=== PATIENT | male | born 1955 | race Caucasian/White ===

== ENCOUNTER → 2016-11-12 | Outpatient (CLI) | payer MEDICARE, OTHER ==
[~2016-11-12] MED LIST: /WARF2TA PO; ATOR1TAB21 PO; BACL10TA2 PO; COUM1TAB19 PO; CYCL10TA PO; FURO40TA2 PO; GABA300C3 PO; LYRI150C PO; LYRI75CA PO; NORC7.5T PO; NORT50CA PO; PAXI40TA2 PO; PRED20TA PO; SYNT25TA PO; VICO5TAB16 PO; VITA100L PO; VITA500019 PO; WARF05TA PO; WELL75TA PO; ZOLP-189 PO
--- NOTE | 2016-11-28 01:12 | ECWPNPC ---
PATIENT NAME: INDIRA BRASWELL : 1955 GENDER: MALE VISIT DATE: 11/12/2016 DISCHARGE DATE: 11/12/16 1052 VISIT LOCKED DATE TIME: PHYSICIAN: NATHAN MADSEN PHYSICIAN PAGER NO: [phone] RESOURCE: NATHAN MADSEN REASON FOR APPOINTMENT 1. FOLLOW UP-BACK HISTORY OF PRESENT ILLNESS HISTORY OF PRESENT ILLNESS: PAIN THE PATIENT DESCRIBES THE PAIN... FALL RISK SCREENING: SCREENING :NO FALLS IN THE PAST YEAR TODAY'S VISIT: NOTES: RATES PAIN TODAY 3-4/10. DESCRIBES PAIN BURNING, SHARP AND STABBING, SHOOTING. PAIN IS CENTERED IN LOW BACK WITH RADIATION TO BOTH LEGS. STATES PAIN IS MAKING HIM UNABLE STAY ASLEEP.NOTES PAIN IS CONTINIOUS AND IT IS NERVE PAIN THAT IS CAUSING THE AWAKING. NO NEW WEAKNESS, HAS OCCASIONAL TINGLING IN BOTH LEGS. NO LOSS OF BOWEL OR BLADDER CONTROL. IS HAVING HARD TIME WITH PROLONGED SITTING OR STANDING. NO SHOOTING PAIN WITH WALKING. . CURRENT MEDICATIONS TAKING MIRALAX - POWDER 17 GRAMS ORALLY IN WATER OR JUICE ONCE A DAY TAKING PAXIL 60 MG TABLET 1 TABLET ORALLY ONCE A DAY TAKING COUMADIN 3 MG TABLET 1/2 TABLET ON MONDAYS AND THURSDAYS THEN 1 TABLET THE ROW ORALLY ONCE DAILY TAKING LIPITOR 20 MG TABLET 1 TABLET ORALLY ONCE A DAY TAKING VITAMIN D (CHOLECALCIFEROL) 5000 UNIT TABLET 1 TAB ORALLY ONCE A DAY TAKING CALCIUM 600+D HIGH POTENCY 600-400 MG-UNIT TABLET 1 TABLET WITH FOOD ORALLY ONCE A DAY TAKING LASIX 40 MG TABLET 1 TABLET ORALLY ONCE A DAY TAKING AMITRIPTYLINE HCL 50 TABLET 1 ORALLY AT BEDTIME TAKING VIIBRYD 20 MG TABLET 2 TABLETS WITH FOOD ORALLY ONCE A DAY TAKING TIZANIDINE HCL 2 MG TABLET 1 TABLET NEEDED ORALLY THREE TIMES A DAY TAKING BUPROPION HCL 75 MG TABLET 1 TABLET ORALLY EVERY MORNING TAKING ZOLPIDEM TARTRATE 10 MG TABLET 1 TABLET AT BEDTIME NEEDED ORALLY AT BEDTIME MDD :1 TAKING NORCO 7.5-325 MG TABLET 1 TABLET NEEDED ORALLY EVERY 6 HRS PRN PAIN MDD=4 TAKING LEVOTHYROXINE SODIUM 25 MCG TABLET 1 TABLET ORALLY ONCE A DAY NOT-TAKING LASIX 40 MG TABLET 1 TABLET ORALLY ONCE A DAY NOT-TAKING VICODIN 7.5 TABLET 1 TABLET NEEDED ORALLY EVERY 6 HRS PRN PAIN-MDD-4 MEDICATION LIST REVIEWED AND RECONCILED WITH THE PATIENT PAST MEDICAL HISTORY DEPRESSION HYPERLIPIDEMIA 2B RIGHT LOWER EXTREMITY DVT IN NOVEMBER 2009, IDIOPATHIC-NEGATIVE HYPERCOAGULABLE WORKUP EXCEPT FOR HETEROZYGOTE FOR FACTOR V 5 LEIDEN NICOTINE ADDICTION-SMOKES ROUGHLY 2 CIGARS DAILY X30 YEARS-APRIL 2011 FEV1 95% NORMAL/FVC 86% NORMAL L EAR HEARING LOSS STATUS POST RADIOFREQUENCY ABLATION FOR SYMPTOMATIC RECURRENT EXERCISE-INDUCED MONOMORPHIC V. TACH-JANUARY 2000-DR. 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 ANA RASCON [facility] 11/2012-06/2012 NEGATIVE MRI/MRA BRAIN/NEGATIVE OCULAR [id number]-LDENZ-4/2012//L QUADRICEPS MUSCLE [id number] MUSCLE FIBER ATROPHY, FAVOR NEUROPATHIC PROCESS-[facility] L POPLITEAL AND PERONEAL/ANTERIOR TIBIAL VEIN (OF PROXIMAL CALF) DVT AND GSV OCCLUSION-03/[id number] COUMADIN STARTED BODERLINE LVH, LVEF 75%, LAE 39 MM, NORMAL DIASTOLIC FUNCTION BY 11/2013 TTE-SIMONS LUMBAR DJD- 12/2013 MRI C DIFFUSE BULGES L2-S1 C L5/S1 BULGE ABUTTING B S1 NEVER ROOTS CERVICAL DJD C3-7 SPONDYLOSIS S CORD COMPRESION, MILD L C5 NARROWING BY 12/2013 MRI BORDERLINE LVH, LAE 39 MM BY TTE 11/2013-SIMONS HYPOTHYROIDISM, AUTOIMMUNE-12/2014 TPO AB 192, - TG AB SIGMOID DIVERTICULITIS, FIRST EPISODE BY 09/25/14 CT A/P, WBC 19.8, 08/2015 REPEAT WCB 14.1-RESOLVED C C/F 10D, 11/2015 REPEAT C C/F 10D FELL, BRUISED RIBS RIGHT SIDE 01/2016 ALLERGIES MOBIC: PSYCHOLOGICAL CHANGES, NAUSEA: ALLERGY LYRICA: SEVERE DEPRESSION SOCIAL HISTORY GENERAL: TOBACCO USE ARE YOU A:CURRENT SMOKER LEARNING BARRIERS / SPECIAL NEEDS ORIENTED TO PLAN OF CARE: PATIENT, PAIN MANAGEMENT PATIENT, ORIENTED TO PLAN OF CARE: PATIENT, PAIN MANAGEMENT PATIENT. NEW PATIENT PAIN DIARY TODAY'S VISITNOTES FROM 0-10, WHAT LEVEL IS YOUR PAIN TODAY?0 PAIN CLINIC PFS, CLERGY, PUBLIC HEALTH REFERRALS PFS REFERRAL NEEDED?NO PFS REFERRAL NEEDED?NO CLERGY REFERRAL NEEDED?NO CLERGY REFERRAL NEEDED?NO PUBLIC HEALTH REFERRAL NEEDED?NO PUBLIC HEALTH REFERRAL NEEDED?NO WAS THE PROVIDER NOTIFIED OF ANY PERTINENT INFO?NO WAS THE PROVIDER NOTIFIED OF ANY PERTINENT INFO?NO REVIEW OF SYSTEMS CONSTITUTIONAL: ANY CHANGE IN YOUR MEDICAL CONDITION? YES UNABLE TO SLEEP THROUGH THE NIGHT DUE TO BA K AN LEG PAIN . CHILLS NO . FEVER NO . INFECTION: DO YOU HAVE NEW INFECTIONS? NO . DO YOU HAVE HISTORY OF MRSA? NO . MUSCULOSKELETAL: ANY NEW PATTERNS OF PAIN OR NUMBNESS? NO . GASTROENTEROLOGY: ANY NEW CHANGE IN BOWEL CONTROL? NO . GENITOURINARY: ANY NEW CHANGE IN BLADDER CONTROL? NO . IS THERE A CHANCE YOU COULD BE ? NO . HEMATOLOGY/LYMPH: DO YOU TAKE ANY BLOOD THINNERS? (FOR EXAMPLE- COUMADIN, PLAVIX, AGGRENOX, PLATEL, PRADAXA, OR XARELTO) YES COUMADIN . WHEN WAS YOUR LAST DOSE? DATE: TIME: . NEUROLOGY: HAVE YOU FALLEN IN THE PAST 6 MONTHS? NO . ANY NEW EXTREMITY NUMBNESS OR WEAKNESS? NO . CARDIOLOGY: DO YOU HAVE A PACEMAKER OR DEFIBRILLATOR? NO . ANGINA DENIES . STROKE DENIES RECENT STROKE LIKE SYMPTOMS . CHEST PAIN PATIENT DENIES . SWELLING OF ANKLES NONE . RESPIRATORY: HAVE YOU BEEN SICK IN THE PAST WEEK? NO . FEVER NO . FLU LIKE SYMPTOMS? NO . COUGH NO . INTEGUMENTARY: DO YOU HAVE ANY RASHES OR OPEN SORES? NO . ALLERGIC/IMMUNO: ARE YOU ALLERGIC TO SHELLFISH OR IV DYE? NO . ANY NEW ALLERGIES? NO . PSYCHIATRIC: DO YOU HAVE THOUGHTS OF HURTING YOURSELF OR SOMEONE ELSE? NO . ARE YOU ABUSED, NEGLECTED, OR IN AN UNSAFE ENVIRONMENT? NO . ENDOCRINOLOGY: ARE YOU DIABETIC? NO . OTHER: DO YOU NEED ANY PRESCRIPTIONS? NO . IF YES, PLEASE LIST: ____ . ANY NEW PROBLEMS WITH YOUR MEDICATIONS? NO . WHEN DID YOU LAST EAT? ____ . WHEN DID YOU LAST DRINK? ____ . WHAT DID YOU LAST DRINK? ____ . NAME OF PERSON DRIVING YOU HOME? ____ . DO YOU HAVE ANY OTHER QUESTIONS OR CONCERNS NO . REVIEWED BY: PROVIDER: NATHAN KILPATRICK . VITAL SIGNS WT 115/69 LBS, HT 69 IN, BMI 28.20 INDEX, HR 70 /MIN, RR 18 /MIN, TEMP 97 F, OXYGEN SAT % 100, SAFE IN ENV? (Y/N) Y, REVIEWED BY: KG. EXAMINATION GENERAL EXAMINATION: PSYCHALERT , ORIENTED X 3 , QUIET. LUNGS:CLEAR TO AUSCULTATION BILATERALLY. HEART:HEART RATE REGULAR. MUSCULOSKELETAL:POINT TENDERNESS OVER LUMBAR SPINOUS PROCESSES AND ACROC THE LUMBAR FACETS AND PARASPINOUS MUSCLES. EXTREMITIES:NO EDEMA. 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 FACET ARTHROPATHY, LUMBOSACRAL INJECTION FACET JOINT/NERVE LUMBAR/SACRALWALNATHAN TRAN 11/12/2016 10:44:19 AM > RIGHT PROCEDURE CODES FA211 ESTABILISHED PATIENT [facility] FACILITY CHARGE G7884 BP SCR PRFRM RCMDD DEFIND SCR INTVL G8730 PAIN ASSESS POS TOOL F/U PLAN DOC 3016F PT SCRND UNHLTHY OH USE 1124F ACP DISCUSS-NO DSCNMKR DOCD 1036F TOBACCO NON-USER G8427 DOC MEDS VERIFIED W/PT OR RE G8420 BMI<30 AND >=22 CALC & DOCU 3288F FALL RISK ASSESSMENT DOCD FOLLOW UP AFTER INJECTION (REASON: CHECK AUTH FOR LUMBAR FACET BLOCK - ON COUMADIN - TO PUT COUMADIN HOLD FOR PROCEDURE) ELECTRONICALLY SIGNED BY JAMEY ENNIS ON 11/26/2016 AT 02:40 PM EST DISCLAIMER : THIS IS A VISIT SUMMARY EXTRACTED FROM THE [employer] CHART. IT IS NOT A COPY OF THE [employer] PROGRESS NOTE. KEITH
== END ==
LOC: M PAIN 10:00
PROVIDERS: ATTEND Nurse Practitioner Family
DX: Z09 Encounter for follow-up examination after completed treatment for conditions other than malignant neoplasm (principal); M79.1 Myalgia; M12.88 Other specific arthropathies, not elsewhere classified, other specified site; M51.17 Intervertebral disc disorders with radiculopathy, lumbosacral region; M50.222 Other cervical disc displacement at C5-C6 level; M50.31 Other cervical disc degeneration, high cervical region; M50.321 Other cervical disc degeneration at C4-C5 level; M50.322 Other cervical disc degeneration at C5-C6 level; M50.323 Other cervical disc degeneration at C6-C7 level; E78.5 Hyperlipidemia, unspecified; E03.9 Hypothyroidism, unspecified; H91.92 Unspecified hearing loss, left ear; I82.432 Acute embolism and thrombosis of left popliteal vein; K76.0 Fatty (change of) liver, not elsewhere classified; F32.9 Major depressive disorder, single episode, unspecified; F17.200 Nicotine dependence, unspecified, uncomplicated; Z88.8 Allergy status to other drugs, medicaments and biological substances; Z79.01 Long term (current) use of anticoagulants; Z79.891 Long term (current) use of opiate analgesic; Z79.899 Other long term (current) drug therapy; Z87.828 Personal history of other (healed) physical injury and trauma

== ENCOUNTER → 2016-11-15 | Outpatient (REF) | payer MEDICARE, OTHER ==
[2016-11-15 13:37] LABS: ALBUMIN 3.8 GM/DL (3.2-5.2); ALBUMIN/GLOBULIN RATIO 1.46 (1.00-1.93); ALKALINE PHOSPHATASE 88 U/L (45-117); ALT/SGPT 23 U/L (12-78); ANION GAP 7 MEQ/L (8-16); AST/SGOT 18 U/L (15-37); BILIRUBIN,TOTAL 0.4 MG/DL (0.2-1.0); BLOOD UREA NITROGEN 17 MG/DL (7-18); CALCIUM LEVEL 8.7 MG/DL (8.8-10.2); CARBON DIOXIDE LEVEL 30 MEQ/L (21-32); CHLORIDE LEVEL 107 MEQ/L (98-107); CREATININE FOR GFR 1.21 MG/DL (0.70-1.30); GLOMERULAR FILTRATION RATE > 60.0 (>49); GLUCOSE, FASTING 101 MG/DL (80-110); MAGNESIUM LEVEL 2.2 MG/DL (1.8-2.4); POTASSIUM SERUM 4.1 MEQ/L (3.5-5.1); SODIUM LEVEL 144 MEQ/L (136-145); TOTAL PROTEIN 6.4 GM/DL (6.4-8.2)
[2016-11-15 13:42] LABS: INR 2.39
== END ==
LOC: M SFHCPLAZ 11:08
PROVIDERS: ATTEND Family Medicine
DX: Z51.81 Encounter for therapeutic drug level monitoring (principal); R60.9 Edema, unspecified; N18.2 Chronic kidney disease, stage 2 (mild); I82.509 Chronic embolism and thrombosis of unspecified deep veins of unspecified lower extremity; Z79.01 Long term (current) use of anticoagulants; Z12.5 Encounter for screening for malignant neoplasm of prostate; E03.9 Hypothyroidism, unspecified; E55.9 Vitamin D deficiency, unspecified; K57.92 Diverticulitis of intestine, part unspecified, without perforation or abscess without bleeding
CPT/HCPCS: 36415; 80053; 83036; 83735; 83880; 85610; 85730; G0103

== ENCOUNTER → 2016-11-26 | Outpatient (CLI) | payer MEDICARE, OTHER ==
[~2016-11-26] MED LIST changes: +BUPIVACAINE HCL 0.25% 30 ML VIAL As Ordered ONE; +ISOVUE-M 300 61% 15ML VIAL (Q9967) As Ordered ONE; +LIDOCAINE 1% SDV INJ 30 ML VIAL As Ordered ONE; +TRIAMCINOLONE ACETONIDE SUSP 40 MG/ML VIAL (J3301) As Ordered ONE; +diazePAM 5 MG TAB As Ordered ONE; +oxyCODONE 5MG TAB As Ordered ONE
--- NOTE | 2016-11-26 11:51 | REP ---
PARTIAL LUMBAR SPINE SERIES: Two views. HISTORY: Facet block for pain. 6 seconds of fluoroscopy time is reported. FINDINGS: A sequence of two fluoroscopically obtained intraprocedural spot radiographs of the lumbar spine document needle position and contrast injection associated with lumbar facet injection procedure. Signed by Saul Palacios MD 11/26/2016 01:19 P
--- NOTE | 2016-11-29 23:56 | ECWPNPC ---
PATIENT NAME: INDIRA BRASWELL : 1955 GENDER: MALE VISIT DATE: 11/26/2016 DISCHARGE DATE: 11/26/16 1110 VISIT LOCKED DATE TIME: PHYSICIAN: LAURE ESCUDERO PHYSICIAN PAGER NO: [phone] RESOURCE: LAURE ESCUDERO REASON FOR APPOINTMENT 1. FACET HISTORY OF PRESENT ILLNESS HISTORY OF PRESENT ILLNESS: PAIN THE PATIENT DESCRIBES THE PAIN... FALL RISK SCREENING: SCREENING :NO FALLS IN THE PAST YEAR CURRENT MEDICATIONS TAKING MIRALAX - POWDER 17 GRAMS ORALLY IN WATER OR JUICE ONCE A DAY, NOTES: 11/25/162229 TAKING PAXIL 60 MG TABLET 1 TABLET ORALLY ONCE A DAY, NOTES: 11/25/16 1300 TAKING COUMADIN 3 MG TABLET 1/2 TABLET ON MONDAYS AND THURSDAYS THEN 1 TABLET THE ROW ORALLY ONCE DAILY, NOTES: 11/19/16 TAKING LIPITOR 20 MG TABLET 1 TABLET ORALLY ONCE A DAY, NOTES: 11/25/162229 TAKING VITAMIN D (CHOLECALCIFEROL) 5000 UNIT TABLET 1 TAB ORALLY ONCE A DAY, NOTES: 11/25/16 08 TAKING CALCIUM 600+D HIGH POTENCY 600-400 MG-UNIT TABLET 1 TABLET WITH FOOD ORALLY ONCE A DAY, NOTES: 11/25/16799 TAKING LASIX 40 MG TABLET 1 TABLET ORALLY ONCE A DAY, NOTES: 11/25/16 08 TAKING AMITRIPTYLINE HCL 50 TABLET 1 ORALLY AT BEDTIME, NOTES: 11/25/162229 TAKING BUPROPION HCL 75 MG TABLET 1 TABLET ORALLY EVERY MORNING, NOTES: 11/25/16 0900 TAKING NORCO 7.5-325 MG TABLET 1 TABLET NEEDED ORALLY EVERY 6 HRS PRN PAIN MDD=4, NOTES: 11/25/162229 TAKING LEVOTHYROXINE SODIUM 25 MCG TABLET 1 TABLET ORALLY ONCE A DAY, NOTES: 11/25/16 0700 TAKING ZOLPIDEM TARTRATE 10 MG TABLET 1 TABLET AT BEDTIME NEEDED ORALLY AT BEDTIME MDD :1, NOTES: 11/25/162229 TAKING TIZANIDINE HCL 2 MG TABLET 1 TABLET NEEDED ORALLY THREE TIMES A DAY, NOTES: 11/25/162229 TAKING VIIBRYD 20 MG TABLET 2 TABLETS WITH FOOD ORALLY ONCE A DAY, NOTES: 11/25/16 0800 NOT-TAKING LASIX 40 MG TABLET 1 TABLET ORALLY ONCE A DAY NOT-TAKING VICODIN 7.5 TABLET 1 TABLET NEEDED ORALLY EVERY 6 HRS PRN PAIN-MDD-4 MEDICATION LIST REVIEWED AND RECONCILED WITH THE PATIENT PAST MEDICAL HISTORY DEPRESSION HYPERLIPIDEMIA 2B RIGHT LOWER EXTREMITY DVT IN NOVEMBER 2009, IDIOPATHIC-NEGATIVE HYPERCOAGULABLE WORKUP EXCEPT FOR HETEROZYGOTE FOR FACTOR V 5 LEIDEN NICOTINE ADDICTION-SMOKES ROUGHLY 2 CIGARS DAILY X30 YEARS-APRIL 2011 FEV1 95% NORMAL/FVC 86% NORMAL L EAR HEARING LOSS STATUS POST RADIOFREQUENCY ABLATION FOR SYMPTOMATIC RECURRENT EXERCISE-INDUCED MONOMORPHIC V. TACH-JANUARY 2000-DR. 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 ANA RASCON [facility] 11/2012-06/2012 NEGATIVE MRI/MRA BRAIN/NEGATIVE OCULAR NVTRQAYQ-AHQSL-6/2012//L QUADRICEPS MUSCLE [id number] MUSCLE FIBER ATROPHY, FAVOR NEUROPATHIC PROCESS-[facility] POPLITEAL AND PERONEAL/ANTERIOR TIBIAL VEIN (OF PROXIMAL CALF) DVT AND GSV OCCLUSION-03/[id number] COUMADIN STARTED BODERLINE LVH, LVEF 75%, LAE 39 MM, NORMAL DIASTOLIC FUNCTION BY 11/2013 TTE-SIMONS LUMBAR DJD- 12/2013 MRI C DIFFUSE BULGES L2-S1 C L5/S1 BULGE ABUTTING B S1 NEVER ROOTS CERVICAL DJD C3-7 SPONDYLOSIS S CORD COMPRESION, MILD L C5 NARROWING BY 12/2013 MRI BORDERLINE LVH, LAE 39 MM BY TTE 11/2013-SIMONS HYPOTHYROIDISM, AUTOIMMUNE-12/2014 TPO AB 192, - TG AB SIGMOID DIVERTICULITIS, FIRST EPISODE BY 09/25/14 CT A/P, WBC 19.8, 08/2015 REPEAT WCB 14.1-RESOLVED C C/F 10D, 11/2015 REPEAT C C/F 10D FELL, BRUISED RIBS RIGHT SIDE 01/2016 ALLERGIES MOBIC: PSYCHOLOGICAL CHANGES, NAUSEA: ALLERGY LYRICA: SEVERE DEPRESSION SOCIAL HISTORY GENERAL: TOBACCO USE ARE YOU A:NONSMOKER LEARNING BARRIERS / SPECIAL NEEDS ORIENTED TO PLAN OF CARE: PATIENT, PAIN MANAGEMENT PATIENT, ORIENTED TO PLAN OF CARE: PATIENT, PAIN MANAGEMENT PATIENT. NEW PATIENT PAIN DIARY TODAY'S VISITNOTES FROM 0-10, WHAT LEVEL IS YOUR PAIN TODAY?0 PAIN CLINIC PFS, CLERGY, PUBLIC HEALTH REFERRALS PFS REFERRAL NEEDED?NO CLERGY REFERRAL NEEDED?NO PUBLIC HEALTH REFERRAL NEEDED?NO WAS THE PROVIDER NOTIFIED OF ANY PERTINENT INFO?NO PFS REFERRAL NEEDED?NO CLERGY REFERRAL NEEDED?NO PUBLIC HEALTH REFERRAL NEEDED?NO WAS THE PROVIDER NOTIFIED OF ANY PERTINENT INFO?NO REVIEW OF SYSTEMS CONSTITUTIONAL: ANY CHANGE IN YOUR MEDICAL CONDITION? NO . CHILLS NO . FEVER NO . INFECTION: DO YOU HAVE NEW INFECTIONS? NO . DO YOU HAVE HISTORY OF MRSA? NO . MUSCULOSKELETAL: ANY NEW PATTERNS OF PAIN OR NUMBNESS? NO . GASTROENTEROLOGY: ANY NEW CHANGE IN BOWEL CONTROL? NO . GENITOURINARY: ANY NEW CHANGE IN BLADDER CONTROL? NO . IS THERE A CHANCE YOU COULD BE ? NO . HEMATOLOGY/LYMPH: DO YOU TAKE ANY BLOOD THINNERS? (FOR EXAMPLE- COUMADIN, PLAVIX, AGGRENOX, PLATEL, PRADAXA, OR XARELTO) YES COUMADIN . WHEN WAS YOUR LAST DOSE? DATE: TIME: 11/19/162229 . NEUROLOGY: HAVE YOU FALLEN IN THE PAST 6 MONTHS? NO . ANY NEW EXTREMITY NUMBNESS OR WEAKNESS? NO . CARDIOLOGY: DO YOU HAVE A PACEMAKER OR DEFIBRILLATOR? NO . RESPIRATORY: HAVE YOU BEEN SICK IN THE PAST WEEK? NO . FEVER NO . FLU LIKE SYMPTOMS? NO . COUGH NO . INTEGUMENTARY: DO YOU HAVE ANY RASHES OR OPEN SORES? NO . ALLERGIC/IMMUNO: ARE YOU ALLERGIC TO SHELLFISH OR IV DYE? NO . ANY NEW ALLERGIES? NO . PSYCHIATRIC: DO YOU HAVE THOUGHTS OF HURTING YOURSELF OR SOMEONE ELSE? NO . ARE YOU ABUSED, NEGLECTED, OR IN AN UNSAFE ENVIRONMENT? NO . ENDOCRINOLOGY: ARE YOU DIABETIC? NO . OTHER: DO YOU NEED ANY PRESCRIPTIONS? YES HYDROCODONE-SENT TO [facility] . IF YES, PLEASE LIST: ____ . ANY NEW PROBLEMS WITH YOUR MEDICATIONS? NO . WHEN DID YOU LAST EAT? ____11/25/162199 . WHEN DID YOU LAST DRINK? ____11/25/162229 . WHAT DID YOU LAST DRINK? ____WATER . NAME OF PERSON DRIVING YOU HOME? ____CATHIE . DO YOU HAVE ANY OTHER QUESTIONS OR CONCERNS NO . REVIEWED BY: PROVIDER: . VITAL SIGNS WT 190 LBS, HT 69 IN, BMI 28.06 INDEX, BP 103/69 MM HG, HR 62 /MIN, RR 16 /MIN, TEMP 95.8 F, OXYGEN SAT % 98%, NA INITIALS SC 09:07, REVIEWED BY: MLF. ASSESSMENTS SPONDYLOSIS WITHOUT MYELOPATHY OR RADICULOPATHY, LUMBAR REGION - M47.816 (PRIMARY) SPONDYLOSIS WITHOUT MYELOPATHY OR RADICULOPATHY, LUMBOSACRAL REGION - M47.817 PROCEDURES PN LUMBAR FACET BLOCK THERAPEUTIC PRE PROCEDURE DIAGNOSIS LUMBAR SPONDYLOSIS, LUMBOSACRAL SPONDYLOSIS POST PROCEDURE DIAGNOSIS LUMBAR SPONDYLOSIS, LUMBOSACRAL SPONDYLOSIS PROCEDURE BILATERAL L4-L5 AND BILATERAL L5-S1 FACET THERAPEUTIC BLOCK SURGEON DR. LAURE ESCUDERO [facility] [employer] [facility] ANESTHESIA LOCAL PRE PROCEDURE NOTE THE PATIENT HAS A HISTORY OF CHRONIC LOW BACK PAIN. I EVALUATE THE PATIENT AND REVIEWED THE CHART. I WENT OVER THE RISKS, ALTERNATIVES, AND BENEFITS ASSOCIATED WITH THIS PROCEDURE. THE PATIENT WOULD LIKE TO PROCEED AND GIVE CONSENT TO PERFORMED THE PROCEDURE. THE PATIENT DENIES UNEXPLAINABLE WEIGHT LOSS, FEVER, CHILLS, OR NEW CHANGES IN URINARY OR BOWEL CONTROL DESCRIPTION OF PROCEDURE THE PATIENT WAS BROUGHT TO THE PROCEDURE ROOM AND PLACED IN THE PRONE POSITION. THE LUMBOSACRAL AREA WAS CLEANED WITH CHLORAPREP SOLUTION AND DRAPED ASEPTICALLY. THE PROCEDURE WAS DONE UNDER STERILE CONDITIONS. I CHECKED LATERALITY AND THE LEVEL WHERE THE PROCEDURE WAS GOING TO BE PERFORMED WITH THE PATIENT AND THE SUPPORTING STAFF AT THE MOMENT OF THE TIME OUT IN THE PROCEDURE ROOM. UNDER FLUOROSCOPIC GUIDANCE, THE TARGET POINT WAS SELECTED AT THE RIGHT AND LEFT L4-L5 AND RIGHT AND LEFT L5-S1 FACET JOINT. TARGET POINT WAS SELECTED AFTER LATERAL ROTATION AND TILT OF THE MAGNIFIER OF THE C-ARM. LIDOCAINE 0.5% WAS USED TO NUMB THE SKIN AND THE SUBCUTANEOUS TISSUE BELOW IT. SPINAL NEEDLES, 22-GAUGE, WERE ADVANCED UNDER FLUOROSCOPIC GUIDANCE AND FOLLOWING PATIENT FEEDBACK UNTIL THE TARGETS WERE TOUCHED. THE POSITION OF THE NEEDLES WAS VERIFIED WITH AP AND LATERAL VIEWS. AFTER PROPER POSITION OF THE NEEDLES WAS ACHIEVED, ISOVUE-M DYE 30% 0.1 ML WAS INJECTED SHOWING ADEQUATE SPREAD OF THE DYE. THEN A SOLUTION OF 1.9 ML OF BUPIVACAINE 0.125% OF KENALOG 10 MG WAS INJECTED AT EACH SITE. THERE WAS NO EVIDENCE OF BLOOD, PARESTHESIA OR CEREBROSPINAL FLUID DURING THE PROCEDURE. THE PATIENT WAS SENT TO THE RECOVERY ROOM. THE PATIENT WAS MOVING THE EXTREMITIES AND DOING WELL. THERE WAS NO COMPLICATION DURING THE PROCEDURE. FLUOROSCOPY TIME WAS 6 SECONDS POST PROCEDURE NOTE THE PATIENT WILL BE SEEN IN A FOLLOW UP IN THE NEXT FEW WEEKS. INSTRUCTIONS WERE GIVEN, QUESTIONS WERE ANSWERED, AND THE PATIENT EXPRESSED UNDERSTANDING AND AGREES WITH THE PLAN. INSTRUCTIONS WERE GIVEN, QUESTIONS WERE ANSWERED, PATIENT REPORTS UNDERSTANDING AND AGREES WITH THE PLAN. I, PJ ASHLEY, DOCUMENTED THE ABOVE INFORMATION ACTING A SCRIBE FOR DR. ESCUDERO. I HAVE REVIEWED THE ABOVE DOCUMENT, WRITTEN BY PJ ASHLEY SCRIBE AND I VERIFY THAT IT IS ACCURATE. [facility]ST[facility] FACET BLOCK (PAIN)[id number] PROCEDURE CODES 49332 INJ PARAVERT F JNT L/S 1 LEV 40141 INJ PARAVERT F JNT L/S 2 LEV 6045F RADXPS IN END [id number] PXD FOLLOW UP 3 WEEKS ELECTRONICALLY SIGNED BY LAURE ESCUDERO MD ON 11/29/2016 AT 02:00 PM EST DISCLAIMER : THIS IS A VISIT SUMMARY EXTRACTED FROM THE [employer] CHART. IT IS NOT A COPY OF THE [employer] PROGRESS NOTE. MTDD
== END ==
LOC: M PAIN 09:40
PROVIDERS: ATTEND Anesthesiology
DX: G89.29 Other chronic pain (principal); M79.1 Myalgia; M54.5 Low back pain; M47.816 Spondylosis without myelopathy or radiculopathy, lumbar region; M47.817 Spondylosis without myelopathy or radiculopathy, lumbosacral region; E03.9 Hypothyroidism, unspecified; F32.9 Major depressive disorder, single episode, unspecified; E78.5 Hyperlipidemia, unspecified; H91.90 Unspecified hearing loss, unspecified ear; K76.0 Fatty (change of) liver, not elsewhere classified; M51.86 Other intervertebral disc disorders, lumbar region; M50.321 Other cervical disc degeneration at C4-C5 level; M50.322 Other cervical disc degeneration at C5-C6 level; M50.323 Other cervical disc degeneration at C6-C7 level; Z88.6 Allergy status to analgesic agent; Z88.8 Allergy status to other drugs, medicaments and biological substances; Z86.718 Personal history of other venous thrombosis and embolism; Z79.891 Long term (current) use of opiate analgesic; Z79.899 Other long term (current) drug therapy; Z98.890 Other specified postprocedural states; Z51.81 Encounter for therapeutic drug level monitoring; Z79.01 Long term (current) use of anticoagulants
CPT/HCPCS: 36415; 64493; 64494; 85610; J3301; Q9967

== ENCOUNTER → 2016-11-26 | Outpatient (CLI) | payer MEDICARE, BC, OTHER ==
[~2016-11-26] MED LIST changes: -BUPIVACAINE HCL 0.25% 30 ML VIAL As Ordered ONE; -ISOVUE-M 300 61% 15ML VIAL (Q9967) As Ordered ONE; -LIDOCAINE 1% SDV INJ 30 ML VIAL As Ordered ONE; -TRIAMCINOLONE ACETONIDE SUSP 40 MG/ML VIAL (J3301) As Ordered ONE; -diazePAM 5 MG TAB As Ordered ONE; -oxyCODONE 5MG TAB As Ordered ONE
[2016-11-26 09:35] LABS: INR 1.05
== END ==
LOC: M LAB 08:38
PROVIDERS: ATTEND Nurse Practitioner Family
DX: M79.1 Myalgia (principal); Z51.81 Encounter for therapeutic drug level monitoring; Z79.01 Long term (current) use of anticoagulants

== ENCOUNTER → 2016-12-17 | Outpatient (CLI) | payer MEDICARE, OTHER ==
--- NOTE | 2016-12-26 01:09 | ECWPNPC ---
PATIENT NAME: INDIRA BRASWELL : 1955 GENDER: MALE VISIT DATE: 12/17/2016 DISCHARGE DATE: 12/17/16 1231 VISIT LOCKED DATE TIME: PHYSICIAN: NATHAN MADSEN PHYSICIAN PAGER NO: [phone] RESOURCE: NATHAN MADSEN REASON FOR APPOINTMENT 1. BACK HISTORY OF PRESENT ILLNESS HISTORY OF PRESENT ILLNESS: PAIN THE PATIENT DESCRIBES THE PAIN... FALL RISK SCREENING: SCREENING :NO FALLS IN THE PAST YEAR TODAY'S VISIT: NOTES: RATES PAIN TODAY 2-3/10. NOTES IMPROVENT IN LEGS WHEN APPEMPTING TO LAY DOWN OR SLEEP. HAS OCCASIONAL PAIN SHOOTING OVER THIGHS R>L TO MEDIAL PECT OF LEG - THIS HAS IMPROVED. WALKING IS NOT A PROBLEM BUT DOESN'T FEEL NATURAL. NO RECENT FALLS. REPORTS NO COMPLICATIONS FROM HAVING COUMADIN ON HOLD. DEBIES ANY EXXESSIVE BRUISING. CURRENT MEDICATIONS TAKING LEVOTHYROXINE SODIUM 25 MCG TABLET 1 TABLET ORALLY ONCE A DAY TAKING COUMADIN 3 MG TABLET 1 TABLET DAILY EXCEPT FOR 11/04 TAB=1.5MG ON FRI/THURSDAYS TAKING LIPITOR 20 MG TABLET 1 TABLET ORALLY ONCE A DAY TAKING LASIX 40 MG TABLET 1 TABLET ORALLY ONCE A DAY TAKING MIRALAX - POWDER 17 GRAMS ORALLY IN WATER OR JUICE ONCE A DAY, NOTES: 11/25/162229 TAKING PAXIL 60 MG TABLET 1 TABLET ORALLY ONCE A DAY, NOTES: 11/25/16 1300 TAKING NORCO 7.5-325 MG TABLET 1 TABLET NEEDED ORALLY EVERY 6 HRS PRN PAIN MDD=4, NOTES: 11/25/162229 TAKING ZOLPIDEM TARTRATE 10 MG TABLET 1 TABLET AT BEDTIME NEEDED ORALLY AT BEDTIME MDD :1, NOTES: 11/25/162229 TAKING VITAMIN D (CHOLECALCIFEROL) 5000 UNIT TABLET 1 TAB ORALLY ONCE A DAY TAKING CALCIUM 600+D HIGH POTENCY 600-400 MG-UNIT TABLET 1 TABLET WITH FOOD ORALLY ONCE A DAY TAKING AMITRIPTYLINE HCL 50 TABLET 1 ORALLY AT BEDTIME TAKING TIZANIDINE HCL 4 MG TABLET 1 TABLET NEEDED ORALLY THREE TIMES A DAY TAKING BUPROPION HCL 75 MG TABLET 1 TABLET ORALLY BID TAKING VIIBRYD 40 MG TABLET 1 TABLET WITH FOOD ORALLY ONCE A DAY DISCONTINUED AMBIEN 10 MG TABLET 1 TABLET ORAL DAILY AT BEDTIME MDD: 1 DISCONTINUED VICODIN 7.5 TABLET 1 TABLET NEEDED ORALLY EVERY 6 HRS PRN PAIN-MDD-4 MEDICATION LIST REVIEWED AND RECONCILED WITH THE PATIENT PAST MEDICAL HISTORY DEPRESSION HYPERLIPIDEMIA 2B RIGHT LOWER EXTREMITY DVT IN NOVEMBER 2009, IDIOPATHIC-NEGATIVE HYPERCOAGULABLE WORKUP EXCEPT FOR HETEROZYGOTE FOR FACTOR V 5 LEIDEN NICOTINE ADDICTION-SMOKES ROUGHLY 2 CIGARS DAILY X30 YEARS-APRIL 2011 FEV1 95% NORMAL/FVC 86% NORMAL L EAR HEARING LOSS STATUS POST RADIOFREQUENCY ABLATION FOR SYMPTOMATIC RECURRENT EXERCISE-INDUCED MONOMORPHIC V. TACH-JANUARY 2000-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 ANA RASCON [facility] 11/2012-06/2012 NEGATIVE MRI/MRA BRAIN/NEGATIVE OCULAR MYUPPZHS-LHPIA-3/2012//L QUADRICEPS MUSCLE AOCYZA-ACA-IJRHRXTX MUSCLE FIBER ATROPHY, FAVOR NEUROPATHIC PROCESS-[facility] L POPLITEAL AND PERONEAL/ANTERIOR TIBIAL VEIN (OF PROXIMAL CALF) DVT AND GSV OCCLUSION-03/[id number] COUMADIN STARTED BODERLINE LVH, LVEF 75%, LAE 39 MM, NORMAL DIASTOLIC FUNCTION BY 11/2013 TTE-SIMONS LUMBAR DJD- 12/2013 MRI C DIFFUSE BULGES L2-S1 C L5/S1 BULGE ABUTTING B S1 NEVER ROOTS CERVICAL DJD C3-7 SPONDYLOSIS S CORD COMPRESION, MILD L C5 NARROWING BY 12/2013 MRI BORDERLINE LVH, LAE 39 MM BY TTE 11/2013-SIMONS HYPOTHYROIDISM, AUTOIMMUNE-12/2014 TPO AB 192, - TG AB SIGMOID DIVERTICULITIS, FIRST EPISODE BY 09/25/14 CT A/P, WBC 19.8, 08/2015 REPEAT WCB 14.1-RESOLVED C C/F 10D, 11/2015 REPEAT C C/F 10D FELL, BRUISED RIBS RIGHT SIDE 01/2016 ALLERGIES MOBIC: PSYCHOLOGICAL CHANGES, NAUSEA: ALLERGY LYRICA: SEVERE DEPRESSION SOCIAL HISTORY GENERAL: TOBACCO USE ARE YOU A:NONSMOKER LEARNING BARRIERS / SPECIAL NEEDS ORIENTED TO PLAN OF CARE: PATIENT, PAIN MANAGEMENT PATIENT, ORIENTED TO PLAN OF CARE: PATIENT, PAIN MANAGEMENT PATIENT. NEW PATIENT PAIN DIARY TODAY'S VISITNOTES FROM 0-10, WHAT LEVEL IS YOUR PAIN TODAY?0 PAIN CLINIC PFS, CLERGY, PUBLIC HEALTH REFERRALS PFS REFERRAL NEEDED?NO CLERGY REFERRAL NEEDED?NO PUBLIC HEALTH REFERRAL NEEDED?NO WAS THE PROVIDER NOTIFIED OF ANY PERTINENT INFO?NO PFS REFERRAL NEEDED?NO CLERGY REFERRAL NEEDED?NO PUBLIC HEALTH REFERRAL NEEDED?NO WAS THE PROVIDER NOTIFIED OF ANY PERTINENT INFO?NO REVIEW OF SYSTEMS CONSTITUTIONAL: ANY CHANGE IN YOUR MEDICAL CONDITION? NO . CHILLS NO . FEVER NO . INFECTION: DO YOU HAVE NEW INFECTIONS? NO . DO YOU HAVE HISTORY OF MRSA? NO . MUSCULOSKELETAL: ANY NEW PATTERNS OF PAIN OR NUMBNESS? NO . GASTROENTEROLOGY: ANY NEW CHANGE IN BOWEL CONTROL? NO . GENITOURINARY: ANY NEW CHANGE IN BLADDER CONTROL? NO . IS THERE A CHANCE YOU COULD BE ? NO . HEMATOLOGY/LYMPH: DO YOU TAKE ANY BLOOD THINNERS? (FOR EXAMPLE- COUMADIN, PLAVIX, AGGRENOX, PLATEL, PRADAXA, OR XARELTO) YES COUMADIN . WHEN WAS YOUR LAST DOSE? DATE: TIME: . NEUROLOGY: HAVE YOU FALLEN IN THE PAST 6 MONTHS? NO . ANY NEW EXTREMITY NUMBNESS OR WEAKNESS? NO . CARDIOLOGY: DO YOU HAVE A PACEMAKER OR DEFIBRILLATOR? NO . RESPIRATORY: HAVE YOU BEEN SICK IN THE PAST WEEK? NO . FEVER NO . FLU LIKE SYMPTOMS? NO . COUGH NO . INTEGUMENTARY: DO YOU HAVE ANY RASHES OR OPEN SORES? NO . ALLERGIC/IMMUNO: ARE YOU ALLERGIC TO SHELLFISH OR IV DYE? NO . ANY NEW ALLERGIES? NO . PSYCHIATRIC: DO YOU HAVE THOUGHTS OF HURTING YOURSELF OR SOMEONE ELSE? NO . ARE YOU ABUSED, NEGLECTED, OR IN AN UNSAFE ENVIRONMENT? NO . ENDOCRINOLOGY: ARE YOU DIABETIC? NO . OTHER: DO YOU NEED ANY PRESCRIPTIONS? NO . IF YES, PLEASE LIST: ____ . ANY NEW PROBLEMS WITH YOUR MEDICATIONS? NO . WHEN DID YOU LAST EAT? ____ . WHEN DID YOU LAST DRINK? ____ . WHAT DID YOU LAST DRINK? ____ . NAME OF PERSON DRIVING YOU HOME? ____ . DO YOU HAVE ANY OTHER QUESTIONS OR CONCERNS NO . PSYCHOLOGY: DEPRESSION CONTROLLED, NO SUICIDAL IDEATION . REVIEWED BY: PROVIDER: NATHAN KILPATRICK . VITAL SIGNS WT 188.4 LBS, HT 69 IN, BMI 27.82 INDEX, BP 117/67 MM HG, HR 82 /MIN, RR 16 /MIN, TEMP 96.7 F, OXYGEN SAT % 96%, NA INITIALS SC 12:04. EXAMINATION GENERAL EXAMINATION: PSYCHALERT , ORIENTED X 3 , QUIET. LUNGS:CLEAR TO AUSCULTATION BILATERALLY. HEART:HEART RATE REGULAR. MUSCULOSKELETAL:POINT TENDERNESS OVER LUMBAR SPINOUS PROCESSES AND ACROC THE LUMBAR FACETS AND PARASPINOUS MUSCLES. EXTREMITIES:NO EDEMA. ASSESSMENTS MYALGIA - M79.1 (PRIMARY) FACET ARTHROPATHY, LUMBOSACRAL - M12.88 INTERVERTEBRAL DISC DISORDER WITH RADICULOPATHY OF LUMBOSACRAL REGION - M51.17 TREATMENT MYALGIA NOTES: CONTINUE EXERCISES AND STRETCHES. CONTINUE MEDS PER PCP. PROCEDURE CODES FA211 ESTABILISHED PATIENT [facility] FACILITY CHARGE G8730 PAIN ASSESS POS TOOL F/U PLAN DOC G8427 DOC MEDS VERIFIED W/PT OR RE DISPOSITION & COMMUNICATION FOLLOW UP 2 MONTHS ELECTRONICALLY SIGNED BY JAMEY ENNIS ON 12/25/2016 AT 06:21 PM EST DISCLAIMER : THIS IS A VISIT SUMMARY EXTRACTED FROM THE [employer] CHART. IT IS NOT A COPY OF THE [employer] PROGRESS NOTE. MTDD
== END ==
LOC: M PAIN 11:00
PROVIDERS: ATTEND Nurse Practitioner Family
DX: M79.1 Myalgia (principal); M12.88 Other specific arthropathies, not elsewhere classified, other specified site; M51.17 Intervertebral disc disorders with radiculopathy, lumbosacral region; G89.29 Other chronic pain; Z79.891 Long term (current) use of opiate analgesic; Z79.899 Other long term (current) drug therapy; Z88.8 Allergy status to other drugs, medicaments and biological substances; F32.9 Major depressive disorder, single episode, unspecified; E03.9 Hypothyroidism, unspecified; E78.5 Hyperlipidemia, unspecified; Z86.718 Personal history of other venous thrombosis and embolism

== ENCOUNTER → 2017-01-20 | Outpatient (CLI) | payer MEDICARE, OTHER ==
[2017-01-20 13:09] LABS: BASO % 0.3 % (0.0-1.0); EOS # 0.6 K/mm3 (0.0-0.50); EOS % 5.5 % (0.0-3.0); LARGE UNSTAINED CELL # 0.2 K/mm3 (0.0-0.4); LARGE UNSTAINED CELL % 1.9 % (0.0-4.0); LYMPH # 3.6 K/mm3 (1.5-4.5); LYMPH % 33.5 % (24.0-44.0); MEAN CORPUSCULAR HEMOGLOBIN 30.7 pg (27.0-33.0); MEAN CORPUSCULAR HGB CONC 34.3 g/dl (32.0-36.5); MEAN CORPUSCULAR VOLUME 89.5 fl (80.0-96.0); MONO # 0.5 K/mm3 (0.0-0.8); MONO % 5.2 % (0.0-5.0); NEUTROPHILS # 5.4 K/mm3 (1.8-7.7); NEUTROPHILS % 53.6 % (36.0-66.0); PLATELET COUNT, AUTOMATED 286 k/mm3 (150-450); RED CELL DISTRIBUTION WIDTH 12.7 % (11.5-14.5); WHITE BLOOD COUNT 10.1 K/mm3 (4.0-10.0)
[2017-01-20 13:14] LABS: INR 2.4
[2017-01-20 13:52] LABS: ALBUMIN 3.8 GM/DL (3.2-5.2); ALBUMIN/GLOBULIN RATIO 1.36 (1.00-1.93); ALKALINE PHOSPHATASE 90 U/L (45-117); ALT/SGPT 25 U/L (12-78); ANION GAP 8 MEQ/L (8-16); AST/SGOT 20 U/L (15-37); BILIRUBIN,TOTAL 0.6 MG/DL (0.2-1.0); BLOOD UREA NITROGEN 15 MG/DL (7-18); CALCIUM LEVEL 8.7 MG/DL (8.8-10.2); CARBON DIOXIDE LEVEL 29 MEQ/L (21-32); CHLORIDE LEVEL 104 MEQ/L (98-107); CHOLESTEROL LEVEL 114 MG/DL (<200); CREATININE FOR GFR 1.19 MG/DL (0.70-1.30); FERRITIN 87 NG/ML (26-388); FREE T4 0.91 NG/DL (0.76-1.46); GLOMERULAR FILTRATION RATE > 60.0 (>49); GLUCOSE, FASTING 90 MG/DL (80-110); PERCENT SATURATION 39.9 % (19.7-37.4); POTASSIUM SERUM 4.4 MEQ/L (3.5-5.1); SODIUM LEVEL 141 MEQ/L (136-145); TOTAL IRON BINDING CAPACITY 263 UG/DL (250-450); TOTAL PROTEIN 6.6 GM/DL (6.4-8.2); TRIGLYCERIDES LEVEL 95 MG/DL (<150)
== END ==
LOC: M WUC 09:36
PROVIDERS: ATTEND Family Medicine
DX: E03.9 Hypothyroidism, unspecified (principal); N18.2 Chronic kidney disease, stage 2 (mild); I82.509 Chronic embolism and thrombosis of unspecified deep veins of unspecified lower extremity; E78.5 Hyperlipidemia, unspecified; Z79.899 Other long term (current) drug therapy

== ENCOUNTER → 2017-02-18 | Outpatient (CLI) | payer MEDICARE, OTHER ==
[~2017-02-18] MED LIST changes: +GABA-282 PO; -GABA300C3 PO
[2017-02-18 13:45] LABS: INR 2.16
[2017-02-18 14:03] LABS: ALBUMIN 3.6 GM/DL (3.2-5.2); ALBUMIN/GLOBULIN RATIO 1.44 (1.00-1.93); ALKALINE PHOSPHATASE 75 U/L (45-117); ALT/SGPT 24 U/L (12-78); ANION GAP 5 MEQ/L (8-16); AST/SGOT 17 U/L (15-37); BILIRUBIN,TOTAL 0.5 MG/DL (0.2-1.0); BLOOD UREA NITROGEN 10 MG/DL (7-18); CALCIUM LEVEL 8.5 MG/DL (8.8-10.2); CARBON DIOXIDE LEVEL 32 MEQ/L (21-32); CHLORIDE LEVEL 107 MEQ/L (98-107); CREATININE FOR GFR 1.14 MG/DL (0.70-1.30); GLOMERULAR FILTRATION RATE > 60.0 (>49); GLUCOSE, FASTING 92 MG/DL (80-110); POTASSIUM SERUM 4.2 MEQ/L (3.5-5.1); SODIUM LEVEL 144 MEQ/L (136-145); TOTAL PROTEIN 6.1 GM/DL (6.4-8.2)
== END ==
LOC: M WUC 11:01
PROVIDERS: ATTEND Family Medicine
DX: R73.01 Impaired fasting glucose (principal); E55.9 Vitamin D deficiency, unspecified; I82.509 Chronic embolism and thrombosis of unspecified deep veins of unspecified lower extremity

== ENCOUNTER → 2017-02-18 | Outpatient (CLI) | payer MEDICARE, OTHER ==
--- NOTE | 2017-03-04 02:04 | ECWPNPC ---
PATIENT NAME: INDIRA BRASWELL : 1955 GENDER: MALE VISIT DATE: 02/18/2017 DISCHARGE DATE: 02/18/17 1033 VISIT LOCKED DATE TIME: PHYSICIAN: NATHAN MADSEN PHYSICIAN PAGER NO: [phone] RESOURCE: NATHAN MADSEN REASON FOR APPOINTMENT 1. BACK HISTORY OF PRESENT ILLNESS HISTORY OF PRESENT ILLNESS: PAIN THE PATIENT DESCRIBES THE PAIN... FALL RISK SCREENING: SCREENING :NO FALLS IN THE PAST YEAR TODAY'S VISIT: NOTES: RATES PAIN TODAY 2-3/10. DESCRIBES PAIN SHARP AND NOTES PAIN RADIATES FROM LOW BACK TO BOTH LEGS TO THE LEVEL OF THE KNEE.. CURRENT MEDICATIONS TAKING MIRALAX - POWDER 17 GRAMS ORALLY IN WATER OR JUICE ONCE A DAY TAKING PAXIL 60 MG TABLET 1 TABLET ORALLY ONCE A DAY TAKING ZOLPIDEM TARTRATE 10 MG TABLET 1 TABLET AT BEDTIME NEEDED ORALLY AT BEDTIME MDD :1 TAKING LEVOTHYROXINE SODIUM 25 MCG TABLET 1 TABLET ORALLY ONCE A DAY TAKING LIPITOR 20 MG TABLET 1 TABLET ORALLY ONCE A DAY TAKING AMBIEN 10 MG TABLET 1 TABLET ORAL DAILY AT BEDTIME MDD: 1 TAKING LASIX 40 MG TABLET 1 TABLET ORALLY ONCE A DAY TAKING AMITRIPTYLINE HCL 50 TABLET 1 ORALLY AT BEDTIME TAKING VITAMIN D (CHOLECALCIFEROL) 5000 UNIT TABLET 1 TAB ORALLY ONCE A DAY TAKING CALCIUM 600+D HIGH POTENCY 600-400 MG-UNIT TABLET 1 TABLET WITH FOOD ORALLY ONCE A DAY TAKING BUPROPION HCL 75 MG TABLET 1 TABLET ORALLY BID TAKING VIIBRYD 40 MG TABLET 1 TABLET WITH FOOD ORALLY ONCE A DAY TAKING NORCO 7.5-325 MG TABLET 1 TABLET NEEDED ORALLY EVERY 6 HRS PRN PAIN MDD=4 TAKING COUMADIN 3 MG TABLET 1 TABLET ORALLY 1/2 TABLET ON AND SAT DIRECTED NOT-TAKING TIZANIDINE HCL 4 MG TABLET 1 TABLET NEEDED ORALLY THREE TIMES A DAY MEDICATION LIST REVIEWED AND RECONCILED WITH THE PATIENT PAST MEDICAL HISTORY DEPRESSION HYPERLIPIDEMIA 2B RIGHT LOWER EXTREMITY DVT IN NOVEMBER 2009, IDIOPATHIC-NEGATIVE HYPERCOAGULABLE WORKUP EXCEPT FOR HETEROZYGOTE FOR FACTOR V 5 LEIDEN NICOTINE ADDICTION-SMOKES ROUGHLY 2 CIGARS DAILY X30 YEARS-APRIL 2011 FEV1 95% NORMAL/FVC 86% NORMAL L EAR HEARING LOSS STATUS POST RADIOFREQUENCY ABLATION FOR SYMPTOMATIC RECURRENT EXERCISE-INDUCED MONOMORPHIC V. TACH-JANUARY 2000-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 ANA RASCON [facility] 11/2012-06/2012 NEGATIVE MRI/MRA BRAIN/NEGATIVE OCULAR BWGBWIFX-GQAEY-9/2012//L QUADRICEPS MUSCLE QZEDIB-CAI-GNKVXGDH MUSCLE FIBER ATROPHY, FAVOR NEUROPATHIC PROCESS-[facility] L POPLITEAL AND PERONEAL/ANTERIOR TIBIAL VEIN (OF PROXIMAL CALF) DVT AND GSV OCCLUSION-03/[id number] COUMADIN STARTED BODERLINE LVH, LVEF 75%, LAE 39 MM, NORMAL DIASTOLIC FUNCTION BY 11/2013 TTE-SIMONS LUMBAR DJD- 12/2013 MRI C DIFFUSE BULGES L2-S1 C L5/S1 BULGE ABUTTING B S1 NEVER ROOTS CERVICAL DJD C3-7 SPONDYLOSIS S CORD COMPRESION, MILD L C5 NARROWING BY 12/2013 MRI BORDERLINE LVH, LAE 39 MM BY TTE 11/2013-SIMONS HYPOTHYROIDISM, AUTOIMMUNE-12/2014 TPO AB 192, - TG AB SIGMOID DIVERTICULITIS, FIRST EPISODE BY 09/25/14 CT A/P, WBC 19.8, 08/2015 REPEAT WCB 14.1-RESOLVED C C/F 10D, 11/2015 REPEAT C C/F 10D FELL, BRUISED RIBS RIGHT SIDE 01/2016 ALLERGIES MOBIC: PSYCHOLOGICAL CHANGES, NAUSEA: ALLERGY LYRICA: SEVERE DEPRESSION SURGICAL HISTORY LEFT PAROTID TUMOR REMOVAL X 3 SOCIAL HISTORY GENERAL: PAIN CLINIC PFS, CLERGY, PUBLIC HEALTH REFERRALS CLERGY REFERRAL NEEDED?NO WAS THE PROVIDER NOTIFIED OF ANY PERTINENT INFO?NO PFS REFERRAL NEEDED?NO PUBLIC HEALTH REFERRAL NEEDED?NO PATIENT: ____. HOSPITALIZATION/MAJOR DIAGNOSTIC PROCEDURE SURGERIES REVIEW OF SYSTEMS CONSTITUTIONAL: ANY CHANGE IN YOUR MEDICAL CONDITION? NO . CHILLS NO . FEVER NO . INFECTION: DO YOU HAVE NEW INFECTIONS? NO . DO YOU HAVE HISTORY OF MRSA? NO . MUSCULOSKELETAL: ANY NEW PATTERNS OF PAIN OR NUMBNESS? NO . GASTROENTEROLOGY: ANY NEW CHANGE IN BOWEL CONTROL? NO . GENITOURINARY: ANY NEW CHANGE IN BLADDER CONTROL? NO . IS THERE A CHANCE YOU COULD BE ? NO . HEMATOLOGY/LYMPH: DO YOU TAKE ANY BLOOD THINNERS? (FOR EXAMPLE- COUMADIN, PLAVIX, AGGRENOX, PLATEL, PRADAXA, OR XARELTO) YES - COUMADIN , REPORTS RECENT INR THERAPEUTIC . WHEN WAS YOUR LAST DOSE? DATE: TIME: . NEUROLOGY: HAVE YOU FALLEN IN THE PAST 6 MONTHS? NO . ANY NEW EXTREMITY NUMBNESS OR WEAKNESS? NO . CARDIOLOGY: DO YOU HAVE A PACEMAKER OR DEFIBRILLATOR? NO . CHEST PAIN PATIENT DENIES . RESPIRATORY: HAVE YOU BEEN SICK IN THE PAST WEEK? NO . FEVER NO . FLU LIKE SYMPTOMS? NO . COUGH NO . INTEGUMENTARY: DO YOU HAVE ANY RASHES OR OPEN SORES? NO . ALLERGIC/IMMUNO: ARE YOU ALLERGIC TO SHELLFISH OR IV DYE? NO . ANY NEW ALLERGIES? NO . PSYCHIATRIC: DO YOU HAVE THOUGHTS OF HURTING YOURSELF OR SOMEONE ELSE? NO . ARE YOU ABUSED, NEGLECTED, OR IN AN UNSAFE ENVIRONMENT? NO . ENDOCRINOLOGY: ARE YOU DIABETIC? NO . OTHER: DO YOU NEED ANY PRESCRIPTIONS? NO . IF YES, PLEASE LIST: ____ . ANY NEW PROBLEMS WITH YOUR MEDICATIONS? NO . WHEN DID YOU LAST EAT? ____ . WHEN DID YOU LAST DRINK? ____ . WHAT DID YOU LAST DRINK? ____ . NAME OF PERSON DRIVING YOU HOME? ____ . DO YOU HAVE ANY OTHER QUESTIONS OR CONCERNS NO . PSYCHOLOGY: DEPRESSION IMPROVED WITH SPRING WEATHER . REVIEWED BY: PROVIDER: NATHAN KILPATRICK . VITAL SIGNS WT 192.8 LBS, HT 69 IN, BMI 28.47 INDEX, BP 124/71 MM HG, HR 69 /MIN, RR 18 /MIN, TEMP 97.1 F, OXYGEN SAT % 97%, NA INITIALS AW 0952. EXAMINATION GENERAL EXAMINATION: GENERAL APPEARANCE:COLOR PINK, SKIN WARM AND DRY. PSYCHSMILING, , GOOD EYE CONTACT, ALERT , ORIENTED X 3 . LUNGS:CLEAR TO AUSCULTATION BILATERALLY, NO WHEEZES, RHONCHI, RALES. HEART:HEART RATE REGULAR. MUSCULOSKELETAL:MUSCLE STRENGTH TESTING 5/5 BILATERAL LOWER EXTREMITES BUT SOME WEAKNESS WITH HIP FLEXION. POINT TENDERNESS WITH PALPATION OVER RIGHT LUMBAR PARAVERTEBRAL MUSCLES. SLOW TO RISE TO STANDING POSITION. EXTREMITIES:NO EDEMA. ASSESSMENTS DJD (DEGENERATIVE JOINT DISEASE), LUMBAR - M47.816 (PRIMARY) FACET ARTHROPATHY, LUMBAR - M12.88 FACET ARTHROPATHY, LUMBOSACRAL - M12.88 LUMBAR RADICULOPATHY - M54.16 CHRONICALLY ON OPIATE THERAPY - Z79.891 TREATMENT DJD (DEGENERATIVE JOINT DISEASE), LUMBAR REFILL NORCO TABLET, 7.5-325 MG, 1 TABLET NEEDED, ORALLY, EVERY 6 HRS PRN PAIN MDD=4, 30 DAY(S), 120, REFILLS 0 NOTES: CONTINUE CURRENT MEDS UTOX TODAY, # 226 TOBACCO USE SCREENING/INTERVENTION: PATIENT CURRENTLY USED TOBACCO. INTERMITTANTLY. FALLS CARE PLAN: 1. RECOMMEND REMOVING ALL THROW RUGS. 2. RECOMMEND NIGHT LIGHTS 3. RECOMMEND WEARING RUBBER SOLED SHOES AND TO NOT GO BAREFOOT. 4.. ADVISED TO CHANGE POSITION SLOWLY FROM SUPINE TO STANDING TO AVOID DIZZINESS. 5. ADVISED TO USE ASSISTIVE DEVICE SUCH CANE OR WALKER 6. USE LIFELINE SERVICES OR KEEP PORTABLE PHONE READILY AVAILABLE, WAS OFFERED SMOKING CESSATION FOR GUIDANCE IN QUITTING THROUGH THE [facility] QUITS PROGRAM AND THE [facility] CESSATION PROGRAM. CLINICAL NOTES: ISTOP REGISTRY REVIEWED AND DEMNOSTRATES COMPLLIANCE. BRINGS IN MEDICATIONS WHICH IS APPROPRIATE FOR WHAT WAS DISPENSED. RECENT URINE TOXICOLOGY REVIEWED. NO UNAUTHORIZED MEDICATIONS. NO ILLICIT SUBSTANCES AND PRESCRIBED MEDICATIONS WERE PRESENT. PROCEDURE CODES FA211 ESTABILISHED PATIENT [facility] FACILITY CHARGE G8783 BP SCR PRFRM RCMDD DEFIND SCR INTVL G8730 PAIN ASSESS POS TOOL F/U PLAN DOC 3016F PT SCRND UNHLTHY OH USE 1123F ACP DISCUSS/DSCN MKR DOCD 0518F FALL PLAN OF CARE DOCD G8471 DOC MEDS VERIFIED W/PT OR RE G8420 BMI<30 AND >=22 CALC & DOCU 4004F PT TOBACCO SCREEN RCVD TLK DISPOSITION & COMMUNICATION FOLLOW UP 1 MONTH ELECTRONICALLY SIGNED BY JAMEY ENNIS ON 03/03/2017 AT 10:04 AM EDT DISCLAIMER : THIS IS A VISIT SUMMARY EXTRACTED FROM THE [employer] CHART. IT IS NOT A COPY OF THE [employer] PROGRESS NOTE. KEITH
== END | disposition home or self-care (01) ==
LOC: M PAIN 10:00
PROVIDERS: ATTEND Nurse Practitioner Family
DX: G89.29 Other chronic pain (principal); M47.816 Spondylosis without myelopathy or radiculopathy, lumbar region; M12.88 Other specific arthropathies, not elsewhere classified, other specified site; M54.16 Radiculopathy, lumbar region; F32.9 Major depressive disorder, single episode, unspecified; E03.9 Hypothyroidism, unspecified; E78.5 Hyperlipidemia, unspecified; Z86.718 Personal history of other venous thrombosis and embolism; Z79.899 Other long term (current) drug therapy; Z79.01 Long term (current) use of anticoagulants; Z88.8 Allergy status to other drugs, medicaments and biological substances
CPT/HCPCS: 36415; 80053; 82306; 83036; 83970; 85610; 85730; G0463

== ENCOUNTER → 2017-03-18 | Outpatient (CLI) | payer MEDICARE, OTHER ==
--- NOTE | 2017-04-02 02:21 | ECWPNPC ---
PATIENT NAME: INDIRA BRASWELL : 1955 GENDER: MALE VISIT DATE: 03/18/2017 DISCHARGE DATE: 03/18/17 1056 VISIT LOCKED DATE TIME: PHYSICIAN: NATHAN MADSEN PHYSICIAN PAGER NO: [phone] RESOURCE: NATHAN MADSEN REASON FOR APPOINTMENT 1. BACK HISTORY OF PRESENT ILLNESS HISTORY OF PRESENT ILLNESS: PAIN THE PATIENT DESCRIBES THE PAIN... FALL RISK SCREENING: SCREENING :NO FALLS IN THE PAST YEAR TODAY'S VISIT: NOTES: STATES PAIN LEVEL IS MUCH IMPROVED. REPORTS NO CHEST TRAV OR OTHER ADVERSE EFFECTS WHILE OFF COUMADIN. RATES PAIN LEVEL TODAY 2-3/10. DESCRIBES PAIN BURNING INTO LOW BACK, AND LEGS. DESCRIBES THIS NERVE PAIN. HAS BEEN ABLE TO BE MORE ACTIVE AND CAN WALK. . CURRENT MEDICATIONS TAKING COUMADIN 3 MG TABLET 1 TABLET ORALLY 1/2 TABLET ON , AND SAT DIRECTED TAKING MIRALAX - POWDER 17 GRAMS ORALLY IN WATER OR JUICE ONCE A DAY TAKING LEVOTHYROXINE SODIUM 25 MCG TABLET 1 TABLET ORALLY ONCE A DAY TAKING LIPITOR 20 MG TABLET 1 TABLET ORALLY ONCE A DAY TAKING LASIX 40 MG TABLET 1 TABLET ORALLY ONCE A DAY TAKING AMITRIPTYLINE HCL 50 TABLET 1 ORALLY AT BEDTIME TAKING VITAMIN D (CHOLECALCIFEROL) 5000 UNIT TABLET 1 TAB ORALLY ONCE A DAY TAKING CALCIUM 600+D HIGH POTENCY 600-400 MG-UNIT TABLET 1 TABLET WITH FOOD ORALLY ONCE A DAY TAKING BUPROPION HCL 75 MG TABLET 1 TABLET ORALLY BID TAKING VIIBRYD 40 MG TABLET 1 TABLET WITH FOOD ORALLY ONCE A DAY TAKING NORCO 7.5-325 MG TABLET 1 TABLET NEEDED ORALLY EVERY 6 HRS PRN PAIN MDD=4 TAKING TIZANIDINE HCL 4 MG TABLET 1 TABLET NEEDED ORALLY THREE TIMES A DAY TAKING ZOLPIDEM TARTRATE 10 MG TABLET 1 TABLET AT BEDTIME NEEDED ORALLY AT BEDTIME MDD :1 NOT-TAKING PAXIL 60 MG TABLET 1 TABLET ORALLY ONCE A DAY NOT-TAKING AMBIEN 10 MG TABLET 1 TABLET ORAL DAILY AT BEDTIME MDD: 1 MEDICATION LIST REVIEWED AND RECONCILED WITH THE PATIENT PAST MEDICAL HISTORY DEPRESSION HYPERLIPIDEMIA 2B RIGHT LOWER EXTREMITY DVT IN NOVEMBER 2009, IDIOPATHIC-NEGATIVE HYPERCOAGULABLE WORKUP EXCEPT FOR HETEROZYGOTE FOR FACTOR V 5 LEIDEN NICOTINE ADDICTION-SMOKES ROUGHLY 2 CIGARS DAILY X30 YEARS-APRIL 2011 FEV1 95% NORMAL/FVC 86% NORMAL L EAR HEARING LOSS STATUS POST RADIOFREQUENCY ABLATION FOR SYMPTOMATIC RECURRENT EXERCISE-INDUCED MONOMORPHIC V. TACH-JANUARY 2000-DR. 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 ANA RASCON [facility] 11/2012-06/2012 NEGATIVE MRI/MRA BRAIN/NEGATIVE OCULAR QCLVUBPH-RYMBT-4/2012//L QUADRICEPS MUSCLE [id number] MUSCLE FIBER ATROPHY, FAVOR NEUROPATHIC PROCESS-[facility] L POPLITEAL AND PERONEAL/ANTERIOR TIBIAL VEIN (OF PROXIMAL CALF) DVT AND GSV OCCLUSION-03/[id number] COUMADIN STARTED BODERLINE LVH, LVEF 75%, LAE 39 MM, NORMAL DIASTOLIC FUNCTION BY 11/2013 TTE-SIMONS LUMBAR DJD- 12/2013 MRI C DIFFUSE BULGES L2-S1 C L5/S1 BULGE ABUTTING B S1 NEVER ROOTS CERVICAL DJD C3-7 SPONDYLOSIS S CORD COMPRESION, MILD L C5 NARROWING BY 12/2013 MRI BORDERLINE LVH, LAE 39 MM BY TTE 11/2013-SIMONS HYPOTHYROIDISM, AUTOIMMUNE-12/2014 TPO AB 192, - TG AB SIGMOID DIVERTICULITIS, FIRST EPISODE BY 09/25/14 CT A/P, WBC 19.8, 08/2015 REPEAT WCB 14.1-RESOLVED C C/F 10D, 11/2015 REPEAT C C/F 10D FELL, BRUISED RIBS RIGHT SIDE 01/2016 ALLERGIES MOBIC: PSYCHOLOGICAL CHANGES, NAUSEA: ALLERGY LYRICA: SEVERE DEPRESSION SURGICAL HISTORY LEFT PAROTID TUMOR REMOVAL X 3 2001 SOCIAL HISTORY GENERAL: TOBACCO USE ARE YOU A:CURRENT SMOKER PATIENT COUNSELED ON THE DANGERS OF TOBACCO USE AND URGED TO QUIT:03/18/2017 ARE YOU INTERESTED IN QUITTING?NOT READY TO QUIT COUNSELED THE PATIENT ON SMOKING EFFECTS, EDUCATION [id number]/16/2017 ADDITIONAL FINDINGS: TOBACCO USERCIGAR SMOKER PROTESTANT [id number] NONE LEARNING BARRIERS / SPECIAL NEEDS CHANGE FROM LAST VISIT?YES BARRIERS TO LEARNING?NO HEARING IMPAIRED?NO VISION IMPAIRED?YES :CORRECTIVE LENSES COGNITIVELY IMPAIRED?NO READINESS TO LEARN?YES LEARNING PREFERENCES?NO LEARNING CAPABILITIES PRESENT?YES EMOTIONAL BARRIERS?NO SPECIAL DEVICES?NO MAINTENANCE OF WAY CLERK NEEDED?NO PAIN CLINIC PFS, CLERGY, PUBLIC HEALTH REFERRALS PFS REFERRAL NEEDED? NO , CLERGY REFERRAL NEEDED? NO , PUBLIC HEALTH REFERRAL NEEDED? NO , WAS THE PROVIDER NOTIFIED OF ANY PERTINENT INFO? NO . PATIENT: ____. 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 HOSPITALIZATION/MAJOR DIAGNOSTIC PROCEDURE SURGERIES REVIEW OF SYSTEMS CONSTITUTIONAL: ANY CHANGE IN YOUR MEDICAL CONDITION? NO . CHILLS NO . FEVER NO . INFECTION: DO YOU HAVE NEW INFECTIONS? NO . DO YOU HAVE HISTORY OF MRSA? NO . MUSCULOSKELETAL: ANY NEW PATTERNS OF PAIN OR NUMBNESS? NO . GASTROENTEROLOGY: ANY NEW CHANGE IN BOWEL CONTROL? NO . GENITOURINARY: ANY NEW CHANGE IN BLADDER CONTROL? NO . IS THERE A CHANCE YOU COULD BE ? NO . HEMATOLOGY/LYMPH: DO YOU TAKE ANY BLOOD THINNERS? (FOR EXAMPLE- COUMADIN, PLAVIX, AGGRENOX, PLATEL, PRADAXA, OR XARELTO) NO . WHEN WAS YOUR LAST DOSE? DATE: TIME: . NEUROLOGY: HAVE YOU FALLEN IN THE PAST 6 MONTHS? NO . ANY NEW EXTREMITY NUMBNESS OR WEAKNESS? NO . CARDIOLOGY: DO YOU HAVE A PACEMAKER OR DEFIBRILLATOR? NO . CHEST PAIN PATIENT DENIES . RESPIRATORY: HAVE YOU BEEN SICK IN THE PAST WEEK? YES . FEVER NO . FLU LIKE SYMPTOMS? NO . COUGH NO MOSTLY RESOLVED FROM RECENT URI. . INTEGUMENTARY: DO YOU HAVE ANY RASHES OR OPEN SORES? NO . ALLERGIC/IMMUNO: ARE YOU ALLERGIC TO SHELLFISH OR IV DYE? NO . ANY NEW ALLERGIES? NO . PSYCHIATRIC: DO YOU HAVE THOUGHTS OF HURTING YOURSELF OR SOMEONE ELSE? NO . ARE YOU ABUSED, NEGLECTED, OR IN AN UNSAFE ENVIRONMENT? NO . ENDOCRINOLOGY: ARE YOU DIABETIC? NO . OTHER: DO YOU NEED ANY PRESCRIPTIONS? NO . IF YES, PLEASE LIST: ____ . ANY NEW PROBLEMS WITH YOUR MEDICATIONS? NO . WHEN DID YOU LAST EAT? ____ . WHEN DID YOU LAST DRINK? ____ . WHAT DID YOU LAST DRINK? ____ . NAME OF PERSON DRIVING YOU HOME? ____ . DO YOU HAVE ANY OTHER QUESTIONS OR CONCERNS NO . REVIEWED BY: PROVIDER: NATHAN KILPATRICK . VITAL SIGNS WT 190.6 LBS, HT 69 IN, BMI 28.14 INDEX, BP 143/68 MM HG, HR 73 /MIN, RR 18 /MIN, TEMP 98.0 F, OXYGEN SAT % 97%, NA INITIALS SC 10:31, REVIEWED BY: LS. EXAMINATION GENERAL EXAMINATION: GENERAL APPEARANCE:COLOR PINK, SKIN WARM AND DRY. PSYCHSMILING, , GOOD EYE CONTACT, ALERT , ORIENTED X 3 . LUNGS:CLEAR TO AUSCULTATION BILATERALLY, NO WHEEZES, RHONCHI, RALES. HEART:HEART RATE REGULAR. MUSCULOSKELETAL:MUSCLE STRENGTH TESTING 5/5 BILATERAL LOWER EXTREMITES BUT SOME WEAKNESS WITH HIP FLEXION. MINIMAL TENDERNESS WITH PALPATION OVER RIGHT LUMBAR PARAVERTEBRAL MUSCLES. RISES TO STANDING POSITION WITHOUT DIFFICULTY. POSTUE UPRIGHT. GAIT WIDEBASED, NONANTALGIC. EXTREMITIES:NO EDEMA. 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 CONTINIE WALKING, EXERCIISES AND STRETCHES. CLINICAL NOTES: ISTOP REGISTRY REVIEWED AND DEMNOSTRATES COMPLLIANCE. BRINGS IN MEDICATIONS WHICH IS APPROPRIATE FOR WHAT WAS DISPENSED. RECENT URINE TOXICOLOGY REVIEWED. NO UNAUTHORIZED MEDICATIONS. NO ILLICIT SUBSTANCES AND PRESCRIBED MEDICATIONS WERE PRESENT. PROCEDURE CODES FA211 ESTABILISHED PATIENT [facility] FACILITY CHARGE [id number] PAIN ASSESS POS TOOL F/U PLAN DOC G8427 DOC MEDS VERIFIED W/PT OR RE DISPOSITION & COMMUNICATION FOLLOW UP 1 MONTH ELECTRONICALLY SIGNED BY JAMEY ENNIS ON 04/01/2017 AT 01:27 PM EDT DISCLAIMER : THIS IS A VISIT SUMMARY EXTRACTED FROM THE [employer] CHART. IT IS NOT A COPY OF THE [employer] PROGRESS NOTE. KEITH
== END | disposition home or self-care (01) ==
LOC: M PAIN 10:20
PROVIDERS: ATTEND Nurse Practitioner Family
DX: G89.29 Other chronic pain (principal); M12.88 Other specific arthropathies, not elsewhere classified, other specified site; M54.16 Radiculopathy, lumbar region; F32.9 Major depressive disorder, single episode, unspecified; E03.9 Hypothyroidism, unspecified; E78.5 Hyperlipidemia, unspecified; Z86.718 Personal history of other venous thrombosis and embolism; Z79.899 Other long term (current) drug therapy; Z79.01 Long term (current) use of anticoagulants; Z88.8 Allergy status to other drugs, medicaments and biological substances; F17.290 Nicotine dependence, other tobacco product, uncomplicated

== ENCOUNTER → 2017-04-15 | Outpatient (CLI) | payer MEDICARE, OTHER, BC ==
[~2017-04-15] MED LIST changes: -NORC7.5T PO; +NORC7.5T35 PO
--- NOTE | 2017-05-03 00:27 | ECWPNPC ---
PATIENT NAME: INDIRA BRASWELL : 1955 GENDER: MALE VISIT DATE: 04/15/2017 DISCHARGE DATE: 04/15/17 1003 VISIT LOCKED DATE TIME: PHYSICIAN: NATHAN MADSEN PHYSICIAN PAGER NO: [phone] RESOURCE: NATHAN MADSEN REASON FOR APPOINTMENT 1. BACK HISTORY OF PRESENT ILLNESS HISTORY OF PRESENT ILLNESS: PAIN THE PATIENT DESCRIBES THE PAIN... FALL RISK SCREENING: SCREENING :NO FALLS IN THE PAST YEAR TODAY'S VISIT: NOTES: RATES PAIN LEVEL TODAY 3/10. IS HAVING SOME INCREASING DISCOMFORT AND WEAKNESS IN THE LEGS. R>L. HAS SOME LAGGING IN RIGHT LEG. HAS SOME DIFF GOING DOWN STAIRS. SLEEP HAS BEEN GOOD. . CURRENT MEDICATIONS TAKING MIRALAX - POWDER 17 GRAMS ORALLY IN WATER OR JUICE ONCE A DAY TAKING LEVOTHYROXINE SODIUM 25 MCG TABLET 1 TABLET ORALLY ONCE A DAY TAKING LIPITOR 20 MG TABLET 1 TABLET ORALLY ONCE A DAY TAKING LASIX 40 MG TABLET 1 TABLET ORALLY ONCE A DAY TAKING AMITRIPTYLINE HCL 50 TABLET 1 ORALLY AT BEDTIME TAKING VITAMIN D (CHOLECALCIFEROL) 5000 UNIT TABLET 1 TAB ORALLY ONCE A DAY TAKING CALCIUM 600+D HIGH POTENCY 600-400 MG-UNIT TABLET 1 TABLET WITH FOOD ORALLY ONCE A DAY TAKING BUPROPION HCL 75 MG TABLET 1 TABLET ORALLY BID TAKING TIZANIDINE HCL 4 MG TABLET 1 TABLET NEEDED ORALLY THREE TIMES A DAY TAKING ZOLPIDEM TARTRATE 10 MG TABLET 1 TABLET AT BEDTIME NEEDED ORALLY AT BEDTIME MDD :1 TAKING VIIBRYD 40 MG TABLET 1 TABLET WITH FOOD ORALLY ONCE A DAY TAKING NORCO 7.5-325 MG TABLET 1 TABLET NEEDED ORALLY EVERY 6 HRS PRN PAIN MDD=4 TAKING COUMADIN 3 MG TABLET 1 TABLET ORALLY 1/2 TABLET ON MON., TH AND SAT, ROW ONE TAB. DIRECTED NOT-TAKING PAXIL 60 MG TABLET 1 TABLET ORALLY ONCE A DAY NOT-TAKING AMBIEN 10 MG TABLET 1 TABLET ORAL DAILY AT BEDTIME MDD: 1 MEDICATION LIST REVIEWED AND RECONCILED WITH THE PATIENT PAST MEDICAL HISTORY DEPRESSION HYPERLIPIDEMIA 2B RIGHT LOWER EXTREMITY DVT IN NOVEMBER 2009, IDIOPATHIC-NEGATIVE HYPERCOAGULABLE WORKUP EXCEPT FOR HETEROZYGOTE FOR FACTOR V 5 LEIDEN NICOTINE ADDICTION-SMOKES ROUGHLY 2 CIGARS DAILY X30 YEARS-APRIL 2011 FEV1 95% NORMAL/FVC 86% NORMAL L EAR HEARING LOSS STATUS POST RADIOFREQUENCY ABLATION FOR SYMPTOMATIC RECURRENT EXERCISE-INDUCED MONOMORPHIC V. TACH-JANUARY 2000-DR. 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 ANA RASCON [facility] 11/2012-06/2012 NEGATIVE MRI/MRA BRAIN/NEGATIVE OCULAR HQOHIODQ-WCKNO-8/2012//L QUADRICEPS MUSCLE [id number] MUSCLE FIBER ATROPHY, FAVOR NEUROPATHIC PROCESS-[facility] L POPLITEAL AND PERONEAL/ANTERIOR TIBIAL VEIN (OF PROXIMAL CALF) DVT AND GSV OCCLUSION-03/[id number] COUMADIN STARTED BODERLINE LVH, LVEF 75%, LAE 39 MM, NORMAL DIASTOLIC FUNCTION BY 11/2013 TTE-SIMONS LUMBAR DJD- 12/2013 MRI C DIFFUSE BULGES L2-S1 C L5/S1 BULGE ABUTTING B S1 NEVER ROOTS CERVICAL DJD C3-7 SPONDYLOSIS S CORD COMPRESION, MILD L C5 NARROWING BY 12/2013 MRI BORDERLINE LVH, LAE 39 MM BY TTE 11/2013-SIMONS HYPOTHYROIDISM, AUTOIMMUNE-12/2014 TPO AB 192, - TG AB SIGMOID DIVERTICULITIS, FIRST EPISODE BY 09/25/14 CT A/P, WBC 19.8, 08/2015 REPEAT WCB 14.1-RESOLVED C C/F 10D, 11/2015 REPEAT C C/F 10D FELL, BRUISED RIBS RIGHT SIDE 01/2016 ALLERGIES MOBIC: PSYCHOLOGICAL CHANGES, NAUSEA: ALLERGY LYRICA: SEVERE DEPRESSION REVIEW OF SYSTEMS REVIEWED BY: PROVIDER: NATHAN KILPATRICK . CONSTITUTIONAL: ANY CHANGE IN YOUR MEDICAL CONDITION? NO . CHILLS NO . FEVER NO . INFECTION: DO YOU HAVE NEW INFECTIONS? NO . DO YOU HAVE HISTORY OF MRSA? NO . MUSCULOSKELETAL: ANY NEW PATTERNS OF PAIN OR NUMBNESS? NO . GASTROENTEROLOGY: ANY NEW CHANGE IN BOWEL CONTROL? NO . GENITOURINARY: ANY NEW CHANGE IN BLADDER CONTROL? NO . IS THERE A CHANCE YOU COULD BE ? NO . HEMATOLOGY/LYMPH: DO YOU TAKE ANY BLOOD THINNERS? (FOR EXAMPLE- COUMADIN, PLAVIX, AGGRENOX, PLATEL, PRADAXA, OR XARELTO) YES, COUMADIN . WHEN WAS YOUR LAST DOSE? DATE: 04/14/17 TIME: 2229 . NEUROLOGY: HAVE YOU FALLEN IN THE PAST 6 MONTHS? NO . ANY NEW EXTREMITY NUMBNESS OR WEAKNESS? NO . CARDIOLOGY: DO YOU HAVE A PACEMAKER OR DEFIBRILLATOR? NO . RESPIRATORY: HAVE YOU BEEN SICK IN THE PAST WEEK? NO . FEVER NO . FLU LIKE SYMPTOMS? NO . COUGH NO . INTEGUMENTARY: DO YOU HAVE ANY RASHES OR OPEN SORES? NO . ALLERGIC/IMMUNO: ARE YOU ALLERGIC TO SHELLFISH OR IV DYE? NO . ANY NEW ALLERGIES? NO . PSYCHIATRIC: DO YOU HAVE THOUGHTS OF HURTING YOURSELF OR SOMEONE ELSE? NO . ARE YOU ABUSED, NEGLECTED, OR IN AN UNSAFE ENVIRONMENT? NO . ENDOCRINOLOGY: ARE YOU DIABETIC? NO . OTHER: DO YOU NEED ANY PRESCRIPTIONS? NO . IF YES, PLEASE LIST: ____ . ANY NEW PROBLEMS WITH YOUR MEDICATIONS? NO . WHEN DID YOU LAST EAT? ____ . WHEN DID YOU LAST DRINK? ____ . WHAT DID YOU LAST DRINK? ____ . NAME OF PERSON DRIVING YOU HOME? ____ . DO YOU HAVE ANY OTHER QUESTIONS OR CONCERNS NO . VITAL SIGNS WT 190.4 LBS, HT 69 IN, BMI 28.11 INDEX, BP 106/67 MM HG, HR 80 /MIN, RR 18 /MIN, TEMP 97.4 F, OXYGEN SAT % 97%, NA INITIALS SC 09:28, REVIEWED BY: LARISSA. EXAMINATION GENERAL EXAMINATION: GENERAL APPEARANCE:COLOR PINK, SKIN WARM AND DRY. PSYCHSMILING, , GOOD EYE CONTACT, ALERT , ORIENTED X 3 . LUNGS:CLEAR TO AUSCULTATION BILATERALLY, NO WHEEZES, RHONCHI, RALES. HEART:HEART RATE REGULAR. MUSCULOSKELETAL:MUSCLE STRENGTH TESTING 5/5 BILATERAL LOWER EXTREMITES BUT SOME WEAKNESS WITH HIP FLEXION. MINIMAL TENDERNESS WITH PALPATION OVER RIGHT LUMBAR PARAVERTEBRAL MUSCLES. RISES TO STANDING POSITION WITHOUT DIFFICULTY. POSTUE UPRIGHT. GAIT WIDEBASED, NONANTALGIC. EXTREMITIES:NO EDEMA. 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 WALK DAILY. CONTINUE CURRENT MEDS. CLINICAL NOTES: ISTOP REGISTRY REVIEWED AND DEMNOSTRATES COMPLLIANCE. BRINGS IN MEDICATIONS WHICH IS APPROPRIATE FOR WHAT WAS DISPENSED. RECENT URINE TOXICOLOGY REVIEWED. NO UNAUTHORIZED MEDICATIONS. NO ILLICIT SUBSTANCES AND PRESCRIBED MEDICATIONS WERE PRESENT. PROCEDURE CODES FA211 ESTABILISHED PATIENT [facility] FACILITY CHARGE G8730 PAIN ASSESS POS TOOL F/U PLAN DOC G8427 DOC MEDS VERIFIED W/PT OR RE DISPOSITION & COMMUNICATION FOLLOW UP 1 MONTH (REASON: LOW BACK PAIN) ELECTRONICALLY SIGNED BY JAMEY ENNIS ON 05/02/2017 AT 08:54 AM EDT DISCLAIMER : THIS IS A VISIT SUMMARY EXTRACTED FROM THE [email or web address] CHART. IT IS NOT A COPY OF THE [email or web address] PROGRESS NOTE. MTDD
== END | disposition home or self-care (01) ==
LOC: M PAIN 09:20
PROVIDERS: ATTEND Nurse Practitioner Family
DX: G89.29 Other chronic pain (principal); M12.88 Other specific arthropathies, not elsewhere classified, other specified site; M54.16 Radiculopathy, lumbar region; M47.816 Spondylosis without myelopathy or radiculopathy, lumbar region; F33.9 Major depressive disorder, recurrent, unspecified; E78.5 Hyperlipidemia, unspecified; Z86.718 Personal history of other venous thrombosis and embolism; F17.290 Nicotine dependence, other tobacco product, uncomplicated; H91.92 Unspecified hearing loss, left ear; K76.0 Fatty (change of) liver, not elsewhere classified; M51.9 Unspecified thoracic, thoracolumbar and lumbosacral intervertebral disc disorder; E03.9 Hypothyroidism, unspecified; Z88.8 Allergy status to other drugs, medicaments and biological substances; Z79.899 Other long term (current) drug therapy; Z79.01 Long term (current) use of anticoagulants
CPT/HCPCS: 85610; G0463

== ENCOUNTER → 2017-05-20 | Outpatient (CLI) | payer MEDICARE, BC, OTHER ==
[~2017-05-20] MED LIST changes: +BUPIVACAINE HCL 0.25% 30 ML VIAL As Ordered ONE; +ISOVUE-M 300 61% 15ML VIAL (Q9967) As Ordered ONE; +LIDOCAINE 1% SDV INJ 30 ML VIAL As Ordered ONE; +TRIAMCINOLONE ACETONIDE SUSP 40 MG/ML VIAL (J3301) As Ordered ONE
--- NOTE | 2017-05-20 14:40 | REP ---
Partial lumbar spine series: Two views . History: Injection procedure for pain. 28 seconds of fluoroscopy time is reported. Findings: A sequence of two fluoroscopically obtained last image hold procedural spot radiographs of the lumbar spine document needle position and contrast injection associated with injection procedure. Signed by Saul Palacios MD 05/20/2017 02:32 P
--- NOTE | 2017-06-03 00:46 | ECWPNPC ---
PATIENT NAME: INDIRA BRASWELL : 1955 GENDER: MALE VISIT DATE: 05/20/2017 DISCHARGE DATE: 05/20/17 1414 VISIT LOCKED DATE TIME: PHYSICIAN: LAURE ESCUDERO PHYSICIAN PAGER NO: [phone] RESOURCE: LAURE ESCUDERO REASON FOR APPOINTMENT 1. BILATERAL THERAPEUTIC FACET BLOCK AT L4-5, L5_S1 HISTORY OF PRESENT ILLNESS HISTORY OF PRESENT ILLNESS: PAIN THE PATIENT DESCRIBES THE PAIN... FALL RISK SCREENING: SCREENING :NO FALLS IN THE PAST YEAR CURRENT MEDICATIONS TAKING COUMADIN 3 MG TABLET 1 TABLET ORALLY 1/2 TABLET ON MON., AND SAT, ROW ONE TAB. DIRECTED, NOTES: 05-14-172099 TAKING MIRALAX - POWDER 17 GRAMS ORALLY IN WATER OR JUICE ONCE A DAY, NOTES: 899 TAKING LASIX 40 MG TABLET 1 TABLET ORALLY ONCE A DAY, NOTES: 05-19-172099 TAKING AMITRIPTYLINE HCL 50 TABLET 1 ORALLY AT BEDTIME, NOTES: 05-19-172099 TAKING VITAMIN D (CHOLECALCIFEROL) 5000 UNIT TABLET 1 TAB ORALLY ONCE A DAY, NOTES: 05-19-172099 TAKING CALCIUM 600+D HIGH POTENCY 600-400 MG-UNIT TABLET 1 TABLET WITH FOOD ORALLY ONCE A DAY, NOTES: 05-19-17899 TAKING BUPROPION HCL 75 MG TABLET 1 TABLET ORALLY BID, NOTES: 05-19 TAKING ZOLPIDEM TARTRATE 10 MG TABLET 1 TABLET AT BEDTIME NEEDED ORALLY AT BEDTIME MDD :1, NOTES: 05-19 TAKING VIIBRYD 40 MG TABLET 1 TABLET WITH FOOD ORALLY ONCE A DAY, NOTES: 05-19 TAKING LEVOTHYROXINE SODIUM 25 MCG TABLET 1 TABLET ORALLY ONCE A DAY, NOTES: 05-19 TAKING NORCO 7.5-325 MG TABLET 1 TABLET NEEDED ORALLY EVERY 6 HRS PRN PAIN MDD=4, NOTES: 05-19 TAKING TIZANIDINE HCL 4 MG TABLET 1.5 TABLET NEEDED ORALLY THREE TIMES A DAY, NOTES: 05-19 TAKING LIPITOR 20 MG TABLET 1 TABLET ORALLY ONCE A DAY, NOTES: 05-19 NOT-TAKING PAXIL 60 MG TABLET 1 TABLET ORALLY ONCE A DAY NOT-TAKING AMBIEN 10 MG TABLET 1 TABLET ORAL DAILY AT BEDTIME MDD: 1 MEDICATION LIST REVIEWED AND RECONCILED WITH THE PATIENT PAST MEDICAL HISTORY DEPRESSION HYPERLIPIDEMIA 2B RIGHT LOWER EXTREMITY DVT IN NOVEMBER 2009, IDIOPATHIC-NEGATIVE HYPERCOAGULABLE WORKUP EXCEPT FOR HETEROZYGOTE FOR FACTOR V 5 LEIDEN NICOTINE ADDICTION-SMOKES ROUGHLY 2 CIGARS DAILY X30 YEARS-APRIL 2011 FEV1 95% NORMAL/FVC 86% NORMAL L EAR HEARING LOSS STATUS POST RADIOFREQUENCY ABLATION FOR SYMPTOMATIC RECURRENT EXERCISE-INDUCED MONOMORPHIC V. TACH-JANUARY 2000-DR. 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 ANA RASCON [facility] 11/2012-06/2012 NEGATIVE MRI/MRA BRAIN/NEGATIVE OCULAR [id number]-XFREZ-6/2012//L QUADRICEPS MUSCLE [id number] MUSCLE FIBER ATROPHY, FAVOR NEUROPATHIC PROCESS-[facility] L POPLITEAL AND PERONEAL/ANTERIOR TIBIAL VEIN (OF PROXIMAL CALF) DVT AND GSV OCCLUSION-03/[id number]-[facility]WE COUMADIN STARTED BODERLINE LVH, LVEF 75%, LAE 39 MM, NORMAL DIASTOLIC FUNCTION BY 11/2013 TTE-SIMONS LUMBAR DJD- 12/2013 MRI C DIFFUSE BULGES L2-S1 C L5/S1 BULGE ABUTTING B S1 NEVER ROOTS CERVICAL DJD C3-7 SPONDYLOSIS S CORD COMPRESION, MILD L C5 NARROWING BY 12/2013 MRI BORDERLINE LVH, LAE 39 MM BY TTE 11/2013-SIMONS HYPOTHYROIDISM, AUTOIMMUNE-12/2014 TPO AB 192, - TG AB SIGMOID DIVERTICULITIS, FIRST EPISODE BY 09/25/14 CT A/P, WBC 19.8, 08/2015 REPEAT WCB 14.1-RESOLVED C C/F 10D, 11/2015 REPEAT C C/F 10D FELL, BRUISED RIBS RIGHT SIDE 01/2016 ALLERGIES MOBIC: PSYCHOLOGICAL CHANGES, NAUSEA: ALLERGY LYRICA: SEVERE DEPRESSION REVIEW OF SYSTEMS REVIEWED BY: PROVIDER: . CONSTITUTIONAL: ANY CHANGE IN YOUR MEDICAL CONDITION? NO . CHILLS NO . FEVER NO . INFECTION: DO YOU HAVE NEW INFECTIONS? NO . DO YOU HAVE HISTORY OF MRSA? NO . MUSCULOSKELETAL: ANY NEW PATTERNS OF PAIN OR NUMBNESS? NO . GASTROENTEROLOGY: ANY NEW CHANGE IN BOWEL CONTROL? NO . GENITOURINARY: ANY NEW CHANGE IN BLADDER CONTROL? NO . IS THERE A CHANCE YOU COULD BE ? NO . HEMATOLOGY/LYMPH: DO YOU TAKE ANY BLOOD THINNERS? (FOR EXAMPLE- COUMADIN, PLAVIX, AGGRENOX, PLATEL, PRADAXA, OR XARELTO) NO . WHEN WAS YOUR LAST DOSE? DATE: TIME: . NEUROLOGY: HAVE YOU FALLEN IN THE PAST 6 MONTHS? NO . ANY NEW EXTREMITY NUMBNESS OR WEAKNESS? NO . CARDIOLOGY: DO YOU HAVE A PACEMAKER OR DEFIBRILLATOR? NO . RESPIRATORY: HAVE YOU BEEN SICK IN THE PAST WEEK? NO . FEVER NO . FLU LIKE SYMPTOMS? NO . COUGH NO . INTEGUMENTARY: DO YOU HAVE ANY RASHES OR OPEN SORES? NO . ALLERGIC/IMMUNO: ARE YOU ALLERGIC TO SHELLFISH OR IV DYE? NO . ANY NEW ALLERGIES? NO . PSYCHIATRIC: DO YOU HAVE THOUGHTS OF HURTING YOURSELF OR SOMEONE ELSE? NO . ARE YOU ABUSED, NEGLECTED, OR IN AN UNSAFE ENVIRONMENT? NO . ENDOCRINOLOGY: ARE YOU DIABETIC? NO . OTHER: DO YOU NEED ANY PRESCRIPTIONS? NO . IF YES, PLEASE LIST: ____ . ANY NEW PROBLEMS WITH YOUR MEDICATIONS? NO . WHEN DID YOU LAST EAT? ____830 PM LAST NIGHT 05-19-17 . WHEN DID YOU LAST DRINK? ____LAST NIGHT 10 PM . WHAT DID YOU LAST DRINK? ____WATER . NAME OF PERSON DRIVING YOU HOME? ____WIFE GERALDINE BRASWELL . DO YOU HAVE ANY OTHER QUESTIONS OR CONCERNS NO . VITAL SIGNS WT 192.8 LBS, HT 69 IN, BMI 28.47 INDEX, BP 136/73 MM HG, HR 74 /MIN, RR 18 /MIN, TEMP 97.7 F, OXYGEN SAT % 96%, NA INITIALS SC 10:59, REVIEWED BY: KG. ASSESSMENTS SPONDYLOSIS WITHOUT MYELOPATHY OR RADICULOPATHY, LUMBAR REGION - M47.816 (PRIMARY) SPONDYLOSIS WITHOUT MYELOPATHY OR RADICULOPATHY, LUMBOSACRAL REGION - M47.817 PROCEDURES PN LUMBAR FACET BLOCK THERAPEUTIC PRE PROCEDURE DIAGNOSIS LUMBAR SPONDYLOSIS, LUMBOSACRAL SPONDYLOSIS POST PROCEDURE DIAGNOSIS LUMBOSACRAL SPONDYLOSIS, LUMBAR SPONDYLOSIS PROCEDURE BILATERAL L4-L5 AND BILATERAL L5-S1 LUMBAR FACET THERAPEUTIC BLOCK SURGEON DR. LAURE ESCUDERO WAFER MACHINE OPERATOR NONE ANESTHESIA LOCAL PRE PROCEDURE NOTE THE PATIENT HAS A HISTORY OF CHRONIC LOW BACK PAIN. I EVALUATE THE PATIENT AND REVIEWED THE CHART. I WENT OVER THE RISKS, ALTERNATIVES, AND BENEFITS ASSOCIATED WITH THIS PROCEDURE. THE PATIENT WOULD LIKE TO PROCEED AND GIVE CONSENT TO PERFORMED THE PROCEDURE. THE PATIENT DENIES UNEXPLAINABLE WEIGHT LOSS, FEVER, CHILLS, OR NEW CHANGES IN URINARY OR BOWEL CONTROL DESCRIPTION OF PROCEDURE THE PATIENT WAS BROUGHT TO THE PROCEDURE ROOM AND PLACED IN THE PRONE POSITION. THE LUMBOSACRAL AREA WAS CLEANED WITH CHLORAPREP SOLUTION AND DRAPED ASEPTICALLY. THE PROCEDURE WAS DONE UNDER STERILE CONDITIONS. I CHECKED LATERALITY AND THE LEVEL WHERE THE PROCEDURE WAS GOING TO BE PERFORMED WITH THE PATIENT AND THE SUPPORTING STAFF AT THE MOMENT OF THE TIME OUT IN THE PROCEDURE ROOM. UNDER FLUOROSCOPIC GUIDANCE, THE TARGET POINT WAS SELECTED AT THE RIGHT AND LEFT L4-L5 AND RIGHT AND LEFT L5-S1 FACET JOINT. TARGET POINT WAS SELECTED AFTER LATERAL ROTATION AND TILT OF THE MAGNIFIER OF THE C-ARM. LIDOCAINE 0.5% WAS USED TO NUMB THE SKIN AND THE SUBCUTANEOUS TISSUE BELOW IT. SPINAL NEEDLES, 22-GAUGE, WERE ADVANCED UNDER FLUOROSCOPIC GUIDANCE AND FOLLOWING PATIENT FEEDBACK UNTIL THE TARGETS WERE TOUCHED. THE POSITION OF THE NEEDLES WAS VERIFIED WITH AP AND LATERAL VIEWS. AFTER PROPER POSITION OF THE NEEDLES WAS ACHIEVED, ISOVUE-M DYE 30% 0.1 ML WAS INJECTED SHOWING ADEQUATE SPREAD OF THE DYE. THEN A SOLUTION OF 1.9 ML OF BUPIVACAINE 0.125% OF KENALOG 10 MG WAS INJECTED AT EACH SITE. THERE WAS NO EVIDENCE OF BLOOD, PARESTHESIA OR CEREBROSPINAL FLUID DURING THE PROCEDURE. THE PATIENT WAS SENT TO THE RECOVERY ROOM. THE PATIENT WAS MOVING THE EXTREMITIES AND DOING WELL. THERE WAS NO COMPLICATION DURING THE PROCEDURE. FLUOROSCOPY TIME WAS 28 SECONDS POST PROCEDURE NOTE THE PATIENT WILL BE SEEN IN A FOLLOW UP IN THE NEXT FEW WEEKS. INSTRUCTIONS WERE GIVEN, QUESTIONS WERE ANSWERED, AND THE PATIENT EXPRESSED UNDERSTANDING AND AGREES WITH THE PLAN. I, CAT CALHOUN, DOCUMENTED THE ABOVE INFORMATION ACTING A SCRIBE FOR DR. ESCUDERO. I HAVE REVIEWED THE ABOVE DOCUMENT, WRITTEN BY CAT MOONIBSaeed AND I VERIFY THAT IT IS ACCURATE DIAGNOSTIC IMAGING [facility] FACET BLOCK (PAIN)[id number] PROCEDURE CODES 16074 INJ PARAVERT F JNT L/S 1 LEV 33629 INJ PARAVERT F JNT L/S 2 LEV 6045F RADXPS IN END [id number] PXD DISPOSITION & COMMUNICATION FOLLOW UP 3 WEEKS ELECTRONICALLY SIGNED BY LAURE ESCUDERO MD ON 06/02/2017 AT 11:23 AM EDT DISCLAIMER : THIS IS A VISIT SUMMARY EXTRACTED FROM THE [employer] CHART. IT IS NOT A COPY OF THE [employer] PROGRESS NOTE. MTDD
== END ==
LOC: M PAIN 11:00
PROVIDERS: ATTEND Anesthesiology
DX: G89.29 Other chronic pain (principal); M47.816 Spondylosis without myelopathy or radiculopathy, lumbar region; M47.817 Spondylosis without myelopathy or radiculopathy, lumbosacral region; M54.5 Low back pain; E03.9 Hypothyroidism, unspecified; E78.5 Hyperlipidemia, unspecified; F32.9 Major depressive disorder, single episode, unspecified; Z79.899 Other long term (current) drug therapy; Z79.891 Long term (current) use of opiate analgesic; Z88.8 Allergy status to other drugs, medicaments and biological substances; Z51.81 Encounter for therapeutic drug level monitoring; Z79.01 Long term (current) use of anticoagulants
CPT/HCPCS: 36415; 64493; 64494; 85610; J3301; Q9967

== ENCOUNTER → 2017-05-20 | Outpatient (CLI) | payer MEDICARE, BC, OTHER ==
[~2017-05-20] MED LIST changes: -BUPIVACAINE HCL 0.25% 30 ML VIAL As Ordered ONE; -ISOVUE-M 300 61% 15ML VIAL (Q9967) As Ordered ONE; -LIDOCAINE 1% SDV INJ 30 ML VIAL As Ordered ONE; -TRIAMCINOLONE ACETONIDE SUSP 40 MG/ML VIAL (J3301) As Ordered ONE
[2017-05-20 11:05] LABS: INR 1.19
== END ==
LOC: M LAB 10:12
PROVIDERS: ATTEND Nurse Practitioner Family
DX: M47.816 Spondylosis without myelopathy or radiculopathy, lumbar region (principal); M47.817 Spondylosis without myelopathy or radiculopathy, lumbosacral region; Z51.81 Encounter for therapeutic drug level monitoring; Z79.01 Long term (current) use of anticoagulants

== ENCOUNTER → 2017-06-04 | Outpatient (CLI) | payer MEDICARE, BC, OTHER ==
--- NOTE | 2017-06-28 23:30 | ECWPNPC ---
PATIENT NAME: INDIRA BRASWELL : 1955 GENDER: MALE VISIT DATE: 06/04/2017 DISCHARGE DATE: 06/04/17 1255 VISIT LOCKED DATE TIME: PHYSICIAN: NATHAN MADSEN PHYSICIAN PAGER NO: [phone] RESOURCE: NATHAN MADSEN REASON FOR APPOINTMENT 1. POST FACET HISTORY OF PRESENT ILLNESS HISTORY OF PRESENT ILLNESS: PAIN THE PATIENT DESCRIBES THE PAIN... FALL RISK SCREENING: SCREENING :NO FALLS IN THE PAST YEAR TODAY'S VISIT: NOTES: S/P THERAPEUTIC LUMBAR FACET BLOCK- THERAPEUTIC COMPLETED ON 05/20/17. HAS BEEN ABLE TO TAKE LESS PAIN MEDS. NO ADVERSE EFFECT FROM BEING OFF COUMDIN FOR INJECTION. PAIN LEVEL PRIOR TO INJECTION 3-02/10. POIST INJECTION 75% IMPROVEMENT WHICH HAS CONTINUES FOR 3 WEEKS. CURRENT MEDICATIONS TAKING LASIX 40 MG TABLET 1 TABLET ORALLY ONCE A DAY TAKING AMITRIPTYLINE HCL 50 TABLET 1 ORALLY AT BEDTIME TAKING VITAMIN D (CHOLECALCIFEROL) 5000 UNIT TABLET 1 TAB ORALLY ONCE A DAY TAKING CALCIUM 600+D HIGH POTENCY 600-400 MG-UNIT TABLET 1 TABLET WITH FOOD ORALLY ONCE A DAY TAKING BUPROPION HCL 75 MG TABLET 1 TABLET ORALLY BID TAKING ZOLPIDEM TARTRATE 10 MG TABLET 1 TABLET AT BEDTIME NEEDED ORALLY AT BEDTIME MDD :1 TAKING VIIBRYD 40 MG TABLET 1 TABLET WITH FOOD ORALLY ONCE A DAY TAKING LEVOTHYROXINE SODIUM 25 MCG TABLET 1 TABLET ORALLY ONCE A DAY TAKING TIZANIDINE HCL 4 MG TABLET 1.5 TABLET NEEDED ORALLY THREE TIMES A DAY TAKING LIPITOR 20 MG TABLET 1 TABLET ORALLY ONCE A DAY TAKING MIRALAX - POWDER 17 GRAMS ORALLY IN WATER OR JUICE ONCE A DAY TAKING NORCO 7.5-325 MG TABLET 1 TABLET NEEDED ORALLY EVERY 6 HRS PRN PAIN MDD=4 TAKING WARFARIN SODIUM 3 MG TABLET TAKE 1.5 TABLETS BY MOUTH ON FRIDAY AND FRIDAY AND 1 TABLET ONCE DAILY THE REST OF THE DAYS OF THE WEEK TAKING COUMADIN 3 MG TABLET 1 TABLET ORALLY 1/2 TABLET ON , AND SAT/ONE TAB ROW . DAILY NOT-TAKING PAXIL 60 MG TABLET 1 TABLET ORALLY ONCE A DAY NOT-TAKING AMBIEN 10 MG TABLET 1 TABLET ORAL DAILY AT BEDTIME MDD: 1 MEDICATION LIST REVIEWED AND RECONCILED WITH THE PATIENT PAST MEDICAL HISTORY DEPRESSION HYPERLIPIDEMIA 2B RIGHT LOWER EXTREMITY DVT IN NOVEMBER 2009, IDIOPATHIC-NEGATIVE HYPERCOAGULABLE WORKUP EXCEPT FOR HETEROZYGOTE FOR FACTOR V 5 LEIDEN NICOTINE ADDICTION-SMOKES ROUGHLY 2 CIGARS DAILY X30 YEARS-APRIL 2011 FEV1 95% NORMAL/FVC 86% NORMAL L EAR HEARING LOSS STATUS POST RADIOFREQUENCY ABLATION FOR SYMPTOMATIC RECURRENT EXERCISE-INDUCED MONOMORPHIC V. TACH-JANUARY 2000-[facility]. 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 ANA RASCON [facility] 11/2012-06/2012 NEGATIVE MRI/MRA BRAIN/NEGATIVE OCULAR [id number]-5/2012//L QUADRICEPS MUSCLE [id number] MUSCLE FIBER ATROPHY, FAVOR NEUROPATHIC PROCESS-[facility] L POPLITEAL AND PERONEAL/ANTERIOR TIBIAL VEIN (OF PROXIMAL CALF) DVT AND GSV OCCLUSION-03/[id number]-[id number] COUMADIN STARTED BODERLINE LVH, LVEF 75%, LAE 39 MM, NORMAL DIASTOLIC FUNCTION BY 11/2013 TTE-SIMONS LUMBAR DJD- 12/2013 MRI C DIFFUSE BULGES L2-S1 C L5/S1 BULGE ABUTTING B S1 NEVER ROOTS CERVICAL DJD C3-7 SPONDYLOSIS S CORD COMPRESION, MILD L C5 NARROWING BY 12/2013 MRI BORDERLINE LVH, LAE 39 MM BY TTE 11/2013-SIMONS HYPOTHYROIDISM, AUTOIMMUNE-12/2014 TPO AB 192, - TG AB SIGMOID DIVERTICULITIS, FIRST EPISODE BY 09/25/14 CT A/P, WBC 19.8, 08/2015 REPEAT WCB 14.1-RESOLVED C C/F 10D, 11/2015 REPEAT C C/F 10D FELL, BRUISED RIBS RIGHT SIDE 01/2016 ALLERGIES MOBIC: PSYCHOLOGICAL CHANGES, NAUSEA: ALLERGY LYRICA: SEVERE DEPRESSION REVIEW OF SYSTEMS REVIEWED BY: PROVIDER: NATHAN KILPATRICK . CONSTITUTIONAL: ANY CHANGE IN YOUR MEDICAL CONDITION? NO . CHILLS NO . FEVER NO . INFECTION: DO YOU HAVE NEW INFECTIONS? NO . DO YOU HAVE HISTORY OF MRSA? NO . MUSCULOSKELETAL: ANY NEW PATTERNS OF PAIN OR NUMBNESS? NO . GASTROENTEROLOGY: ANY NEW CHANGE IN BOWEL CONTROL? NO . GENITOURINARY: ANY NEW CHANGE IN BLADDER CONTROL? NO . IS THERE A CHANCE YOU COULD BE ? NO . HEMATOLOGY/LYMPH: DO YOU TAKE ANY BLOOD THINNERS? (FOR EXAMPLE- COUMADIN, PLAVIX, AGGRENOX, PLATEL, PRADAXA, OR XARELTO) YES . WHEN WAS YOUR LAST DOSE? DATE: TIME: . NEUROLOGY: HAVE YOU FALLEN IN THE PAST 6 MONTHS? NO . ANY NEW EXTREMITY NUMBNESS OR WEAKNESS? NO . CARDIOLOGY: DO YOU HAVE A PACEMAKER OR DEFIBRILLATOR? NO . RESPIRATORY: HAVE YOU BEEN SICK IN THE PAST WEEK? NO . FEVER NO . FLU LIKE SYMPTOMS? NO . COUGH NO . INTEGUMENTARY: DO YOU HAVE ANY RASHES OR OPEN SORES? NO . ALLERGIC/IMMUNO: ARE YOU ALLERGIC TO SHELLFISH OR IV DYE? NO . ANY NEW ALLERGIES? NO . PSYCHIATRIC: DO YOU HAVE THOUGHTS OF HURTING YOURSELF OR SOMEONE ELSE? NO . ARE YOU ABUSED, NEGLECTED, OR IN AN UNSAFE ENVIRONMENT? NO . ENDOCRINOLOGY: ARE YOU DIABETIC? NO . OTHER: DO YOU NEED ANY PRESCRIPTIONS? NO . IF YES, PLEASE LIST: ____ . ANY NEW PROBLEMS WITH YOUR MEDICATIONS? NO . WHEN DID YOU LAST EAT? ____ . WHEN DID YOU LAST DRINK? ____ . WHAT DID YOU LAST DRINK? ____ . NAME OF PERSON DRIVING YOU HOME? ____ . DO YOU HAVE ANY OTHER QUESTIONS OR CONCERNS NO . VITAL SIGNS WT 190 LBS, HT 69 IN, BMI 28.06 INDEX, BP 129/80 MM HG, HR 61 /MIN, RR 18 /MIN, TEMP 97.7 F, OXYGEN SAT % 99%, NA INITIALS AW 1250, REVIEWED BY: NL. EXAMINATION GENERAL EXAMINATION: GENERAL APPEARANCE:COLOR PINK, SKIN WARM AND DRY. PSYCHSMILING, , GOOD EYE CONTACT, ALERT , ORIENTED X 3 . LUNGS:CLEAR TO AUSCULTATION BILATERALLY, NO WHEEZES, RHONCHI, RALES. HEART:HEART RATE REGULAR. MUSCULOSKELETAL:MUSCLE STRENGTH TESTING 5/5 BILATERAL LOWER EXTREMITES BUT SOME WEAKNESS WITH HIP FLEXION. NO TENDERNESS WITH PALPATION OVER RIGHT LUMBAR PARAVERTEBRAL MUSCLES. FEW TRIGGER POINTS IN THIS AREA RISES TO STANDING POSITION WITHOUT DIFFICULTY. POSTUE UPRIGHT. GAIT WIDEBASED, NONANTALGIC. EXTREMITIES:NO EDEMA. ASSESSMENTS DJD (DEGENERATIVE JOINT DISEASE), LUMBAR - M47.816 (PRIMARY) FACET ARTHROPATHY, LUMBAR - M12.88 FACET ARTHROPATHY, LUMBOSACRAL - M12.88 LUMBAR RADICULOPATHY - M54.16 CHRONICALLY ON OPIATE THERAPY - Z79.891 TREATMENT DJD (DEGENERATIVE JOINT DISEASE), LUMBAR NOTES: CONTINUE CURRENT MEDS. WALK AND EXERCISE TOLERATED. CLINICAL NOTES: ISTOP REGISTRY REVIEWED AND DEMNOSTRATES COMPLLIANCE. BRINGS IN MEDICATIONS WHICH IS APPROPRIATE FOR WHAT WAS DISPENSED. RECENT URINE TOXICOLOGY REVIEWED. NO UNAUTHORIZED MEDICATIONS. NO ILLICIT SUBSTANCES AND PRESCRIBED MEDICATIONS WERE PRESENT. PROCEDURE CODES FA211 ESTABILISHED PATIENT [facility] FACILITY CHARGE G8730 PAIN ASSESS POS TOOL F/U PLAN DOC G8427 DOC MEDS VERIFIED W/PT OR RE DISPOSITION & COMMUNICATION FOLLOW UP 6 WEEKS (REASON: BACK PAIN) ELECTRONICALLY SIGNED BY JAMEY ENNIS ON 06/28/2017 AT 02:45 PM EDT DISCLAIMER : THIS IS A VISIT SUMMARY EXTRACTED FROM THE [employer] CHART. IT IS NOT A COPY OF THE [employer] PROGRESS NOTE. MTDD
== END | disposition home or self-care (01) ==
LOC: M PAIN 11:20
PROVIDERS: ATTEND Nurse Practitioner Family
DX: G89.29 Other chronic pain (principal); M12.88 Other specific arthropathies, not elsewhere classified, other specified site; M54.16 Radiculopathy, lumbar region; M47.816 Spondylosis without myelopathy or radiculopathy, lumbar region; E03.9 Hypothyroidism, unspecified; E78.5 Hyperlipidemia, unspecified; F32.9 Major depressive disorder, single episode, unspecified; Z79.899 Other long term (current) drug therapy; Z79.01 Long term (current) use of anticoagulants; Z79.891 Long term (current) use of opiate analgesic; Z88.8 Allergy status to other drugs, medicaments and biological substances

== ENCOUNTER → 2017-07-16 | Outpatient (CLI) | payer MEDICARE, BC, OTHER ==
--- NOTE | 2017-07-17 00:43 | ECWPNPC ---
PATIENT NAME: INDIRA BRASWELL : 1955 GENDER: MALE VISIT DATE: 07/16/2017 DISCHARGE DATE: 07/16/17 1025 VISIT LOCKED DATE TIME: PHYSICIAN: NATHAN MADSEN PHYSICIAN PAGER NO: [phone] RESOURCE: NATHAN MADSEN REASON FOR APPOINTMENT 1. BACK HISTORY OF PRESENT ILLNESS FALL RISK SCREENING: SCREENING :NO FALLS IN THE PAST YEAR PAIN SCREENING: PATIENT HAS A COMPLAINT OF ACUTE OR CHRONIC PAIN :YES TODAY'S VISIT: NOTES: S/P THERAPEUTIC BILATERAL LUMBAR FACET BLOCK COMPLETED ON 05/20/17. PAIN LEVEL PRIOR TOPROCEDURE AT 3-4/10 AND DECREASED TO 1-2/10 POST PROCEDURE. THIS IMPROVEMENT IN PAIN CONTROL HAS LASTED 8 WEEKS AND HE IS VERY PLEASED. RIGHT SIDE HAS BEEN MORE UNCOMFORTABLE AND HAD NOTED MARKED IMPROVEMETNT I WALKING STANDING AND SITTING. NO COMPLICATIONS WITH PUTTING BLOOD THINNER ON HOLD. . CURRENT MEDICATIONS TAKING LEVOTHYROXINE SODIUM 25 MCG TABLET 1 TABLET ORALLY ONCE A DAY TAKING COUMADIN 3 MG TABLET 1 TABLET ORALLY 1/2 TABLET ON AND SAT DIRECTED TAKING LIPITOR 20 MG TABLET 1 TABLET ORALLY ONCE A DAY TAKING LASIX 40 MG TABLET 1 TABLET ORALLY ONCE A DAY TAKING VICODIN 7.5 TABLET 1 TABLET NEEDED ORALLY EVERY 6 HRS PRN PAIN-MDD-4 TAKING AMITRIPTYLINE HCL 50 TABLET 1 ORALLY AT BEDTIME TAKING TIZANIDINE HCL 4 MG TABLET 1 TABLET NEEDED ORALLY THREE TIMES A DAY TAKING VITAMIN D (CHOLECALCIFEROL) 5000 UNIT TABLET 1 TAB ORALLY ONCE A DAY TAKING CALCIUM 600+D HIGH POTENCY 600-400 MG-UNIT TABLET 1 TABLET WITH FOOD ORALLY ONCE A DAY TAKING BUPROPION HCL 75 MG TABLET 1 TABLET ORALLY BID TAKING VIIBRYD 40 MG TABLET 1 TABLET WITH FOOD ORALLY ONCE A DAY TAKING MIRALAX - POWDER 17 GRAMS ORALLY IN WATER OR JUICE ONCE A DAY TAKING WARFARIN SODIUM 3 MG TABLET TAKE 1.5 TABLETS BY MOUTH ON FRIDAY AND FRIDAY AND 1 TABLET ONCE DAILY THE REST OF THE DAYS OF THE WEEK TAKING NORCO 7.5-325 MG TABLET 1 TABLET NEEDED ORALLY EVERY 6 HRS PRN PAIN MDD=4 TAKING ZOLPIDEM TARTRATE 10 MG TABLET 1 TABLET AT BEDTIME NEEDED ORALLY AT BEDTIME MDD :1 MEDICATION LIST REVIEWED AND RECONCILED WITH THE PATIENT PAST MEDICAL HISTORY DEPRESSION HYPERLIPIDEMIA 2B RIGHT LOWER EXTREMITY DVT IN NOVEMBER 2009, IDIOPATHIC-NEGATIVE HYPERCOAGULABLE WORKUP EXCEPT FOR HETEROZYGOTE FOR FACTOR V 5 LEIDEN NICOTINE ADDICTION-SMOKES ROUGHLY 2 CIGARS DAILY X30 YEARS-APRIL 2011 FEV1 95% NORMAL/FVC 86% NORMAL L EAR HEARING LOSS STATUS POST RADIOFREQUENCY ABLATION FOR SYMPTOMATIC RECURRENT EXERCISE-INDUCED MONOMORPHIC V. TACH-JANUARY 2000-DR. 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 SPONDYLOSIS S CORD COMPRESION, MILD L C5 NARROWING BY 12/2013 MRI BORDERLINE LVH, LAE 39 MM BY TTE 11/2013-SIMONS HYPOTHYROIDISM, AUTOIMMUNE-12/2014 TPO AB 192, - TG AB SIGMOID DIVERTICULITIS, FIRST EPISODE BY 09/25/14 CT A/P, WBC 19.8, 08/2015 REPEAT WCB 14.1-RESOLVED C C/F 10D, 11/2015 REPEAT C C/F 10D FELL, BRUISED RIBS RIGHT SIDE 01/2016 ALLERGIES MOBIC: PSYCHOLOGICAL CHANGES, NAUSEA: ALLERGY LYRICA: SEVERE DEPRESSION SOCIAL HISTORY GENERAL: TOBACCO USE ARE YOU A:CURRENT SMOKER PATIENT COUNSELED ON THE DANGERS OF TOBACCO USE AND URGED TO QUIT:07/16/2017 ARE YOU INTERESTED IN QUITTING?NOT READY TO QUIT COUNSELED THE PATIENT ON SMOKING EFFECTS, EDUCATION [id number]/13/2017 ADDITIONAL FINDINGS: TOBACCO USERCIGAR SMOKER ALCOHOL SCREENING DID YOU HAVE A DRINK CONTAINING ALCOHOL IN THE PAST YEAR?YES HOW OFTEN DID YOU HAVE SIX OR MORE DRINKS ON ONE OCCASION IN THE PAST YEAR?NEVER (0 POINTS) HOW MANY DRINKS DID YOU HAVE ON A TYPICAL DAY WHEN YOU WERE DRINKING IN THE PAST YEAR?1 OR 2 (0 POINTS) HOW OFTEN DID YOU HAVE A DRINK CONTAINING ALCOHOL IN THE PAST YEAR?TWO TO FOUR TIMES A MONTH (2 POINTS) POINTS2 INTERPRETATIONNEGATIVE RECREATIONAL DRUG USE DRUG USE?NO CAFFEINE CAFFEINE USE?NO HIV / HEP-C SCREENING HIV TEST OFFERED TO PATIENT:YES DATE OFFERED:01/27/2017 TEST ACCEPTED:NO HEP-C TEST OFFERED TO PATIENT:YES DATE OFFERED:01/27/2017 REASON:PATIENT DECLINED TEST ACCEPTED:YES DIET: REGULAR. EXERCISE: WALKS. MARITAL STATUS: . SHINTO [id number] NONE LANGUAGE LANGUAGES SPOKEN:FINNISH EDUCATION LEVEL OF EDUCATION:COLLEGE LEARNING BARRIERS / SPECIAL NEEDS CHANGE FROM LAST VISIT?YES BARRIERS TO LEARNING?NO HEARING IMPAIRED?NO VISION IMPAIRED?YES :CORRECTIVE LENSES COGNITIVELY IMPAIRED?NO READINESS TO LEARN?YES LEARNING PREFERENCES?NO LEARNING CAPABILITIES PRESENT?YES EMOTIONAL BARRIERS?NO SPECIAL DEVICES?NO BILLBOARD POSTER HELPER NEEDED?NO PAIN CLINIC PFS, CLERGY, PUBLIC HEALTH REFERRALS WAS THE PROVIDER NOTIFIED OF ANY PERTINENT INFO?YES HAS THE PATIENT BEEN EDUCATED REGARDING HIS/HER PLAN OF CARE?YES HAS THE PATIENT BEEN EDUCATED REGARDING PAIN, THE RISK FOR PAIN, THE IMPORTANCE OF EFFECTIVE PAIN MANAGEMENT, AND THE PAIN ASSESSMENT PROCESS?YES REVIEWED BY: LORIE. PATIENT: ____. 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 REVIEW OF SYSTEMS REVIEWED BY: PROVIDER: NATHAN WALKER CREDIT MANAGER . CONSTITUTIONAL: ANY CHANGE IN YOUR MEDICAL CONDITION? NO . CHILLS NO . FEVER NO . INFECTION: DO YOU HAVE NEW INFECTIONS? NO . DO YOU HAVE HISTORY OF MRSA? NO . MUSCULOSKELETAL: ANY NEW PATTERNS OF PAIN OR NUMBNESS? NO . SYTEMIC LUPUS NO . GASTROENTEROLOGY: ANY NEW CHANGE IN BOWEL CONTROL? NO . BARRETTS ESOPHAGUS NO . CIRRHOSIS NO . HEPATITIS NO . LIVER FAILURE NO . ACID REFLUX NO . UNEXPLAINED WEIGHT LOSS NO . GENITOURINARY: ANY NEW CHANGE IN BLADDER CONTROL? NO . IS THERE A CHANCE YOU COULD BE ? NO . HEMATOLOGY/LYMPH: DO YOU TAKE ANY BLOOD THINNERS? (FOR EXAMPLE- COUMADIN, PLAVIX, AGGRENOX, PLATEL, PRADAXA, OR XARELTO) YES - COUMADIN - INR 2.5 . WHEN WAS YOUR LAST DOSE? DATE: TIME: . LOW PLATELET COUNT NO . SICKLE CELL DISEASE NO . VON WILLIEBRANDS NO . FACTOR V LEIDEN NO . THALLASEMIA NO . ANEMIA NO . EASY BRUISING NO . NEUROLOGY: HAVE YOU FALLEN IN THE PAST 6 MONTHS? NO . ANY NEW EXTREMITY NUMBNESS OR WEAKNESS? NO . HEAD INJURY NO . DEMENTIA NO . CEREBRAL PALSY NO . MULTIPLE SCLEROSIS NO . DIZZINESS NO . HEADACHE NO . STROKES NO . VERTIGO NO . CARDIOLOGY: DO YOU HAVE A PACEMAKER OR DEFIBRILLATOR? NO . ANGINA NO . HEART ATTACK NO . HEART SURGERY NO . CONGESTIVE HEART FAILURE/FLUID OVERLOAD NO . CHEST PAIN NO . HIGH BLOOD PRESSURE NO . IRREGULAR HEART BEAT NO . RESPIRATORY: HAVE YOU BEEN SICK IN THE PAST WEEK? NO . FEVER NO . FLU LIKE SYMPTOMS? NO . CPAP NO . BYPAP NO . ASTHMA NO . EMPHYSEMA NO . CHRONIC LUNG DISEASES NO . SHORTNESS OF BREATH ON EXERTION NO . COUGH NO . SNORING NO . INTEGUMENTARY: DO YOU HAVE ANY RASHES OR OPEN SORES? NO . ALLERGIC/IMMUNO: ARE YOU ALLERGIC TO SHELLFISH OR IV DYE? NO . ANY NEW ALLERGIES? NO . PSYCHIATRIC: DO YOU HAVE THOUGHTS OF HURTING YOURSELF OR SOMEONE ELSE? NO . ARE YOU ABUSED, NEGLECTED, OR IN AN UNSAFE ENVIRONMENT? NO . ENDOCRINOLOGY: ARE YOU DIABETIC? NO . THYROID DISORDER NO . OTHER: DO YOU NEED ANY PRESCRIPTIONS? NO . IF YES, PLEASE LIST: ____ . ANY NEW PROBLEMS WITH YOUR MEDICATIONS? NO . WHEN DID YOU LAST EAT? ____ . WHEN DID YOU LAST DRINK? ____ . WHAT DID YOU LAST DRINK? ____ . NAME OF PERSON DRIVING YOU HOME? ____ . DO YOU HAVE ANY OTHER QUESTIONS OR CONCERNS PT STATES THAT HE SMOKES CIGARS INTERMITTENTLY, REFUSES ANY SMOKING CESSATION COUSELING AT THIS TIME. . VITAL SIGNS WT 198 LBS, HT 69 IN, BMI 29.24 INDEX, BP 134/75 MM HG, HR 84 /MIN, RR 18 /MIN, TEMP 98.0 F, OXYGEN SAT % 98%, NA INITIALS AW 1007. EXAMINATION GENERAL EXAMINATION: GENERAL APPEARANCE:COLOR PINK, SKIN WARM AND DRY. PSYCH GOOD EYE CONTACT, ALERT , ORIENTED X 3 . LUNGS:CLEAR TO AUSCULTATION BILATERALLY, NO WHEEZES, RHONCHI, RALES. HEART:HEART RATE REGULAR. MUSCULOSKELETAL:MUSCLE STRENGTH TESTING 5/5 BILATERAL LOWER EXTREMITES BUT SOME WEAKNESS WITH HIP FLEXION. NO TENDERNESS WITH PALPATION OVER RIGHT LUMBAR PARAVERTEBRAL MUSCLES. FEW TRIGGER POINTS IN THIS AREA RISES TO STANDING POSITION WITHOUT DIFFICULTY. POSTUE UPRIGHT. GAIT WIDEBASED, NONANTALGIC. EXTREMITIES:NO EDEMA. ASSESSMENTS FACET ARTHROPATHY, LUMBAR - M12.88 (PRIMARY) FACET ARTHROPATHY, LUMBOSACRAL - M12.88 CHRONICALLY ON OPIATE THERAPY - Z79.891 TREATMENT FACET ARTHROPATHY, LUMBAR NOTES: CONTINUE EXERCISES AND STRETCHES. CONSIDER TOPICAL MUSCLE RUB TO TIGHT AREAS OVER THE LOW BACK. CALL WHEN SCRIPTS DUE. CLINICAL NOTES: FALLS CARE PLAN: 1. RECOMMEND REMOVING ALL THROW RUGS. 2. RECOMMEND NIGHT LIGHTS 3. RECOMMEND WEARING RUBBER SOLED SHOES AND TO NOT GO BAREFOOT. 4.. ADVISED TO CHANGE POSITION SLOWLY FROM SUPINE TO STANDING TO AVOID DIZZINESS. 5. ADVISED TO USE ASSISTIVE DEVICE SUCH CANE OR WALKER 6. USE LIFELINE SERVICES OR KEEP PORTABLE PHONE READILY AVAILABLE, # 226 TOBACCO USE SCREENING/INTERVENTION: PATIENT CURRENTLY USED TOBACCO. WAS OFFERED SMOKING CESSATION FOR GUIDANCE IN QUITTING THROUGH THE [facility] QUITS PROGRAM AND THE [facility] CESSATION PROGRAM BUT STATES HE IS NOT INTERESTED AT THIS TIME. PROCEDURE CODES FA211 ESTABILISHED PATIENT [facility] FACILITY CHARGE G6683 BP SCR PRFRM RCMDD DEFIND SCR INTVL G8730 PAIN ASSESS POS TOOL F/U PLAN DOC 3016F PT SCRND UNHLTHY [place] USE 1124F ACP DISCUSS-NO DSCNMKR DOCD X7508 DOC MEDS VERIFIED W/PT OR RE G8420 BMI<30 AND >=22 CALC & DOCU 3288F FALL RISK ASSESSMENT DOCD 4004F PT TOBACCO SCREEN RCVD TLK DISPOSITION & COMMUNICATION FOLLOW UP 6 WEEKS (REASON: BACK PAIN) ELECTRONICALLY SIGNED BY JAMEY ENNIS ON 07/16/2017 AT 11:17 AM EDT DISCLAIMER : THIS IS A VISIT SUMMARY EXTRACTED FROM THE [employer] CHART. IT IS NOT A COPY OF THE [employer] PROGRESS NOTE. MTDD
== END | disposition home or self-care (01) ==
LOC: M PAIN 10:00
PROVIDERS: ATTEND Nurse Practitioner Family
DX: G89.29 Other chronic pain (principal); M12.88 Other specific arthropathies, not elsewhere classified, other specified site; M54.16 Radiculopathy, lumbar region; M47.816 Spondylosis without myelopathy or radiculopathy, lumbar region; E03.9 Hypothyroidism, unspecified; E78.5 Hyperlipidemia, unspecified; F32.9 Major depressive disorder, single episode, unspecified; Z79.899 Other long term (current) drug therapy; Z79.01 Long term (current) use of anticoagulants; Z79.891 Long term (current) use of opiate analgesic; Z88.8 Allergy status to other drugs, medicaments and biological substances

== ENCOUNTER → 2017-07-28 | Outpatient (CLI) | payer MEDICARE, BC, OTHER ==
[2017-07-28 13:04] LABS: INR 2.72
[2017-07-28 13:26] LABS: VITAMIN B12 LEVEL 437 PG/ML (247-911)
[2017-07-28 13:37] LABS: ALBUMIN 3.6 GM/DL (3.2-5.2); ALBUMIN/GLOBULIN RATIO 1.33 (1.00-1.93); ALKALINE PHOSPHATASE 81 U/L (45-117); ALT/SGPT 26 U/L (12-78); ANION GAP 7 MEQ/L (8-16); AST/SGOT 17 U/L (15-37); BILIRUBIN,TOTAL 0.4 MG/DL (0.2-1.0); BLOOD UREA NITROGEN 14 MG/DL (7-18); CALCIUM LEVEL 8.4 MG/DL (8.8-10.2); CARBON DIOXIDE LEVEL 28 MEQ/L (21-32); CHLORIDE LEVEL 106 MEQ/L (98-107); CREATININE FOR GFR 1.02 MG/DL (0.70-1.30); FREE T4 0.91 NG/DL (0.76-1.46); GLOMERULAR FILTRATION RATE > 60.0 (>49); GLUCOSE, FASTING 80 MG/DL (80-110); SODIUM LEVEL 141 MEQ/L (136-145); TOTAL PROTEIN 6.3 GM/DL (6.4-8.2)
== END ==
LOC: M LAB 12:14
PROVIDERS: ATTEND Family Medicine
DX: N18.2 Chronic kidney disease, stage 2 (mild) (principal); E03.9 Hypothyroidism, unspecified; R73.01 Impaired fasting glucose; Z86.718 Personal history of other venous thrombosis and embolism

== ENCOUNTER → 2017-08-27 | Outpatient (CLI) | payer MEDICARE, OTHER ==
--- NOTE | 2017-09-22 00:53 | ECWPNPC ---
PATIENT NAME: INDIRA BRASWELL : 1955 GENDER: MALE VISIT DATE: 08/27/2017 DISCHARGE DATE: 08/27/17 1100 VISIT LOCKED DATE TIME: PHYSICIAN: NATHAN MADSEN PHYSICIAN PAGER NO: [phone] RESOURCE: NATHAN MADSEN REASON FOR APPOINTMENT 1. BACK HISTORY OF PRESENT ILLNESS HISTORY OF PRESENT ILLNESS: PAIN THE PATIENT DESCRIBES THE PAIN... FALL RISK SCREENING: SCREENING :NO FALLS IN THE PAST YEAR TODAY'S VISIT: NOTES: S/P BILATERAL LUMBAR THERAPEUTIC FACET BLOCK COMPLETED ON 05/20/18. HAS NOTED PROLONGED RELIEF OF PAIN WITH PAINLEVEL NOW RETURNING TO THE 3/10 LEVEL. DESCRIBES THE PAIN ACHING, SHARP AND IN LOW BACK AND BOTH HIPS IS QUITE SORE. . CURRENT MEDICATIONS TAKING LEVOTHYROXINE SODIUM 25 MCG TABLET 1 TABLET ORALLY ONCE A DAY TAKING COUMADIN 3 MG TABLET 1 TABLET FRI, , FRI, FRI TAKING LIPITOR 20 MG TABLET 1 TABLET ORALLY ONCE A DAY TAKING AMITRIPTYLINE HCL 50 TABLET 1 ORALLY AT BEDTIME TAKING TIZANIDINE HCL 4 MG TABLET 1 TABLET NEEDED ORALLY THREE TIMES A DAY TAKING VITAMIN D (CHOLECALCIFEROL) 5000 UNIT TABLET 1 TAB ORALLY ONCE A DAY TAKING CALCIUM 600+D HIGH POTENCY 600-400 MG-UNIT TABLET 1 TABLET WITH FOOD ORALLY ONCE A DAY TAKING VIIBRYD 40 MG TABLET 1 TABLET WITH FOOD ORALLY ONCE A DAY TAKING MIRALAX - POWDER 17 GRAMS ORALLY IN WATER OR JUICE ONCE A DAY TAKING WARFARIN SODIUM 3 MG TABLET TAKE .5 TABLETS BY MOUTH ON FRIDAY AND FRIDAY AND 1 TABLET ONCE DAILY THE REST OF THE DAYS OF THE WEEK FRI,,FRI TAKING ZOLPIDEM TARTRATE 10 MG TABLET 1 TABLET AT BEDTIME NEEDED ORALLY AT BEDTIME MDD :1 TAKING NORCO 7.5-325 MG TABLET 1 TABLET NEEDED ORALLY EVERY 6 HRS PRN PAIN MDD=4 TAKING BUPROPION HCL 75 MG TABLET 1 TABLET ORALLY BID NOT-TAKING LASIX 40 MG TABLET 1 TABLET ORALLY ONCE A DAY NOT-TAKING VICODIN 7.5 TABLET 1 TABLET NEEDED ORALLY EVERY 6 HRS PRN PAIN-MDD-4 MEDICATION LIST REVIEWED AND RECONCILED WITH THE PATIENT PAST MEDICAL HISTORY DEPRESSION HYPERLIPIDEMIA 2B RIGHT LOWER EXTREMITY DVT IN NOVEMBER 2009, IDIOPATHIC-NEGATIVE HYPERCOAGULABLE WORKUP EXCEPT FOR HETEROZYGOTE FOR FACTOR V 5 LEIDEN NICOTINE ADDICTION-SMOKES ROUGHLY 2 CIGARS DAILY X30 YEARS-APRIL 2011 FEV1 95% NORMAL/FVC 86% NORMAL L EAR HEARING LOSS STATUS POST RADIOFREQUENCY ABLATION FOR SYMPTOMATIC RECURRENT EXERCISE-INDUCED MONOMORPHIC V. TACH-JANUARY 2000-DR. 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 SPONDYLOSIS S CORD COMPRESION, MILD L C5 NARROWING BY 12/2013 MRI BORDERLINE LVH, LAE 39 MM BY TTE 11/2013-SIMONS HYPOTHYROIDISM, AUTOIMMUNE-12/2014 TPO AB 192, - TG AB SIGMOID DIVERTICULITIS, FIRST EPISODE BY 09/25/14 CT A/P, WBC 19.8, 08/2015 REPEAT WCB 14.1-RESOLVED C C/F 10D, 11/2015 REPEAT C C/F 10D FELL, BRUISED RIBS RIGHT SIDE 01/2016 ALLERGIES MOBIC: PSYCHOLOGICAL CHANGES, NAUSEA: ALLERGY LYRICA: SEVERE DEPRESSION SURGICAL HISTORY LEFT PAROTID TUMOR REMOVAL X 3 2002 SOCIAL HISTORY GENERAL: TOBACCO USE ARE YOU A:CURRENT SMOKER PATIENT COUNSELED ON THE DANGERS OF TOBACCO USE AND URGED TO QUIT:07/16/2017 ARE YOU INTERESTED IN QUITTING?NOT READY TO QUIT COUNSELED THE PATIENT ON SMOKING EFFECTS, EDUCATION [id number]/13/2017 ADDITIONAL FINDINGS: TOBACCO USERCIGAR SMOKER ALCOHOL SCREENING DID YOU HAVE A DRINK CONTAINING ALCOHOL IN THE PAST YEAR?YES HOW OFTEN DID YOU HAVE SIX OR MORE DRINKS ON ONE OCCASION IN THE PAST YEAR?NEVER (0 POINTS) HOW MANY DRINKS DID YOU HAVE ON A TYPICAL DAY WHEN YOU WERE DRINKING IN THE PAST YEAR?1 OR 2 (0 POINTS) HOW OFTEN DID YOU HAVE A DRINK CONTAINING ALCOHOL IN THE PAST YEAR?TWO TO FOUR TIMES A MONTH (2 POINTS) POINTS2 INTERPRETATIONNEGATIVE RECREATIONAL DRUG USE DRUG USE?NO CAFFEINE CAFFEINE USE?NO HIV / HEP-C SCREENING HIV TEST OFFERED TO PATIENT:YES DATE OFFERED:01/27/2017 TEST ACCEPTED:NO HEP-C TEST OFFERED TO PATIENT:YES DATE OFFERED:01/27/2017 REASON:PATIENT DECLINED TEST ACCEPTED:YES DIET: REGULAR. EXERCISE: WALKS. MARITAL STATUS: . [employer] [id number] NONE LANGUAGE LANGUAGES SPOKEN:VENEZUELAN EDUCATION LEVEL OF EDUCATION:COLLEGE LEARNING BARRIERS / SPECIAL NEEDS CHANGE FROM LAST VISIT?YES BARRIERS TO LEARNING?NO HEARING IMPAIRED?NO VISION IMPAIRED?YES :CORRECTIVE LENSES COGNITIVELY IMPAIRED?NO READINESS TO LEARN?YES LEARNING PREFERENCES?NO LEARNING CAPABILITIES PRESENT?YES EMOTIONAL BARRIERS?NO SPECIAL DEVICES?NO FORGE SHOP SUPERVISOR NEEDED?NO PAIN CLINIC PFS, CLERGY, PUBLIC HEALTH REFERRALS WAS THE PROVIDER NOTIFIED OF ANY PERTINENT INFO?YES HAS THE PATIENT BEEN EDUCATED REGARDING HIS/HER PLAN OF CARE?YES HAS THE PATIENT BEEN EDUCATED REGARDING PAIN, THE RISK FOR PAIN, THE IMPORTANCE OF EFFECTIVE PAIN MANAGEMENT, AND THE PAIN ASSESSMENT PROCESS?YES REVIEWED BY: LORIE. PATIENT: ____. 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 HOSPITALIZATION/MAJOR DIAGNOSTIC PROCEDURE SURGERIES REVIEW OF SYSTEMS REVIEWED BY: PROVIDER: NATHAN KILPATRICK . CONSTITUTIONAL: ANY CHANGE IN YOUR MEDICAL CONDITION? NO . CHILLS NO . FEVER NO . INFECTION: DO YOU HAVE NEW INFECTIONS? NO . DO YOU HAVE HISTORY OF MRSA? NO . MUSCULOSKELETAL: ANY NEW PATTERNS OF PAIN OR NUMBNESS? NO . GASTROENTEROLOGY: ANY NEW CHANGE IN BOWEL CONTROL? NO . GENITOURINARY: ANY NEW CHANGE IN BLADDER CONTROL? NO . IS THERE A CHANCE YOU COULD BE ? NO . HEMATOLOGY/LYMPH: DO YOU TAKE ANY BLOOD THINNERS? (FOR EXAMPLE- COUMADIN, PLAVIX, AGGRENOX, PLATEL, PRADAXA, OR XARELTO) YES, COUMADIN . WHEN WAS YOUR LAST DOSE? DATE: TIME: . NEUROLOGY: HAVE YOU FALLEN IN THE PAST 6 MONTHS? NO . ANY NEW EXTREMITY NUMBNESS OR WEAKNESS? NO . CARDIOLOGY: DO YOU HAVE A PACEMAKER OR DEFIBRILLATOR? NO . CHEST PAIN PATIENT DENIES . RESPIRATORY: HAVE YOU BEEN SICK IN THE PAST WEEK? NO . FEVER NO . FLU LIKE SYMPTOMS? NO . COUGH NO . INTEGUMENTARY: DO YOU HAVE ANY RASHES OR OPEN SORES? NO . ALLERGIC/IMMUNO: ARE YOU ALLERGIC TO SHELLFISH OR IV DYE? NO . ANY NEW ALLERGIES? NO . PSYCHIATRIC: DO YOU HAVE THOUGHTS OF HURTING YOURSELF OR SOMEONE ELSE? NO . ARE YOU ABUSED, NEGLECTED, OR IN AN UNSAFE ENVIRONMENT? NO . ENDOCRINOLOGY: ARE YOU DIABETIC? NO . OTHER: DO YOU NEED ANY PRESCRIPTIONS? NO . IF YES, PLEASE LIST: ____ . ANY NEW PROBLEMS WITH YOUR MEDICATIONS? NO . WHEN DID YOU LAST EAT? ____ . WHEN DID YOU LAST DRINK? ____ . WHAT DID YOU LAST DRINK? ____ . NAME OF PERSON DRIVING YOU HOME? ____ . DO YOU HAVE ANY OTHER QUESTIONS OR CONCERNS NO, PT DENIES FLU SHOT, STATES HE NEVER GETS IT . VITAL SIGNS WT 190 LBS, HT 69 IN, BMI 28.06 INDEX, BP 122/72 MM HG, HR 67 /MIN, RR 16 /MIN, TEMP 97.5 F, OXYGEN SAT % 96%, NA INITIALS SC 10:23, REVIEWED BY: EM. EXAMINATION GENERAL EXAMINATION: PSYCHAFFECT FLAT, ALERT , ORIENTED X 3 . LUNGS:CLEAR TO AUSCULTATION BILATERALLY. HEART:HEART RATE REGULAR. MUSCULOSKELETAL:TENDER OVER R>L PARAVERTEBRAL LUMBAR MUSCLES . SLOW TO RISE TO STANDING POSITION POSTURE UPRIGHT. . ASSESSMENTS FACET ARTHROPATHY, LUMBAR - M12.88 (PRIMARY) FACET ARTHROPATHY, LUMBOSACRAL - M12.88 CHRONICALLY ON OPIATE THERAPY - Z79.891 TREATMENT FACET ARTHROPATHY, LUMBAR NOTES: CALL WHEN SCRIPTS DUE. CONTINUE CURRENT MEDS. WALK EVERY DAY. CLINICAL NOTES: [employer] REGISTRY REVIEWED AND DEMNOSTRATES COMPLLIANCE. (REF # [id number]) BRINGS IN MEDICATIONS WHICH IS APPROPRIATE FOR WHAT WAS DISPENSED. RECENT URINE TOXICOLOGY REVIEWED. NO UNAUTHORIZED MEDICATIONS. NO ILLICIT SUBSTANCES AND PRESCRIBED MEDICATIONS WERE PRESENT. PROCEDURE CODES FA211 ESTABILISHED PATIENT [facility] FACILITY CHARGE G8730 PAIN ASSESS POS TOOL F/U PLAN DOC G8427 DOC MEDS VERIFIED W/PT OR RE DISPOSITION & COMMUNICATION FOLLOW UP 6 WEEKS (REASON: BACK PAIN) ELECTRONICALLY SIGNED BY JAMEY ENNIS ON 09/21/2017 AT 09:41 AM EST DISCLAIMER : THIS IS A VISIT SUMMARY EXTRACTED FROM THE [employer] CHART. IT IS NOT A COPY OF THE [employer] PROGRESS NOTE. KEITH
== END ==
LOC: M PAIN 10:00
PROVIDERS: ATTEND Nurse Practitioner Family
DX: M12.88 Other specific arthropathies, not elsewhere classified, other specified site (principal); E87.5 Hyperkalemia; E03.9 Hypothyroidism, unspecified; F32.9 Major depressive disorder, single episode, unspecified; E55.9 Vitamin D deficiency, unspecified; F17.210 Nicotine dependence, cigarettes, uncomplicated; Z79.01 Long term (current) use of anticoagulants; Z79.891 Long term (current) use of opiate analgesic; Z79.899 Other long term (current) drug therapy; Z88.8 Allergy status to other drugs, medicaments and biological substances; Z86.718 Personal history of other venous thrombosis and embolism

== ENCOUNTER → 2017-10-22 | Outpatient (CLI) | payer MEDICARE, OTHER | LOC: M PAIN 11:15 | DX: M12.88 Other specific arthropathies, not elsewhere classified, other specified site (principal); F32.9 Major depressive disorder, single episode, unspecified; E78.5 Hyperlipidemia, unspecified; F17.290 Nicotine dependence, other tobacco product, uncomplicated; E03.9 Hypothyroidism, unspecified; I82.509 Chronic embolism and thrombosis of unspecified deep veins of unspecified lower extremity; E55.9 Vitamin D deficiency, unspecified; Z88.6 Allergy status to analgesic agent; Z88.8 Allergy status to other drugs, medicaments and biological substances; Z79.01 Long term (current) use of anticoagulants; Z79.891 Long term (current) use of opiate analgesic; Z79.899 Other long term (current) drug therapy | CPT/HCPCS: G0463 ==

== ENCOUNTER → 2017-11-04 | Outpatient (CLI) | payer MEDICARE, OTHER ==
[2017-11-04 12:16] LABS: ALBUMIN 3.6 GM/DL (3.2-5.2); ALBUMIN/GLOBULIN RATIO 1.24 (1.00-1.93); ALKALINE PHOSPHATASE 85 U/L (45-117); ALT/SGPT 29 U/L (12-78); ANION GAP 5 MEQ/L (8-16); AST/SGOT 24 U/L (7-37); BILIRUBIN,TOTAL 0.5 MG/DL (0.2-1.0); BLOOD UREA NITROGEN 14 MG/DL (7-18); CALCIUM LEVEL 8.6 MG/DL (8.8-10.2); CARBON DIOXIDE LEVEL 30 MEQ/L (21-32); CHLORIDE LEVEL 106 MEQ/L (98-107); CHOLESTEROL LEVEL 105 MG/DL (<200); CPK CREATINE PHOSPHOKINASE 94 U/L (39-308); CREATININE FOR GFR 1.08 MG/DL (0.70-1.30); GLOMERULAR FILTRATION RATE > 60.0 (>49); GLUCOSE, FASTING 82 MG/DL (80-110); HDL CHOLESTEROL 42 MG/DL (>40); LDL CHOLESTEROL 44.6 MG/DL (<100); NON-HDL-C 63 MG/DL; POTASSIUM SERUM 4.4 MEQ/L (3.5-5.1); PROSTATIC SPECIFIC AG MONITOR 0.96 NG/ML (< 4.0); SODIUM LEVEL 141 MEQ/L (136-145); TOTAL PROTEIN 6.5 GM/DL (6.4-8.2); TRIGLYCERIDES LEVEL 92 MG/DL (<150)
== END ==
LOC: M WUC 09:58
DX: E78.5 Hyperlipidemia, unspecified (principal); Z12.5 Encounter for screening for malignant neoplasm of prostate
CPT/HCPCS: 82550

== ENCOUNTER → 2017-12-02 | Outpatient (CLI) | payer MEDICARE, OTHER | END | disposition home or self-care (01) | LOC: M PAIN 09:45 | DX: G89.29 Other chronic pain (principal); M12.88 Other specific arthropathies, not elsewhere classified, other specified site; F33.9 Major depressive disorder, recurrent, unspecified; E78.5 Hyperlipidemia, unspecified; E03.9 Hypothyroidism, unspecified; Z86.718 Personal history of other venous thrombosis and embolism; Z79.01 Long term (current) use of anticoagulants; Z79.890 Hormone replacement therapy; Z79.899 Other long term (current) drug therapy; F17.290 Nicotine dependence, other tobacco product, uncomplicated; Z88.8 Allergy status to other drugs, medicaments and biological substances | CPT/HCPCS: G0463 ==

== ENCOUNTER → 2018-01-14 | Outpatient (CLI) | payer MEDICARE, OTHER | LOC: M PAIN 10:30 | DX: M12.88 Other specific arthropathies, not elsewhere classified, other specified site (principal); F32.9 Major depressive disorder, single episode, unspecified; E78.5 Hyperlipidemia, unspecified; E03.9 Hypothyroidism, unspecified; E55.9 Vitamin D deficiency, unspecified; Z79.01 Long term (current) use of anticoagulants; F17.210 Nicotine dependence, cigarettes, uncomplicated; Z79.891 Long term (current) use of opiate analgesic; Z79.899 Other long term (current) drug therapy; Z88.8 Allergy status to other drugs, medicaments and biological substances; Z86.718 Personal history of other venous thrombosis and embolism; Z87.09 Personal history of other diseases of the respiratory system; Z86.011 Personal history of benign neoplasm of the brain | CPT/HCPCS: G0463 ==

== ENCOUNTER → 2018-02-03 | Outpatient (CLI) | payer MEDICARE, OTHER ==
[2018-02-03 09:04] LABS: INR 1.09; PROTHROMBIN TIME 14.3 SECONDS (12.4-14.5)
== END ==
LOC: M LAB 08:13
DX: M12.88 Other specific arthropathies, not elsewhere classified, other specified site (principal); Z51.81 Encounter for therapeutic drug level monitoring; Z79.01 Long term (current) use of anticoagulants

== ENCOUNTER → 2018-02-03 | Outpatient (CLI) | payer MEDICARE, OTHER ==
[~2018-02-03] MED LIST changes: -/WARF2TA PO; -ATOR1TAB21 PO; -BACL10TA2 PO; +BUPIVACAINE HCL 0.25% 30 ML VIAL As Ordered; -COUM1TAB19 PO; -CYCL10TA PO; -FURO40TA2 PO; -GABA-282 PO; +ISOVUE-M 300 61% 15ML VIAL (Q9967) As Ordered; +LIDOCAINE 1% SDV INJ 30 ML VIAL As Ordered; -LYRI150C PO; -LYRI75CA PO; -NORC7.5T35 PO; -NORT50CA PO; -PAXI40TA2 PO; -PRED20TA PO; -SYNT25TA PO; +TRIAMCINOLONE ACETONIDE SUSP 40 MG/ML VIAL (J3301) As Ordered; -VICO5TAB16 PO; -VITA100L PO; -VITA500019 PO; -WARF05TA PO; -WELL75TA PO; -ZOLP-189 PO
== END ==
LOC: M PAIN 08:45
DX: G89.29 Other chronic pain (principal); M47.816 Spondylosis without myelopathy or radiculopathy, lumbar region; M47.817 Spondylosis without myelopathy or radiculopathy, lumbosacral region; F32.9 Major depressive disorder, single episode, unspecified; E78.5 Hyperlipidemia, unspecified; F17.290 Nicotine dependence, other tobacco product, uncomplicated; E03.9 Hypothyroidism, unspecified; Z79.899 Other long term (current) drug therapy; Z88.6 Allergy status to analgesic agent; Z88.8 Allergy status to other drugs, medicaments and biological substances; M12.88 Other specific arthropathies, not elsewhere classified, other specified site; Z51.81 Encounter for therapeutic drug level monitoring; Z79.01 Long term (current) use of anticoagulants; Z98.890 Other specified postprocedural states
CPT/HCPCS: J3301

== ENCOUNTER → 2018-02-18 | Outpatient (CLI) | payer MEDICARE, OTHER | LOC: M PAIN 09:30 | DX: M12.89 Other specific arthropathies, not elsewhere classified, multiple sites (principal); F32.9 Major depressive disorder, single episode, unspecified; E78.5 Hyperlipidemia, unspecified; F17.200 Nicotine dependence, unspecified, uncomplicated; K76.0 Fatty (change of) liver, not elsewhere classified; E03.9 Hypothyroidism, unspecified; Z79.01 Long term (current) use of anticoagulants; Z79.891 Long term (current) use of opiate analgesic; Z79.899 Other long term (current) drug therapy; Z88.6 Allergy status to analgesic agent; Z88.8 Allergy status to other drugs, medicaments and biological substances; Z86.718 Personal history of other venous thrombosis and embolism | CPT/HCPCS: G0463 ==

== ENCOUNTER → 2018-04-01 | Outpatient (CLI) | payer MEDICARE, BC, OTHER | LOC: M SMT 09:14 | DX: J01.10 Acute frontal sinusitis, unspecified (principal); Z51.81 Encounter for therapeutic drug level monitoring; Z79.01 Long term (current) use of anticoagulants | CPT/HCPCS: 71046; 85610 ==

== ENCOUNTER → 2018-04-07 | Outpatient (REF) | payer MEDICARE, OTHER ==
[2018-04-07 16:01] LABS: INR 2.35; PROTHROMBIN TIME 26.6 SECONDS (12.4-14.5)
== END ==
LOC: M SFHCPLAZ 13:07
DX: Z51.81 Encounter for therapeutic drug level monitoring (principal)
CPT/HCPCS: 85610

== ENCOUNTER → 2018-04-15 | Outpatient (CLI) | payer MEDICARE, OTHER | LOC: M PAIN 13:30 | DX: M12.88 Other specific arthropathies, not elsewhere classified, other specified site (principal); E78.5 Hyperlipidemia, unspecified; E03.9 Hypothyroidism, unspecified; F17.210 Nicotine dependence, cigarettes, uncomplicated; Z79.01 Long term (current) use of anticoagulants; Z79.891 Long term (current) use of opiate analgesic; Z79.899 Other long term (current) drug therapy; Z88.8 Allergy status to other drugs, medicaments and biological substances | CPT/HCPCS: G0463 ==

== ENCOUNTER → 2018-04-17 | Outpatient (CLI) | payer MEDICARE, OTHER ==
[2018-04-17 17:13] LABS: URIC ACID 4.2 MG/DL (3.5-7.2)
[2018-04-17 18:17] LABS: ERYTHROCYTE SEDIMENTATION RATE 12 mm/hr (0-20)
== END ==
LOC: M WUC 11:48
DX: M12.88 Other specific arthropathies, not elsewhere classified, other specified site (principal)
CPT/HCPCS: 84550

== ENCOUNTER → 2018-05-19 | Outpatient (REF) | payer MEDICARE, OTHER ==
[2018-05-19 11:50] LABS: HEMATOCRIT 42.7 % (42.0-52.0); LYMPH % 31.4 % (24.0-44.0); MEAN CORPUSCULAR HEMOGLOBIN 29.7 pg (27.0-33.0); MEAN CORPUSCULAR HGB CONC 32.8 g/dl (32.0-36.5); MEAN CORPUSCULAR VOLUME 90.7 fl (80.0-96.0); MONO % 8.1 % (0.0-5.0); NEUTROPHILS % 53.6 % (36.0-66.0); PLATELET COUNT, AUTOMATED 308 10^3/uL (150-450); RED BLOOD COUNT 4.71 10^6/uL (4.30-6.10); RED CELL DISTRIBUTION WIDTH 13.2 % (11.5-14.5); WHITE BLOOD COUNT 8.4 10^3/uL (4.0-10.0)
[2018-05-19 11:51] LABS: BASO % 0.5 % (0.0-1.0); EOS # 0.5 10^3/uL (0.0-0.50); IMMATURE GRANULOCYTE % 0.4 % (0-3.0); LYMPH # 2.6 10^3/uL (1.5-4.5); MONO # 0.7 10^3/uL (0.0-0.8); NEUTROPHILS # 4.5 10^3/uL (1.8-7.7); RETIC HEMOGLOBIN EQUIVALENT 34.5 pg (24-36); RETICULOCYTE # 44.3 10^9/L (17-77); RETICULOCYTE % 0.9 % (0.5-1.5)
[2018-05-19 12:02] LABS: INR 1.91; PARTIAL THROMBOPLASTIN TIME 36.8 SECONDS (25.4-37.6); PROTHROMBIN TIME 22.3 SECONDS (12.1-14.4)
[2018-05-19 12:30] LABS: ALBUMIN 3.7 GM/DL (3.2-5.2); ALBUMIN/GLOBULIN RATIO 1.23 (1.00-1.93); ALKALINE PHOSPHATASE 101 U/L (45-117); ALT/SGPT 25 U/L (12-78); ANION GAP 5 MEQ/L (8-16); AST/SGOT 18 U/L (7-37); BILIRUBIN,TOTAL 0.5 MG/DL (0.2-1.0); BLOOD UREA NITROGEN 16 MG/DL (7-18); C REACTIVE PROTEIN QUANTITATIV < 0.30 MG/DL (0.00-0.30); CALCIUM LEVEL 8.5 MG/DL (8.8-10.2); CARBON DIOXIDE LEVEL 32 MEQ/L (21-32); CHLORIDE LEVEL 107 MEQ/L (98-107); CHOLESTEROL LEVEL 106 MG/DL (<200); CHOLESTEROL RISK RATIO 2.465 (<5); CPK CREATINE PHOSPHOKINASE 82 U/L (39-308); CREATININE FOR GFR 1.09 MG/DL (0.70-1.30); FREE T4 0.87 NG/DL (0.76-1.46); GLOMERULAR FILTRATION RATE > 60.0 (>49); GLUCOSE, FASTING 92 MG/DL (70-100); HDL CHOLESTEROL 43 MG/DL (>40); LDL CHOLESTEROL 37.6 MG/DL (<100); MAGNESIUM LEVEL 2.1 MG/DL (1.8-2.4); NON-HDL-C 63 MG/DL; POTASSIUM SERUM 4.1 MEQ/L (3.5-5.1); SODIUM LEVEL 144 MEQ/L (136-145); TOTAL PROTEIN 6.7 GM/DL (6.4-8.2); TRIGLYCERIDES LEVEL 127 MG/DL (<150)
== END ==
LOC: M SFHCPLAZ 09:33
DX: N18.2 Chronic kidney disease, stage 2 (mild) (principal); E78.5 Hyperlipidemia, unspecified; E03.9 Hypothyroidism, unspecified; Z79.01 Long term (current) use of anticoagulants
CPT/HCPCS: 82550

== ENCOUNTER → 2018-05-19 | Outpatient (CLI) | payer MEDICARE, OTHER | LOC: M PAIN 10:45 | DX: M12.88 Other specific arthropathies, not elsewhere classified, other specified site (principal); E03.9 Hypothyroidism, unspecified; E78.5 Hyperlipidemia, unspecified; F32.9 Major depressive disorder, single episode, unspecified; E55.9 Vitamin D deficiency, unspecified; G47.00 Insomnia, unspecified; F17.210 Nicotine dependence, cigarettes, uncomplicated; Z79.01 Long term (current) use of anticoagulants; Z79.891 Long term (current) use of opiate analgesic; Z79.899 Other long term (current) drug therapy; Z88.8 Allergy status to other drugs, medicaments and biological substances | CPT/HCPCS: 82550; G0463 ==

== ENCOUNTER → 2018-06-09 | Outpatient (CLI) | payer MEDICARE, OTHER | LOC: M SMT 10:17 | DX: M25.562 Pain in left knee (principal) | CPT/HCPCS: 73564 ==

== ENCOUNTER → 2018-06-17 | Outpatient (CLI) | payer MEDICARE, OTHER | LOC: M PAIN 09:30 | DX: M54.5 Low back pain (principal); M12.88 Other specific arthropathies, not elsewhere classified, other specified site; F32.9 Major depressive disorder, single episode, unspecified; E78.5 Hyperlipidemia, unspecified; I82.509 Chronic embolism and thrombosis of unspecified deep veins of unspecified lower extremity; E03.9 Hypothyroidism, unspecified; F17.290 Nicotine dependence, other tobacco product, uncomplicated; Z79.01 Long term (current) use of anticoagulants; Z79.891 Long term (current) use of opiate analgesic; Z79.899 Other long term (current) drug therapy; Z88.6 Allergy status to analgesic agent; Z88.8 Allergy status to other drugs, medicaments and biological substances | CPT/HCPCS: G0463 ==

== ENCOUNTER → 2018-08-04 | Outpatient (CLI) | payer MEDICARE, OTHER | LOC: M PAIN 10:00 | DX: M12.88 Other specific arthropathies, not elsewhere classified, other specified site (principal); E78.5 Hyperlipidemia, unspecified; F32.9 Major depressive disorder, single episode, unspecified; E03.9 Hypothyroidism, unspecified; I82.509 Chronic embolism and thrombosis of unspecified deep veins of unspecified lower extremity; F17.293 Nicotine dependence, other tobacco product, with withdrawal; Z79.01 Long term (current) use of anticoagulants; Z79.899 Other long term (current) drug therapy; Z88.5 Allergy status to narcotic agent; Z88.8 Allergy status to other drugs, medicaments and biological substances; Z86.79 Personal history of other diseases of the circulatory system | CPT/HCPCS: G0463 ==

== ENCOUNTER → 2018-09-01 | Outpatient (CLI) | payer MEDICARE, OTHER | LOC: M PAIN 09:30 | DX: M12.88 Other specific arthropathies, not elsewhere classified, other specified site (principal); M51.17 Intervertebral disc disorders with radiculopathy, lumbosacral region; F32.9 Major depressive disorder, single episode, unspecified; E78.5 Hyperlipidemia, unspecified; E03.9 Hypothyroidism, unspecified; F17.210 Nicotine dependence, cigarettes, uncomplicated; I82.509 Chronic embolism and thrombosis of unspecified deep veins of unspecified lower extremity; Z79.01 Long term (current) use of anticoagulants; Z79.891 Long term (current) use of opiate analgesic; Z79.899 Other long term (current) drug therapy; Z88.5 Allergy status to narcotic agent; Z88.8 Allergy status to other drugs, medicaments and biological substances | CPT/HCPCS: G0463 ==

== ENCOUNTER → 2018-09-22 | Outpatient (CLI) | payer MEDICARE, OTHER | LOC: M PAIN 11:00 | DX: M51.17 Intervertebral disc disorders with radiculopathy, lumbosacral region (principal); M12.88 Other specific arthropathies, not elsewhere classified, other specified site; M47.816 Spondylosis without myelopathy or radiculopathy, lumbar region; F32.9 Major depressive disorder, single episode, unspecified; E78.5 Hyperlipidemia, unspecified; Z86.718 Personal history of other venous thrombosis and embolism; F17.210 Nicotine dependence, cigarettes, uncomplicated; K76.0 Fatty (change of) liver, not elsewhere classified; R91.8 Other nonspecific abnormal finding of lung field; M51.36 Other intervertebral disc degeneration, lumbar region; M50.31 Other cervical disc degeneration, high cervical region; E06.3 Autoimmune thyroiditis; Z79.01 Long term (current) use of anticoagulants; Z79.891 Long term (current) use of opiate analgesic; Z79.899 Other long term (current) drug therapy; Z88.6 Allergy status to analgesic agent; Z88.8 Allergy status to other drugs, medicaments and biological substances | CPT/HCPCS: J3301 ==

== ENCOUNTER → 2018-09-22 | Outpatient (CLI) | payer MEDICARE, OTHER ==
[2018-09-22 11:14] LABS: INR 1.13; PROTHROMBIN TIME 14.7 SECONDS (12.1-14.4)
== END ==
LOC: M LAB 10:33
DX: M51.17 Intervertebral disc disorders with radiculopathy, lumbosacral region (principal); M12.88 Other specific arthropathies, not elsewhere classified, other specified site; Z79.01 Long term (current) use of anticoagulants

== ENCOUNTER → 2018-10-21 | Outpatient (REF) | payer MEDICARE, OTHER ==
[~2018-10-21] MED LIST changes: +/WARF2TA PO; +ATOR1TAB21 PO; +BACL10TA2 PO; -BUPIVACAINE HCL 0.25% 30 ML VIAL As Ordered; +COUM1TAB19 PO; +CYCL10TA PO; +FURO40TA2 PO; +GABA-843 PO; -ISOVUE-M 300 61% 15ML VIAL (Q9967) As Ordered; -LIDOCAINE 1% SDV INJ 30 ML VIAL As Ordered; +LYRI150C PO; +LYRI75CA PO; +NORC7.5T35 PO; +NORT50CA PO; +PAXI40TA2 PO; +PRED20TA PO; +SYNT25TA PO; -TRIAMCINOLONE ACETONIDE SUSP 40 MG/ML VIAL (J3301) As Ordered; +VICO5TAB16 PO; +VITA100L PO; +VITA500019 PO; +WARF05TA PO; +WELL75TA PO; +ZOLP-189 PO
[2018-10-21 12:48] LABS: INR 2.11; PROTHROMBIN TIME 24.1 SECONDS (12.1-14.4)
== END ==
LOC: M SFHCPLAZ 09:56
PROVIDERS: ATTEND Physician Assistant Medical
DX: Z51.81 Encounter for therapeutic drug level monitoring (principal); Z79.01 Long term (current) use of anticoagulants

== ENCOUNTER → 2018-11-27 | Outpatient (CLI) | payer MEDICARE, OTHER ==
[2018-11-27 12:53] LABS: ALBUMIN 3.8 GM/DL (3.2-5.2); ALT/SGPT 24 U/L (12-78); BILIRUBIN,TOTAL 0.7 MG/DL (0.2-1.0); BLOOD UREA NITROGEN 16 MG/DL (7-18); CALCIUM LEVEL 8.4 MG/DL (8.8-10.2); CARBON DIOXIDE LEVEL 29 MEQ/L (21-32); CHLORIDE LEVEL 106 MEQ/L (98-107); CREATININE FOR GFR 1.12 MG/DL (0.70-1.30); GLOMERULAR FILTRATION RATE > 60.0 (>49); GLUCOSE, FASTING 81 MG/DL (70-100); POTASSIUM SERUM 4.3 MEQ/L (3.5-5.1); PROSTATIC SPECIFIC AG MONITOR 0.86 NG/ML (< 4.00); SODIUM LEVEL 142 MEQ/L (136-145); TOTAL PROTEIN 6.5 GM/DL (6.4-8.2)
[2018-11-27 12:56] LABS: INR 2.6; PROTHROMBIN TIME 28.4 SECONDS (12.1-14.4); PTH INTACT 66.7 PG/ML (18.5-88.0); TOTAL 25(OH) VITAMIN D 56.3 NG/ML (30.0-100.0)
[2018-11-27 12:58] LABS: BASO # 0.1 10^3/uL (0.0-0.2); BASO % 0.5 % (0.0-1.0); EOS # 0.5 10^3/uL (0.0-0.50); EOS % 5.3 % (0.0-3.0); HEMATOCRIT 43.6 % (42.0-52.0); HEMOGLOBIN 14.5 g/dl (13.5-17.5); LYMPH # 2.9 10^3/uL (1.5-4.5); LYMPH % 30.6 % (24.0-44.0); MEAN CORPUSCULAR HEMOGLOBIN 29.9 pg (27.0-33.0); MEAN CORPUSCULAR HGB CONC 33.3 g/dl (32.0-36.5); MEAN CORPUSCULAR VOLUME 89.9 fl (80.0-96.0); MONO # 0.6 10^3/uL (0.0-0.8); MONO % 6.7 % (0.0-5.0); NEUTROPHILS # 5.3 10^3/uL (1.8-7.7); NEUTROPHILS % 56.6 % (36.0-66.0); PLATELET COUNT, AUTOMATED 315 10^3/uL (150-450); RED BLOOD COUNT 4.85 10^6/uL (4.30-6.10); WHITE BLOOD COUNT 9.4 10^3/uL (4.0-10.0)
[2018-11-27 13:09] LABS: HEMATOCRIT 43.6 % (42.0-52.0)
[2018-11-27 13:28] LABS: HEMOGLOBIN A1c 5.8 %
[2018-11-30 07:39] LABS: VITAMIN B12 LEVEL 403 PG/ML (232-1245)
== END ==
LOC: M WUC 10:08
PROVIDERS: ATTEND Family Medicine
DX: R73.01 Impaired fasting glucose (principal); N18.2 Chronic kidney disease, stage 2 (mild); E55.9 Vitamin D deficiency, unspecified; G62.9 Polyneuropathy, unspecified; Z12.5 Encounter for screening for malignant neoplasm of prostate; Z51.81 Encounter for therapeutic drug level monitoring

== ENCOUNTER → 2018-12-29 | Outpatient (CLI) | payer MEDICARE, OTHER ==
--- NOTE | 2019-01-12 02:34 | ECWPNPC ---
PATIENT NAME: INDIRA BRASWELL : 1955 GENDER: MALE VISIT DATE: 12/29/2018 DISCHARGE DATE: 12/29/18 0948 VISIT LOCKED DATE TIME: PHYSICIAN: TAMAR JHAVERI PHYSICIAN PAGER NO: [phone] RESOURCE: TAMAR JHAVERI REASON FOR APPOINTMENT 1. BACK HISTORY OF PRESENT ILLNESS HISTORY OF PRESENT ILLNESS: HERE FOR POST PROCEDURE F/U.HAD TUNG. LFBT ON 09/22/18.CONTINUES TO DO WELL.RATING PAIN VAS 2-3/10.PAIN IS LOCATED ACROSS LOW BACK AND INTO BOTH LEGS. PAIN THE PATIENT DESCRIBES THE PAIN... FALL RISK SCREENING: SCREENING : NO FALLS IN THE PAST YEAR. CURRENT MEDICATIONS TAKING ZOLPIDEM TARTRATE 10 MG TABLET 1 TABLET AT BEDTIME NEEDED ORALLY AT BEDTIME MDD :1 TAKING AMITRIPTYLINE HCL 50 TABLET TAKE 1 TABLET BY MOUTH AT BEDTIME ORALLY ONCE A DAY TAKING LIPITOR 20 MG TABLET 1 TABLET ORALLY ONCE A DAY TAKING VIIBRYD 40 MG TABLET 1 TABLET WITH FOOD ORALLY ONCE A DAY TAKING NORCO 7.5-325 MG TABLET 1 TABLET NEEDED ORALLY EVERY 6 HRS PRN PAIN MDD=4 TAKING LEVOTHYROXINE SODIUM 25 MCG TABLET 1 TABLET ORALLY ONCE A DAY TAKING VOLTAREN 1 % GEL 4GRAMS TO EACH KNEE TRANSDERMAL EVERY 6 HOURS NEEDED TAKING TIZANIDINE HCL 4 MG TABLET 2 TABLETS NEEDED ORALLY THREE TIMES A DAY TAKING COUMADIN 2 MG TABLET 2TAB.S ON FRI., 1 TABLET ROW ORALLY ONCE A DAY TAKING VITAMIN D (CHOLECALCIFEROL) 5000 UNIT TABLET 1 TAB ORALLY ONCE A DAY TAKING CALCIUM 600+D HIGH POTENCY 600-400 MG-UNIT TABLET 1 TABLET WITH FOOD ORALLY ONCE A DAY TAKING BUPROPION HCL 75 MG TABLET 1 TABLET ORALLY BID TAKING MIRALAX - POWDER 17 GRAMS ORALLY IN WATER OR JUICE ONCE A DAY NOT-TAKING TIZANIDINE HCL 4 MG TABLET 2 TABLETS NEEDED ORALLY THREE TIMES A DAY NOT-TAKING WARFARIN SODIUM 2 MG TABLET 1 TABLET ORALLY ONCE A DAY MEDICATION LIST REVIEWED AND RECONCILED WITH THE PATIENT PAST MEDICAL HISTORY CHRONIC MDD/PRIMARY INSOMNIA HYPERLIPIDEMIA 2B RIGHT LOWER EXTREMITY DVT IN NOVEMBER 2009, IDIOPATHIC-NEGATIVE HYPERCOAGULABLE WORKUP EXCEPT FOR HETEROZYGOTE FOR FACTOR V 5 LEIDEN NICOTINE ADDICTION-SMOKES ROUGHLY 2 CIGARS DAILY X30 YEARS-APRIL 2011 FEV1 95% NORMAL/FVC 86% NORMAL STATUS POST RADIOFREQUENCY ABLATION FOR SYMPTOMATIC RECURRENT EXERCISE-INDUCED MONOMORPHIC V. TACH-JANUARY 2000-DR. 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 BROUSSARD 2006, 11/2014 4 TEETH EXTRACTED 01/2018 FAMILY HISTORY FATHER: 88 YRS, DEMENTIA MOTHER: 89 YRS, CONGESTIVE HEART FAILURE SOCIAL HISTORY GENERAL: TOBACCO USE ARE YOU A:CURRENT SMOKER ARE YOU INTERESTED IN QUITTING?NOT READY TO QUIT COUNSELED THE PATIENT ON SMOKING EFFECTS, EDUCATION [id number]/26/2019 PATIENT COUNSELED ON THE DANGERS OF TOBACCO USE AND URGED TO QUIT:12/29/2018 ADDITIONAL FINDINGS: TOBACCO USERCIGAR SMOKER ALCOHOL SCREENING DID YOU HAVE A DRINK CONTAINING ALCOHOL IN THE PAST YEAR?YES HOW OFTEN DID YOU HAVE SIX OR MORE DRINKS ON ONE OCCASION IN THE PAST YEAR?NEVER (0 POINTS) HOW MANY DRINKS DID YOU HAVE ON A TYPICAL DAY WHEN YOU WERE DRINKING IN THE PAST YEAR?1 OR 2 (0 POINTS) HOW OFTEN DID YOU HAVE A DRINK CONTAINING ALCOHOL IN THE PAST YEAR?TWO TO FOUR TIMES A MONTH (2 POINTS) POINTS2 INTERPRETATIONNEGATIVE RECREATIONAL DRUG USE DRUG USE?NO CAFFEINE CAFFEINE USE?NO HIV / HEP-C SCREENING HIV TEST OFFERED TO PATIENT:YES DATE OFFERED:02/25/2018 TEST ACCEPTED:NO HEP-C TEST OFFERED TO PATIENT:YES DATE OFFERED:01/27/2017 REASON:PATIENT DECLINED TEST ACCEPTED:YES BROCHURE PROVIDED TO PATIENTYES YAZIDI [id number] NONE LANGUAGE LANGUAGES SPOKEN:BRUNEIAN EDUCATION LEVEL OF EDUCATION:COLLEGE LEARNING BARRIERS / SPECIAL NEEDS CHANGE FROM LAST VISIT?NO BARRIERS TO LEARNING?NO HEARING IMPAIRED?NO VISION IMPAIRED?YES COGNITIVELY IMPAIRED?NO :CORRECTIVE LENSES READINESS TO LEARN?YES LEARNING PREFERENCES?NO LEARNING CAPABILITIES PRESENT?YES EMOTIONAL BARRIERS?NO SPECIAL DEVICES?NO RADIOACTIVE WASTE DISPOSAL DISPATCHER NEEDED?NO DOMESTIC VIOLENCE DO YOU FEEL SAFE IN YOUR ENVIRONMENT?YES OCCUPATION: RETIRED. DIET: REGULAR. EXERCISE: WALKS. MARITAL STATUS: . OTHERS AT HOME: SPOUSE. 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 REVIEWED WITH PATIENT 08/04/18 1043 JSREVIEWED WITH PT 09/22/18, 1120 NO ADVANCED DIRECTIVES, DECLINED INFORMATION AND/OR ASSISTANCE IN FILLING ONE OUT LAS. HOSPITALIZATION/MAJOR DIAGNOSTIC PROCEDURE SURGERIES REVIEW OF SYSTEMS REVIEWED BY: PROVIDER: TAMAR KILPATRICK . CONSTITUTIONAL: ANY CHANGE IN YOUR MEDICAL CONDITION? NO . CHILLS NO . FEVER NO . INFECTION: DO YOU HAVE NEW INFECTIONS? NO . DO YOU HAVE HISTORY OF MRSA? NO . MUSCULOSKELETAL: ANY NEW PATTERNS OF PAIN OR NUMBNESS? YES, BILAT FEET BURN WHEN LYING DOWN . GASTROENTEROLOGY: ANY NEW CHANGE IN BOWEL CONTROL? NO . GENITOURINARY: ANY NEW CHANGE IN BLADDER CONTROL? NO . IS THERE A CHANCE YOU COULD BE ? NO . HEMATOLOGY/LYMPH: DO YOU TAKE ANY BLOOD THINNERS? (FOR EXAMPLE- COUMADIN, PLAVIX, AGGRENOX, PLATEL, PRADAXA, OR XARELTO) YES, COUMADIN . WHEN WAS YOUR LAST DOSE? DATE: TIME: . NEUROLOGY: HAVE YOU FALLEN IN THE PAST 12 MONTHS? NO . ANY NEW EXTREMITY NUMBNESS OR WEAKNESS? NO . CARDIOLOGY: DO YOU HAVE A PACEMAKER OR DEFIBRILLATOR? NO . RESPIRATORY: HAVE YOU BEEN SICK IN THE PAST WEEK? NO . FEVER NO . FLU LIKE SYMPTOMS? NO . COUGH NO . INTEGUMENTARY: DO YOU HAVE ANY RASHES OR OPEN SORES? NO . ALLERGIC/IMMUNO: ARE YOU ALLERGIC TO IV DYE? NO . ANY NEW ALLERGIES? NO . PSYCHIATRIC: DO YOU HAVE THOUGHTS OF HURTING YOURSELF OR SOMEONE ELSE? NO . ARE YOU ABUSED, NEGLECTED, OR IN AN UNSAFE ENVIRONMENT? NO . ENDOCRINOLOGY: ARE YOU DIABETIC? NO . OTHER: DO YOU NEED ANY PRESCRIPTIONS? NO . IF YES, PLEASE LIST: ____ . ANY NEW PROBLEMS WITH YOUR MEDICATIONS? NO . WHEN DID YOU LAST EAT? ____ . WHEN DID YOU LAST DRINK? ____ . WHAT DID YOU LAST DRINK? ____ . NAME OF PERSON DRIVING YOU HOME? ____ . DO YOU HAVE ANY OTHER QUESTIONS OR CONCERNS NO . VITAL SIGNS WT 188.2 LBS, HT 69 IN, BMI 27.79 INDEX, BP 137/69 MM HG, HR 75 /MIN, RR 16 /MIN, TEMP 97.1 F, OXYGEN SAT % 99%, NA INITIALS SC 09:05, REVIEWED BY: EM. EXAMINATION GENERAL EXAMINATION: GENERAL APPEARANCE:AWAKE,ALERT ,PLEAASANT . PSYCHAFFECT NORMAL . LUNGS:LUNG HOUSE ARE CLEAR TO AUSCULTATION BILATERALLY. GOOD MOVEMENT OF AIR . HEART:S1, S2 IN A REGULAR RATE AND RHYTHM. NO SIGNIFICANT MURMURS, RUBS OR GALLOPS NOTED . LUMBAR SACRAL SPINEPALPATION: + FOR PAIN OVER L/S SPINE. + FOR PAIN OVER L/S PARSPINALS. ASSESSMENTS FACET ARTHROPATHY, LUMBAR - M12.88 (PRIMARY) TREATMENT FACET ARTHROPATHY, LUMBAR REFILL NORCO TABLET, 7.5-325 MG, 1 TABLET NEEDED, ORALLY, EVERY 6 HRS PRN PAIN MDD=4, 30 DAY(S), 120, REFILLS 0 CONTINUE TIZANIDINE HCL TABLET, 4 MG, 2 TABLETS NEEDED, ORALLY, THREE TIMES A DAY NOTES: ISTOP REGISTRY REVIEWED AND DEMONSTRATES COMPLLIANCE. (REF #[id number] ) BRINGS IN MEDICATIONS WHICH IS APPROPRIATE FOR WHAT WAS DISPENSED. RECENT URINE TOXICOLOGY REVIEWED. NO UNAUTHORIZED MEDICATIONS. NO ILLICIT SUBSTANCES AND PRESCRIBED MEDICATIONS WERE PRESENT. , RISKS AND BENEFITS OF NARCOTIC/OPIOD MEDICATIONS WERE REVIEWED WITH PATIENT - THIS INCLUDES BUT IS NOT LIMITED TO RISK OF DEPENDANCE/DEVELOPMENT OF ADDICTION, MOOD DISTURBANCE AND DEPRESSION, OSTEOPOROSIS, HORMONAL AND LABIDAL CHANGES, RESPIRATORY DEPRESSION AND . PATIENT IS ADVISED NOT TO DRIVE OR DRINK ALCOHOL WHILE ON THESE MEDICATIONS, [facility] NARCOTIC AGREEMENT WAS UPDATED AND REVIEWED AND SIGNED TODAY BY THE PATIENT. SEE ATTACHED DOCUMENT FOR FULL DETAILS; SPECIFIC ISSUES WERE REVIEWED: 1) KEEP PAIN MEDS IN THEIR ORIGINAL BOTTLES AND ANY WEEKLY PLANNERS ARE TO BE BROUGHT TO THE PAIN CENTER AT EVERY VISIT. 2) THE PATIENT IS NOT TO INCREASE DOSING OR TIMING OF THEIR PAIN MEDICATION WITHOUT SPECIFIC DIRECTION OF THEIR PAIN CENTERPROVIDER (NOT ER OR OTHER PROVIDERS). 3) ALL PAIN MEDS ARE TO BE KEPT SECURED, IN A LOCKED BOX. 4) NO PAIN MEDS ARE TO BE SHARED WITH ANY OTHER PERSON FOR ANY REASON. 5) NO PAIN MEDS MAY BE TAKEN FROM ANY FRIENDS OR RELATIVES FOR ANY REASON 6) NO MEDS OR SUBSTANCES WHICH ARE NOT LEGAL ARE TO BE USED- NO MARIJUANA, NO COCAINE, AMPHETAMINES, HEROIN, OR OTHERS ARE EVER TO BE USED. 7)URINE TESTING IS DONE TO ACCOUNT FOR MEDS AND SUBSTANCES BEING TAKEN AND WILL BE DONE RANDOMLY. PROCEDURE CODES FA211 ESTABILISHED PATIENT [facility] CHARGE DISPOSITION & COMMUNICATION FOLLOW UP 8-10-WKS ELECTRONICALLY SIGNED BY SHONNA INMAN ON 01/11/2019 AT 04:15 PM EDT DISCLAIMER : THIS IS A VISIT SUMMARY EXTRACTED FROM THE [employer] CHART. IT IS NOT A COPY OF THE [employer] PROGRESS NOTE. MTDD
== END ==
LOC: M PAIN 09:00
PROVIDERS: ATTEND Nurse Practitioner Family
DX: M12.88 Other specific arthropathies, not elsewhere classified, other specified site (principal); E78.5 Hyperlipidemia, unspecified; F51.01 Primary insomnia; E03.9 Hypothyroidism, unspecified; F17.290 Nicotine dependence, other tobacco product, uncomplicated; Z79.01 Long term (current) use of anticoagulants; Z79.899 Other long term (current) drug therapy; Z88.5 Allergy status to narcotic agent; Z88.8 Allergy status to other drugs, medicaments and biological substances; Z86.79 Personal history of other diseases of the circulatory system

== ENCOUNTER → 2019-01-14 | Outpatient (REF) | payer MEDICARE, OTHER ==
[2019-01-14 12:04] LABS: BASO % 0.5 % (0.0-1.0); EOS # 0.5 10^3/uL (0.0-0.50); EOS % 6.3 % (0.0-3.0); LYMPH # 2.7 10^3/uL (1.5-4.5); MEAN CORPUSCULAR HEMOGLOBIN 30.5 pg (27.0-33.0); MEAN CORPUSCULAR HGB CONC 33.3 g/dl (32.0-36.5); MEAN CORPUSCULAR VOLUME 91.5 fl (80.0-96.0); MONO # 0.5 10^3/uL (0.0-0.8); MONO % 6.4 % (0.0-5.0); NEUTROPHILS # 4.5 10^3/uL (1.8-7.7); NEUTROPHILS % 54.4 % (36.0-66.0); PLATELET COUNT, AUTOMATED 275 10^3/uL (150-450); RED BLOOD COUNT 4.59 10^6/uL (4.30-6.10); WHITE BLOOD COUNT 8.3 10^3/uL (4.0-10.0)
[2019-01-14 12:15] LABS: INR 2.65; PROTHROMBIN TIME 28.8 SECONDS (12.1-14.4)
[2019-01-14 12:16] LABS: PARTIAL THROMBOPLASTIN TIME 38.8 SECONDS (25.4-37.6)
[2019-01-14 12:34] LABS: ALBUMIN 3.7 GM/DL (3.2-5.2); ALT/SGPT 24 U/L (12-78); BILIRUBIN,TOTAL 0.5 MG/DL (0.2-1.0); BLOOD UREA NITROGEN 14 MG/DL (7-18); CALCIUM LEVEL 8.8 MG/DL (8.8-10.2); CARBON DIOXIDE LEVEL 30 MEQ/L (21-32); CHLORIDE LEVEL 107 MEQ/L (98-107); CREATININE FOR GFR 1.05 MG/DL (0.70-1.30); GLOMERULAR FILTRATION RATE > 60.0 (>49); GLUCOSE, FASTING 86 MG/DL (70-100); SODIUM LEVEL 141 MEQ/L (136-145)
[2019-01-14 13:26] LABS: HEMOGLOBIN A1c 5.4 %
== END ==
LOC: M SFHCPLAZ 10:03
PROVIDERS: ATTEND Family Medicine
DX: N18.2 Chronic kidney disease, stage 2 (mild) (principal); R73.01 Impaired fasting glucose; Z12.5 Encounter for screening for malignant neoplasm of prostate; I82.509 Chronic embolism and thrombosis of unspecified deep veins of unspecified lower extremity; E55.9 Vitamin D deficiency, unspecified
CPT/HCPCS: 36415; 80053; 82306; 83036; 83525; 83970; 85025; 85046; 85610; 85730; G0103

== ENCOUNTER → 2019-02-25 | Outpatient (REF) | payer MEDICARE, OTHER ==
[~2019-02-25] MED LIST changes: -/WARF2TA PO; +COUM1TAB16 PO; +NORC1TAB8 PO; -NORC7.5T35 PO; -VICO5TAB16 PO; +VICO5TAB17 PO
[2019-02-25 14:05] LABS: INR 2.6; PROTHROMBIN TIME 28.4 SECONDS (12.1-14.4)
== END ==
LOC: M SFHCPLAZ 10:28
PROVIDERS: ATTEND Physician Assistant Medical
DX: I82.509 Chronic embolism and thrombosis of unspecified deep veins of unspecified lower extremity (principal); Z79.01 Long term (current) use of anticoagulants

== ENCOUNTER → 2019-03-02 | Outpatient (CLI) | payer MEDICARE, OTHER ==
--- NOTE | 2019-03-18 01:06 | ECWPNPC ---
PATIENT NAME: INDIRA BRASWELL : 1955 GENDER: MALE VISIT DATE: 03/02/2019 DISCHARGE DATE: 03/02/19 1129 VISIT LOCKED DATE TIME: PHYSICIAN: TAMAR JHAVERI PHYSICIAN PAGER NO: [phone] RESOURCE: TAMAR JHAVERI REASON FOR APPOINTMENT 1. BACK HISTORY OF PRESENT ILLNESS HISTORY OF PRESENT ILLNESS: HERE FOR F/U OF CHRONIC LOW BACK PAIN.STATES HIS LOW BACK PAIN IS BEGINING TO RETURN.RATING PAIN VAS 3/10.HE HAS DONE WELL FOR OVER 5 MONTHS SINCE LUMBAR FACET THERAPEUTIC BLOCK.REPORTING IMPROVED ACTIVITY TOLERANCE UP UNTIL A FEW WEEKS AGO. PAIN THE PATIENT DESCRIBES THE PAIN... FALL RISK SCREENING: SCREENING :NO FALLS REPORTED IN THE LAST YEAR CURRENT MEDICATIONS TAKING ZOLPIDEM TARTRATE 10 MG TABLET 1 TABLET AT BEDTIME NEEDED ORALLY AT BEDTIME MDD :1 TAKING AMITRIPTYLINE HCL 50 TABLET TAKE 1 TABLET BY MOUTH AT BEDTIME ORALLY ONCE A DAY TAKING LIPITOR 20 MG TABLET 1 TABLET ORALLY ONCE A DAY TAKING VIIBRYD 40 MG TABLET 1 TABLET WITH FOOD ORALLY ONCE A DAY TAKING LEVOTHYROXINE SODIUM 25 MCG TABLET 1 TABLET ORALLY ONCE A DAY TAKING VOLTAREN 1 % GEL 4GRAMS TO EACH KNEE TRANSDERMAL EVERY 6 HOURS NEEDED TAKING VITAMIN D (CHOLECALCIFEROL) 5000 UNIT TABLET 1 TAB ORALLY ONCE A DAY TAKING CALCIUM 600+D HIGH POTENCY 600-400 MG-UNIT TABLET 1 TABLET WITH FOOD ORALLY ONCE A DAY TAKING MIRALAX - POWDER 17 GRAMS ORALLY IN WATER OR JUICE ONCE A DAY TAKING TIZANIDINE HCL 4 MG TABLET 2 TABLETS NEEDED ORALLY THREE TIMES A DAY TAKING NORCO 7.5-325 MG TABLET 1 TABLET NEEDED ORALLY EVERY 6 HRS PRN PAIN MDD=4 TAKING BUPROPION HCL 75 MG TABLET 1 TABLET ORALLY BID TAKING COUMADIN 2 MG TABLET 2TABS ON FRI 1 TABLET ALL OTHER DAYS ORALLY ONCE A DAY DISCONTINUED BUPROPION HCL 75 TABLET 1 TABLET ORALLY BID, NOTES: DUPLICATE MEDICATION LIST REVIEWED AND RECONCILED WITH THE PATIENT PAST MEDICAL HISTORY CHRONIC MDD/PRIMARY INSOMNIA HYPERLIPIDEMIA 2B RIGHT LOWER EXTREMITY DVT IN NOVEMBER 2009, IDIOPATHIC-NEGATIVE HYPERCOAGULABLE WORKUP EXCEPT FOR HETEROZYGOTE FOR FACTOR V 5 LEIDEN NICOTINE ADDICTION-SMOKES ROUGHLY 2 CIGARS DAILY X30 YEARS-APRIL 2011 FEV1 95% NORMAL/FVC 86% NORMAL STATUS POST RADIOFREQUENCY ABLATION FOR SYMPTOMATIC RECURRENT EXERCISE-INDUCED MONOMORPHIC V. TACH-JANUARY 2000-[facility]. 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 ANA RASCON [facility] 11/2012-06/2012 NEGATIVE MRI/MRA BRAIN/NEGATIVE OCULAR BRPTVXIV-TZXWE-9/2012//L QUADRICEPS MUSCLE [id number] MUSCLE FIBER ATROPHY, FAVOR NEUROPATHIC PROCESS-[facility] L POPLITEAL AND PERONEAL/ANTERIOR TIBIAL VEIN (OF PROXIMAL CALF) DVT AND GSV OCCLUSION-03/[id number]-GEMS-GJLI COUMADIN STARTED BODERLINE LVH, LVEF 75%, LAE 39 MM, NORMAL DIASTOLIC FUNCTION BY 11/2013 TTE-SIMONS LUMBAR DJD- 12/2013 MRI C DIFFUSE BULGES L2-S1 C L5/S1 BULGE ABUTTING B S1 NEVER ROOTS CERVICAL DJD C3-7 SPONDYLOSIS S CORD COMPRESION, MILD L C5 NARROWING BY 12/2013 MRI BORDERLINE LVH, LAE 39 MM BY TTE 11/2013-SIMONS HYPOTHYROIDISM, AUTOIMMUNE-12/2014 TPO AB 192, - TG AB SIGMOID DIVERTICULITIS, FIRST EPISODE BY 09/25/14 CT A/P, WBC 19.8, 08/2015 REPEAT WCB 14.1-RESOLVED C C/F 10D, 11/2015 REPEAT C C/F 10D ALLERGIES MOBIC: PSYCHOLOGICAL CHANGES, NAUSEA - ALLERGY LYRICA: SEVERE DEPRESSION SURGICAL HISTORY LEFT PAROTID TUMOR REMOVAL X [address] BROUSSARD 2006, 11/2014 4 TEETH EXTRACTED 01/2018 FAMILY HISTORY FATHER: 88 YRS, DEMENTIA, DIAGNOSED WITH HYPERTENSION MOTHER: 89 YRS, CONGESTIVE HEART FAILURE SOCIAL HISTORY GENERAL: TOBACCO USE ARE YOU A:CURRENT SMOKER ARE YOU INTERESTED IN QUITTING?NOT READY TO QUIT COUNSELED THE PATIENT ON SMOKING EFFECTS, EDUCATION [id number]/26/2019 PATIENT COUNSELED ON THE DANGERS OF TOBACCO USE AND URGED TO QUIT:03/02/2019 ADDITIONAL FINDINGS: TOBACCO USERCIGAR SMOKER HIV / HEP-C SCREENING HIV TEST OFFERED TO PATIENT:YES DATE OFFERED:02/25/2018 TEST ACCEPTED:NO HEP-C TEST OFFERED TO PATIENT:YES DATE OFFERED:01/27/2017 REASON:PATIENT DECLINED TEST ACCEPTED:YES BROCHURE PROVIDED TO PATIENTYES OTHERS AT HOME: SPOUSE. EDUCATION LEVEL OF EDUCATION:COLLEGE DIET: REGULAR. LANGUAGE LANGUAGES SPOKEN:CUBAN DOMESTIC VIOLENCE DO YOU FEEL SAFE IN YOUR ENVIRONMENT?YES RECREATIONAL DRUG USE DRUG USE?NO EXERCISE: WALKS. LEARNING BARRIERS / SPECIAL NEEDS CHANGE FROM LAST VISIT?NO BARRIERS TO LEARNING?NO HEARING IMPAIRED?NO VISION IMPAIRED?YES COGNITIVELY IMPAIRED?NO :CORRECTIVE LENSES READINESS TO LEARN?YES LEARNING PREFERENCES?NO LEARNING CAPABILITIES PRESENT?YES EMOTIONAL BARRIERS?NO SPECIAL DEVICES?NO ASSEMBLY WORKER NEEDED?NO PAIN CLINIC PFS, CLERGY, PUBLIC HEALTH REFERRALS WAS THE PROVIDER NOTIFIED OF ANY PERTINENT INFO?YES HAS THE PATIENT BEEN EDUCATED REGARDING HIS/HER PLAN OF CARE?YES HAS THE PATIENT BEEN EDUCATED REGARDING PAIN, THE RISK FOR PAIN, THE IMPORTANCE OF EFFECTIVE PAIN MANAGEMENT, AND THE PAIN ASSESSMENT PROCESS?YES LATEX QUESTIONNAIRE LATEX ALLERGY : HAVE YOU EVER DEVELOPED ANY TYPE OF REACTION AFTER HANDLING LATEX PRODUCTS SUCH RUBBER GLOVES, CONDOMS, DIAPHRAGMS, BALLOONS, SOCKS, OR UNDERWEAR?NO LATEX ALLERGY : HAVE YOU EVER DEVELOPED ANY TYPE OF REACTION DURING OR AFTER DENTAL APPOINTMENT, VAGINAL/RECTAL EXAMINATION, SURGICAL PROCEDURE, OR ANY OTHER EXPOSURE?NO LATEX RISK : HAVE YOU EVER HAD ANY DIFFICULTY BREATHING OR HIVES AFTER EATING OR HANDLING ANY FRUITS, OR VEGETABLES; SUCH KIWI, BANANAS, STONE FRUITS, OR CHESTNUTSNO LATEX RISK : DO YOU HAVE A PREVIOUS PERSONAL HISTORY OF MORE THAN NINE SURGERIES, SPINA BIFIDA, OR REPEATED CATHERTIZATIONS? NO LATEX RISK : ARE YOU FREQUENTLY EXPOSED TO LATEX PRODUCTS IN YOUR OCCUPATION?NO DATE ASKED : 03/02/2019 CAFFEINE CAFFEINE USE?NO ADVANCE DIRECTIVE ADVANCE DIRECTIVE DISCUSSED WITH PATIENT:YES PT DECLINED INFORMATION, DECLINED ASSISTANCE IN FILLING ONE OUT. 03/02/19 YARSANI [id number] NONE MARITAL STATUS: . ALCOHOL SCREENING DID YOU HAVE A DRINK CONTAINING ALCOHOL IN THE PAST YEAR?YES HOW OFTEN DID YOU HAVE SIX OR MORE DRINKS ON ONE OCCASION IN THE PAST YEAR?NEVER (0 POINTS) HOW MANY DRINKS DID YOU HAVE ON A TYPICAL DAY WHEN YOU WERE DRINKING IN THE PAST YEAR?1 OR 2 (0 POINTS) HOW OFTEN DID YOU HAVE A DRINK CONTAINING ALCOHOL IN THE PAST YEAR?TWO TO FOUR TIMES A MONTH (2 POINTS) POINTS2 INTERPRETATIONNEGATIVE OCCUPATION: RETIRED. 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 REVIEWED WITH PATIENT 08/04/18 1043 JSREVIEWED WITH PT 09/22/18, 1120 NO ADVANCED DIRECTIVES, DECLINED INFORMATION AND/OR ASSISTANCE IN FILLING ONE OUT LASREVIEWED WITH PT 03/02/19 1029 BV. HOSPITALIZATION/MAJOR DIAGNOSTIC PROCEDURE SURGERIES REVIEW OF SYSTEMS REVIEWED BY: PROVIDER: TAMAR KILPATRICK . CONSTITUTIONAL: ANY CHANGE IN YOUR MEDICAL CONDITION? NO . CHILLS NO . FEVER NO . INFECTION: DO YOU HAVE NEW INFECTIONS? NO . DO YOU HAVE HISTORY OF MRSA? NO . MUSCULOSKELETAL: ANY NEW PATTERNS OF PAIN OR NUMBNESS? NO . GASTROENTEROLOGY: ANY NEW CHANGE IN BOWEL CONTROL? NO . GENITOURINARY: ANY NEW CHANGE IN BLADDER CONTROL? NO . IS THERE A CHANCE YOU COULD BE ? NO . HEMATOLOGY/LYMPH: DO YOU TAKE ANY BLOOD THINNERS? (FOR EXAMPLE- COUMADIN, PLAVIX, AGGRENOX, PLATEL, PRADAXA, OR XARELTO) YES, COUMADIN . WHEN WAS YOUR LAST DOSE? DATE: TIME: . NEUROLOGY: HAVE YOU FALLEN IN THE PAST 12 MONTHS? NO . ANY NEW EXTREMITY NUMBNESS OR WEAKNESS? NO . CARDIOLOGY: DO YOU HAVE A PACEMAKER OR DEFIBRILLATOR? NO . RESPIRATORY: HAVE YOU BEEN SICK IN THE PAST WEEK? NO . FEVER NO . FLU LIKE SYMPTOMS? NO . COUGH NO . INTEGUMENTARY: DO YOU HAVE ANY RASHES OR OPEN SORES? NO . ALLERGIC/IMMUNO: ARE YOU ALLERGIC TO IV DYE? NO . ANY NEW ALLERGIES? NO . PSYCHIATRIC: DO YOU HAVE THOUGHTS OF HURTING YOURSELF OR SOMEONE ELSE? NO . ARE YOU ABUSED, NEGLECTED, OR IN AN UNSAFE ENVIRONMENT? NO . ENDOCRINOLOGY: ARE YOU DIABETIC? NO . OTHER: DO YOU NEED ANY PRESCRIPTIONS? NO . IF YES, PLEASE LIST: ____ . ANY NEW PROBLEMS WITH YOUR MEDICATIONS? NO . WHEN DID YOU LAST EAT? ____ . WHEN DID YOU LAST DRINK? ____ . WHAT DID YOU LAST DRINK? ____ . NAME OF PERSON DRIVING YOU HOME? ____ . DO YOU HAVE ANY OTHER QUESTIONS OR CONCERNS NO . VITAL SIGNS WT 192.8 LBS, HT 69 IN, BMI 28.47 INDEX, BP 130/74 MM HG, HR 83 /MIN, RR 18 /MIN, TEMP 96.9 F, OXYGEN SAT % 99%, NA INITIALS AW 1024, REVIEWED BY: BV. EXAMINATION GENERAL EXAMINATION: GENERAL APPEARANCE: AWAKE,ALERT ,PLEAASANT . PSYCH AFFECT NORMAL . LUNGS: LUNG HOUSE ARE CLEAR TO AUSCULTATION BILATERALLY. GOOD MOVEMENT OF AIR . HEART: S1, S2 IN A REGULAR RATE AND RHYTHM. NO SIGNIFICANT MURMURS, RUBS OR GALLOPS NOTED . LUMBAR SACRAL SPINEPALPATION:TENDER OVER BILAT. L4/5-L5/S1 LUMBAR FACETS WITH FACET LOADING.. DIAGNOSTIC TESTS REVIEWED MRI L/S SPINE 12/10/13. ASSESSMENTS SPONDYLOSIS OF LUMBOSACRAL REGION WITHOUT MYELOPATHY OR RADICULOPATHY - M47.817 (PRIMARY) TREATMENT SPONDYLOSIS OF LUMBOSACRAL REGION WITHOUT MYELOPATHY OR RADICULOPATHY CONTINUE TIZANIDINE HCL TABLET, 4 MG, 2 TABLETS NEEDED, ORALLY, THREE TIMES A DAY CONTINUE NORCO TABLET, 7.5-325 MG, 1 TABLET NEEDED, ORALLY, EVERY 6 HRS PRN PAIN MDD=4 CONTINUE AMITRIPTYLINE HCL TABLET, 50, TAKE 1 TABLET BY MOUTH AT BEDTIME, ORALLY, ONCE A DAY NOTES: CONSIDER MRI L/S SPINE AT POST PROC F/UBILAT. L4/5-L5/S1 THERAPEUTIC LUMBAR FACET BLOCK, ISTOP REGISTRY REVIEWED AND DEMONSTRATES COMPLLIANCE. (REF # [id number] ) FORGOT MEDICATIONRECENT URINE TOXICOLOGY REVIEWED. NO UNAUTHORIZED MEDICATIONS. NO ILLICIT SUBSTANCES AND PRESCRIBED MEDICATIONS WERE PRESENT. URINE TOX TODAY, RISKS AND BENEFITS OF NARCOTIC/OPIOD MEDICATIONS WERE REVIEWED WITH PATIENT - THIS INCLUDES BUT IS NOT LIMITED TO RISK OF DEPENDANCE/DEVELOPMENT OF ADDICTION, MOOD DISTURBANCE AND DEPRESSION, OSTEOPOROSIS, HORMONAL AND LABIDAL CHANGES, RESPIRATORY DEPRESSION AND . PATIENT IS ADVISED NOT TO DRIVE OR DRINK ALCOHOL WHILE ON THESE MEDICATIONS. PROCEDURE CODES FA211 ESTABILISHED PATIENT [facility] CHARGE DISPOSITION & COMMUNICATION FOLLOW UP POST (REASON: BILAT L4/5-L5/S1 LFBT) ELECTRONICALLY SIGNED BY TAMAR KILPATRICK, SHONNA ON 03/17/2019 AT 09:01 AM EDT DISCLAIMER : THIS IS A VISIT SUMMARY EXTRACTED FROM THE [employer] CHART. IT IS NOT A COPY OF THE [employer] PROGRESS NOTE. KEITH
== END ==
LOC: M PAIN 10:00
PROVIDERS: ATTEND Nurse Practitioner Family
DX: M47.817 Spondylosis without myelopathy or radiculopathy, lumbosacral region (principal); E78.5 Hyperlipidemia, unspecified; E03.9 Hypothyroidism, unspecified; F17.290 Nicotine dependence, other tobacco product, uncomplicated; Z88.6 Allergy status to analgesic agent; Z88.8 Allergy status to other drugs, medicaments and biological substances; Z79.01 Long term (current) use of anticoagulants; Z79.899 Other long term (current) drug therapy

== ENCOUNTER → 2019-04-27 | Outpatient (REF) | payer MEDICARE, OTHER ==
[2019-04-27 12:44] LABS: INR 2.36; PROTHROMBIN TIME 25.6 SECONDS (11.8-14.0)
[2019-04-27 12:45] LABS: PARTIAL THROMBOPLASTIN TIME 39.9 SECONDS (25.0-38.4)
[2019-04-27 13:37] LABS: ALBUMIN 3.9 GM/DL (3.2-5.2); ALT/SGPT 28 U/L (12-78); BILIRUBIN,TOTAL 0.5 MG/DL (0.2-1.0); BLOOD UREA NITROGEN 12 MG/DL (7-18); CALCIUM LEVEL 8.6 MG/DL (8.8-10.2); CARBON DIOXIDE LEVEL 30 MEQ/L (21-32); CHLORIDE LEVEL 108 MEQ/L (98-107); CHOLESTEROL LEVEL 104 MG/DL (<200); CHOLESTEROL RISK RATIO 2.311 (<5); CPK CREATINE PHOSPHOKINASE 104 U/L (39-308); CREATININE FOR GFR 1.24 MG/DL (0.70-1.30); FREE T4 0.89 NG/DL (0.76-1.46); GLOMERULAR FILTRATION RATE > 60.0 (>49); GLUCOSE, FASTING 89 MG/DL (70-100); HDL CHOLESTEROL 45 MG/DL (>40); LDL CHOLESTEROL 40 MG/DL (<100); NON-HDL-C 59 MG/DL; POTASSIUM SERUM 4.1 MEQ/L (3.5-5.1); SODIUM LEVEL 141 MEQ/L (136-145); TOTAL PROTEIN 6.7 GM/DL (6.4-8.2); TRIGLYCERIDES LEVEL 95 MG/DL (<150)
[2019-04-27 14:38] LABS: HEMOGLOBIN A1c 5.6 %
== END ==
LOC: M SFHCPLAZ 10:02
PROVIDERS: ATTEND Physician Assistant Medical
DX: E78.5 Hyperlipidemia, unspecified (principal); R73.01 Impaired fasting glucose; I82.509 Chronic embolism and thrombosis of unspecified deep veins of unspecified lower extremity

== ENCOUNTER → 2019-05-13 | Outpatient (CLI) | payer MEDICARE, OTHER ==
[~2019-05-13] MED LIST changes: +BUPIVACAINE HCL 0.25% 30 ML VIAL As Ordered ONE; +CIPR-249 PO; +FLAG500T PO; +ISOVUE-M 200 41% 20ML VIAL (Q9966) As Ordered ONE; +LIDOCAINE 1% SDV INJ 30 ML VIAL As Ordered ONE; +TRIAMCINOLONE ACETONIDE SUSP 40 MG/ML VIAL (J3301) As Ordered ONE; +WARF4TAB51
--- NOTE | 2019-05-13 15:34 | REP ---
Partial lumbar spine series: Two views . History: Injection procedure for pain. 19 seconds of fluoroscopy time is reported. Findings: A sequence of two fluoroscopically obtained last image hold procedural spot radiographs of the lumbar spine document needle position and contrast injection associated with injection procedure. Electronically Signed by Saul Palacios MD 05/13/2019 03:26 P
--- NOTE | 2019-05-20 00:24 | ECWPNPC ---
PATIENT NAME: INDIRA BRASWELL : 1955 GENDER: MALE VISIT DATE: 05/13/2019 DISCHARGE DATE: 05/13/19 1253 VISIT LOCKED DATE TIME: PHYSICIAN: LAURE ESCUDERO MD PHYSICIAN PAGER NO: [phone] RESOURCE: LAURE ESCUDERO MD REASON FOR APPOINTMENT 1. BILAT L4/5-L5/S1 LFBT HISTORY OF PRESENT ILLNESS HISTORY OF PRESENT ILLNESS: PAIN THE PATIENT DESCRIBES THE PAIN... FALL RISK SCREENING: SCREENING :NO FALLS REPORTED IN THE LAST YEAR CURRENT MEDICATIONS TAKING LEVOTHYROXINE SODIUM 25 MCG TABLET 1 TABLET ORALLY ONCE A DAY, NOTES: 05/12 1100 TAKING VITAMIN D (CHOLECALCIFEROL) 5000 UNIT TABLET 1 TAB ORALLY ONCE A DAY, NOTES: 05/12 1100 TAKING CALCIUM 600+D HIGH POTENCY 600-400 MG-UNIT TABLET 1 TABLET WITH FOOD ORALLY ONCE A DAY, NOTES: 05/12 1100 TAKING VIIBRYD 40 MG TABLET 1 TABLET WITH FOOD ORALLY ONCE A DAY, NOTES: 05/12 700 TAKING WARFARIN SODIUM 2 MG TABLET 1 TABLET ORALLY ONCE A DAY, NOTES: 05/08 TAKING VOLTAREN 1 % GEL 4GRAMS TO EACH KNEE TRANSDERMAL EVERY 6 HOURS NEEDED, NOTES: NONE RECENT TAKING TIZANIDINE HCL 4 MG TABLET 2 TABLETS NEEDED ORALLY THREE TIMES A DAY, NOTES: 05/12 700 TAKING BUPROPION HCL 100 MG TABLET 1 TABLET ORALLY TWICE A DAY, NOTES: 05/12 2300 TAKING NORCO 7.5-325 MG TABLET 1 TABLET NEEDED ORALLY EVERY 6 HRS PRN PAIN MDD=4, NOTES: 05/12 1800 TAKING POLYETHYLENE GLYCOL 3350 - POWDER DISSOLVE 17 GRAMS IN WATER OR JUICE AND TAKE BY MOUTH ONCE DAILY , NOTES: 05/12 700 TAKING ATORVASTATIN CALCIUM 20 MG TABLET 1 TABLET ORALLY ONCE A DAY, NOTES: 05/12 2300 TAKING AMITRIPTYLINE HCL 50 TABLET TAKE 1 TABLET BY MOUTH EVERY NIGHT AT BEDTIME , NOTES: 05/12 2300 TAKING ZOLPIDEM TARTRATE 10 MG TABLET 1 TABLET AT BEDTIME NEEDED ORALLY AT BEDTIME MDD :1, NOTES: 05/12 2300 DISCONTINUED BUPROPION HCL 75 MG TABLET 1 TABLET ORALLY BID DISCONTINUED VIIBRYD 40 MG TABLET 1 TABLET WITH FOOD ORALLY ONCE A DAY, NOTES: DUPLICATE DISCONTINUED LEVOTHYROXINE SODIUM 25 MCG TABLET 1 TABLET ORALLY ONCE A DAY, NOTES: DUPLICATE DISCONTINUED TIZANIDINE HCL 4 MG TABLET 2 TABLETS NEEDED ORALLY THREE TIMES A DAY, NOTES: DUPLICATE DISCONTINUED COUMADIN 2 MG TABLET 2TABS ON FRI., 1 TABLET ROWEEK ORALLY ONCE A DAY, NOTES: DUPLICATE DISCONTINUED VICODIN 7.5 TABLET 1 TABLET NEEDED ORALLY EVERY 6 HRS PRN PAIN-MDD-4, NOTES: DUPLICATE MEDICATION LIST REVIEWED AND RECONCILED WITH THE PATIENT PAST MEDICAL HISTORY CHRONIC MDD/PRIMARY INSOMNIA HYPERLIPIDEMIA 2B RIGHT LOWER EXTREMITY DVT IN NOVEMBER 2009, IDIOPATHIC-NEGATIVE HYPERCOAGULABLE WORKUP EXCEPT FOR HETEROZYGOTE FOR FACTOR V 5 LEIDEN NICOTINE ADDICTION-SMOKES ROUGHLY 2 CIGARS DAILY X30 YEARS-APRIL 2011 FEV1 95% NORMAL/FVC 86% NORMAL STATUS POST RADIOFREQUENCY ABLATION FOR SYMPTOMATIC RECURRENT EXERCISE-INDUCED MONOMORPHIC V. TACH-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 ANA RASCON [facility] 11/2012-06/2012 NEGATIVE MRI/MRA BRAIN/NEGATIVE OCULAR DGCQUSJB-MTVYZ-3/2012//L QUADRICEPS MUSCLE [id number] MUSCLE FIBER ATROPHY, FAVOR NEUROPATHIC PROCESS-[facility] L POPLITEAL AND PERONEAL/ANTERIOR TIBIAL VEIN (OF PROXIMAL CALF) DVT AND GSV OCCLUSION-03/[id number] COUMADIN STARTED BODERLINE LVH, LVEF 75%, LAE 39 MM, NORMAL DIASTOLIC FUNCTION BY 11/2013 TTE-SIMONS LUMBAR DJD- 12/2013 MRI C DIFFUSE BULGES L2-S1 C L5/S1 BULGE ABUTTING B S1 NEVER ROOTS CERVICAL DJD C3-7 SPONDYLOSIS S CORD COMPRESION, MILD L C5 NARROWING BY 12/2013 MRI BORDERLINE LVH, LAE 39 MM BY TTE 11/2013-SIMONS HYPOTHYROIDISM, AUTOIMMUNE-12/2014 TPO AB 192, - TG AB SIGMOID DIVERTICULITIS, FIRST EPISODE BY 09/25/14 CT A/P, WBC 19.8, 08/2015 REPEAT WCB 14.1-RESOLVED C C/F 10D, 11/2015 REPEAT C C/F 10D ALLERGIES MOBIC: PSYCHOLOGICAL CHANGES, NAUSEA - ALLERGY LYRICA: SEVERE DEPRESSION SURGICAL HISTORY LEFT PAROTID TUMOR REMOVAL X [address] BROUSSARD 2006, 11/2014 4 TEETH EXTRACTED 01/2018 FAMILY HISTORY FATHER: 88 YRS, DEMENTIA, DIAGNOSED WITH HYPERTENSION MOTHER: 89 YRS, CONGESTIVE HEART FAILURE SOCIAL HISTORY GENERAL: TOBACCO USE ARE YOU A:CURRENT SMOKER ARE YOU INTERESTED IN QUITTING?NOT READY TO QUIT COUNSELED THE PATIENT ON SMOKING EFFECTS, EDUCATION [id number]/11/2019 PATIENT COUNSELED ON THE DANGERS OF TOBACCO USE AND URGED TO QUIT:05/13/2019 ADDITIONAL FINDINGS: TOBACCO USERCIGAR SMOKER 1 CIGAR/DAY HIV / HEP-C SCREENING HIV TEST OFFERED TO PATIENT:YES DATE OFFERED:02/25/2018 TEST ACCEPTED:NO REASON:PATIENT DECLINED BROCHURE PROVIDED TO PATIENTYES HEP-C TEST OFFERED TO PATIENT:YES DATE OFFERED:01/27/2017 TEST ACCEPTED:YES OTHERS AT HOME: SPOUSE. EDUCATION LEVEL OF EDUCATION:COLLEGE DIET: REGULAR. LANGUAGE LANGUAGES SPOKEN:CUBAN DOMESTIC VIOLENCE DO YOU FEEL SAFE IN YOUR ENVIRONMENT?YES RECREATIONAL DRUG USE DRUG USE?NO EXERCISE: WALKS. 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 NEEDED?NO PAIN CLINIC PFS, CLERGY, PUBLIC HEALTH REFERRALS HAS THE PATIENT BEEN EDUCATED REGARDING HIS/HER PLAN OF CARE?YES HAS THE PATIENT BEEN EDUCATED REGARDING PAIN, THE RISK FOR PAIN, THE IMPORTANCE OF EFFECTIVE PAIN MANAGEMENT, AND THE PAIN ASSESSMENT PROCESS?YES LATEX QUESTIONNAIRE LATEX ALLERGY : HAVE YOU EVER DEVELOPED ANY TYPE OF REACTION AFTER HANDLING LATEX PRODUCTS SUCH RUBBER GLOVES, CONDOMS, DIAPHRAGMS, BALLOONS, SOCKS, OR UNDERWEAR?NO LATEX ALLERGY : HAVE YOU EVER DEVELOPED ANY TYPE OF REACTION DURING OR AFTER DENTAL APPOINTMENT, VAGINAL/RECTAL EXAMINATION, SURGICAL PROCEDURE, OR ANY OTHER EXPOSURE?NO LATEX RISK : HAVE YOU EVER HAD ANY DIFFICULTY BREATHING OR HIVES AFTER EATING OR HANDLING ANY FRUITS, OR VEGETABLES; SUCH KIWI, BANANAS, STONE FRUITS, OR CHESTNUTSNO LATEX RISK : DO YOU HAVE A PREVIOUS PERSONAL HISTORY OF MORE THAN NINE SURGERIES, SPINA BIFIDA, OR REPEATED CATHERTIZATIONS? NO LATEX RISK : ARE YOU FREQUENTLY EXPOSED TO LATEX PRODUCTS IN YOUR OCCUPATION?NO DATE ASKED : 03/02/2019 CAFFEINE CAFFEINE USE?NO ADVANCE DIRECTIVE ADVANCE DIRECTIVE DISCUSSED WITH PATIENT:YES 05/13/19 PT DOES NOT HAVE ANY ADVANCED DIRECTIVES AND HE DECLINES INFORMATION ON HCP AT THIS TIME. AD CHURCH [id number] NONE MARITAL STATUS: . ALCOHOL SCREENING DID YOU HAVE A DRINK CONTAINING ALCOHOL IN THE PAST YEAR?YES HOW OFTEN DID YOU HAVE A DRINK CONTAINING ALCOHOL IN THE PAST YEAR?TWO TO FOUR TIMES A MONTH (2 POINTS) HOW MANY DRINKS DID YOU HAVE ON A TYPICAL DAY WHEN YOU WERE DRINKING IN THE PAST YEAR?1 OR 2 (0 POINTS) HOW OFTEN DID YOU HAVE SIX OR MORE DRINKS ON ONE OCCASION IN THE PAST YEAR?NEVER (0 POINTS) POINTS2 INTERPRETATIONNEGATIVE OCCUPATION: RETIRED. 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 REVIEWED WITH PATIENT 08/04/18 1043 JSREVIEWED WITH PT 09/22/18, 1120 NO ADVANCED DIRECTIVES, DECLINED INFORMATION AND/OR ASSISTANCE IN FILLING ONE OUT LASREVIEWED WITH PT 03/02/19 1029 BV. HOSPITALIZATION/MAJOR DIAGNOSTIC PROCEDURE SURGERIES REVIEW OF SYSTEMS REVIEWED BY: PROVIDER: . CONSTITUTIONAL: ANY CHANGE IN YOUR MEDICAL CONDITION? NO . CHILLS NO . FEVER NO . INFECTION: DO YOU HAVE NEW INFECTIONS? NO . DO YOU HAVE HISTORY OF MRSA? NO . MUSCULOSKELETAL: ANY NEW PATTERNS OF PAIN OR NUMBNESS? NO . GASTROENTEROLOGY: ANY NEW CHANGE IN BOWEL CONTROL? NO . GENITOURINARY: ANY NEW CHANGE IN BLADDER CONTROL? NO . IS THERE A CHANCE YOU COULD BE ? NO . HEMATOLOGY/LYMPH: DO YOU TAKE ANY BLOOD THINNERS? (FOR EXAMPLE- COUMADIN, PLAVIX, AGGRENOX, PLATEL, PRADAXA, OR XARELTO) YES, COUMADIN . WHEN WAS YOUR LAST DOSE? DATE: 05/08/19 TIME: 2300 PT/INR 16.2/1.33 DR. ESCUDERO AWARE . NEUROLOGY: HAVE YOU FALLEN IN THE PAST 12 MONTHS? NO . ANY NEW EXTREMITY NUMBNESS OR WEAKNESS? NO . CARDIOLOGY: DO YOU HAVE A PACEMAKER OR DEFIBRILLATOR? NO . RESPIRATORY: HAVE YOU BEEN SICK IN THE PAST WEEK? NO . FEVER NO . FLU LIKE SYMPTOMS? NO . COUGH NO . INTEGUMENTARY: DO YOU HAVE ANY RASHES OR OPEN SORES? NO . ALLERGIC/IMMUNO: ARE YOU ALLERGIC TO IV DYE? NO . ANY NEW ALLERGIES? NO . PSYCHIATRIC: DO YOU HAVE THOUGHTS OF HURTING YOURSELF OR SOMEONE ELSE? NO . ARE YOU ABUSED, NEGLECTED, OR IN AN UNSAFE ENVIRONMENT? NO . ENDOCRINOLOGY: ARE YOU DIABETIC? NO . OTHER: DO YOU NEED ANY PRESCRIPTIONS? NO . IF YES, PLEASE LIST: ____ . ANY NEW PROBLEMS WITH YOUR MEDICATIONS? NO . WHEN DID YOU LAST EAT? 05/12 1800 . WHEN DID YOU LAST DRINK? 05/12 2200 . WHAT DID YOU LAST DRINK? WATER . NAME OF PERSON DRIVING YOU HOME? GERALDINE . DO YOU HAVE ANY OTHER QUESTIONS OR CONCERNS NO PT HAS NOT HAD ANY VACCINES IN THE PAST 30 DAYS . VITAL SIGNS WT 187.8 LBS, HT 69 IN, BMI 27.73 INDEX, BP 125/70 MM HG, HR 65 /MIN, RR 18 /MIN, TEMP 97.4 F, OXYGEN SAT % 96%, SAFE IN ENV? (Y/N) Y, NA INITIALS AW 1004, REVIEWED BY: AD. ASSESSMENTS SPONDYLOSIS OF LUMBAR REGION WITHOUT MYELOPATHY OR RADICULOPATHY - M47.816 (PRIMARY) SPONDYLOSIS OF LUMBOSACRAL REGION WITHOUT MYELOPATHY OR RADICULOPATHY - M47.817 TREATMENT SPONDYLOSIS OF LUMBOSACRAL REGION WITHOUT MYELOPATHY OR RADICULOPATHY [facility] FACET BLOCK (PAIN)[id number] PROCEDURES PN LUMBAR FACET BLOCK THERAPEUTIC PRE PROCEDURE DIAGNOSIS LUMBAR SPONDYLOSIS, LUMBOSACRAL SPONDYLOSIS POST PROCEDURE DIAGNOSIS LUMBAR SPONDYLOSIS, LUMBOSACRAL SPONDYLOSIS PROCEDURE BILATERAL L4-L5 AND BILATERAL L5-S1 LUMBAR FACET THERAPEUTIC BLOCK SURGEON DR. LAURE ESCUDERO SKIRT PANEL ASSEMBLER NONE ANESTHESIA LOCAL PRE PROCEDURE NOTE THE PATIENT HAS A HISTORY OF CHRONIC LOW BACK PAIN. I EVALUATED THE PATIENT AND REVIEWED THE CHART. I WENT OVER THE RISKS, ALTERNATIVES, AND BENEFITS ASSOCIATED WITH THIS PROCEDURE. THE PATIENT WOULD LIKE TO PROCEED AND GIVE CONSENT TO PERFORMED THE PROCEDURE. THE PATIENT DENIES UNEXPLAINABLE WEIGHT LOSS, FEVER, CHILLS, OR NEW CHANGES IN URINARY OR BOWEL CONTROL DESCRIPTION OF PROCEDURE THE PATIENT WAS BROUGHT TO THE PROCEDURE ROOM AND PLACED IN THE PRONE POSITION. THE LUMBOSACRAL AREA WAS CLEANED WITH CHLORAPREP SOLUTION AND DRAPED ASEPTICALLY. THE PROCEDURE WAS DONE UNDER STERILE CONDITIONS. I CHECKED LATERALITY AND THE LEVEL WHERE THE PROCEDURE WAS GOING TO BE PERFORMED WITH THE PATIENT AND THE SUPPORTING STAFF AT THE MOMENT OF THE TIME OUT IN THE PROCEDURE ROOM. UNDER FLUOROSCOPIC GUIDANCE, THE TARGET POINT WAS SELECTED AT THE RIGHT AND LEFT L4-L5 AND RIGHT AND LEFT L5-S1 FACET JOINT. TARGET POINT WAS SELECTED AFTER LATERAL ROTATION AND TILT OF THE MAGNIFIER OF THE C-ARM. LIDOCAINE 0.5% WAS USED TO NUMB THE SKIN AND THE SUBCUTANEOUS TISSUE BELOW IT. SPINAL NEEDLES, 22-GAUGE, WERE ADVANCED UNDER FLUOROSCOPIC GUIDANCE AND FOLLOWING PATIENT FEEDBACK UNTIL THE TARGETS WERE TOUCHED. THE POSITION OF THE NEEDLES WAS VERIFIED WITH AP AND LATERAL VIEWS. AFTER PROPER POSITION OF THE NEEDLES WAS ACHIEVED, ISOVUE-M DYE WAS INJECTED SHOWING ADEQUATE SPREAD OF THE DYE. THEN A SOLUTION OF 1.9 ML OF BUPIVACAINE 0.125% OF KENALOG 10 MG WAS INJECTED AT EACH SITE. THERE WAS NO EVIDENCE OF BLOOD, PARESTHESIA OR CEREBROSPINAL FLUID DURING THE PROCEDURE. THE PATIENT WAS SENT TO THE RECOVERY ROOM. THE PATIENT WAS MOVING THE EXTREMITIES AND DOING WELL. THERE WAS NO COMPLICATION DURING THE PROCEDURE. FLUOROSCOPY TIME WAS 19 SECONDS POST PROCEDURE NOTE THE PATIENT WILL BE SEEN IN A FOLLOW UP IN THE NEXT FEW WEEKS. INSTRUCTIONS WERE GIVEN, QUESTIONS WERE ANSWERED, AND THE PATIENT EXPRESSED UNDERSTANDING AND AGREES WITH THE PLAN. I, ANAI CLAROS, DOCUMENTED THE ABOVE INFORMATION ACTING A SCRIBE FOR DR. ESCUDERO. I HAVE REVIEWED THE ABOVE DOCUMENT, WRITTEN BY ANAI CLAROS SCRIBSaeed AND I VERIFY THAT IT IS ACCURATE. PROCEDURE CODES 00128 INJ PARAVERT F JNT L/S 1 LEV, MODIFIERS: 50 [id number] INJ PARAVERT F JNT L/S 2 LEV, MODIFIERS: 50 [id number] RADXPS IN END [id number] PXD DISPOSITION & COMMUNICATION FOLLOW UP 3 WEEKS ELECTRONICALLY SIGNED BY LAURE ESCUDERO MD, MD ON 05/19/2019 AT 12:49 PM EDT DISCLAIMER : THIS IS A VISIT SUMMARY EXTRACTED FROM THE [employer] CHART. IT IS NOT A COPY OF THE [employer] PROGRESS NOTE. MTDD
== END ==
LOC: M PAIN 10:45
PROVIDERS: ATTEND Anesthesiology
DX: G89.29 Other chronic pain (principal); M54.5 Low back pain; M47.816 Spondylosis without myelopathy or radiculopathy, lumbar region; M47.817 Spondylosis without myelopathy or radiculopathy, lumbosacral region; F32.9 Major depressive disorder, single episode, unspecified; G47.00 Insomnia, unspecified; F17.210 Nicotine dependence, cigarettes, uncomplicated; E03.9 Hypothyroidism, unspecified; M51.36 Other intervertebral disc degeneration, lumbar region; R91.8 Other nonspecific abnormal finding of lung field; Z79.01 Long term (current) use of anticoagulants; Z79.891 Long term (current) use of opiate analgesic; Z79.899 Other long term (current) drug therapy; Z88.1 Allergy status to other antibiotic agents; Z88.8 Allergy status to other drugs, medicaments and biological substances
CPT/HCPCS: 36415; 64493; 64494; 85610; J3301; Q9966

== ENCOUNTER → 2019-05-13 | Outpatient (CLI) | payer MEDICARE, BC, OTHER ==
[~2019-05-13] MED LIST changes: -BUPIVACAINE HCL 0.25% 30 ML VIAL As Ordered ONE; -ISOVUE-M 200 41% 20ML VIAL (Q9966) As Ordered ONE; -LIDOCAINE 1% SDV INJ 30 ML VIAL As Ordered ONE; -TRIAMCINOLONE ACETONIDE SUSP 40 MG/ML VIAL (J3301) As Ordered ONE
[2019-05-13 10:08] LABS: INR 1.33; PROTHROMBIN TIME 16.2 SECONDS (11.8-14.0)
== END ==
LOC: M LAB 09:38
PROVIDERS: ATTEND Nurse Practitioner Family
DX: M54.5 Low back pain (principal); G89.29 Other chronic pain

== ENCOUNTER 2019-05-16 09:15 | Emergency (ER) | payer MEDICARE, BC, OTHER ==
[~2019-05-16] VITALS: Ht 175.3 cm; Wt 84.1 kg
[~2019-05-16 09:15] MED LIST changes: -CIPR-249 PO; -FLAG500T PO; -WARF4TAB51
[2019-05-16] MEDS ORDERED: WARF4TAB51 (09:23)
[2019-05-16] MEDS ORDERED: ONDANSETRON 4MG/2ML VIAL (J2405) IV ONE (09:45)
[2019-05-16] MEDS ORDERED: MORPHINE 4 MG/ML 1ML VIAL/SYRINGE (J2270) IV ONE (09:45)
[2019-05-16] MEDS ORDERED: NS 1,000 ML IV ONE (09:45)
[2019-05-16 09:57] LABS: BASO % 0.3 % (0.0-1.0); EOS # 0.1 10^3/uL (0.0-0.50); EOS % 1.1 % (0.0-3.0); HEMATOCRIT 41.9 % (42.0-52.0); LYMPH # 3.9 10^3/uL (1.5-4.5); LYMPH % 32.4 % (24.0-44.0); MEAN CORPUSCULAR HEMOGLOBIN 30.3 pg (27.0-33.0); MEAN CORPUSCULAR HGB CONC 33.4 g/dl (32.0-36.5); MEAN CORPUSCULAR VOLUME 90.7 fl (80.0-96.0); MONO # 0.8 10^3/uL (0.0-0.8); MONO % 6.5 % (0.0-5.0); NEUTROPHILS # 7.1 10^3/uL (1.8-7.7); NEUTROPHILS % 59.2 % (36.0-66.0); PLATELET COUNT, AUTOMATED 308 10^3/uL (150-450); RED BLOOD COUNT 4.62 10^6/uL (4.30-6.10); WHITE BLOOD COUNT 11.9 10^3/uL (4.0-10.0)
[2019-05-16 10:06] LABS: INR 1.37; PROTHROMBIN TIME 16.6 SECONDS (11.8-14.0)
[2019-05-16 10:56] LABS: ALT/SGPT 25 U/L (12-78); BILIRUBIN,DIRECT 0.1 MG/DL (0.0-0.2); BILIRUBIN,TOTAL 0.5 MG/DL (0.2-1.0); BLOOD UREA NITROGEN 19 MG/DL (7-18); CARBON DIOXIDE LEVEL 26 MEQ/L (21-32); CHLORIDE LEVEL 108 MEQ/L (98-107); CREATININE FOR GFR 1.15 MG/DL (0.70-1.30); GLOMERULAR FILTRATION RATE > 60.0 (>49); GLUCOSE, FASTING 102 MG/DL (70-100); LIPASE 97 U/L (73-393); POTASSIUM SERUM 4.4 MEQ/L (3.5-5.1); SODIUM LEVEL 142 MEQ/L (136-145)
[2019-05-16] MEDS ORDERED: ISOVUE-370 76% 100ML VIAL (Q9967) As Ordered ONE (10:57)
--- NOTE | 2019-05-16 11:43 | REP ---
CT abdomen and pelvis with IV but without oral contrast: History: Upper abdomen pain. Rule out colitis. Comparison CT study November 27, 2015. CT contrast dose: 100 ml of intravenous Isovue [address] findings: Preliminary digital education consultant radiograph demonstrates clips in the right upper quadrant and a normal bowel gas pattern. The lung bases are clear. The liver is normal in size, homogeneous in texture. The spleen is unremarkable. There is no evidence of adrenal lesion on either side. Gallbladder surgically absent. No pancreatic lesion is seen. No retroperitoneal mass or adenopathy is observed. The kidneys enhance symmetrically. There is a peripheral cortical cyst projecting from the lower pole of the left kidney which measures 3.5 cm in greatest diameter. This is quite a bit smaller than it was November 27, 2015. It measured 6.0 cm in craniocaudal span on that prior study. No renal mass lesion is seen. No retroperitoneal mass or adenopathy is observed. There is left colonic diverticulosis without CT evidence of diverticulitis. Small and large intestinal bowel loops are normal in the abdomen and pelvis. A normal appendix is seen in the right lower quadrant. Seminal vesicles, prostate, and urinary bladder are unremarkable. No abdominal wall defect is seen. Bone window settings show no bony destructive lesion. Impression: Left colonic diverticulosis without CT evidence of diverticulitis. No CT evidence of enterocolitis. Normal appendix. Post cholecystectomy. Interval decrease in the size of a previously noted left lower pole renal cyst. Electronically Signed by Saul Palacios MD 05/16/2019 12:21 P
[2019-05-16] MEDS ORDERED: CIPR-249 PO (11:55)
[2019-05-16] MEDS ORDERED: FLAG500T PO (11:55)
[2019-05-16 12:06] VITALS: BP 127/65
== END 2019-05-16 12:09 | disposition home or self-care (01) ==
LOC: M ED 09:15
DX: K57.30 Diverticulosis of large intestine without perforation or abscess without bleeding (principal); I10 Essential (primary) hypertension; E78.5 Hyperlipidemia, unspecified; M54.9 Dorsalgia, unspecified; K52.9 Noninfective gastroenteritis and colitis, unspecified; Z86.718 Personal history of other venous thrombosis and embolism; F17.210 Nicotine dependence, cigarettes, uncomplicated; Z88.8 Allergy status to other drugs, medicaments and biological substances; Z79.899 Other long term (current) drug therapy; Z79.01 Long term (current) use of anticoagulants
CPT/HCPCS: 74177; 80048; 80076; 83690; 85025; 85610; 96361; 96374; 96375; 99284; J2270; J2405; Q9967

== ENCOUNTER → 2019-06-10 | Outpatient (REF) | payer MEDICARE, OTHER ==
[~2019-06-10] MED LIST changes: +CIPR-249 PO; +FLAG500T PO; +WARF4TAB51
[2019-06-10 13:43] LABS: INR 1.98; PROTHROMBIN TIME 22.3 SECONDS (11.8-14.0)
== END ==
LOC: M SFHCPLAZ 10:06
PROVIDERS: ATTEND Physician Assistant Medical
DX: I82.509 Chronic embolism and thrombosis of unspecified deep veins of unspecified lower extremity (principal)

== ENCOUNTER → 2019-06-16 | Outpatient (CLI) | payer MEDICARE, OTHER | LOC: M PAIN 13:00 | PROVIDERS: ATTEND Nurse Practitioner Family | DX: M47.817 Spondylosis without myelopathy or radiculopathy, lumbosacral region (principal); E78.5 Hyperlipidemia, unspecified; E03.9 Hypothyroidism, unspecified; F17.290 Nicotine dependence, other tobacco product, uncomplicated; Z88.6 Allergy status to analgesic agent; Z88.8 Allergy status to other drugs, medicaments and biological substances; Z79.899 Other long term (current) drug therapy ==

== ENCOUNTER → 2019-07-01 | Outpatient (REF) | payer MEDICARE, OTHER ==
[2019-07-01 13:27] LABS: INR 2.78; PROTHROMBIN TIME 29.2 SECONDS (11.8-14.0)
== END ==
LOC: M SFHCPLAZ 10:30
PROVIDERS: ATTEND Physician Assistant Medical
DX: Z51.81 Encounter for therapeutic drug level monitoring (principal); Z79.01 Long term (current) use of anticoagulants

== ENCOUNTER → 2019-09-16 | Outpatient (CLI) | payer MEDICARE, OTHER ==
--- NOTE | 2019-11-06 02:20 | ECWPNPC ---
PATIENT NAME: INDIRA BRASWELL : 1955 GENDER: MALE VISIT DATE: 09/16/2019 DISCHARGE DATE: 09/16/19 1032 VISIT LOCKED DATE TIME: PHYSICIAN: INDIRA EDMONDS PHYSICIAN PAGER NO: [phone] RESOURCE: INDIRA EDMONDS REASON FOR APPOINTMENT 1. 3 MONTHS HISTORY OF PRESENT ILLNESS HISTORY OF PRESENT ILLNESS: PAIN THE PATIENT DESCRIBES THE PAIN... 64-YEAR-OLD MALE IN FOR CHRONIC PAIN FOLLOW-UP. HE HAD A FACET BLOCK THAT WAS DONE IN JUNE AND HE FEELS THIS IS STILL WORKING WELL FOR HIM. PATIENT RATES HIS PAIN CURRENTLY AT A 2 OUT OF 10 AND DESCRIBES IT ACHING, AND STABBING. HE FEELS MEDICATIONS ARE WORKING WELL AND DENIES MED SIDE EFFECTS THIS TIME. FALL RISK SCREENING: SCREENING :NO FALLS REPORTED IN THE LAST YEAR CURRENT MEDICATIONS TAKING VITAMIN D (CHOLECALCIFEROL) 5000 UNIT TABLET 1 TAB ORALLY ONCE A DAY TAKING CALCIUM 600+D HIGH POTENCY 600-400 MG-UNIT TABLET 1 TABLET WITH FOOD ORALLY ONCE A DAY TAKING VOLTAREN 1 % GEL 4GRAMS TO EACH KNEE TRANSDERMAL EVERY 6 HOURS NEEDED TAKING ATORVASTATIN CALCIUM 20 MG TABLET 1 TABLET ORALLY ONCE A DAY TAKING AMITRIPTYLINE HCL 50 TABLET TAKE 1 TABLET BY MOUTH EVERY NIGHT AT BEDTIME TAKING POLYETHYLENE GLYCOL 3350 - POWDER DISSOLVE 17 GRAMS IN WATER OR JUICE AND TAKE BY MOUTH ONCE DAILY ORALLY ONCE A DAY TAKING VIIBRYD 40 MG TABLET 1 TABLET WITH FOOD ORALLY ONCE A DAY TAKING LEVOTHYROXINE SODIUM 25 MCG TABLET 1 TABLET ORALLY ONCE A DAY TAKING ZOLPIDEM TARTRATE 10 MG TABLET 1 TABLET AT BEDTIME NEEDED ORALLY AT BEDTIME MDD :1 TAKING BUPROPION HCL 100 MG TABLET 1 TABLET ORALLY TWICE A DAY TAKING TIZANIDINE HCL 4 MG TABLET 2 TABLETS NEEDED ORALLY THREE TIMES A DAY TAKING WARFARIN SODIUM 2 MG TABLET 2MG ORALLY ONCE A DAY TAKING NORCO 7.5-325 MG TABLET 1 TABLET NEEDED ORALLY EVERY 6 HRS PRN PAIN MDD=4 MEDICATION LIST REVIEWED AND RECONCILED WITH THE PATIENT PAST MEDICAL HISTORY CHRONIC MDD/PRIMARY INSOMNIA HYPERLIPIDEMIA 2B RIGHT LOWER EXTREMITY DVT IN NOVEMBER 2009, IDIOPATHIC-NEGATIVE HYPERCOAGULABLE WORKUP EXCEPT FOR HETEROZYGOTE FOR FACTOR V 5 LEIDEN NICOTINE ADDICTION-SMOKES ROUGHLY 2 CIGARS DAILY X30 YEARS-APRIL 2011 FEV1 95% NORMAL/FVC 86% NORMAL STATUS POST RADIOFREQUENCY ABLATION FOR SYMPTOMATIC RECURRENT EXERCISE-INDUCED MONOMORPHIC V. TACH-JANUARY 2000-DR. 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 ANA RASCON [facility] 11/2012-06/2012 NEGATIVE MRI/MRA BRAIN/NEGATIVE OCULAR FFOCENKC-QWHSN-1/2012//L QUADRICEPS MUSCLE [id number] MUSCLE FIBER ATROPHY, FAVOR NEUROPATHIC PROCESS-[facility] L POPLITEAL AND PERONEAL/ANTERIOR TIBIAL VEIN (OF PROXIMAL CALF) DVT AND GSV OCCLUSION-03/[id number] COUMADIN STARTED BODERLINE LVH, LVEF 75%, LAE 39 MM, NORMAL DIASTOLIC FUNCTION BY 11/2013 TTE-SIMONS LUMBAR DJD- 12/2013 MRI C DIFFUSE BULGES L2-S1 C L5/S1 BULGE ABUTTING B S1 NEVER ROOTS CERVICAL DJD C3-7 SPONDYLOSIS S CORD COMPRESION, MILD L C5 NARROWING BY 12/2013 MRI BORDERLINE LVH, LAE 39 MM BY TTE 11/2013-SIMONS HYPOTHYROIDISM, AUTOIMMUNE-12/2014 TPO AB 192, - TG AB SIGMOID DIVERTICULITIS, FIRST EPISODE BY 09/25/14 CT A/P, WBC 19.8, 08/2015 REPEAT WCB 14.1-RESOLVED C C/F 10D, 11/2015 REPEAT C C/F 10D ALLERGIES MOBIC: PSYCHOLOGICAL CHANGES, NAUSEA - ALLERGY LYRICA: SEVERE DEPRESSION SURGICAL HISTORY LEFT PAROTID TUMOR REMOVAL X [address] BROUSSARD 2006, 11/2014 4 TEETH EXTRACTED 01/2018 FAMILY HISTORY FATHER: 88 YRS, DEMENTIA, DIAGNOSED WITH HYPERTENSION MOTHER: 89 YRS, CONGESTIVE HEART FAILURE SOCIAL HISTORY GENERAL: TOBACCO USE ARE YOU A:CURRENT SMOKER ARE YOU INTERESTED IN QUITTING?NOT READY TO QUIT COUNSELED THE PATIENT ON SMOKING EFFECTS, EDUCATION [id number]/07/2019 PATIENT COUNSELED ON THE DANGERS OF TOBACCO USE AND URGED TO QUIT:09/16/2019 ADDITIONAL FINDINGS: TOBACCO USERCIGAR SMOKER 1 CIGAR/DAY HIV / HEP-C SCREENING HIV TEST OFFERED TO PATIENT:YES DATE OFFERED:02/25/2018 TEST ACCEPTED:NO HEP-C TEST OFFERED TO PATIENT:YES DATE OFFERED:01/27/2017 REASON:PATIENT DECLINED TEST ACCEPTED:YES BROCHURE PROVIDED TO PATIENTYES OTHERS AT HOME: SPOUSE. EDUCATION LEVEL OF EDUCATION:COLLEGE DIET: REGULAR. LANGUAGE LANGUAGES SPOKEN:[place] DOMESTIC VIOLENCE DO YOU FEEL SAFE IN YOUR ENVIRONMENT?YES RECREATIONAL DRUG USE DRUG USE?NO EXERCISE: WALKS. LEARNING BARRIERS / SPECIAL NEEDS CHANGE FROM LAST VISIT?NO BARRIERS TO LEARNING?NO HEARING IMPAIRED?NO VISION IMPAIRED?YES COGNITIVELY IMPAIRED?NO :CORRECTIVE LENSES READINESS TO LEARN?YES LEARNING PREFERENCES?NO LEARNING CAPABILITIES PRESENT?YES EMOTIONAL BARRIERS?NO SPECIAL DEVICES?NO DOOR TO DOOR LEAD GENERATION NEEDED?NO PAIN CLINIC PFS, CLERGY, PUBLIC HEALTH REFERRALS HAS THE PATIENT BEEN EDUCATED REGARDING HIS/HER PLAN OF CARE?YES HAS THE PATIENT BEEN EDUCATED REGARDING PAIN, THE RISK FOR PAIN, THE IMPORTANCE OF EFFECTIVE PAIN MANAGEMENT, AND THE PAIN ASSESSMENT PROCESS?YES LATEX QUESTIONNAIRE LATEX ALLERGY : HAVE YOU EVER DEVELOPED ANY TYPE OF REACTION AFTER HANDLING LATEX PRODUCTS SUCH RUBBER GLOVES, CONDOMS, DIAPHRAGMS, BALLOONS, SOCKS, OR UNDERWEAR?NO LATEX ALLERGY : HAVE YOU EVER DEVELOPED ANY TYPE OF REACTION DURING OR AFTER DENTAL APPOINTMENT, VAGINAL/RECTAL EXAMINATION, SURGICAL PROCEDURE, OR ANY OTHER EXPOSURE?NO DATE ASKED : 03/02/2019 LATEX RISK : HAVE YOU EVER HAD ANY DIFFICULTY BREATHING OR HIVES AFTER EATING OR HANDLING ANY FRUITS, OR VEGETABLES; SUCH KIWI, BANANAS, STONE FRUITS, OR CHESTNUTSNO LATEX RISK : DO YOU HAVE A PREVIOUS PERSONAL HISTORY OF MORE THAN NINE SURGERIES, SPINA BIFIDA, OR REPEATED CATHERIZATIONS? NO LATEX RISK : ARE YOU FREQUENTLY EXPOSED TO LATEX PRODUCTS IN YOUR OCCUPATION?NO CAFFEINE CAFFEINE USE?NO ADVANCE DIRECTIVE ADVANCE DIRECTIVE DISCUSSED WITH PATIENT:YES 09/16/19 PT DOES NOT HAVE ANY ADVANCED DIRECTIVES AND HE DECLINES INFORMATION ON HCP AT THIS TIME. TEMPLE [id number] NONE MARITAL STATUS: . ALCOHOL SCREENING DID YOU HAVE A DRINK CONTAINING ALCOHOL IN THE PAST YEAR?YES HOW OFTEN DID YOU HAVE SIX OR MORE DRINKS ON ONE OCCASION IN THE PAST YEAR?NEVER (0 POINTS) HOW MANY DRINKS DID YOU HAVE ON A TYPICAL DAY WHEN YOU WERE DRINKING IN THE PAST YEAR?1 OR 2 (0 POINTS) HOW OFTEN DID YOU HAVE A DRINK CONTAINING ALCOHOL IN THE PAST YEAR?TWO TO FOUR TIMES A MONTH (2 POINTS) POINTS2 INTERPRETATIONNEGATIVE OCCUPATION: RETIRED. 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 REVIEWED WITH PATIENT 08/04/18 1043 JSREVIEWED WITH PT 09/22/18, 1120 NO ADVANCED DIRECTIVES, DECLINED INFORMATION AND/OR ASSISTANCE IN FILLING ONE OUT LASREVIEWED WITH PT 03/02/19 1029 BVREVIEWED WITH PATIENT 06/16/19 1342 NLJREVIWED WITH PATIENT 09/16/19 0938 BV. HOSPITALIZATION/MAJOR DIAGNOSTIC PROCEDURE SURGERIES REVIEW OF SYSTEMS REVIEWED BY: PROVIDER: CY CONCEPCION . CONSTITUTIONAL: ANY CHANGE IN YOUR MEDICAL CONDITION? NO . CHILLS NO . FEVER NO . INFECTION: DO YOU HAVE NEW INFECTIONS? NO . DO YOU HAVE HISTORY OF MRSA? NO . MUSCULOSKELETAL: ANY NEW PATTERNS OF PAIN OR NUMBNESS? NO . GASTROENTEROLOGY: ANY NEW CHANGE IN BOWEL CONTROL? NO . GENITOURINARY: ANY NEW CHANGE IN BLADDER CONTROL? NO . IS THERE A CHANCE YOU COULD BE ? NO . HEMATOLOGY/LYMPH: DO YOU TAKE ANY BLOOD THINNERS? (FOR EXAMPLE- COUMADIN, PLAVIX, AGGRENOX, PLATEL, PRADAXA, OR XARELTO) YES, COUMADIN . WHEN WAS YOUR LAST DOSE? DATE: TIME: . NEUROLOGY: HAVE YOU FALLEN IN THE PAST 12 MONTHS? NO . ANY NEW EXTREMITY NUMBNESS OR WEAKNESS? NO . CARDIOLOGY: DO YOU HAVE A PACEMAKER OR DEFIBRILLATOR? NO . RESPIRATORY: HAVE YOU BEEN SICK IN THE PAST WEEK? NO . FEVER NO . FLU LIKE SYMPTOMS? NO . COUGH NO . INTEGUMENTARY: DO YOU HAVE ANY RASHES OR OPEN SORES? NO . ALLERGIC/IMMUNO: ARE YOU ALLERGIC TO IV DYE? NO . ANY NEW ALLERGIES? NO . PSYCHIATRIC: DO YOU HAVE THOUGHTS OF HURTING YOURSELF OR SOMEONE ELSE? NO . ARE YOU ABUSED, NEGLECTED, OR IN AN UNSAFE ENVIRONMENT? NO . ENDOCRINOLOGY: ARE YOU DIABETIC? NO . OTHER: DO YOU NEED ANY PRESCRIPTIONS? NO . IF YES, PLEASE LIST: ____ . ANY NEW PROBLEMS WITH YOUR MEDICATIONS? NO . WHEN DID YOU LAST EAT? ____ . WHEN DID YOU LAST DRINK? ____ . WHAT DID YOU LAST DRINK? ____ . NAME OF PERSON DRIVING YOU HOME? ____ . DO YOU HAVE ANY OTHER QUESTIONS OR CONCERNS NO . VITAL SIGNS WT 189.8 LBS, HT 69 IN, BMI 28.03 INDEX, BP 130/70 MM HG, HR 71 /MIN, RR 18 /MIN, TEMP 97.0 F, OXYGEN SAT % 98%, NA INITIALS AW 0937, REVIEWED BY: BV. EXAMINATION GENERAL EXAMINATION: GENERALNO ACUTE DISTRESS, WELL NOURISHED AND HYDRATED. PSYCHAPPROPRIATE MOOD AND AFFECT . LUNGS:CLEAR TO AUSCULTATION BILATERALLY, NO WHEEZES, RHONCHI, RALES. HEART:NO MURMURS, REGULAR RATE AND RHYTHM. ASSESSMENTS SPONDYLOSIS OF LUMBOSACRAL REGION WITHOUT MYELOPATHY OR RADICULOPATHY - M47.817 (PRIMARY) CHRONICALLY ON OPIATE THERAPY - Z79.891 TREATMENT SPONDYLOSIS OF LUMBOSACRAL REGION WITHOUT MYELOPATHY OR RADICULOPATHY CLINICAL NOTES: 64-YEAR-OLD MALE IN FOR CHRONIC PAIN FOLLOW-UP. GIVEN PRESENTING SYMPTOMS AND RESULTS OF PHYSICAL EXAMINATION RECOMMENDED FOLLOW-UP IN 2 MONTHS. PATIENT IS TO CALL PRIOR TO THAT APPOINTMENT SHOULD HE EXPERIENCE AN INCREASE IN PAIN. PATIENT HAS EXPRESSED UNDERSTANDING OF AND WAS IN AGREEMENT WITH TREATMENT PLAN. GIVEN TIME TO ASK QUESTIONS AND EXPRESS CONCERNS., [employer] REGISTRY REVIEWED AND DEMONSTRATES COMPLLIANCE. (REF # [id number] ) BRINGS IN MEDICATIONS WHICH IS APPROPRIATE FOR WHAT WAS DISPENSED. RECENT URINE TOXICOLOGY REVIEWED. NO UNAUTHORIZED MEDICATIONS. NO ILLICIT SUBSTANCES AND PRESCRIBED MEDICATIONS WERE PRESENT. PROCEDURE CODES [id number] ESTABILISHED PATIENT [facility] FACILITY CHARGE DISPOSITION & COMMUNICATION FOLLOW UP 2 MONTHS (REASON: CHRONIC PAIN) ELECTRONICALLY SIGNED BY SHONNA GOINS ON 11/05/2019 AT 03:44 PM EST DISCLAIMER : THIS IS A VISIT SUMMARY EXTRACTED FROM THE [employer] CHART. IT IS NOT A COPY OF THE [employer] PROGRESS NOTE. KEITH
== END ==
LOC: M PAIN 09:15
PROVIDERS: ATTEND Family Medicine
DX: M47.817 Spondylosis without myelopathy or radiculopathy, lumbosacral region (principal); Z79.891 Long term (current) use of opiate analgesic; Z79.899 Other long term (current) drug therapy; Z88.8 Allergy status to other drugs, medicaments and biological substances; F17.210 Nicotine dependence, cigarettes, uncomplicated

== ENCOUNTER → 2019-10-20 | Outpatient (REF) | payer MEDICARE, OTHER ==
[2019-10-20 11:40] LABS: BASO # 0.1 10^3/uL (0.0-0.2); BASO % 0.6 % (0.0-1.0); EOS # 0.7 10^3/uL (0.0-0.5); EOS % 8.7 % (0.0-3.0); HEMATOCRIT 44.8 % (42.0-52.0); HEMOGLOBIN 14.5 g/dl (13.5-17.5); LYMPH # 2.8 10^3/uL (1.5-5.0); LYMPH % 34.1 % (24.0-44.0); MEAN CORPUSCULAR HEMOGLOBIN 30.1 pg (27.0-33.0); MEAN CORPUSCULAR HGB CONC 32.4 g/dl (32.0-36.5); MEAN CORPUSCULAR VOLUME 93.1 fl (80.0-96.0); MONO # 0.7 10^3/uL (0.0-0.8); MONO % 8.1 % (0.0-5.0); NEUTROPHILS # 3.9 10^3/uL (1.5-8.5); NEUTROPHILS % 48.3 % (36.0-66.0); PLATELET COUNT, AUTOMATED 307 10^3/uL (150-450); RED BLOOD COUNT 4.81 10^6/uL (4.30-6.10); WHITE BLOOD COUNT 8.2 10^3/uL (4.0-10.0)
[2019-10-20 11:55] LABS: INR 2.05; PROTHROMBIN TIME 22.9 SECONDS (11.8-14.0)
[2019-10-20 11:56] LABS: PARTIAL THROMBOPLASTIN TIME 38.2 SECONDS (25.0-38.4)
[2019-10-20 12:08] LABS: HEMOGLOBIN A1c 5.7 %
[2019-10-20 12:18] LABS: ALBUMIN 3.8 GM/DL (3.2-5.2); ALT/SGPT 26 U/L (12-78); BILIRUBIN,TOTAL 0.4 MG/DL (0.2-1.0); BLOOD UREA NITROGEN 13 MG/DL (7-18); CALCIUM LEVEL 8.7 MG/DL (8.8-10.2); CARBON DIOXIDE LEVEL 30 MEQ/L (21-32); CHLORIDE LEVEL 106 MEQ/L (98-107); CREATININE FOR GFR 1.24 MG/DL (0.70-1.30); FREE T4 0.89 NG/DL (0.76-1.46); GLOMERULAR FILTRATION RATE > 60.0 (>49); GLUCOSE, FASTING 84 MG/DL (70-100); NT-PRO BNP 28 PG/ML (<125); POTASSIUM SERUM 4.4 MEQ/L (3.5-5.1); SODIUM LEVEL 140 MEQ/L (136-145); TOTAL PROTEIN 6.6 GM/DL (6.4-8.2)
[2019-10-20 13:11] LABS: TOTAL 25(OH) VITAMIN D 74.1 NG/ML (30.0-100.0)
[2019-10-20 13:12] LABS: PTH INTACT 60.7 PG/ML (18.5-88.0); VITAMIN B12 LEVEL 374 PG/ML (247-911)
== END ==
LOC: M SFHCPLAZ 10:18
PROVIDERS: ATTEND Family Medicine
DX: R60.9 Edema, unspecified (principal); N18.2 Chronic kidney disease, stage 2 (mild); E55.9 Vitamin D deficiency, unspecified; E03.9 Hypothyroidism, unspecified; R73.01 Impaired fasting glucose; Z79.01 Long term (current) use of anticoagulants

== ENCOUNTER → 2019-12-23 | Outpatient (CLI) | payer MEDICARE, OTHER ==
[2019-12-23 14:12] LABS: INR 2.19; PROTHROMBIN TIME 24.2 SECONDS (11.8-14.0)
== END ==
LOC: M WUC 10:12
PROVIDERS: ATTEND Physician Assistant Medical
DX: I82.509 Chronic embolism and thrombosis of unspecified deep veins of unspecified lower extremity (principal)

== ENCOUNTER → 2020-01-18 | Outpatient (CLI) | payer MEDICARE, OTHER ==
--- NOTE | 2020-01-20 03:56 | ECWPNPC ---
PATIENT NAME: INDIRA BRASWELL : 1955 GENDER: MALE VISIT DATE: 01/18/2020 DISCHARGE DATE: 01/18/20 1030 VISIT LOCKED DATE TIME: PHYSICIAN: INDIRA EDMONDS PHYSICIAN PAGER NO: [phone] RESOURCE: INDIRA EDMONDS REASON FOR APPOINTMENT 1. BACK PAIN HISTORY OF PRESENT ILLNESS HISTORY OF PRESENT ILLNESS: PAIN THE PATIENT DESCRIBES THE PAINDURING THE LAST MONTH SEVERITY - PAIN SCORE OF3/10 LOCATIONSLOWER BACK, RIGHT LEG, LEFT LEG QUALITYACHING , STABBING, SHOOTING DURATION 64-YEAR-OLD MALE IN FOR CHRONIC PAIN FOLLOW-UP. HE RATES HIS PAIN AT A 3+ OUT OF 10 AND DESCRIBES IT ACHING, STABBING, AND SHOOTING. HE FEELS THE MEDICATIONS ARE WORKING WELL AND DENIES MED SIDE EFFECTS AT THIS TIME. FALL RISK SCREENING: SCREENING :NO FALLS REPORTED IN THE LAST YEAR CURRENT MEDICATIONS TAKING CALCIUM 600+D HIGH POTENCY 600-400 MG-UNIT TABLET 1 TABLET WITH FOOD ORALLY ONCE A DAY TAKING BUPROPION HCL 75 MG TABLET 1 TABLET ORALLY BID TAKING ATORVASTATIN CALCIUM 20 MG TABLET 1 TABLET ORALLY ONCE A DAY TAKING AMITRIPTYLINE HCL 50 TABLET 1 TAB ORALLY BEFORE BEDTIME TAKING VOLTAREN 1 % GEL 4GRAMS TO EACH KNEE TRANSDERMAL EVERY 6 HOURS NEEDED TAKING LEVOTHYROXINE SODIUM 25 MCG TABLET 1 TABLET ORALLY ONCE A DAY TAKING VITAMIN D (CHOLECALCIFEROL) 5000 UNIT TABLET 1 TAB ORALLY ONCE A DAY TAKING VIIBRYD 40 MG TABLET 1 TABLET WITH FOOD ORALLY ONCE A DAY TAKING ZOLPIDEM TARTRATE 10 MG TABLET 1 TABLET AT BEDTIME NEEDED ORALLY AT BEDTIME MDD :1 TAKING TIZANIDINE HCL 4 MG TABLET 2 TABLETS NEEDED ORALLY THREE TIMES A DAY TAKING NORCO 7.5-325 MG TABLET 1 TABLET NEEDED ORALLY EVERY 6 HRS NEEDED MDD 4 TAKING POLYETHYLENE GLYCOL 3350 - POWDER DISSOLVE 17 GRAMS IN WATER OR JUICE AND TAKE BY MOUTH ONCE DAILY ORALLY ONCE A DAY TAKING WARFARIN SODIUM 2 MG TABLET 1 TABLET ORALLY ONCE A DAY NOT-TAKING LIPITOR 20 MG TABLET 1 TABLET ORALLY ONCE A DAY, NOTES: DUPLICATE NOT-TAKING VICODIN 7.5 TABLET 1 TABLET NEEDED ORALLY EVERY 6 HRS PRN PAIN-MDD-4, NOTES: DUPLICATE PAST MEDICAL HISTORY CHRONIC MDD/PRIMARY INSOMNIA HYPERLIPIDEMIA 2B RIGHT LOWER EXTREMITY DVT IN NOVEMBER 2009, IDIOPATHIC-NEGATIVE HYPERCOAGULABLE WORKUP EXCEPT FOR HETEROZYGOTE FOR FACTOR V 5 LEIDEN NICOTINE ADDICTION-SMOKES ROUGHLY 2 CIGARS DAILY X30 YEARS-APRIL 2011 FEV1 95% NORMAL/FVC 86% NORMAL STATUS POST RADIOFREQUENCY ABLATION FOR SYMPTOMATIC RECURRENT EXERCISE-INDUCED MONOMORPHIC V. TACH-JANUARY 2000-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 ANA RASCON [facility] 11/2012-06/2012 NEGATIVE MRI/MRA BRAIN/NEGATIVE OCULAR [id number]-6/2012//L QUADRICEPS MUSCLE [id number] MUSCLE FIBER ATROPHY, FAVOR NEUROPATHIC PROCESS-[facility] L POPLITEAL AND PERONEAL/ANTERIOR TIBIAL VEIN (OF PROXIMAL CALF) DVT AND GSV OCCLUSION-03/[id number] COUMADIN STARTED BODERLINE LVH, LVEF 75%, LAE 39 MM, NORMAL DIASTOLIC FUNCTION BY 11/2013 TTE-SIMONS LUMBAR DJD- 12/2013 MRI C DIFFUSE BULGES L2-S1 C L5/S1 BULGE ABUTTING B S1 NEVER ROOTS CERVICAL DJD C3-7 SPONDYLOSIS S CORD COMPRESION, MILD L C5 NARROWING BY 12/2013 MRI BORDERLINE LVH, LAE 39 MM BY TTE 11/2013-SIMONS HYPOTHYROIDISM, AUTOIMMUNE-12/2014 TPO AB 192, - TG AB SIGMOID DIVERTICULITIS, FIRST EPISODE BY 09/25/14 CT A/P, WBC 19.8, 08/2015 REPEAT WCB 14.1-RESOLVED C C/F 10D, 11/2015 REPEAT C C/F 10D ALLERGIES MOBIC: PSYCHOLOGICAL CHANGES, NAUSEA - ALLERGY LYRICA: SEVERE DEPRESSION SURGICAL HISTORY LEFT PAROTID TUMOR REMOVAL X [address] BROUSSARD 2006, 11/2014 4 TEETH EXTRACTED 01/2018 FAMILY HISTORY FATHER: 88 YRS, DEMENTIA, DIAGNOSED WITH HYPERTENSION MOTHER: 89 YRS, CONGESTIVE HEART FAILURE SOCIAL HISTORY GENERAL: TOBACCO USE ARE YOU A:CURRENT SMOKER ARE YOU INTERESTED IN QUITTING?NOT READY TO QUIT COUNSELED THE PATIENT ON SMOKING EFFECTS, EDUCATION [id number]/17/2020 PATIENT COUNSELED ON THE DANGERS OF TOBACCO USE AND URGED TO QUIT:01/18/2020 ADDITIONAL FINDINGS: TOBACCO USERCIGAR SMOKER 1 CIGAR/DAY SMOKING CESSATION INFORMATION GIVEN01/18/2020 HIV / HEP-C SCREENING HIV TEST OFFERED TO PATIENT:YES DATE OFFERED:02/25/2018 TEST ACCEPTED:NO HEP-C TEST OFFERED TO PATIENT:YES DATE OFFERED:01/27/2017 REASON:PATIENT DECLINED TEST ACCEPTED:YES BROCHURE PROVIDED TO PATIENTYES OTHERS AT HOME: SPOUSE. EDUCATION LEVEL OF EDUCATION:COLLEGE DIET: REGULAR. LANGUAGE LANGUAGES SPOKEN:ROMANSH DOMESTIC VIOLENCE DO YOU FEEL SAFE IN YOUR ENVIRONMENT?YES RECREATIONAL DRUG USE DRUG USE?NO EXERCISE: WALKS. 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 CLINIC PFS, CLERGY, PUBLIC HEALTH REFERRALS HAS THE PATIENT BEEN EDUCATED REGARDING HIS/HER PLAN OF CARE?YES HAS THE PATIENT BEEN EDUCATED REGARDING PAIN, THE RISK FOR PAIN, THE IMPORTANCE OF EFFECTIVE PAIN MANAGEMENT, AND THE PAIN ASSESSMENT PROCESS?YES LATEX QUESTIONNAIRE LATEX ALLERGY : HAVE YOU EVER DEVELOPED ANY TYPE OF REACTION AFTER HANDLING LATEX PRODUCTS SUCH RUBBER GLOVES, CONDOMS, DIAPHRAGMS, BALLOONS, SOCKS, OR UNDERWEAR?NO LATEX ALLERGY : HAVE YOU EVER DEVELOPED ANY TYPE OF REACTION DURING OR AFTER DENTAL APPOINTMENT, VAGINAL/RECTAL EXAMINATION, SURGICAL PROCEDURE, OR ANY OTHER EXPOSURE?NO DATE ASKED : 03/02/2019 LATEX RISK : HAVE YOU EVER HAD ANY DIFFICULTY BREATHING OR HIVES AFTER EATING OR HANDLING ANY FRUITS, OR VEGETABLES; SUCH KIWI, BANANAS, STONE FRUITS, OR CHESTNUTSNO LATEX RISK : DO YOU HAVE A PREVIOUS PERSONAL HISTORY OF MORE THAN NINE SURGERIES, SPINA BIFIDA, OR REPEATED CATHERIZATIONS? NO LATEX RISK : ARE YOU FREQUENTLY EXPOSED TO LATEX PRODUCTS IN YOUR OCCUPATION?NO CAFFEINE CAFFEINE USE?NO ADVANCE DIRECTIVE ADVANCE DIRECTIVE DISCUSSED WITH PATIENT:YES PT DOES NOT HAVE ANY ADVANCED DIRECTIVES AND HE DECLINES INFORMATION ON HCP AT THIS TIME. JS [facility] [id number] NONE MARITAL STATUS: . ALCOHOL SCREENING DID YOU HAVE A DRINK CONTAINING ALCOHOL IN THE PAST YEAR?YES HOW OFTEN DID YOU HAVE SIX OR MORE DRINKS ON ONE OCCASION IN THE PAST YEAR?NEVER (0 POINTS) HOW MANY DRINKS DID YOU HAVE ON A TYPICAL DAY WHEN YOU WERE DRINKING IN THE PAST YEAR?1 OR 2 (0 POINTS) HOW OFTEN DID YOU HAVE A DRINK CONTAINING ALCOHOL IN THE PAST YEAR?TWO TO FOUR TIMES A MONTH (2 POINTS) POINTS2 INTERPRETATIONNEGATIVE OCCUPATION: RETIRED. 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 REVIEWED WITH PATIENT 08/04/18 1043 JSREVIEWED WITH PT 09/22/18, 1120 NO ADVANCED DIRECTIVES, DECLINED INFORMATION AND/OR ASSISTANCE IN FILLING ONE OUT LASREVIEWED WITH PT 03/02/19 1029 BVREVIEWED WITH PATIENT 06/16/19 1342 NLJREVIWED WITH PATIENT 09/16/19 0938 BVREVIEWED WITH PATIENT 11/18/2019 1036 JS. HOSPITALIZATION/MAJOR DIAGNOSTIC PROCEDURE SURGERIES REVIEW OF SYSTEMS REVIEWED BY: PROVIDER: CY CONCEPCION . CONSTITUTIONAL: ANY CHANGE IN YOUR MEDICAL CONDITION? NO . CHILLS NO . FEVER NO . INFECTION: DO YOU HAVE NEW INFECTIONS? NO . DO YOU HAVE HISTORY OF MRSA? NO . MUSCULOSKELETAL: ANY NEW PATTERNS OF PAIN OR NUMBNESS? NO . GASTROENTEROLOGY: ANY NEW CHANGE IN BOWEL CONTROL? NO . GENITOURINARY: ANY NEW CHANGE IN BLADDER CONTROL? NO . IS THERE A CHANCE YOU COULD BE ? NO . HEMATOLOGY/LYMPH: DO YOU TAKE ANY BLOOD THINNERS? (FOR EXAMPLE- COUMADIN, PLAVIX, AGGRENOX, PLATEL, PRADAXA, OR XARELTO) YES, COUMADIN . WHEN WAS YOUR LAST DOSE? DATE: 01/17/20 TIME:11PM . NEUROLOGY: HAVE YOU FALLEN IN THE PAST 12 MONTHS? NO . ANY NEW EXTREMITY NUMBNESS OR WEAKNESS? NO . CARDIOLOGY: DO YOU HAVE A PACEMAKER OR DEFIBRILLATOR? NO . RESPIRATORY: HAVE YOU BEEN SICK IN THE PAST WEEK? NO . FEVER NO . FLU LIKE SYMPTOMS? NO . COUGH NO . INTEGUMENTARY: DO YOU HAVE ANY RASHES OR OPEN SORES? NO . ALLERGIC/IMMUNO: ARE YOU ALLERGIC TO IV DYE? NO . ANY NEW ALLERGIES? NO . PSYCHIATRIC: DO YOU HAVE THOUGHTS OF HURTING YOURSELF OR SOMEONE ELSE? NO . ARE YOU ABUSED, NEGLECTED, OR IN AN UNSAFE ENVIRONMENT? NO . ENDOCRINOLOGY: ARE YOU DIABETIC? NO . OTHER: DO YOU NEED ANY PRESCRIPTIONS? NO . IF YES, PLEASE LIST: ____ . ANY NEW PROBLEMS WITH YOUR MEDICATIONS? NO . WHEN DID YOU LAST EAT? ____ . WHEN DID YOU LAST DRINK? ____ . WHAT DID YOU LAST DRINK? ____ . NAME OF PERSON DRIVING YOU HOME? ____ . DO YOU HAVE ANY OTHER QUESTIONS OR CONCERNS NO . VITAL SIGNS WT 194.8 LBS, HT 69 IN, BMI 28.76 INDEX, BP 126/67 MM HG, HR 77 /MIN, RR 18 /MIN, TEMP 98.9 F, OXYGEN SAT % 99%, SAFE IN ENV? (Y/N) YES, NA INITIALS AW 1008, REVIEWED BY: VERONICA MARTINEZ LPN. EXAMINATION GENERAL EXAMINATION: GENERALNO ACUTE DISTRESS, WELL NOURISHED AND HYDRATED. PSYCHAPPROPRIATE MOOD AND AFFECT . LUNGS:CLEAR TO AUSCULTATION BILATERALLY, NO WHEEZES, RHONCHI, RALES. HEART:NO MURMURS, REGULAR RATE AND RHYTHM. ASSESSMENTS INTERVERTEBRAL DISC DISORDER WITH RADICULOPATHY OF LUMBOSACRAL REGION - M51.17 (PRIMARY) TREATMENT INTERVERTEBRAL DISC DISORDER WITH RADICULOPATHY OF LUMBOSACRAL REGION CLINICAL NOTES: 64-YEAR-OLD MALE IN FOR CHRONIC PAIN FOLLOW-UP. GIVEN PRESENTING SYMPTOMS AND RESULTS OF PHYSICAL EXAMINATION RECOMMENDED CONTINUATION OF CURRENT MEDICATION REGIMEN WITH FOLLOW-UP IN 3 MONTHS. PATIENT HAS EXPRESSED UNDERSTANDING OF AND WAS IN AGREEMENT WITH TREATMENT PLAN. GIVEN TIME TO ASK QUESTIONS AND EXPRESS CONCERNS., ISTOP REGISTRY REVIEWED AND DEMONSTRATES COMPLLIANCE. (REF # [id number] ) BRINGS IN MEDICATIONS WHICH IS APPROPRIATE FOR WHAT WAS DISPENSED. RECENT URINE TOXICOLOGY REVIEWED. NO UNAUTHORIZED MEDICATIONS. NO ILLICIT SUBSTANCES AND PRESCRIBED MEDICATIONS WERE PRESENT. PROCEDURE CODES FA211 ESTABILISHED PATIENT [facility] FACILITY CHARGE DISPOSITION & COMMUNICATION FOLLOW UP 3 MONTHS (REASON: BACK PAIN) ELECTRONICALLY SIGNED BY SHONNA GOINS ON 01/19/2020 AT 10:40 AM EDT DISCLAIMER : THIS IS A VISIT SUMMARY EXTRACTED FROM THE [employer] CHART. IT IS NOT A COPY OF THE [employer] PROGRESS NOTE. MTDD
== END ==
LOC: M PAIN 09:30
PROVIDERS: ATTEND Family Medicine
DX: M51.17 Intervertebral disc disorders with radiculopathy, lumbosacral region (principal)

== ENCOUNTER → 2020-02-09 | Outpatient (CLI) | payer MEDICARE, OTHER ==
[2020-02-09 10:54] LABS: BASO % 0.5 % (0.0-1.0); EOS # 0.5 10^3/uL (0.0-0.5); EOS % 6.9 % (0.0-3.0); HEMATOCRIT 43.2 % (42.0-52.0); HEMOGLOBIN 14.2 g/dl (13.5-17.5); LYMPH # 2.9 10^3/uL (1.5-5.0); LYMPH % 36.5 % (24.0-44.0); MEAN CORPUSCULAR HEMOGLOBIN 29.6 pg (27.0-33.0); MEAN CORPUSCULAR HGB CONC 32.9 g/dl (32.0-36.5); MEAN CORPUSCULAR VOLUME 90.2 fl (80.0-96.0); MONO # 0.6 10^3/uL (0.0-0.8); MONO % 7.9 % (0.0-5.0); NEUTROPHILS # 3.7 10^3/uL (1.5-8.5); NEUTROPHILS % 47.8 % (36.0-66.0); PLATELET COUNT, AUTOMATED 290 10^3/uL (150-450); RED BLOOD COUNT 4.79 10^6/uL (4.30-6.10); WHITE BLOOD COUNT 7.8 10^3/uL (4.0-10.0)
[2020-02-09 11:03] LABS: INR 2.78; PROTHROMBIN TIME 29.2 SECONDS (11.8-14.0)
[2020-02-09 11:12] LABS: HEMOGLOBIN A1c 5.9 %
[2020-02-09 11:23] LABS: ALBUMIN 3.8 GM/DL (3.2-5.2); ALT/SGPT 28 U/L (12-78); BILIRUBIN,TOTAL 0.6 MG/DL (0.2-1.0); BLOOD UREA NITROGEN 13 MG/DL (7-18); CALCIUM LEVEL 8.5 MG/DL (8.8-10.2); CARBON DIOXIDE LEVEL 32 MEQ/L (21-32); CHLORIDE LEVEL 108 MEQ/L (98-107); CHOLESTEROL LEVEL 113 MG/DL (<200); CREATININE FOR GFR 1.27 MG/DL (0.70-1.30); FREE T4 0.86 NG/DL (0.76-1.46); GLOMERULAR FILTRATION RATE > 60.0 (>49); GLUCOSE, FASTING 86 MG/DL (70-100); HDL CHOLESTEROL 42 MG/DL (>40); LDL CHOLESTEROL 48 MG/DL (<100); NON-HDL-C 71 MG/DL; POTASSIUM SERUM 4.3 MEQ/L (3.5-5.1); SODIUM LEVEL 142 MEQ/L (136-145); TOTAL PROTEIN 6.7 GM/DL (6.4-8.2); TRIGLYCERIDES LEVEL 114 MG/DL (<150)
[2020-02-09 11:25] LABS: VITAMIN B12 LEVEL 330 PG/ML (247-911)
== END ==
LOC: M PLALAB 09:55
PROVIDERS: ATTEND Family Medicine
DX: N18.2 Chronic kidney disease, stage 2 (mild) (principal); R73.01 Impaired fasting glucose; E03.9 Hypothyroidism, unspecified; Z12.5 Encounter for screening for malignant neoplasm of prostate; Z79.01 Long term (current) use of anticoagulants

== ENCOUNTER → 2020-03-08 | Outpatient (REF) | payer MEDICARE, OTHER ==
[~2020-03-08] MED LIST changes: +CYCL-707 PO; -CYCL10TA PO
[2020-03-08 18:38] LABS: INR 2.08; PROTHROMBIN TIME 23.2 SECONDS (11.8-14.0)
== END ==
LOC: M SFHCPLAZ 15:34
PROVIDERS: ATTEND Physician Assistant Medical
DX: Z51.81 Encounter for therapeutic drug level monitoring (principal)

== ENCOUNTER → 2020-04-06 | Outpatient (REF) | payer MEDICARE, OTHER ==
[2020-04-06 11:50] LABS: INR 2.86; PROTHROMBIN TIME 29.9 SECONDS (11.8-14.0)
== END ==
LOC: M PLALAB 10:30
PROVIDERS: ATTEND Family Medicine
DX: Z51.81 Encounter for therapeutic drug level monitoring (principal)

== ENCOUNTER → 2020-04-06 | Outpatient (CLI) | payer MEDICARE, OTHER ==
--- NOTE | 2020-04-06 13:40 | REPPI ---
REASON FOR EXAM: Pain. The accompanying frontal view of the chest has been compared to the latest prior to the examination of the chest 04/01/2018. The frontal view of the chest is unchanged and again seen to be within normal limits. Four views of both right and left ribs show no acute fracture or destructive osseous lesion. Electronically Signed by Jarett Lamb DO 04/06/2020 02:33 P
== END ==
LOC: M PLALAB 10:40
PROVIDERS: ATTEND Family Medicine
DX: G58.0 Intercostal neuropathy (principal); Z51.81 Encounter for therapeutic drug level monitoring

== ENCOUNTER → 2020-05-02 | Outpatient (CLI) | payer MEDICARE, OTHER ==
--- NOTE | 2020-05-04 02:30 | ECWPNPC ---
PATIENT NAME: INDIRA BRASWELL : 1955 GENDER: MALE VISIT DATE: 05/02/2020 DISCHARGE DATE: 05/02/20 1054 VISIT LOCKED DATE TIME: PHYSICIAN: INDIRA EDMONDS PHYSICIAN PAGER NO: [phone] RESOURCE: INDIRA EDMONDS REASON FOR APPOINTMENT 1. BACK PAIN HISTORY OF PRESENT ILLNESS GENERAL: - 64-YEAR-OLD MALE IN FOR CHRONIC PAIN FOLLOW-UP. HE RATES HIS PAIN CURRENTLY AT A 3 OUT OF 10 AND DESCRIBES IT ACHING, CONTINUOUS, AND SHOOTING. HE FEELS MEDICATIONS ARE WORKING WELL AND DENIES MED SIDE EFFECTS AT THIS TIME. FALL RISK SCREENING: SCREENING :NO FALLS REPORTED IN THE LAST YEAR PAIN SCREENING: PATIENT HAS A COMPLAINT OF ACUTE OR CHRONIC PAIN :YES LOCATION OF PAIN:LOW BACK INTENSITY OF PAIN (SCALE OF 1 TO 10):3 WHAT DOES YOUR PAIN FEEL LIKE:ACHING, CONTINOUS, SHOOTING DURATION:CONTINOUS, CONSTANT, ALL DAY PAIN IS INCREASED BY:ACTIVITIES, PROLONGED STANDING PAIN IS DECREASED BY:USE OF PAIN MEDICATIONS PAIN HAS INTERFERED WITH THE FOLLOWING:MOOD, HOUSEWORK, RELATIONSHIP WITH OTHERS, ENJOYMENT OF LIFE PLAN/GOALS/TREATMENT/INTERVENTION/FOLLOW UP:SEE PLAN NURSING NOTE: PT. WANTS TO DISCUSS PROCEDURES TO HELP WITH PAIN-. PAIN CENTER INTAKE QUESTIONS: DO YOU HAVE A HISTORY OF MRSA? :NO DO YOU TAKE A BLOOD THINNERS? :YES COUMADIN 2MG PER DAY, 05/01/20, 11PM DO YOU HAVE ANY BLEEDING DISORDERS? :NO ANY NEW NUMBNESS OR WEAKNESS IN YOUR LEGS OR ARMS? :NO ANY PACEMAKER,DEFIBRILLATOR, OR DORSAL COLUMN STIMULATOR? :NO DO YOU HAVE ANY RASHES OR OPEN SORES? :NO ARE YOU ALLERGIC TO IV DYE? :NO ARE YOU DIABETIC? :NO ANY NEW PROBLEMS WITH YOUR MEDICATIONS? :NO HAVE YOU RECEIVED A VACCINE IN THE PAST 30 DAYS? :NO DO YOU PLAN TO RECEIVE A VACCINE IN THE NEXT 21 DAYS? :NO DO YOU NEED ANY PRESCRIPTION? :NO DO YOU TAKE ANY IMMUNOSUPPRESSIVE MEDICATIONS? :NO IS THERE A CHANCE YOU COULD BE ? :NO ARE YOU BREAST FEEDING? :NO CURRENT MEDICATIONS TAKING LEVOTHYROXINE SODIUM 25 MCG TABLET 1 TABLET ORALLY ONCE A DAY TAKING BUPROPION HCL 75 MG TABLET 1 TABLET ORALLY BID TAKING VIIBRYD 40 MG TABLET 1 TABLET WITH FOOD ORALLY ONCE A DAY TAKING ZOLPIDEM TARTRATE 10 MG TABLET 1 TABLET AT BEDTIME NEEDED ORALLY AT BEDTIME MDD :1 TAKING POLYETHYLENE GLYCOL 3350 - POWDER DISSOLVE 17 GRAMS IN WATER OR JUICE AND TAKE BY MOUTH ONCE DAILY TAKING ATORVASTATIN CALCIUM 20 MG TABLET 1 TABLET ORALLY ONCE A DAY TAKING TIZANIDINE HCL 4 MG TABLET 2 TABLETS NEEDED ORALLY THREE TIMES A DAY TAKING CYANOCOBALAMIN 250 MCG TABLET 1 TABLET ORALLY ONCE A DAY TAKING VITAMIN D (CHOLECALCIFEROL) 5000 UNIT TABLET 1 TAB ORALLY ONCE A DAY TAKING CALCIUM 600+D HIGH POTENCY 600-400 MG-UNIT TABLET 1 TABLET WITH FOOD ORALLY ONCE A DAY TAKING VOLTAREN 1 % GEL 4GRAMS TO EACH KNEE TRANSDERMAL EVERY 6 HOURS NEEDED TAKING TIZANIDINE HCL 4.000 TABLET 2 TABLETS NEEDED ORALLY THREE TIMES A DAY TAKING AMITRIPTYLINE HCL 50 MG TABLET 1 TAB ORALLY BEFORE BEDTIME TAKING WARFARIN SODIUM 2 MG TABLET 1 TABLET ORALLY ONCE A DAY TAKING NORCO 7.5-325 MG TABLET 1 TABLET NEEDED ORALLY EVERY 6 HRS NEEDED MDD 4 MEDICATION LIST REVIEWED AND RECONCILED WITH THE PATIENT PAST MEDICAL HISTORY CHRONIC MDD/PRIMARY INSOMNIA HYPERLIPIDEMIA 2B RIGHT LOWER EXTREMITY DVT IN NOVEMBER 2009, IDIOPATHIC-NEGATIVE HYPERCOAGULABLE WORKUP EXCEPT FOR HETEROZYGOTE FOR FACTOR V 5 LEIDEN NICOTINE ADDICTION-SMOKES ROUGHLY 2 CIGARS DAILY X30 YEARS-APRIL 2011 FEV1 95% NORMAL/FVC 86% NORMAL STATUS POST RADIOFREQUENCY ABLATION FOR SYMPTOMATIC RECURRENT EXERCISE-INDUCED MONOMORPHIC V. TACH-JANUARY 2000-[facility] 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 ANA RASCON [facility] 11/2012-06/2012 NEGATIVE MRI/MRA BRAIN/NEGATIVE OCULAR [id number]-4/2012//L QUADRICEPS MUSCLE [id number] MUSCLE FIBER ATROPHY, FAVOR NEUROPATHIC PROCESS-[facility] L POPLITEAL AND PERONEAL/ANTERIOR TIBIAL VEIN (OF PROXIMAL CALF) DVT AND GSV OCCLUSION-03/[id number] COUMADIN STARTED BODERLINE LVH, LVEF 75%, LAE 39 MM, NORMAL DIASTOLIC FUNCTION BY 11/2013 TTE-SIMONS LUMBAR DJD- 12/2013 MRI C DIFFUSE BULGES L2-S1 C L5/S1 BULGE ABUTTING B S1 NEVER ROOTS CERVICAL DJD C3-7 SPONDYLOSIS S CORD COMPRESION, MILD L C5 NARROWING BY 12/2013 MRI BORDERLINE LVH, LAE 39 MM BY TTE 11/2013-SIMONS HYPOTHYROIDISM, AUTOIMMUNE-12/2014 TPO AB 192, - TG AB SIGMOID DIVERTICULITIS, FIRST EPISODE BY 09/25/14 CT A/P, WBC 19.8, 08/2015 REPEAT WCB 14.1-RESOLVED C C/F 10D, 11/2015 REPEAT C C/F 10D ALLERGIES MOBIC: PSYCHOLOGICAL CHANGES, NAUSEA - ALLERGY LYRICA: SEVERE DEPRESSION SURGICAL HISTORY LEFT PAROTID TUMOR REMOVAL X [address] BROUSSARD 2006, 11/2014 4 TEETH EXTRACTED 01/2018 FAMILY HISTORY FATHER: 88 YRS, DEMENTIA, DIAGNOSED WITH HYPERTENSION MOTHER: 89 YRS, CONGESTIVE HEART FAILURE SOCIAL HISTORY GENERAL: TOBACCO USE ARE YOU A:CURRENT SMOKER ARE YOU INTERESTED IN QUITTING?NOT READY TO QUIT ADDITIONAL FINDINGS: TOBACCO USERCIGAR SMOKER 1 CIGAR/DAY PATIENT COUNSELED ON THE DANGERS OF TOBACCO USE AND URGED TO QUIT:01/18/2020 COUNSELED THE PATIENT ON SMOKING EFFECTS, EDUCATION [id number]/17/2020 SMOKING CESSATION INFORMATION GIVEN01/18/2020 LATEX QUESTIONNAIRE LATEX ALLERGY : HAVE YOU EVER DEVELOPED ANY TYPE OF REACTION AFTER HANDLING LATEX PRODUCTS SUCH RUBBER GLOVES, CONDOMS, DIAPHRAGMS, BALLOONS, SOCKS, OR UNDERWEAR?NO LATEX ALLERGY : HAVE YOU EVER DEVELOPED ANY TYPE OF REACTION DURING OR AFTER DENTAL APPOINTMENT, VAGINAL/RECTAL EXAMINATION, SURGICAL PROCEDURE, OR ANY OTHER EXPOSURE?NO LATEX RISK : HAVE YOU EVER HAD ANY DIFFICULTY BREATHING OR HIVES AFTER EATING OR HANDLING ANY FRUITS, OR VEGETABLES; SUCH KIWI, BANANAS, STONE FRUITS, OR CHESTNUTSNO LATEX RISK : DO YOU HAVE A PREVIOUS PERSONAL HISTORY OF MORE THAN NINE SURGERIES, SPINA BIFIDA, OR REPEATED CATHERIZATIONS? NO LATEX RISK : ARE YOU FREQUENTLY EXPOSED TO LATEX PRODUCTS IN YOUR OCCUPATION?NO DATE ASKED : 05/02/2020 ALCOHOL SCREENING DID YOU HAVE A DRINK CONTAINING ALCOHOL IN THE PAST YEAR?YES HOW OFTEN DID YOU HAVE SIX OR MORE DRINKS ON ONE OCCASION IN THE PAST YEAR?NEVER (0 POINTS) HOW MANY DRINKS DID YOU HAVE ON A TYPICAL DAY WHEN YOU WERE DRINKING IN THE PAST YEAR?1 OR 2 (0 POINTS) HOW OFTEN DID YOU HAVE A DRINK CONTAINING ALCOHOL IN THE PAST YEAR?TWO TO FOUR TIMES A MONTH (2 POINTS) POINTS2 INTERPRETATIONNEGATIVE RECREATIONAL DRUG USE DRUG USE?NO CAFFEINE CAFFEINE USE?NO HIV / HEP-C SCREENING HIV TEST OFFERED TO PATIENT:YES DATE OFFERED:02/25/2018 TEST ACCEPTED:NO HEP-C TEST OFFERED TO PATIENT:YES DATE OFFERED:01/27/2017 REASON:PATIENT DECLINED TEST ACCEPTED:YES BROCHURE PROVIDED TO PATIENTYES MORMONISM [id number] NONE LANGUAGE LANGUAGES SPOKEN:CAMEROONIAN EDUCATION LEVEL OF EDUCATION:COLLEGE LEARNING BARRIERS / SPECIAL NEEDS CHANGE FROM LAST VISIT?NO BARRIERS TO LEARNING?NO HEARING IMPAIRED?NO VISION IMPAIRED?YES COGNITIVELY IMPAIRED?NO :CORRECTIVE LENSES READINESS TO LEARN?YES LEARNING PREFERENCES?NO LEARNING CAPABILITIES PRESENT?YES EMOTIONAL BARRIERS?NO SPECIAL DEVICES?NO MARKETING ANALYTICS ANALYST NEEDED?NO DOMESTIC VIOLENCE DO YOU FEEL SAFE IN YOUR ENVIRONMENT?YES OCCUPATION: RETIRED. DIET: REGULAR. EXERCISE: WALKS. MARITAL STATUS: . OTHERS AT HOME: SPOUSE. PAIN CLINIC PFS, CLERGY, PUBLIC HEALTH REFERRALS HAS THE PATIENT BEEN EDUCATED REGARDING HIS/HER PLAN OF CARE?YES HAS THE PATIENT BEEN EDUCATED REGARDING PAIN, THE RISK FOR PAIN, THE IMPORTANCE OF EFFECTIVE PAIN MANAGEMENT, AND THE PAIN ASSESSMENT PROCESS?YES ADVANCE DIRECTIVE ADVANCE DIRECTIVE DISCUSSED WITH PATIENT:YES PT DOES NOT HAVE ANY ADVANCED DIRECTIVES AND HE DECLINES INFORMATION ON HCP AT THIS TIME. JS HOSPITALIZATION/MAJOR DIAGNOSTIC PROCEDURE SURGERIES REVIEW OF SYSTEMS CONSTITUTIONAL: ANY RECENT FEVER NO . CHILLS NO . WEIGHT CHANGE OF UNKNOWN REASONS NO . GASTROENTEROLOGY: NEW UNEXPLAINABLE CHANGES IN BOWEL CONTROL NO . CONSTIPATION NO . GENITOURINARY: ANY NEW CHANGE IN BLADDER CONTROL? NO . NEUROLOGY: NEW ONSET DIZZINESS OR NEUROLOGICAL CHANGES NOT MENTIONED NO . NEW NUMBNESS OR PAIN PATTERNS NOT MENTIONED AND PERTINENT TO TODAY'S VISIT NO . CARDIOLOGY: NEW CHEST PRESSURE NO . NEW CHEST PAIN NO . RESPIRATORY: UNEXPLAINABLE COUGH NO . NEW SHORTNESS OF BREATH NO . VITAL SIGNS WT 194.4 LBS, HT 69 IN, BMI 28.70 INDEX, BP 135/73 MM HG, HR 70 /MIN, RR 18 /MIN, TEMP 97.1 F, OXYGEN SAT % 98%, SAFE IN ENV? 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 EXAMINATION GENERAL EXAMINATION: GENERALNO ACUTE DISTRESS, WELL NOURISHED AND HYDRATED. PSYCHAPPROPRIATE MOOD AND AFFECT . LUNGS:CLEAR TO AUSCULTATION BILATERALLY, NO WHEEZES, RHONCHI, RALES. HEART:NO MURMURS, REGULAR RATE AND RHYTHM. BACK:DENIES POINT TENDERNESS ALONG LUMBAR SPINE, SURROUNDING SKIN SHOWS NO ERYTHEMA, ECCHYMOSIS, INCREASED WARMTH, AND/OR SKIN ERUPTIONS NOTED. . MUSCULOSKELETAL:EQUAL STRENGTH OF THE LOWER EXTREMITIES BILATERALLY . ASSESSMENTS SPONDYLOSIS OF LUMBOSACRAL REGION WITHOUT MYELOPATHY OR RADICULOPATHY - M47.817 (PRIMARY) CKD (CHRONIC KIDNEY DISEASE) STAGE 2, GFR 60-89 ML/MIN - N18.2 TREATMENT SPONDYLOSIS OF LUMBOSACRAL REGION WITHOUT MYELOPATHY OR RADICULOPATHY NOTES: BILATERAL THERAPEUTIC LUMBAR FACET BLOCK L4-L5 L5-S1 FACET INFO PRINTED AND GIVEN TO PATIENT. DAVID CONCEPCION. CLINICAL NOTES: 64-YEAR-OLD MALE IN FOR CHRONIC PAIN FOLLOW-UP. GIVEN PRESENTING SYMPTOMS AND RESULTS OF PHYSICAL EXAMINATION RECOMMEND BILATERAL THERAPEUTIC LUMBAR FACET BLOCK L4-L5 L5-S1 WITH POST PROCEDURAL FOLLOW-UP. PATIENT HAS EXPRESSED UNDERSTANDING OF AND WAS IN AGREEMENT WITH TREATMENT PLAN. GIVEN TIME TO ASK QUESTIONS AND EXPRESS CONCERNS. , [employer] REGISTRY REVIEWED AND DEMONSTRATES COMPLLIANCE. (REF # [id number] ) BRINGS IN MEDICATIONS WHICH IS APPROPRIATE FOR WHAT WAS DISPENSED. RECENT URINE TOXICOLOGY REVIEWED. NO UNAUTHORIZED MEDICATIONS. NO ILLICIT SUBSTANCES AND PRESCRIBED MEDICATIONS WERE PRESENT. CKD (CHRONIC KIDNEY DISEASE) STAGE 2, GFR 60-89 ML/MIN LAB: BLOOD UREA NITROGEN (BUN) LAB: CREATININE PROCEDURE CODES FA211 ESTABILISHED PATIENT [facility] FACILITY CHARGE DISPOSITION & COMMUNICATION FOLLOW UP POSTPROCEDURE (REASON: BILATERAL THERAPEUTIC FACET BLOCK L4-L5 L5-S1) ELECTRONICALLY SIGNED BY SHONNA GOINS ON 05/03/2020 AT 08:22 AM EDT DISCLAIMER : THIS IS A VISIT SUMMARY EXTRACTED FROM THE [facility] CHART. IT IS NOT A COPY OF THE [facility] PROGRESS NOTE. MTDD
== END ==
LOC: M PAIN 10:00
PROVIDERS: ATTEND Family Medicine
DX: M47.817 Spondylosis without myelopathy or radiculopathy, lumbosacral region (principal); N18.2 Chronic kidney disease, stage 2 (mild)

== ENCOUNTER → 2020-05-18 | Outpatient (CLI) | payer MEDICARE, BC, OTHER | LOC: M LABSMTC 10:12 | PROVIDERS: ATTEND Anesthesiology | DX: Z11.59 Encounter for screening for other viral diseases (principal) | CPT/HCPCS: C9803; U0003 ==

== ENCOUNTER → 2020-05-23 | Outpatient (CLI) | payer MEDICARE, OTHER ==
[~2020-05-23] MED LIST changes: +BUPIVACAINE HCL 0.25% 30ML VIAL As Ordered ONE; +ISOVUE-M 300 61% 15ML VIAL As Ordered ONE; +LIDOCAINE 1% SDV 30ML VIAL As Ordered ONE; +TRIAMCINOLONE ACETONIDE SUSP 40 MG/ML VIAL (J3301) As Ordered ONE
--- NOTE | 2020-05-23 12:07 | REP ---
Partial lumbar spine series: Four views . History: Injection procedure for pain. 46 seconds of fluoroscopy time is reported. Findings: A sequence of four fluoroscopically obtained last image hold procedural spot radiographs of the lumbar spine document needle position and contrast injection associated with injection procedure. Electronically Signed by Saul Palacios MD 05/23/2020 11:21 A
--- NOTE | 2020-05-24 01:45 | ECWPNPC ---
PATIENT NAME: INDIRA BRASWELL : 1955 GENDER: MALE VISIT DATE: 05/23/2020 DISCHARGE DATE: 05/23/20 1112 VISIT LOCKED DATE TIME: PHYSICIAN: LAURE ESCUDERO MD PHYSICIAN PAGER NO: [phone] RESOURCE: LAURE ESCUDERO MD REASON FOR APPOINTMENT 1. BILATERAL THERAPEUTIC FACET BLOCK L4-L5 L5-S1- PAT COMPLETED HISTORY OF PRESENT ILLNESS GENERAL: -. FALL RISK SCREENING: SCREENING :NO FALLS REPORTED IN THE LAST YEAR PAIN SCREENING: PATIENT HAS A COMPLAINT OF ACUTE OR CHRONIC PAIN :YES LOCATION OF PAIN:LOW BACK, LEG(S) INTENSITY OF PAIN (SCALE OF 1 TO 10):3 WHAT DOES YOUR PAIN FEEL LIKE:ACHING, CONTINOUS DURATION:CONTINOUS PAIN IS INCREASED BY:ACTIVITIES PAIN IS DECREASED BY:USE OF PAIN MEDICATIONS NURSING NOTE: -. PAIN CENTER INTAKE QUESTIONS: DO YOU HAVE A HISTORY OF MRSA? :NO DO YOU TAKE A BLOOD THINNERS? :NO DO YOU HAVE ANY BLEEDING DISORDERS? :NO ANY NEW NUMBNESS OR WEAKNESS IN YOUR LEGS OR ARMS? :NO ANY PACEMAKER,DEFIBRILLATOR, OR DORSAL COLUMN STIMULATOR? :NO DO YOU HAVE ANY RASHES OR OPEN SORES? :NO ARE YOU ALLERGIC TO IV DYE? :NO ARE YOU DIABETIC? :NO ANY NEW PROBLEMS WITH YOUR MEDICATIONS? :NO HAVE YOU RECEIVED A VACCINE IN THE PAST 30 DAYS? :NO DO YOU PLAN TO RECEIVE A VACCINE IN THE NEXT 21 DAYS? :NO DO YOU TAKE ANY IMMUNOSUPPRESSIVE MEDICATIONS? :NO ANY HISTORY OF SEIZURES? :NO ANY HISTORY OF CARDIAC ISSUES OR EVENTS? :YES CARDIAC ABLATION 20+ YEARS AGO DO YOU HAVE SLEEP APNEA? :NO ANY RECENT HEAD INJURY? :NO DO YOU HAVE ANY NEW INFECTIONS? :NO IS THERE A CHANCE YOU COULD BE ? :NO ARE YOU BREAST FEEDING? :NO WHEN DID YOU LAST EAT? : - WHEN DID YOU LAST DRINK? : -LAST NIGHT WHAT DID YOU LAST DRINK? : -LAST NIGHT 10 PM NAME OF PERSON DRIVING YOU HOME? : DO YOU HAVE ANY OTHER QUESTIONS OR CONCERNS? : - CURRENT MEDICATIONS TAKING LEVOTHYROXINE SODIUM 25 MCG TABLET 1 TABLET ORALLY ONCE A DAY, NOTES: 05-22 08 TAKING BUPROPION HCL 75 MG TABLET 1 TABLET ORALLY BID, NOTES: 05-22-20799 TAKING VIIBRYD 40 MG TABLET 1 TABLET WITH FOOD ORALLY ONCE A DAY, NOTES: 05-22-20899 TAKING ZOLPIDEM TARTRATE 10 MG TABLET 1 TABLET AT BEDTIME NEEDED ORALLY AT BEDTIME MDD :1, NOTES: 05-22-202099 TAKING POLYETHYLENE GLYCOL 3350 - POWDER DISSOLVE 17 GRAMS IN WATER OR JUICE AND TAKE BY MOUTH ONCE DAILY , NOTES: 05-22-20899 TAKING ATORVASTATIN CALCIUM 20 MG TABLET 1 TABLET ORALLY ONCE A DAY, NOTES: 05-22-202099 TAKING TIZANIDINE HCL 4 MG TABLET 2 TABLETS NEEDED ORALLY THREE TIMES A DAY, NOTES: 05-22-202099 TAKING CYANOCOBALAMIN 250 MCG TABLET 1 TABLET ORALLY ONCE A DAY, NOTES: 05-22-20899 TAKING VITAMIN D (CHOLECALCIFEROL) 5000 UNIT TABLET 1 TAB ORALLY ONCE A DAY, NOTES: 05-22-20799 TAKING CALCIUM 600+D HIGH POTENCY 600-400 MG-UNIT TABLET 1 TABLET WITH FOOD ORALLY ONCE A DAY, NOTES: 05-22-20899 TAKING VOLTAREN 1 % GEL 4GRAMS TO EACH KNEE TRANSDERMAL EVERY 6 HOURS NEEDED TAKING AMITRIPTYLINE HCL 50 MG TABLET 1 TAB ORALLY BEFORE BEDTIME, NOTES: NOT LATELY TAKING NORCO 7.5-325 MG TABLET 1 TABLET NEEDED ORALLY EVERY 6 HRS NEEDED MDD 4, NOTES: 05-22-20899 TAKING WARFARIN SODIUM 2 MG TABLET 1 TABLET ORALLY ONCE A DAY, NOTES: 05/18/2020 DISCONTINUED TIZANIDINE HCL 4.000 TABLET 2 TABLETS NEEDED ORALLY THREE TIMES A DAY MEDICATION LIST REVIEWED AND RECONCILED WITH THE PATIENT PAST MEDICAL HISTORY CHRONIC MDD/PRIMARY INSOMNIA HYPERLIPIDEMIA 2B RIGHT LOWER EXTREMITY DVT IN NOVEMBER 2009, IDIOPATHIC-NEGATIVE HYPERCOAGULABLE WORKUP EXCEPT FOR HETEROZYGOTE FOR FACTOR V 5 LEIDEN NICOTINE ADDICTION-SMOKES ROUGHLY 2 CIGARS DAILY X30 YEARS-APRIL 2011 FEV1 95% NORMAL/FVC 86% NORMAL STATUS POST RADIOFREQUENCY ABLATION FOR SYMPTOMATIC RECURRENT EXERCISE-INDUCED MONOMORPHIC V. TACH-JANUARY 2000-DR. ABDI-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 ANA RASCON [facility] 11/2012-06/2012 NEGATIVE MRI/MRA BRAIN/NEGATIVE OCULAR [id number]-OSUFQ-0/2012//L QUADRICEPS MUSCLE CUKFOS-ECN-NSRNWQPM MUSCLE FIBER ATROPHY, FAVOR NEUROPATHIC PROCESS-[facility] L POPLITEAL AND PERONEAL/ANTERIOR TIBIAL VEIN (OF PROXIMAL CALF) DVT AND GSV OCCLUSION-03/[id number]-QXBD-PHES COUMADIN STARTED BODERLINE LVH, LVEF 75%, LAE 39 MM, NORMAL DIASTOLIC FUNCTION BY 11/2013 TTE-SIMONS LUMBAR DJD- 12/2013 MRI C DIFFUSE BULGES L2-S1 C L5/S1 BULGE ABUTTING B S1 NEVER ROOTS CERVICAL DJD C3-7 SPONDYLOSIS S CORD COMPRESION, MILD L C5 NARROWING BY 12/2013 MRI BORDERLINE LVH, LAE 39 MM BY TTE 11/2013-SIMONS HYPOTHYROIDISM, AUTOIMMUNE-12/2014 TPO AB 192, - TG AB SIGMOID DIVERTICULITIS, FIRST EPISODE BY 09/25/14 CT A/P, WBC 19.8, 08/2015 REPEAT WCB 14.1-RESOLVED C C/F 10D, 11/2015 REPEAT C C/F 10D ALLERGIES MOBIC: PSYCHOLOGICAL CHANGES, NAUSEA - ALLERGY LYRICA: SEVERE DEPRESSION SURGICAL HISTORY LEFT PAROTID TUMOR REMOVAL X [address] BROUSSARD 2006, 11/2014 4 TEETH EXTRACTED 01/2018 FAMILY HISTORY FATHER: 88 YRS, DEMENTIA, DIAGNOSED WITH HYPERTENSION MOTHER: 89 YRS, CONGESTIVE HEART FAILURE SOCIAL HISTORY GENERAL: TOBACCO USE ARE YOU A:CURRENT SMOKER ARE YOU INTERESTED IN QUITTING?NOT READY TO QUIT COUNSELED THE PATIENT ON SMOKING EFFECTS, EDUCATION [id number]/17/2020 HOW OFTEN DO YOU SMOKE CIGARETTES?EVERY DAY ONE A DAY PATIENT COUNSELED ON THE DANGERS OF TOBACCO USE AND URGED TO QUIT:05/22/2020 ADDITIONAL FINDINGS: TOBACCO USERCIGAR SMOKER 1 CIGAR/DAY SMOKING CESSATION INFORMATION GIVEN01/18/2020 LATEX QUESTIONNAIRE LATEX ALLERGY : HAVE YOU EVER DEVELOPED ANY TYPE OF REACTION AFTER HANDLING LATEX PRODUCTS SUCH RUBBER GLOVES, CONDOMS, DIAPHRAGMS, BALLOONS, SOCKS, OR UNDERWEAR?NO LATEX ALLERGY : HAVE YOU EVER DEVELOPED ANY TYPE OF REACTION DURING OR AFTER DENTAL APPOINTMENT, VAGINAL/RECTAL EXAMINATION, SURGICAL PROCEDURE, OR ANY OTHER EXPOSURE?NO LATEX RISK : HAVE YOU EVER HAD ANY DIFFICULTY BREATHING OR HIVES AFTER EATING OR HANDLING ANY FRUITS, OR VEGETABLES; SUCH KIWI, BANANAS, STONE FRUITS, OR CHESTNUTSNO LATEX RISK : DO YOU HAVE A PREVIOUS PERSONAL HISTORY OF MORE THAN NINE SURGERIES, SPINA BIFIDA, OR REPEATED CATHERIZATIONS? NO LATEX RISK : ARE YOU FREQUENTLY EXPOSED TO LATEX PRODUCTS IN YOUR OCCUPATION?NO DATE ASKED : 05/22/2020 ALCOHOL SCREENING DID YOU HAVE A DRINK CONTAINING ALCOHOL IN THE PAST YEAR?YES HOW OFTEN DID YOU HAVE SIX OR MORE DRINKS ON ONE OCCASION IN THE PAST YEAR?NEVER (0 POINTS) HOW MANY DRINKS DID YOU HAVE ON A TYPICAL DAY WHEN YOU WERE DRINKING IN THE PAST YEAR?1 OR 2 (0 POINTS) HOW OFTEN DID YOU HAVE A DRINK CONTAINING ALCOHOL IN THE PAST YEAR?TWO TO FOUR TIMES A MONTH (2 POINTS) POINTS2 INTERPRETATIONNEGATIVE RECREATIONAL DRUG USE DRUG USE?NO CAFFEINE CAFFEINE USE?NO HIV / HEP-C SCREENING HIV TEST OFFERED TO PATIENT:YES DATE OFFERED:02/25/2018 TEST ACCEPTED:NO HEP-C TEST OFFERED TO PATIENT:YES DATE OFFERED:01/27/2017 REASON:PATIENT DECLINED TEST ACCEPTED:YES BROCHURE PROVIDED TO PATIENTYES FAITH [id number] NONE LANGUAGE LANGUAGES SPOKEN:ROMANSH EDUCATION LEVEL OF EDUCATION:COLLEGE LEARNING BARRIERS / SPECIAL NEEDS CHANGE FROM LAST VISIT?NO BARRIERS TO LEARNING?NO HEARING IMPAIRED?NO VISION IMPAIRED?YES COGNITIVELY IMPAIRED?NO :CORRECTIVE LENSES READINESS TO LEARN?YES LEARNING PREFERENCES?NO LEARNING CAPABILITIES PRESENT?YES EMOTIONAL BARRIERS?NO SPECIAL DEVICES?NO IMAGING ADMINISTRATOR NEEDED?NO DOMESTIC VIOLENCE DO YOU FEEL SAFE IN YOUR ENVIRONMENT?YES OCCUPATION: RETIRED. DIET: REGULAR. EXERCISE: WALKS. MARITAL STATUS: . OTHERS AT HOME: SPOUSE. PAIN CLINIC PFS, CLERGY, PUBLIC HEALTH REFERRALS HAS THE PATIENT BEEN EDUCATED REGARDING HIS/HER PLAN OF CARE?YES HAS THE PATIENT BEEN EDUCATED REGARDING PAIN, THE RISK FOR PAIN, THE IMPORTANCE OF EFFECTIVE PAIN MANAGEMENT, AND THE PAIN ASSESSMENT PROCESS?YES ADVANCE DIRECTIVE ADVANCE DIRECTIVE DISCUSSED WITH PATIENT:YES PT DOES NOT HAVE ANY ADVANCED DIRECTIVES AND HE DECLINES INFORMATION ON HCP AT THIS TIME. JS HOSPITALIZATION/MAJOR DIAGNOSTIC PROCEDURE SURGERIES VITAL SIGNS WT 188.8 LBS, HT 69 IN, BMI 27.88 INDEX, BP 131/72 MM HG, HR 61 /MIN, RR 18 /MIN, TEMP 96.6 F, OXYGEN SAT % 99%, SAFE IN ENV? (Y/N) Y, NA INITIALS AW 0926, REVIEWED BY: KG. EXAMINATION GENERAL EXAMINATION: THE PATIENT IS ALERT, ORIENTED TIMES THREE AND COOPERATIVE. HEART SHOWS REGULAR RHYTHM, NO MURMURS AND NO GALLOPS. LUNGS ARE CLEAR TO AUSCULTATION. ASSESSMENTS SPONDYLOSIS WITHOUT MYELOPATHY OR RADICULOPATHY, LUMBAR REGION - M47.816 (PRIMARY) SPONDYLOSIS WITHOUT MYELOPATHY OR RADICULOPATHY, LUMBOSACRAL REGION - M47.817 TREATMENT SPONDYLOSIS WITHOUT MYELOPATHY OR RADICULOPATHY, LUMBAR REGION SMC FACET BLOCK (PAIN)[id number] SPONDYLOSIS WITHOUT MYELOPATHY OR RADICULOPATHY, LUMBOSACRAL REGION SMC FACET BLOCK (PAIN)[id number] OTHERS NOTES: PRE PROCEDURE PHONE CALL COMPLETED 05/22/2020 1615 NL. PROCEDURES PAIN NURSING RECORD PROCEDURE IN ROOM 1030, PHYSICIAN IN ROOM 1048, START 1055, FINISH 1112, PHYSICIAN OUT OF ROOM 1113, OUT OF ROOM 1115, STEROID KENALOG, O2 ROOM AIR, ECG NSR, PATIENT SHIELDED YES, SAFETY STRAP YES, PREP EMILIO RN, DRESSING DRY AN INTCT LOC: 1. ALERT, ORIENTED RESP: 1. REGULAR, NO DYSPNEA COLOR: 1. PINK SKIN: 1. WARM, DRY POSITION: 1. PRONE VITALS: 142/78 60 100 18 REESEO RN 1030 136/65 60 100 18 REESEO RN 1045 128/65 60 100 18 REESEO RN 1100 NOTES WENT OVER ENTIRE DISCHAREGE INCLUDING INFORMING INR RESULTS PRIOR TO PROCEDURE WEERE 1.30 DR ESCUDERO AWARE AND PT INSTRUCTED TO RESTART COUMADIN THIS EVENING PT VERBALIZES UNDERSTANDING PN LUMBAR FACET BLOCK THERAPEUTIC PRE PROCEDURE DIAGNOSIS LUMBAR SPONDYLOSIS, LUMBOSACRAL SPONDYLOSIS POST PROCEDURE DIAGNOSIS LUMBAR SPONDYLOSIS, LUMBOSACRAL SPONDYLOSIS PROCEDURE BILATERAL L4-L5 AND BILATERAL L5-S1 LUMBAR FACET THERAPEUTIC BLOCK SURGEON DR. LAURE ESCUDERO FIRE ALARM MECHANIC NONE ANESTHESIA LOCAL PRE PROCEDURE NOTE THE PATIENT HAS A HISTORY OF CHRONIC LOW BACK PAIN. I EVALUATED THE PATIENT AND REVIEWED THE CHART. I WENT OVER THE RISKS, ALTERNATIVES, AND BENEFITS ASSOCIATED WITH THIS PROCEDURE. I DISCUSSED THAT THE USE OF STEROIDS MAY CONTRIBUTE TO IMMUNOSUPPRESSION OF THE PATIENT'S BODY AGAINST INFECTIONS SUCH COVID-19. THE PATIENT IS AWARE OF THE POTENTIAL COMPLICATIONS ASSOCIATED WITH THIS VIRUS, INCLUDING, BUT NOT LIMITED TO, . I DISCUSSED THE USE OF DEXAMETHASONE INSTEAD OF KENALOG; HOWEVER, THE PATIENT WOULD LIKE TO MOVE FORWARD WITH KENALOG. THE PATIENT WOULD LIKE TO PROCEED AND GIVES CONSENT TO PERFORM THE PROCEDURE. THE PATIENT DENIES UNEXPLAINABLE WEIGHT LOSS, FEVER, CHILLS, OR NEW CHANGES IN URINARY OR BOWEL CONTROL. THE PATIENT IS COVID-19 NEGATIVE DESCRIPTION OF PROCEDURE THE PATIENT WAS BROUGHT TO THE PROCEDURE ROOM AND PLACED IN THE PRONE POSITION. THE LUMBOSACRAL AREA WAS CLEANED WITH CHLORAPREP SOLUTION AND DRAPED ASEPTICALLY. THE PROCEDURE WAS DONE UNDER STERILE CONDITIONS. A TIMEOUT WAS PERFORMED WHERE LATERALITY AND THE SITE OF THE PROCEDURE WERE CHECKED AND CONFIRMED WITH EVERYONE IN THE ROOM. UNDER FLUOROSCOPIC GUIDANCE, THE TARGET POINT WAS SELECTED AT THE RIGHT AND LEFT L4-L5 AND RIGHT AND LEFT L5-S1 FACET JOINTS. TARGET POINT WAS SELECTED AFTER LATERAL ROTATION AND TILT OF THE MAGNIFIER OF THE C-ARM. LIDOCAINE 0.5% WAS USED TO NUMB THE SKIN AND THE SUBCUTANEOUS TISSUE BELOW IT. SPINAL NEEDLES, 22-GAUGE, WERE ADVANCED UNDER FLUOROSCOPIC GUIDANCE AND FOLLOWING PATIENT FEEDBACK UNTIL THE TARGETS WERE TOUCHED. THE POSITION OF THE NEEDLES WAS VERIFIED WITH AP AND LATERAL VIEWS. AFTER PROPER POSITION OF THE NEEDLES WAS ACHIEVED, ISOVUE-M DYE 30%, 0.1 ML, WAS INJECTED SHOWING ADEQUATE SPREAD OF THE DYE. KENALOG 20 MG WAS INJECTED AT EACH SITE. THEN, A SOLUTION OF 1.0 ML OF BUPIVACAINE 0.125% OF WAS USED TO FLUSH EACH SITE. THE MEDICATION WAS VERIFIED WITH THE NURSE. THERE WAS NO EVIDENCE OF BLOOD, PARESTHESIA OR CEREBROSPINAL FLUID DURING THE PROCEDURE. THE PATIENT WAS SENT TO THE RECOVERY ROOM. THE PATIENT WAS MOVING THE EXTREMITIES AND DOING WELL. THERE WERE NO COMPLICATIONS DURING THE PROCEDURE. ESTIMATED BLOOD LOSS WAS LESS THAN 5 ML. FLUOROSCOPY TIME WAS 46 SECONDS POST PROCEDURE NOTE THE PATIENT WILL BE SEEN IN A FOLLOW UP IN THE NEXT FEW WEEKS. I AM LOOKING FOR LONG LASTING RELIEF FOR THE PATIENT WITH THIS INTERVENTION. INSTRUCTIONS WERE GIVEN, QUESTIONS WERE ANSWERED, AND THE PATIENT EXPRESSED UNDERSTANDING AND AGREES WITH THE PLAN. THE PATIENT IS AWARE TO STAY HOME FOR THE NEXT WEEK, IF POSSIBLE, DUE TO COVID-19. I, FREDDY BRENNAN, DOCUMENTED THE ABOVE INFORMATION ACTING A SCRIBE FOR DR. ESCUDERO. I HAVE REVIEWED THE ABOVE DOCUMENT, WRITTEN BY FREDDY BRENNAN, FICTION WRITER, AND I VERIFY THAT IT IS ACCURATE PROCEDURE CODES 90075 INJ PARAVERT F JNT L/S 1 LEV, MODIFIERS: 50 [id number] INJ PARAVERT F JNT L/S 2 LEV, MODIFIERS: 50 DISPOSITION & COMMUNICATION FOLLOW UP F/UP WITH AUTOMOTIVE SALES SPECIALIST (REASON: POST LFBT TUNG L4-L5, L5-S1) ELECTRONICALLY SIGNED BY LAURE ESCUDERO MD, ON 05/23/2020 AT 05:00 PM EDT DISCLAIMER : THIS IS A VISIT SUMMARY EXTRACTED FROM THE [employer] CHART. IT IS NOT A COPY OF THE [employer] PROGRESS NOTE. ANGELICAD
== END ==
LOC: M PAIN 09:30
PROVIDERS: ATTEND Anesthesiology
DX: M47.816 Spondylosis without myelopathy or radiculopathy, lumbar region (principal); M47.817 Spondylosis without myelopathy or radiculopathy, lumbosacral region; Z79.01 Long term (current) use of anticoagulants
CPT/HCPCS: 36415; 64493; 64494; 85610; J3301; Q9967

== ENCOUNTER → 2020-05-23 | Outpatient (CLI) | payer MEDICARE, OTHER ==
[~2020-05-23] MED LIST changes: -BUPIVACAINE HCL 0.25% 30ML VIAL As Ordered ONE; -ISOVUE-M 300 61% 15ML VIAL As Ordered ONE; -LIDOCAINE 1% SDV 30ML VIAL As Ordered ONE; -TRIAMCINOLONE ACETONIDE SUSP 40 MG/ML VIAL (J3301) As Ordered ONE
[2020-05-23 10:14] LABS: INR 1.3; PROTHROMBIN TIME 15.9 SECONDS (11.8-14.0)
== END ==
LOC: M LAB 09:02
PROVIDERS: ATTEND Family Medicine
DX: Z79.01 Long term (current) use of anticoagulants (principal)

== ENCOUNTER → 2020-06-06 | Outpatient (REF) | payer MEDICARE, OTHER ==
[2020-07-03 13:26] LABS: INR 2.28; PROTHROMBIN TIME 25.7 SECONDS (11.8-14.0)
== END ==
LOC: M SFHCPLAZ 12:55
PROVIDERS: ATTEND Physician Assistant Medical
DX: Z79.01 Long term (current) use of anticoagulants (principal)

== ENCOUNTER → 2020-06-07 | Outpatient (CLI) | payer MEDICARE, OTHER | LOC: M PAIN 09:15 | PROVIDERS: ATTEND Family Medicine | DX: M47.816 Spondylosis without myelopathy or radiculopathy, lumbar region (principal); M47.817 Spondylosis without myelopathy or radiculopathy, lumbosacral region ==

== ENCOUNTER → 2020-06-24 | Outpatient (CLI) | payer MEDICARE, OTHER ==
[2020-06-24 14:40] LABS: HEMATOCRIT 42.9 % (42.0-52.0)
[2020-06-24 14:42] LABS: BASO # 0.1 10^3/uL (0.0-0.2); BASO % 0.5 % (0.0-1.0); EOS # 0.7 10^3/uL (0.0-0.5); EOS % 6.6 % (0.0-3.0); HEMATOCRIT 44.1 % (42.0-52.0); HEMOGLOBIN 14.2 g/dl (13.5-17.5); LYMPH # 3.5 10^3/uL (1.5-5.0); LYMPH % 35.5 % (24.0-44.0); MEAN CORPUSCULAR HEMOGLOBIN 29.8 pg (27.0-33.0); MEAN CORPUSCULAR HGB CONC 32.2 g/dl (32.0-36.5); MEAN CORPUSCULAR VOLUME 92.5 fl (80.0-96.0); MONO # 0.7 10^3/uL (0.0-0.8); PLATELET COUNT, AUTOMATED 279 10^3/uL (150-450); RED BLOOD COUNT 4.77 10^6/uL (4.30-6.10); WHITE BLOOD COUNT 9.9 10^3/uL (4.0-10.0)
[2020-06-24 14:53] LABS: ALBUMIN 3.7 GM/DL (3.2-5.2); ALT/SGPT 23 U/L (12-78); BILIRUBIN,TOTAL 0.4 MG/DL (0.2-1.0); BLOOD UREA NITROGEN 18 MG/DL (7-18); CALCIUM LEVEL 8.7 MG/DL (8.8-10.2); CARBON DIOXIDE LEVEL 32 MEQ/L (21-32); CHLORIDE LEVEL 107 MEQ/L (98-107); CREATININE FOR GFR 1.19 MG/DL (0.70-1.30); FREE T4 0.86 NG/DL (0.76-1.46); GLOMERULAR FILTRATION RATE > 60.0 (>49); GLUCOSE, FASTING 80 MG/DL (70-100); POTASSIUM SERUM 4.2 MEQ/L (3.5-5.1); SODIUM LEVEL 139 MEQ/L (136-145); TOTAL PROTEIN 6.5 GM/DL (6.4-8.2)
[2020-06-24 15:11] LABS: HEMOGLOBIN A1c 5.6 %
[2020-06-26 15:18] LABS: ALBUMIN 4.06 GM/DL (3.29-5.55); ALBUMIN % 62.4 % (55.8-66.1); ALPHA-1-GLOBULIN % 4.2 % (2.9-4.9); ALPHA-1-GLOBULINS 0.27 GM/DL (0.17-0.41); ALPHA-2-GLOBULINS 0.57 GM/DL (0.42-0.99); ALPHA-2-GLOBULINS % 8.7 % (7.1-11.8); BETA-1-GLOBULINS 0.39 GM/DL (0.28-0.60); BETA-2-GLOBULINS 0.35 GM/DL (0.19-0.55); BETA-2-GLOBULINS % 5.4 % (3.2-6.5); GAMMA GLOBULIN % 13.3 % (11.1-18.8); GAMMA GLOBULINS 0.86 GM/DL (0.65-1.58)
[2020-06-26 17:13] LABS: VITAMIN B12 LEVEL 670 PG/ML (247-911)
== END ==
LOC: M WUC 09:05
PROVIDERS: ATTEND Family Medicine
DX: E53.8 Deficiency of other specified B group vitamins (principal); E03.9 Hypothyroidism, unspecified; R73.01 Impaired fasting glucose

== ENCOUNTER → 2020-08-10 | Outpatient (CLI) | payer MEDICARE, OTHER ==
--- NOTE | 2020-08-11 12:53 | ECWPNPC ---
PATIENT NAME: INDIRA BRASWELL : 1955 GENDER: MALE VISIT DATE: 08/10/2020 DISCHARGE DATE: 08/10/20 1123 VISIT LOCKED DATE TIME: PHYSICIAN: INDIRA EDMONDS PHYSICIAN PAGER NO: ACTIVE RESOURCE: INDIRA EDMONDS REASON FOR APPOINTMENT 1. LOW BACK HISTORY OF PRESENT ILLNESS DEPRESSION SCREENING: PHQ-2 (2015 EDITION) LITTLE INTEREST OR PLEASURE IN DOING THINGS?NOT AT ALL FEELING DOWN, DEPRESSED, OR HOPELESS?NOT AT ALL TOTAL SCORE0 65 OLD MALE IN FOR POST BILATERAL LUMBAR FACET BLOCK FOLLOW-UP. HE FEELS THE PROCEDURE WAS SUCCESSFUL OVERALL RATING HIS PAIN PREPROCEDURE AT A 3 OUT OF 10 AND POSTPROCEDURE AT A 1 OUT OF 10. HE FURTHER STATES THE PROCEDURE CONTINUES TO HELP HIM TODAY RATING HIS PAIN AT A 1 OUT OF 10 AND DESCRIBING IT STABBING. PATIENT FEELS MEDICATIONS ARE HELPFUL AND DENIES MED SIDE EFFECTS AT THIS TIME. GENERAL: -. FALL RISK SCREENING: SCREENING :NO FALLS REPORTED IN THE LAST YEAR PAIN SCREENING: PATIENT HAS A COMPLAINT OF ACUTE OR CHRONIC PAIN :YES LOCATION OF PAIN:LOW BACK INTENSITY OF PAIN (SCALE OF 1 TO 10):1 WHAT DOES YOUR PAIN FEEL LIKE:STABBING DURATION:CONTINOUS PAIN IS INCREASED BY:OTHERS GETTING UP AFTER SITTING FOR LONG PERIOD OF TIME. PAIN IS DECREASED BY:USE OF PAIN MEDICATIONS NURSING NOTE: -. PAIN CENTER INTAKE QUESTIONS: DO YOU HAVE A HISTORY OF MRSA? :NO DO YOU TAKE A BLOOD THINNERS? :YES COUMADIN 2MG DAILY DO YOU HAVE ANY BLEEDING DISORDERS? :NO ANY NEW NUMBNESS OR WEAKNESS IN YOUR LEGS OR ARMS? :NO ANY PACEMAKER,DEFIBRILLATOR, OR DORSAL COLUMN STIMULATOR? :NO DO YOU HAVE ANY RASHES OR OPEN SORES? :NO ARE YOU ALLERGIC TO IV DYE? :NO ARE YOU DIABETIC? :NO ANY NEW PROBLEMS WITH YOUR MEDICATIONS? :NO HAVE YOU RECEIVED A VACCINE IN THE PAST 30 DAYS? :NO DO YOU PLAN TO RECEIVE A VACCINE IN THE NEXT 21 DAYS? :NO DO YOU NEED ANY PRESCRIPTION? :NO DO YOU TAKE ANY IMMUNOSUPPRESSIVE MEDICATIONS? :NO IS THERE A CHANCE YOU COULD BE ? :NO ARE YOU BREAST FEEDING? :NO CURRENT MEDICATIONS TAKING LEVOTHYROXINE SODIUM 25 MCG TABLET 1 TABLET ORALLY ONCE A DAY, NOTES: 05-22 08 TAKING BUPROPION HCL 75 MG TABLET 1 TABLET ORALLY BID, NOTES: 05-22-20799 TAKING VIIBRYD 40 MG TABLET 1 TABLET WITH FOOD ORALLY ONCE A DAY, NOTES: 05-22-20899 TAKING POLYETHYLENE GLYCOL 3350 - POWDER DISSOLVE 17 GRAMS IN WATER OR JUICE AND TAKE BY MOUTH ONCE DAILY , NOTES: 05-22-20899 TAKING ATORVASTATIN CALCIUM 20 MG TABLET 1 TABLET ORALLY ONCE A DAY, NOTES: 05-22-202099 TAKING TIZANIDINE HCL 4 MG TABLET 2 TABLETS NEEDED ORALLY THREE TIMES A DAY, NOTES: 05-22-202099 TAKING CYANOCOBALAMIN 250 MCG TABLET 1 TABLET ORALLY ONCE A DAY, NOTES: 05-22-20899 TAKING VITAMIN D (CHOLECALCIFEROL) 5000 UNIT TABLET 1 TAB ORALLY ONCE A DAY, NOTES: 05-22-20799 TAKING CALCIUM 600+D HIGH POTENCY 600-400 MG-UNIT TABLET 1 TABLET WITH FOOD ORALLY ONCE A DAY, NOTES: 05-22-20899 TAKING VOLTAREN 1 % GEL 4GRAMS TO EACH KNEE TRANSDERMAL EVERY 6 HOURS NEEDED TAKING AMITRIPTYLINE HCL 50 MG TABLET 1 TAB ORALLY BEFORE BEDTIME, NOTES: NOT LATELY TAKING ZOLPIDEM TARTRATE 10 MG TABLET 1 TABLET AT BEDTIME NEEDED ORALLY AT BEDTIME MDD :1, NOTES: 05-22-202099 TAKING NORCO 7.5-325 MG TABLET 1 TABLET NEEDED ORALLY EVERY 6 HRS NEEDED MDD 4, NOTES: 05-22-20899 TAKING WARFARIN SODIUM 2 MG TABLET 1 TABLET ORALLY ONCE A DAY TAKING WARFARIN SODIUM 1 MG TABLET 1 TABLET ORALLY ONCE A DAY MEDICATION LIST REVIEWED AND RECONCILED WITH THE PATIENT PAST MEDICAL HISTORY CHRONIC MDD/PRIMARY INSOMNIA HYPERLIPIDEMIA 2B RIGHT LOWER EXTREMITY DVT IN NOVEMBER 2009, IDIOPATHIC-NEGATIVE HYPERCOAGULABLE WORKUP EXCEPT FOR HETEROZYGOTE FOR FACTOR V 5 LEIDEN NICOTINE ADDICTION-SMOKES ROUGHLY 2 CIGARS DAILY X30 YEARS-APRIL 2011 FEV1 95% NORMAL/FVC 86% NORMAL STATUS POST RADIOFREQUENCY ABLATION FOR SYMPTOMATIC RECURRENT EXERCISE-INDUCED MONOMORPHIC V. TACH-JANUARY 2000-DR. 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 ANA RASCON [facility] 11/2012-06/2012 NEGATIVE MRI/MRA BRAIN/NEGATIVE OCULAR [id number]-5/2012//L QUADRICEPS MUSCLE [id number] MUSCLE FIBER ATROPHY, FAVOR NEUROPATHIC PROCESS-[facility] L POPLITEAL AND PERONEAL/ANTERIOR TIBIAL VEIN (OF PROXIMAL CALF) DVT AND GSV OCCLUSION-03/[id number] COUMADIN STARTED BODERLINE LVH, LVEF 75%, LAE 39 MM, NORMAL DIASTOLIC FUNCTION BY 11/2013 TTE-SIMONS LUMBAR DJD- 12/2013 MRI C DIFFUSE BULGES L2-S1 C L5/S1 BULGE ABUTTING B S1 NEVER ROOTS CERVICAL DJD C3-7 SPONDYLOSIS S CORD COMPRESION, MILD L C5 NARROWING BY 12/2013 MRI BORDERLINE LVH, LAE 39 MM BY TTE 11/2013-SIMONS HYPOTHYROIDISM, AUTOIMMUNE-12/2014 TPO AB 192, - TG AB SIGMOID DIVERTICULITIS, FIRST EPISODE BY 09/25/14 CT A/P, WBC 19.8, 08/2015 REPEAT WCB 14.1-RESOLVED C C/F 10D, 11/2015 REPEAT C C/F 10D ALLERGIES MOBIC: PSYCHOLOGICAL CHANGES, NAUSEA - ALLERGY LYRICA: SEVERE DEPRESSION SURGICAL HISTORY LEFT PAROTID TUMOR REMOVAL X [address] BROUSSARD 2006, 11/2014 4 TEETH EXTRACTED 01/2018 FAMILY HISTORY FATHER: 88 YRS, DEMENTIA, DIAGNOSED WITH HYPERTENSION MOTHER: 89 YRS, CONGESTIVE HEART FAILURE SOCIAL HISTORY GENERAL: TOBACCO USE ARE YOU A:CURRENT SMOKER ARE YOU INTERESTED IN QUITTING?NOT READY TO QUIT COUNSELED THE PATIENT ON SMOKING EFFECTS, EDUCATION [id number]/08/2020 HOW OFTEN DO YOU SMOKE CIGARETTES?EVERY DAY ONE A DAY PATIENT COUNSELED ON THE DANGERS OF TOBACCO USE AND URGED TO QUIT:08/10/2020 ADDITIONAL FINDINGS: TOBACCO USERCIGAR SMOKER 1 CIGAR/DAY SMOKING CESSATION INFORMATION GIVEN08/09/2020 LATEX QUESTIONNAIRE LATEX ALLERGY : HAVE YOU EVER DEVELOPED ANY TYPE OF REACTION AFTER HANDLING LATEX PRODUCTS SUCH RUBBER GLOVES, CONDOMS, DIAPHRAGMS, BALLOONS, SOCKS, OR UNDERWEAR?NO LATEX ALLERGY : HAVE YOU EVER DEVELOPED ANY TYPE OF REACTION DURING OR AFTER DENTAL APPOINTMENT, VAGINAL/RECTAL EXAMINATION, SURGICAL PROCEDURE, OR ANY OTHER EXPOSURE?NO LATEX RISK : HAVE YOU EVER HAD ANY DIFFICULTY BREATHING OR HIVES AFTER EATING OR HANDLING ANY FRUITS, OR VEGETABLES; SUCH KIWI, BANANAS, STONE FRUITS, OR CHESTNUTSNO LATEX RISK : DO YOU HAVE A PREVIOUS PERSONAL HISTORY OF MORE THAN NINE SURGERIES, SPINA BIFIDA, OR REPEATED CATHERIZATIONS? NO LATEX RISK : ARE YOU FREQUENTLY EXPOSED TO LATEX PRODUCTS IN YOUR OCCUPATION?NO DATE ASKED : 08/10/2020 ALCOHOL SCREENING DID YOU HAVE A DRINK CONTAINING ALCOHOL IN THE PAST YEAR?YES HOW OFTEN DID YOU HAVE SIX OR MORE DRINKS ON ONE OCCASION IN THE PAST YEAR?NEVER (0 POINTS) HOW MANY DRINKS DID YOU HAVE ON A TYPICAL DAY WHEN YOU WERE DRINKING IN THE PAST YEAR?1 OR 2 (0 POINTS) HOW OFTEN DID YOU HAVE A DRINK CONTAINING ALCOHOL IN THE PAST YEAR?TWO TO FOUR TIMES A MONTH (2 POINTS) POINTS2 INTERPRETATIONNEGATIVE RECREATIONAL DRUG USE DRUG USE?NO CAFFEINE CAFFEINE USE?NO HIV / HEP-C SCREENING HIV TEST OFFERED TO PATIENT:YES DATE OFFERED:02/25/2018 TEST ACCEPTED:NO HEP-C TEST OFFERED TO PATIENT:YES DATE OFFERED:01/27/2017 REASON:PATIENT DECLINED TEST ACCEPTED:YES BROCHURE PROVIDED TO PATIENTYES CONFUCIANIST [id number] NONE LANGUAGE LANGUAGES SPOKEN:GABONESE EDUCATION LEVEL OF EDUCATION:COLLEGE LEARNING BARRIERS / SPECIAL NEEDS CHANGE FROM LAST VISIT?NO BARRIERS TO LEARNING?NO HEARING IMPAIRED?NO VISION IMPAIRED?YES COGNITIVELY IMPAIRED?NO :CORRECTIVE LENSES READINESS TO LEARN?YES LEARNING PREFERENCES?NO LEARNING CAPABILITIES PRESENT?YES EMOTIONAL BARRIERS?NO SPECIAL DEVICES?NO CAMERA OPERATOR NEEDED?NO DOMESTIC VIOLENCE DO YOU FEEL SAFE IN YOUR ENVIRONMENT?YES OCCUPATION: RETIRED. DIET: REGULAR. EXERCISE: WALKS. MARITAL STATUS: . OTHERS AT HOME: SPOUSE. PAIN CLINIC PFS, CLERGY, PUBLIC HEALTH REFERRALS HAS THE PATIENT BEEN EDUCATED REGARDING HIS/HER PLAN OF CARE?YES HAS THE PATIENT BEEN EDUCATED REGARDING PAIN, THE RISK FOR PAIN, THE IMPORTANCE OF EFFECTIVE PAIN MANAGEMENT, AND THE PAIN ASSESSMENT PROCESS?YES ADVANCE DIRECTIVE ADVANCE DIRECTIVE DISCUSSED WITH PATIENT:YES PT DOES NOT HAVE ANY ADVANCED DIRECTIVES AND HE DECLINES INFORMATION ON HCP AT THIS TIME. JS HOSPITALIZATION/MAJOR DIAGNOSTIC PROCEDURE SURGERIES REVIEW OF SYSTEMS CONSTITUTIONAL: ANY RECENT FEVER NO . CHILLS NO . WEIGHT CHANGE OF UNKNOWN REASONS NO . GASTROENTEROLOGY: NEW UNEXPLAINABLE CHANGES IN BOWEL CONTROL NO . CONSTIPATION NO . GENITOURINARY: ANY NEW CHANGE IN BLADDER CONTROL? NO . NEUROLOGY: NEW ONSET DIZZINESS OR NEUROLOGICAL CHANGES NOT MENTIONED NO . NEW NUMBNESS OR PAIN PATTERNS NOT MENTIONED AND PERTINENT TO TODAY'S VISIT NO . CARDIOLOGY: NEW CHEST PRESSURE NO . NEW CHEST PAIN NO . RESPIRATORY: UNEXPLAINABLE COUGH NO . NEW SHORTNESS OF BREATH NO . VITAL SIGNS WT 184 LBS, HT 69 IN, BMI 27.17 INDEX, BP 134/72 MM HG, HR 60 /MIN, RR 18 /MIN, TEMP 98.4 F, OXYGEN SAT % 99%, NA INITIALS SC 11:01, LMP: EVENS LYONS CMA. EXAMINATION GENERAL EXAMINATION: GENERALNO ACUTE DISTRESS, WELL NOURISHED AND HYDRATED. PSYCHAPPROPRIATE MOOD AND AFFECT . LUNGS:CLEAR TO AUSCULTATION BILATERALLY, NO WHEEZES, RHONCHI, RALES. HEART:NO MURMURS, REGULAR RATE AND RHYTHM. ASSESSMENTS SPONDYLOSIS WITHOUT MYELOPATHY OR RADICULOPATHY, LUMBOSACRAL REGION - M47.817 (PRIMARY) TREATMENT SPONDYLOSIS WITHOUT MYELOPATHY OR RADICULOPATHY, LUMBOSACRAL REGION CLINICAL NOTES: 65-YEAR-OLD MALE IN FOR POST FACET BLOCK FOLLOW-UP. GIVEN PRESENTING SYMPTOMS RECOMMENDED FOLLOW-UP IN 2 MONTHS. PATIENT HAS EXPRESSED UNDERSTANDING OF AND WAS IN AGREEMENT WITH TREATMENT PLAN. GIVEN TIME TO ASK QUESTIONS AND EXPRESS CONCERNS. , ISTOP REGISTRY REVIEWED AND DEMONSTRATES COMPLLIANCE. (REF # [id number] ) BRINGS IN MEDICATIONS WHICH IS APPROPRIATE FOR WHAT WAS DISPENSED. RECENT URINE TOXICOLOGY REVIEWED. NO UNAUTHORIZED MEDICATIONS. NO ILLICIT SUBSTANCES AND PRESCRIBED MEDICATIONS WERE PRESENT. PREVENTIVE MEDICINE PAIN CLINIC TEACHING: THE PATIENT HAS BEEN EDUCATED REGARDING PAIN, THE RISK FOR PAIN, THE IMPORTANCE OF EFFECTIVE PAIN MANAGEMENT, AND THE PAIN ASSESSMENT PROCESS. : REVIEWED MEDICATIONS AND PATIENT CARE PLAN WITH PATIENT. PATIENT EXPRESSED UNDERSTANDING. - EVENS LYONS [facility] PROCEDURE CODES FA211 ESTABILISHED PATIENT [facility] FACILITY CHARGE DISPOSITION & COMMUNICATION FOLLOW UP 2 MONTHS (REASON: BACK PAIN ) ELECTRONICALLY SIGNED BY SHONNA GOINS ON 08/11/2020 AT 12:50 PM EDT DISCLAIMER : THIS IS A VISIT SUMMARY EXTRACTED FROM THE [employer] CHART. IT IS NOT A COPY OF THE [employer] PROGRESS NOTE. ANGELICAD
== END ==
LOC: M PAIN 10:45
PROVIDERS: ATTEND Family Medicine
DX: M47.817 Spondylosis without myelopathy or radiculopathy, lumbosacral region (principal); G47.00 Insomnia, unspecified; E03.9 Hypothyroidism, unspecified; F17.290 Nicotine dependence, other tobacco product, uncomplicated; Z86.718 Personal history of other venous thrombosis and embolism; Z86.59 Personal history of other mental and behavioral disorders; Z88.6 Allergy status to analgesic agent; Z88.8 Allergy status to other drugs, medicaments and biological substances; Z79.01 Long term (current) use of anticoagulants; Z79.899 Other long term (current) drug therapy

== ENCOUNTER → 2020-10-18 | Outpatient (CLI) | payer MEDICARE, OTHER ==
--- NOTE | 2020-10-20 07:09 | ECWPNPC ---
PATIENT NAME: INDIRA BRASWELL : 1955 GENDER: MALE VISIT DATE: 10/18/2020 DISCHARGE DATE: 10/18/20 1049 VISIT LOCKED DATE TIME: PHYSICIAN: INDIRA EDMONDS PHYSICIAN PAGER NO: ACTIVE RESOURCE: INDIRA EDMONDS REASON FOR APPOINTMENT 1. LOW BACK HISTORY OF PRESENT ILLNESS GENERAL: - 65-YEAR-OLD MALE IN FOR CHRONIC PAIN FOLLOW-UP. HE RATES HIS PAIN CURRENTLY AT A 3 OUT OF 10 AND DESCRIBES IT SHARP. PATIENT FEELS THE MEDICATIONS ARE HELPFUL AND DENIES MED SIDE EFFECTS AT THIS TIME. FALL RISK SCREENING: SCREENING :NO FALLS REPORTED IN THE LAST YEAR PAIN SCREENING: PATIENT HAS A COMPLAINT OF ACUTE OR CHRONIC PAIN :YES LOCATION OF PAIN:LOW BACK INTENSITY OF PAIN (SCALE OF 1 TO 10):3 WHAT DOES YOUR PAIN FEEL LIKE:SHARP DURATION:CONTINOUS, CONSTANT PAIN IS INCREASED BY:ACTIVITIES PAIN IS DECREASED BY:USE OF PAIN MEDICATIONS LAYING DOWN TREATMENT/MEDICATIONS USED TO MANAGE PAIN:OPIOIDS LEVEL OF RELIEF FROM PAIN TREATMENTS IN THE PAST:75% PAIN HAS INTERFERED WITH THE FOLLOWING: NO NURSING NOTE: -. PAIN CENTER INTAKE QUESTIONS: DO YOU HAVE A HISTORY OF MRSA? :NO DO YOU TAKE A BLOOD THINNERS? :YES COUMADIN FOR DVTS IN LEGS DO YOU HAVE ANY BLEEDING DISORDERS? :NO ANY NEW NUMBNESS OR WEAKNESS IN YOUR LEGS OR ARMS? :NO ANY PACEMAKER,DEFIBRILLATOR, OR DORSAL COLUMN STIMULATOR? :NO DO YOU HAVE ANY RASHES OR OPEN SORES? :NO ARE YOU ALLERGIC TO IV DYE? :NO ARE YOU DIABETIC? :NO ANY NEW PROBLEMS WITH YOUR MEDICATIONS? :NO HAVE YOU RECEIVED A VACCINE IN THE PAST 30 DAYS? :NO DO YOU PLAN TO RECEIVE A VACCINE IN THE NEXT 21 DAYS? :NO DO YOU NEED ANY PRESCRIPTION? :NO DO YOU TAKE ANY IMMUNOSUPPRESSIVE MEDICATIONS? :NO IS THERE A CHANCE YOU COULD BE ? :NO ARE YOU BREAST FEEDING? :NO CURRENT MEDICATIONS TAKING VOLTAREN 1 % GEL 4GRAMS TO EACH KNEE TRANSDERMAL EVERY 6 HOURS NEEDED TAKING LEVOTHYROXINE SODIUM 25 MCG TABLET 1 TABLET ORALLY ONCE A DAY TAKING BUPROPION HCL 75 MG TABLET 1 TABLET ORALLY BID TAKING VIIBRYD 40 MG TABLET 1 TABLET WITH FOOD ORALLY ONCE A DAY TAKING WARFARIN SODIUM 2 MG TABLET 1 TABLET ORALLY ONCE A DAY TAKING POLYETHYLENE GLYCOL 3350 - POWDER DISSOLVE 17 GRAMS IN WATER OR JUICE AND TAKE BY MOUTH ONCE DAILY TAKING ATORVASTATIN CALCIUM 20 MG TABLET 1 TABLET ORALLY ONCE A DAY TAKING TIZANIDINE HCL 4 MG TABLET 2 TABLETS NEEDED ORALLY THREE TIMES A DAY TAKING AMITRIPTYLINE HCL 50 TABLET 1 TAB ORALLY BEFORE BEDTIME TAKING VITAMIN D (CHOLECALCIFEROL) 5000 UNIT TABLET 1 TAB ORALLY ONCE A DAY TAKING CALCIUM 600+D HIGH POTENCY 600-400 MG-UNIT TABLET 1 TABLET WITH FOOD ORALLY ONCE A DAY TAKING CYANOCOBALAMIN 250 MCG TABLET 1 TABLET ORALLY ONCE A DAY TAKING ZOLPIDEM TARTRATE 10 MG TABLET 1 TABLET AT BEDTIME NEEDED ORALLY AT BEDTIME MDD :1 TAKING NORCO 7.5-325 MG TABLET 1 TABLET NEEDED ORALLY EVERY 6 HRS NEEDED MDD 4 TAKING ATORVASTATIN CALCIUM 20 MG TABLET 1 TABLET ORALLY ONCE A DAY NOT-TAKING VICODIN 7.5 TABLET 1 TABLET NEEDED ORALLY EVERY 6 HRS PRN PAIN-MDD-4 NOT-TAKING WARFARIN SODIUM 1 MG TABLET 1 TABLET ORALLY ONCE A DAY NOT-TAKING WARFARIN SODIUM 2 MG TABLET 1 TABLET ORALLY ONCE A DAY MEDICATION LIST REVIEWED AND RECONCILED WITH THE PATIENT PAST MEDICAL HISTORY CHRONIC MDD/PRIMARY INSOMNIA HYPERLIPIDEMIA 2B RIGHT LOWER EXTREMITY DVT IN NOVEMBER 2009, IDIOPATHIC-NEGATIVE HYPERCOAGULABLE WORKUP EXCEPT FOR HETEROZYGOTE FOR FACTOR V 5 LEIDEN NICOTINE ADDICTION-SMOKES ROUGHLY 2 CIGARS DAILY X30 YEARS-APRIL 2011 FEV1 95% NORMAL/FVC 86% NORMAL STATUS POST RADIOFREQUENCY ABLATION FOR SYMPTOMATIC RECURRENT EXERCISE-INDUCED MONOMORPHIC V. TACH-JANUARY 2000-[facility]. 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 ANA RASCON [facility] 11/2012-06/2012 NEGATIVE MRI/MRA BRAIN/NEGATIVE OCULAR [id number]-JMXXQ-7/2012//L QUADRICEPS MUSCLE [id number] MUSCLE FIBER ATROPHY, FAVOR NEUROPATHIC PROCESS-[facility] L POPLITEAL AND PERONEAL/ANTERIOR TIBIAL VEIN (OF PROXIMAL CALF) DVT AND GSV OCCLUSION-03/[id number] COUMADIN STARTED BODERLINE LVH, LVEF 75%, LAE 39 MM, NORMAL DIASTOLIC FUNCTION BY 11/2013 TTE-SIMONS LUMBAR DJD- 12/2013 MRI C DIFFUSE BULGES L2-S1 C L5/S1 BULGE ABUTTING B S1 NEVER ROOTS CERVICAL DJD C3-7 SPONDYLOSIS S CORD COMPRESION, MILD L C5 NARROWING BY 12/2013 MRI BORDERLINE LVH, LAE 39 MM BY TTE 11/2013-SIMONS HYPOTHYROIDISM, AUTOIMMUNE-12/2014 TPO AB 192, - TG AB SIGMOID DIVERTICULITIS, FIRST EPISODE BY 09/25/14 CT A/P, WBC 19.8, 08/2015 REPEAT WCB 14.1-RESOLVED C C/F 10D, 11/2015 REPEAT C C/F 10D ALLERGIES MOBIC: PSYCHOLOGICAL CHANGES, NAUSEA - ALLERGY LYRICA: SEVERE DEPRESSION SURGICAL HISTORY LEFT PAROTID TUMOR REMOVAL X [address] BROUSSARD 2006, 11/2014 4 TEETH EXTRACTED 01/2018 FAMILY HISTORY FATHER: 88 YRS, DEMENTIA, DIAGNOSED WITH HYPERTENSION MOTHER: 89 YRS, CONGESTIVE HEART FAILURE SOCIAL HISTORY GENERAL: TOBACCO USE ARE YOU A:CURRENT SMOKER HOW OFTEN DO YOU SMOKE CIGARETTES?EVERY DAY ONE A DAY ARE YOU INTERESTED IN QUITTING?NOT READY TO QUIT ADDITIONAL FINDINGS: TOBACCO USERCIGAR SMOKER 1 CIGAR/DAY PATIENT COUNSELED ON THE DANGERS OF TOBACCO USE AND URGED TO QUIT:08/18/2020 COUNSELED THE PATIENT ON SMOKING EFFECTS, EDUCATION [id number]/16/2020 SMOKING CESSATION INFORMATION GIVEN08/18/2020 LATEX QUESTIONNAIRE LATEX ALLERGY : HAVE YOU EVER DEVELOPED ANY TYPE OF REACTION AFTER HANDLING LATEX PRODUCTS SUCH RUBBER GLOVES, CONDOMS, DIAPHRAGMS, BALLOONS, SOCKS, OR UNDERWEAR?NO LATEX ALLERGY : HAVE YOU EVER DEVELOPED ANY TYPE OF REACTION DURING OR AFTER DENTAL APPOINTMENT, VAGINAL/RECTAL EXAMINATION, SURGICAL PROCEDURE, OR ANY OTHER EXPOSURE?NO DATE ASKED : 08/18/2020 LATEX RISK : HAVE YOU EVER HAD ANY DIFFICULTY BREATHING OR HIVES AFTER EATING OR HANDLING ANY FRUITS, OR VEGETABLES; SUCH KIWI, BANANAS, STONE FRUITS, OR CHESTNUTSNO LATEX RISK : DO YOU HAVE A PREVIOUS PERSONAL HISTORY OF MORE THAN NINE SURGERIES, SPINA BIFIDA, OR REPEATED CATHERIZATIONS? NO LATEX RISK : ARE YOU FREQUENTLY EXPOSED TO LATEX PRODUCTS IN YOUR OCCUPATION?NO ALCOHOL SCREENING DID YOU HAVE A DRINK CONTAINING ALCOHOL IN THE PAST YEAR?YES HOW OFTEN DID YOU HAVE SIX OR MORE DRINKS ON ONE OCCASION IN THE PAST YEAR?NEVER (0 POINTS) HOW MANY DRINKS DID YOU HAVE ON A TYPICAL DAY WHEN YOU WERE DRINKING IN THE PAST YEAR?1 OR 2 (0 POINTS) HOW OFTEN DID YOU HAVE A DRINK CONTAINING ALCOHOL IN THE PAST YEAR?TWO TO FOUR TIMES A MONTH (2 POINTS) POINTS2 INTERPRETATIONNEGATIVE RECREATIONAL DRUG USE DRUG USE?NO CAFFEINE CAFFEINE USE?NO HIV / HEP-C SCREENING HIV TEST OFFERED TO PATIENT:YES DATE OFFERED:02/25/2018 TEST ACCEPTED:NO HEP-C TEST OFFERED TO PATIENT:YES DATE OFFERED:01/27/2017 REASON:PATIENT DECLINED TEST ACCEPTED:YES BROCHURE PROVIDED TO PATIENTYES HINDUISM [id number] NONE LANGUAGE LANGUAGES SPOKEN:DIVEHI EDUCATION LEVEL OF EDUCATION:COLLEGE LEARNING BARRIERS / SPECIAL NEEDS CHANGE FROM LAST VISIT?NO BARRIERS TO LEARNING?NO HEARING IMPAIRED?NO VISION IMPAIRED?YES COGNITIVELY IMPAIRED?NO :CORRECTIVE LENSES READINESS TO LEARN?YES LEARNING PREFERENCES?NO LEARNING CAPABILITIES PRESENT?YES EMOTIONAL BARRIERS?NO SPECIAL DEVICES?NO WEB PRODUCTION DESIGNER NEEDED?NO DOMESTIC VIOLENCE DO YOU FEEL SAFE IN YOUR ENVIRONMENT?YES OCCUPATION: RETIRED. DIET: REGULAR. EXERCISE: WALKS. MARITAL STATUS: . OTHERS AT HOME: SPOUSE. PAIN CLINIC PFS, CLERGY, PUBLIC HEALTH REFERRALS HAS THE PATIENT BEEN EDUCATED REGARDING HIS/HER PLAN OF CARE?YES HAS THE PATIENT BEEN EDUCATED REGARDING PAIN, THE RISK FOR PAIN, THE IMPORTANCE OF EFFECTIVE PAIN MANAGEMENT, AND THE PAIN ASSESSMENT PROCESS?YES ADVANCE DIRECTIVE ADVANCE DIRECTIVE DISCUSSED WITH PATIENT:YES PT DOES NOT HAVE ANY ADVANCED DIRECTIVES AND HE DECLINES INFORMATION ON HCP AT THIS TIME. HOSPITALIZATION/MAJOR DIAGNOSTIC PROCEDURE SURGERIES REVIEW OF SYSTEMS CONSTITUTIONAL: ANY RECENT FEVER NO . CHILLS NO . WEIGHT CHANGE OF UNKNOWN REASONS NO . GASTROENTEROLOGY: NEW UNEXPLAINABLE CHANGES IN BOWEL CONTROL NO . CONSTIPATION NO . GENITOURINARY: ANY NEW CHANGE IN BLADDER CONTROL? NO . NEUROLOGY: NEW ONSET DIZZINESS OR NEUROLOGICAL CHANGES NOT MENTIONED NO . NEW NUMBNESS OR PAIN PATTERNS NOT MENTIONED AND PERTINENT TO TODAY'S VISIT NO . CARDIOLOGY: NEW CHEST PRESSURE NO . NEW CHEST PAIN NO . RESPIRATORY: UNEXPLAINABLE COUGH NO . NEW SHORTNESS OF BREATH NO . VITAL SIGNS WT 185.2 LBS, HT 69 IN, BMI 27.35 INDEX, BP 140/69 MM HG, HR 67 /MIN, RR 18 /MIN, TEMP 96.9 F, OXYGEN SAT % 100%, SAFE IN ENV? (Y/N) Y, NA INITIALS SC 10:16, REVIEWED BY: SHYLA. EXAMINATION GENERAL EXAMINATION: GENERALNO ACUTE DISTRESS, WELL NOURISHED AND HYDRATED. PSYCHAPPROPRIATE MOOD AND AFFECT . LUNGS:CLEAR TO AUSCULTATION BILATERALLY, NO WHEEZES, RHONCHI, RALES. HEART:NO MURMURS, REGULAR RATE AND RHYTHM. ASSESSMENTS SPONDYLOSIS WITHOUT MYELOPATHY OR RADICULOPATHY, LUMBOSACRAL REGION - M47.817 (PRIMARY) TREATMENT SPONDYLOSIS WITHOUT MYELOPATHY OR RADICULOPATHY, LUMBOSACRAL REGION NOTES: 65-YEAR-OLD MALE IN FOR CHRONIC PAIN FOLLOW-UP. GIVEN PRESENTING SYMPTOMS RECOMMENDED CONTINUATION OF CURRENT MEDICATION REGIMEN WITH FOLLOW-UP IN 3 MONTHS. PATIENT HAS EXPRESSED UNDERSTANDING OF AND WAS IN AGREEMENT WITH TREATMENT PLAN. GIVEN TIME TO ASK QUESTIONS AND EXPRESS CONCERNS. , ISTOP REGISTRY REVIEWED AND DEMONSTRATES COMPLLIANCE. (REF # [id number] ) BRINGS IN MEDICATIONS WHICH IS APPROPRIATE FOR WHAT WAS DISPENSED. RECENT URINE TOXICOLOGY REVIEWED. NO UNAUTHORIZED MEDICATIONS. NO ILLICIT SUBSTANCES AND PRESCRIBED MEDICATIONS WERE PRESENT. PROCEDURE CODES FA211 ESTABILISHED PATIENT [facility] F[facility]ILITY CHARGE DISPOSITION & COMMUNICATION ELECTRONICALLY SIGNED BY SHONNA GOINS ON 10/19/2020 AT 01:07 PM EST DISCLAIMER : THIS IS A VISIT SUMMARY EXTRACTED FROM THE [employer] CHART. IT IS NOT A COPY OF THE [employer] PROGRESS NOTE. KEITH
== END ==
LOC: M PAIN 10:00
PROVIDERS: ATTEND Family Medicine
DX: M47.817 Spondylosis without myelopathy or radiculopathy, lumbosacral region (principal); F17.210 Nicotine dependence, cigarettes, uncomplicated; F32.9 Major depressive disorder, single episode, unspecified; E06.3 Autoimmune thyroiditis; Z79.891 Long term (current) use of opiate analgesic; Z79.899 Other long term (current) drug therapy; Z79.01 Long term (current) use of anticoagulants; Z86.718 Personal history of other venous thrombosis and embolism; Z88.8 Allergy status to other drugs, medicaments and biological substances; Z88.6 Allergy status to analgesic agent

== ENCOUNTER → 2020-12-18 | Outpatient (CLI) | payer MEDICARE, OTHER ==
[~2020-12-18] MED LIST changes: +GABA-282 PO; -GABA-843 PO
--- NOTE | 2020-12-18 14:37 | REPPI ---
INDICATION: M25.511 BILATERAL SHOULDER PAIN. COMPARISON: PA chest 05/15/2016. TECHNIQUE: Bilateral three view shoulder series. FINDINGS: Right shoulder: Slight joint space narrowing and hypertrophic spurring inferiorly at the AC joint. There is no fracture of the clavicle or elevation of the clavicle in relationship to the acromion the scapula, humeral head, neck and proximal shaft along with the ribs show no visible fracture or focal lesion. No abnormal soft tissue calcifications about the shoulder. Left shoulder: There is widening of the AC joint and elevation of the clavicle similar previous study suggesting chronic AC joint separation. No fracture of the clavicle scapula or ribs. Humeral head and proximal humerus grossly intact there are minimal degenerative changes inferiorly at the glenohumeral joint. No abnormal soft tissue calcification. IMPRESSION: 1. Degenerative changes AC and glenohumeral joint on the right, similar to previous studies 2. 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 Appearance similar to the prior study. <Electronically signed by Abdirizak Melendez > 12/18/20 [id number]
== END ==
LOC: M PLAIMG 11:45
PROVIDERS: ATTEND Nurse Practitioner Family
DX: M19.011 Primary osteoarthritis, right shoulder (principal); M25.511 Pain in right shoulder

== ENCOUNTER → 2021-01-05 | Outpatient (REF) | payer MEDICARE, OTHER ==
[2021-01-05 13:46] LABS: BASO % 0.5 % (0.0-1.0); EOS # 0.6 10^3/uL (0.0-0.5); EOS % 6.5 % (0.0-3.0); HEMATOCRIT 42.4 % (42.0-52.0); HEMOGLOBIN 13.6 g/dl (13.5-17.5); LYMPH # 2.8 10^3/uL (1.5-5.0); LYMPH % 32.6 % (24.0-44.0); MEAN CORPUSCULAR HEMOGLOBIN 29.1 pg (27.0-33.0); MEAN CORPUSCULAR HGB CONC 32.1 g/dl (32.0-36.5); MEAN CORPUSCULAR VOLUME 90.6 fl (80.0-96.0); MONO # 0.7 10^3/uL (0.0-0.8); MONO % 8.1 % (2.0-8.0); NEUTROPHILS # 4.5 10^3/uL (1.5-8.5); NEUTROPHILS % 51.8 % (36.0-66.0); PLATELET COUNT, AUTOMATED 323 10^3/uL (150-450); RED BLOOD COUNT 4.68 10^6/uL (4.30-6.10); WHITE BLOOD COUNT 8.7 10^3/uL (4.0-10.0)
[2021-01-05 13:53] LABS: INR 1.86; PROTHROMBIN TIME 21.8 SECONDS (12.5-14.3)
[2021-01-05 13:54] LABS: PARTIAL THROMBOPLASTIN TIME 38.4 SECONDS (24.2-38.5)
[2021-01-05 14:20] LABS: ALBUMIN 3.9 GM/DL (3.2-5.2); ALT/SGPT 27 U/L (12-78); BILIRUBIN,TOTAL 0.4 MG/DL (0.2-1.0); BLOOD UREA NITROGEN 13 MG/DL (7-18); CARBON DIOXIDE LEVEL 32 MEQ/L (21-32); CHLORIDE LEVEL 104 MEQ/L (98-107); CREATININE FOR GFR 1.27 MG/DL (0.70-1.30); GLOMERULAR FILTRATION RATE > 60.0 (>49); GLUCOSE, FASTING 89 MG/DL (70-100); POTASSIUM SERUM 4.5 MEQ/L (3.5-5.1); SODIUM LEVEL 138 MEQ/L (136-145); TOTAL PROTEIN 6.6 GM/DL (6.4-8.2)
[2021-01-05 14:26] LABS: PTH INTACT 57.1 PG/ML (18.5-88.0); TOTAL 25(OH) VITAMIN D 62.9 NG/ML (30.0-100.0)
[2021-01-05 14:51] LABS: HEMOGLOBIN A1c 5.7 %
== END ==
LOC: M PLALAB 09:11
PROVIDERS: ATTEND Family Medicine
DX: E53.8 Deficiency of other specified B group vitamins (principal); N18.2 Chronic kidney disease, stage 2 (mild); E78.5 Hyperlipidemia, unspecified; I82.509 Chronic embolism and thrombosis of unspecified deep veins of unspecified lower extremity; E55.9 Vitamin D deficiency, unspecified; Z79.899 Other long term (current) drug therapy

== ENCOUNTER → 2021-01-08 | Outpatient (REF) | payer MEDICARE, OTHER | LOC: M SFHCPLAZ 12:11 | PROVIDERS: ATTEND Family Medicine | DX: M75.41 Impingement syndrome of right shoulder (principal) | CPT/HCPCS: 36415; 85652; 86140; 86200; G0463 ==

== ENCOUNTER → 2021-01-17 | Outpatient (CLI) | payer MEDICARE, OTHER ==
--- NOTE | 2021-01-19 07:51 | ECWPNPC ---
PATIENT NAME: INDIRA BRASWELL : 1955 GENDER: MALE VISIT DATE: 01/17/2021 DISCHARGE DATE: 01/17/21 1030 VISIT LOCKED DATE TIME: PHYSICIAN: INDIRA EDMONDS PHYSICIAN PAGER NO: ACTIVE RESOURCE: INDIRA EDMONDS REASON FOR APPOINTMENT 1. LOW BACK HISTORY OF PRESENT ILLNESS GENERAL: - 65-YEAR-OLD MALE IN FOR CHRONIC PAIN FOLLOW-UP. HE RATES HIS PAIN CURRENTLY AT A 4 OUT OF 10 AND DESCRIBES IT ACHING, CONTINUOUS, AND SHARP. PATIENT FEELS THE MEDICATIONS ARE HELPFUL AND DENIES MED SIDE EFFECTS AT THIS TIME. FALL RISK SCREENING: SCREENING : NO FALLS REPORTED IN THE LAST YEAR. PAIN SCREENING: PATIENT HAS A COMPLAINT OF ACUTE OR CHRONIC PAIN :YES LOCATION OF PAIN:LOW BACK INTENSITY OF PAIN (SCALE OF 1 TO 10):4 WHAT DOES YOUR PAIN FEEL LIKE:ACHING, CONTINOUS, SHARP DURATION:CONTINOUS, CONSTANT PAIN IS INCREASED BY:ACTIVITIES, PROLONGED STANDING PAIN IS DECREASED BY:USE OF PAIN MEDICATIONS NURSING NOTE: -. PAIN CENTER INTAKE QUESTIONS: DO YOU HAVE A HISTORY OF MRSA? :NO DO YOU TAKE A BLOOD THINNERS? :YES COUMADIN DO YOU HAVE ANY BLEEDING DISORDERS? :NO ANY NEW NUMBNESS OR WEAKNESS IN YOUR LEGS OR ARMS? :NO ANY PACEMAKER,DEFIBRILLATOR, OR DORSAL COLUMN STIMULATOR? :NO DO YOU HAVE ANY RASHES OR OPEN SORES? :NO ARE YOU ALLERGIC TO IV DYE? :NO ARE YOU DIABETIC? :NO ANY NEW PROBLEMS WITH YOUR MEDICATIONS? :NO HAVE YOU RECEIVED A VACCINE IN THE PAST 30 DAYS? :YES IF SO WHAT VACCINE AND WHEN? PATIENT HAS HAD BOTH SETS OF COVID VACCINATION. LAST VACCINATION ON OR AROUND 01/07/2021 DO YOU PLAN TO RECEIVE A VACCINE IN THE NEXT 21 DAYS? :NO DO YOU NEED ANY PRESCRIPTION? :NO DO YOU TAKE ANY IMMUNOSUPPRESSIVE MEDICATIONS? :NO DO YOU HAVE ANY KIDNEY OR LIVER DISEASE? :NO IS THERE A CHANCE YOU COULD BE ? :NO ARE YOU BREAST FEEDING? :NO CURRENT MEDICATIONS TAKING VOLTAREN 1 % GEL 4GRAMS TO EACH KNEE TRANSDERMAL EVERY 6 HOURS NEEDED TAKING WARFARIN SODIUM 1 MG TABLET 1 TABLET ORALLY ONCE A DAY TAKING VIIBRYD 40 MG TABLET 1 TABLET WITH FOOD ORALLY ONCE A DAY TAKING HYDROCODONE-ACETAMINOPHEN 7.5-325 MG TABLET 1 TABLET NEEDED ORALLY EVERY 6 HRS PRN MDD4 TAKING LEVOTHYROXINE SODIUM 25 MCG TABLET 1 TABLET ORALLY ONCE A DAY TAKING BUPROPION HCL 75 MG TABLET 1 TABLET ORALLY BID TAKING VIIBRYD 40 MG TABLET 1 TABLET WITH FOOD ORALLY ONCE A DAY TAKING POLYETHYLENE GLYCOL 3350 - POWDER DISSOLVE 17 GRAMS IN WATER OR JUICE AND TAKE BY MOUTH ONCE DAILY TAKING ATORVASTATIN CALCIUM 20 MG TABLET 1 TABLET ORALLY ONCE A DAY TAKING TIZANIDINE HCL 4 MG TABLET 2 TABLETS NEEDED ORALLY THREE TIMES A DAY TAKING VITAMIN D (CHOLECALCIFEROL) 5000 UNIT TABLET 1 TAB ORALLY ONCE A DAY TAKING CALCIUM 600+D HIGH POTENCY 600-400 MG-UNIT TABLET 1 TABLET WITH FOOD ORALLY ONCE A DAY TAKING CYANOCOBALAMIN 250 MCG TABLET 1 TABLET ORALLY ONCE A DAY TAKING AMITRIPTYLINE HCL 50 TABLET 1 TAB ORALLY BEFORE BEDTIME TAKING ZOLPIDEM TARTRATE 10 MG TABLET 1 TABLET AT BEDTIME NEEDED ORALLY AT BEDTIME MDD :1 TAKING WARFARIN SODIUM 2 MG TABLET 1 TABLET ORALLY ONCE A DAY NOT-TAKING VICODIN 7.5 TABLET 1 TABLET NEEDED ORALLY EVERY 6 HRS PRN PAIN-MDD-4 MEDICATION LIST REVIEWED AND RECONCILED WITH THE PATIENT PAST MEDICAL HISTORY CHRONIC MDD/PRIMARY INSOMNIA HYPERLIPIDEMIA 2B RIGHT LOWER EXTREMITY DVT IN NOVEMBER 2009, IDIOPATHIC-NEGATIVE HYPERCOAGULABLE WORKUP EXCEPT FOR HETEROZYGOTE FOR FACTOR V 5 LEIDEN NICOTINE ADDICTION-SMOKES ROUGHLY 2 CIGARS DAILY X30 YEARS-APRIL 2011 FEV1 95% NORMAL/FVC 86% NORMAL STATUS POST RADIOFREQUENCY ABLATION FOR SYMPTOMATIC RECURRENT EXERCISE-INDUCED MONOMORPHIC V. TACH-JANUARY 2000-DR. 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 ANA RASCON [facility] 11/2012-06/2012 NEGATIVE MRI/MRA BRAIN/NEGATIVE OCULAR [id number]-WETSO-8/2012//L QUADRICEPS MUSCLE SIGRDE-HSR-N[facility] MUSCLE FIBER ATROPHY, FAVOR NEUROPATHIC PROCESS-[facility] L POPLITEAL AND PERONEAL/ANTERIOR TIBIAL VEIN (OF PROXIMAL CALF) DVT AND GSV OCCLUSION-03/[id number] COUMADIN STARTED BODERLINE LVH, LVEF 75%, LAE 39 MM, NORMAL DIASTOLIC FUNCTION BY 11/2013 TTE-SIMONS LUMBAR DJD- 12/2013 MRI C DIFFUSE BULGES L2-S1 C L5/S1 BULGE ABUTTING B S1 NEVER ROOTS CERVICAL DJD C3-7 SPONDYLOSIS S CORD COMPRESION, MILD L C5 NARROWING BY 12/2013 MRI BORDERLINE LVH, LAE 39 MM BY TTE 11/2013-SIMONS HYPOTHYROIDISM, AUTOIMMUNE-12/2014 TPO AB 192, - TG AB SIGMOID DIVERTICULITIS, FIRST EPISODE BY 09/25/14 CT A/P, WBC 19.8, 08/2015 REPEAT WCB 14.1-RESOLVED C C/F 10D, 11/2015 REPEAT C C/F 10D ALLERGIES MOBIC: PSYCHOLOGICAL CHANGES, NAUSEA - ALLERGY LYRICA: SEVERE DEPRESSION SOCIAL HISTORY GENERAL: TOBACCO USE ARE YOU A:CURRENT SMOKER HOW OFTEN DO YOU SMOKE CIGARETTES?EVERY DAY ONE A DAY ARE YOU INTERESTED IN QUITTING?NOT READY TO QUIT ADDITIONAL FINDINGS: TOBACCO USERCIGAR SMOKER 1 CIGAR/DAY PATIENT COUNSELED ON THE DANGERS OF TOBACCO USE AND URGED TO QUIT:01/08/2021 COUNSELED THE PATIENT ON SMOKING EFFECTS, EDUCATION [id number]/08/2021 SMOKING CESSATION INFORMATION GIVEN01/08/2021 LATEX QUESTIONNAIRE LATEX ALLERGY : HAVE YOU EVER DEVELOPED ANY TYPE OF REACTION AFTER HANDLING LATEX PRODUCTS SUCH RUBBER GLOVES, CONDOMS, DIAPHRAGMS, BALLOONS, SOCKS, OR UNDERWEAR?NO LATEX ALLERGY : HAVE YOU EVER DEVELOPED ANY TYPE OF REACTION DURING OR AFTER DENTAL APPOINTMENT, VAGINAL/RECTAL EXAMINATION, SURGICAL PROCEDURE, OR ANY OTHER EXPOSURE?NO LATEX RISK : HAVE YOU EVER HAD ANY DIFFICULTY BREATHING OR HIVES AFTER EATING OR HANDLING ANY FRUITS, OR VEGETABLES; SUCH KIWI, BANANAS, STONE FRUITS, OR CHESTNUTSNO LATEX RISK : DO YOU HAVE A PREVIOUS PERSONAL HISTORY OF MORE THAN NINE SURGERIES, SPINA BIFIDA, OR REPEATED CATHERIZATIONS? NO LATEX RISK : ARE YOU FREQUENTLY EXPOSED TO LATEX PRODUCTS IN YOUR OCCUPATION?NO DATE ASKED : 01/17/2021 ALCOHOL USE: NO. ALCOHOL SCREENING DID YOU HAVE A DRINK CONTAINING ALCOHOL IN THE PAST YEAR?YES HOW OFTEN DID YOU HAVE SIX OR MORE DRINKS ON ONE OCCASION IN THE PAST YEAR?NEVER (0 POINTS) HOW MANY DRINKS DID YOU HAVE ON A TYPICAL DAY WHEN YOU WERE DRINKING IN THE PAST YEAR?1 OR 2 (0 POINTS) HOW OFTEN DID YOU HAVE A DRINK CONTAINING ALCOHOL IN THE PAST YEAR?TWO TO FOUR TIMES A MONTH (2 POINTS) POINTS2 INTERPRETATIONNEGATIVE RECREATIONAL DRUG USE DRUG USE?NO CAFFEINE CAFFEINE USE?NO HIV / HEP-C SCREENING HIV TEST OFFERED TO PATIENT:YES DATE OFFERED:02/25/2018 TEST ACCEPTED:NO HEP-C TEST OFFERED TO PATIENT:YES DATE OFFERED:01/27/2017 REASON:PATIENT DECLINED TEST ACCEPTED:YES BROCHURE PROVIDED TO PATIENTYES PENTECOSTALISM [id number] NONE LANGUAGE LANGUAGES SPOKEN:BENGALI EDUCATION LEVEL OF EDUCATION:COLLEGE LEARNING BARRIERS / SPECIAL NEEDS CHANGE FROM LAST VISIT?NO BARRIERS TO LEARNING?NO HEARING IMPAIRED?NO VISION IMPAIRED?YES :CORRECTIVE LENSES COGNITIVELY IMPAIRED?NO READINESS TO LEARN?YES LEARNING PREFERENCES?NO LEARNING CAPABILITIES PRESENT?YES EMOTIONAL BARRIERS?NO SPECIAL DEVICES?NO STAFF HOME THERAPY RN NEEDED?NO DOMESTIC VIOLENCE DO YOU FEEL SAFE IN YOUR ENVIRONMENT?YES OCCUPATION: RETIRED. DIET: REGULAR. EXERCISE: WALKS. MARITAL STATUS: . OTHERS AT HOME: SPOUSE. - HAS THE PATIENT BEEN EDUCATED REGARDING HIS/HER PLAN OF CARE?YES HAS THE PATIENT BEEN EDUCATED REGARDING PAIN, THE RISK FOR PAIN, THE IMPORTANCE OF EFFECTIVE PAIN MANAGEMENT, AND THE PAIN ASSESSMENT PROCESS?YES ADVANCE DIRECTIVE ADVANCE DIRECTIVE DISCUSSED WITH PATIENT:YES PT DOES NOT HAVE ANY ADVANCED DIRECTIVES AND HE DECLINES INFORMATION ON HCP AT THIS TIME. REVIEW OF SYSTEMS CONSTITUTIONAL: ANY RECENT FEVER NO . CHILLS NO . WEIGHT CHANGE OF UNKNOWN REASONS NO . GASTROENTEROLOGY: NEW UNEXPLAINABLE CHANGES IN BOWEL CONTROL NO . CONSTIPATION NO . GENITOURINARY: ANY NEW CHANGE IN BLADDER CONTROL? NO . NEUROLOGY: NEW ONSET DIZZINESS OR NEUROLOGICAL CHANGES NOT MENTIONED NO . NEW NUMBNESS OR PAIN PATTERNS NOT MENTIONED AND PERTINENT TO TODAY'S VISIT NO . CARDIOLOGY: NEW CHEST PRESSURE NO . PATIENT DENIES NO . RESPIRATORY: UNEXPLAINABLE COUGH NO . NEW SHORTNESS OF BREATH NO . VITAL SIGNS WT 190.4 LBS, HT 69 IN, BMI 28.11 INDEX, BP 131/74 MM HG, HR 79 /MIN, RR 20 /MIN, TEMP 99.3 F, OXYGEN SAT % 98%, SAFE IN ENV? (Y/N) YES, REVIEWED BY: BENJAMIN GUTIREREZ MA. EXAMINATION GENERAL EXAMINATION: GENERALNO ACUTE DISTRESS, WELL NOURISHED AND HYDRATED. PSYCHAPPROPRIATE MOOD AND AFFECT . LUNGS:CLEAR TO AUSCULTATION BILATERALLY, NO WHEEZES, RHONCHI, RALES. HEART:NO MURMURS, REGULAR RATE AND RHYTHM. 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 GIVEN PRESENTING SYMPTOMS RECOMMENDED CONTINUATION OF CURRENT MEDICATION REGIMEN WITH FOLLOW-UP IN 3 MONTHS. PATIENT HAS EXPRESSED UNDERSTANDING OF AND WAS IN AGREEMENT WITH TREATMENT PLAN. GIVEN TIME TO ASK QUESTIONS AND EXPRESS CONCERNS. , ISTOP REGISTRY REVIEWED AND DEMONSTRATES COMPLLIANCE. (REF # [id number] ) BRINGS IN MEDICATIONS WHICH IS APPROPRIATE FOR WHAT WAS DISPENSED. RECENT URINE TOXICOLOGY REVIEWED. NO UNAUTHORIZED MEDICATIONS. NO ILLICIT SUBSTANCES AND PRESCRIBED MEDICATIONS WERE PRESENT. PROCEDURE CODES FA211 ESTABILISHED PATIENT [facility] CHARGE DISPOSITION & COMMUNICATION FOLLOW UP 3 MONTHS (REASON: BACK PAIN ) ELECTRONICALLY SIGNED BY SHONNA GOINS ON 01/18/2021 AT 08:53 AM EDT DISCLAIMER : THIS IS A VISIT SUMMARY EXTRACTED FROM THE [employer] CHART. IT IS NOT A COPY OF THE [employer] PROGRESS NOTE. KEITH
== END ==
LOC: M PAIN 10:00
PROVIDERS: ATTEND Family Medicine
DX: M12.88 Other specific arthropathies, not elsewhere classified, other specified site (principal); E78.5 Hyperlipidemia, unspecified; F17.210 Nicotine dependence, cigarettes, uncomplicated; E06.3 Autoimmune thyroiditis; K76.0 Fatty (change of) liver, not elsewhere classified; Z79.01 Long term (current) use of anticoagulants; Z79.899 Other long term (current) drug therapy; Z88.6 Allergy status to analgesic agent; Z88.8 Allergy status to other drugs, medicaments and biological substances

== ENCOUNTER → 2021-04-10 | Outpatient (CLI) | payer MEDICARE, OTHER ==
[2021-04-10 10:28] LABS: BASO % 0.4 % (0.0-1.0); EOS # 0.5 10^3/uL (0.0-0.5); EOS % 6.9 % (0.0-3.0); HEMATOCRIT 40.5 % (42.0-52.0); HEMOGLOBIN 13.1 g/dl (13.5-17.5); LYMPH # 2.7 10^3/uL (1.5-5.0); LYMPH % 34.5 % (24.0-44.0); MEAN CORPUSCULAR HEMOGLOBIN 29.4 pg (27.0-33.0); MEAN CORPUSCULAR HGB CONC 32.3 g/dl (32.0-36.5); MEAN CORPUSCULAR VOLUME 90.8 fl (80.0-96.0); MONO # 0.7 10^3/uL (0.0-0.8); MONO % 8.7 % (2.0-8.0); NEUTROPHILS # 3.9 10^3/uL (1.5-8.5); NEUTROPHILS % 49.1 % (36.0-66.0); PLATELET COUNT, AUTOMATED 316 10^3/uL (150-450); RED BLOOD COUNT 4.46 10^6/uL (4.30-6.10); WHITE BLOOD COUNT 7.8 10^3/uL (4.0-10.0)
[2021-04-10 10:41] LABS: INR 2.37; PROTHROMBIN TIME 26.4 SECONDS (12.5-14.3)
[2021-04-10 11:26] LABS: C REACTIVE PROTEIN QUANTITATIV < 0.30 MG/DL (0.00-0.30); CHOLESTEROL LEVEL 94 MG/DL (<200); CPK CREATINE PHOSPHOKINASE 89 U/L (39-308); FERRITIN 32 NG/ML (26-388); FREE T4 0.89 NG/DL (0.76-1.46); HDL CHOLESTEROL 40 MG/DL (>40); LDL CHOLESTEROL 35 MG/DL (<100); NON-HDL-C 54 MG/DL; TRIGLYCERIDES LEVEL 96 MG/DL (<150)
[2021-04-10 11:27] LABS: VITAMIN B12 LEVEL 730 PG/ML (247-911)
== END ==
LOC: M WUC 08:37
PROVIDERS: ATTEND Family Medicine
DX: E78.5 Hyperlipidemia, unspecified (principal); E53.8 Deficiency of other specified B group vitamins; Z79.01 Long term (current) use of anticoagulants; D50.9 Iron deficiency anemia, unspecified

== ENCOUNTER → 2021-04-25 | Outpatient (CLI) | payer MEDICARE, OTHER ==
--- NOTE | 2021-04-27 05:41 | ECWPNPC ---
PATIENT NAME: INDIRA BRASWELL : 1955 GENDER: MALE VISIT DATE: 04/25/2021 DISCHARGE DATE: 04/25/21 1045 VISIT LOCKED DATE TIME: PHYSICIAN: INDIRA EDMONDS PHYSICIAN PAGER NO: ACTIVE RESOURCE: INDIRA EDMONDS REASON FOR APPOINTMENT 1. LOW BACK HISTORY OF PRESENT ILLNESS DEPRESSION SCREENING: PHQ-2 (2015 EDITION) LITTLE INTEREST OR PLEASURE IN DOING THINGS?NOT AT ALL FEELING DOWN, DEPRESSED, OR HOPELESS?NOT AT ALL TOTAL SCORE0 GENERAL: HPI 65-YEAR-OLD MALE IN FOR CHRONIC PAIN FOLLOW-UP. HE RATES PAIN CURRENTLY A 3-10 AND DESCRIBES ACHING, CONTINUOUS, AND SHOOTING. HE FEELS HIS MEDICATIONS ARE HELPFUL AND DENIES MED SIDE EFFECTS AT THIS TIME.. - -. FALL RISK SCREENING: SCREENING : NO FALLS REPORTED IN THE LAST YEAR , : NO FALLS REPORTED IN THE LAST YEAR. PAIN SCREENING: PATIENT HAS A COMPLAINT OF ACUTE OR CHRONIC PAIN :YES LOCATION OF PAIN:LOW BACK, LEFT HIP, RIGHT HIP INTENSITY OF PAIN (SCALE OF 1 TO 10):3 AVERAGE IS 3 WHAT DOES YOUR PAIN FEEL LIKE:ACHING, CONTINOUS, SHOOTING DURATION:CONTINOUS, AWAKENS FROM SLEEP PAIN IS INCREASED BY:ACTIVITIES, PROLONGED STANDING PROLONGED SITTING PAIN IS DECREASED BY:USE OF PAIN MEDICATIONS, SITTING NURSING NOTE: - -. PAIN CENTER INTAKE QUESTIONS: DO YOU HAVE A HISTORY OF MRSA? :NO DO YOU TAKE A BLOOD THINNERS? :YES COUMADIN DO YOU HAVE ANY BLEEDING DISORDERS? :NO ANY NEW NUMBNESS OR WEAKNESS IN YOUR LEGS OR ARMS? :YES WEAKNESS IN BILATERAL ARMS ANY PACEMAKER,DEFIBRILLATOR, OR DORSAL COLUMN STIMULATOR? :NO DO YOU HAVE ANY RASHES OR OPEN SORES? :NO ARE YOU ALLERGIC TO IV DYE? :NO ARE YOU DIABETIC? :NO ANY NEW PROBLEMS WITH YOUR MEDICATIONS? :NO HAVE YOU RECEIVED A VACCINE IN THE PAST 30 DAYS? :NO DO YOU PLAN TO RECEIVE A VACCINE IN THE NEXT 21 DAYS? :NO DO YOU NEED ANY PRESCRIPTION? :NO DO YOU TAKE ANY IMMUNOSUPPRESSIVE MEDICATIONS? :NO DO YOU HAVE ANY KIDNEY OR LIVER DISEASE? :NO IS THERE A CHANCE YOU COULD BE ? :NO ARE YOU BREAST FEEDING? :NO CURRENT MEDICATIONS TAKING WARFARIN SODIUM 2 MG TABLET 1 TABLET ORALLY ONCE A DAY TAKING VOLTAREN 1 % GEL 4GRAMS TO EACH KNEE TRANSDERMAL EVERY 6 HOURS NEEDED TAKING WARFARIN SODIUM 1 MG TABLET 1 TABLET ORALLY ONCE A DAY TAKING VIIBRYD 40 MG TABLET 1 TABLET WITH FOOD ORALLY ONCE A DAY TAKING CALCIUM 600+D HIGH POTENCY 600-400 MG-UNIT TABLET 1 TABLET WITH FOOD ORALLY ONCE A DAY TAKING BUPROPION HCL 75 MG TABLET 1 TABLET ORALLY BID TAKING ATORVASTATIN CALCIUM 20 MG TABLET 1 TABLET ORALLY ONCE A DAY TAKING VITAMIN D (CHOLECALCIFEROL) 5000 UNIT TABLET 1 TAB ORALLY ONCE A DAY TAKING CYANOCOBALAMIN 250 MCG TABLET 1 TABLET ORALLY ONCE A DAY TAKING POLYETHYLENE GLYCOL 3350 - POWDER DISSOLVE 17 GRAMS IN WATER OR JUICE AND TAKE BY MOUTH ONCE DAILY ORALLY ONCE A DAY TAKING LEVOTHYROXINE SODIUM 25 MCG TABLET 1 TABLET ORALLY ONCE A DAY TAKING TIZANIDINE HCL 4 MG TABLET 2 TABLETS NEEDED ORALLY THREE TIMES A DAY TAKING AMITRIPTYLINE HCL 50 TABLET 1 TAB ORALLY BEFORE BEDTIME TAKING ZOLPIDEM TARTRATE 10 MG TABLET 1 TABLET AT BEDTIME NEEDED ORALLY AT BEDTIME MDD :1 TAKING HYDROCODONE-ACETAMINOPHEN 7.5-325 MG TABLET 1 TABLET NEEDED ORALLY EVERY 6 HRS PRN MDD4 NOT-TAKING VICODIN 7.5 TABLET 1 TABLET NEEDED ORALLY EVERY 6 HRS PRN PAIN-MDD-4 NOT-TAKING VIIBRYD 40 MG TABLET 1 TABLET WITH FOOD ORALLY ONCE A DAY, NOTES: DUPLICATE MEDICATION LIST REVIEWED AND RECONCILED WITH THE PATIENT PAST MEDICAL HISTORY CHRONIC MDD/PRIMARY INSOMNIA HYPERLIPIDEMIA 2B RIGHT LOWER EXTREMITY DVT IN NOVEMBER 2009, IDIOPATHIC-NEGATIVE HYPERCOAGULABLE WORKUP EXCEPT FOR HETEROZYGOTE FOR FACTOR V 5 LEIDEN NICOTINE ADDICTION-SMOKES ROUGHLY 2 CIGARS DAILY X30 YEARS-APRIL 2011 FEV1 95% NORMAL/FVC 86% NORMAL STATUS POST RADIOFREQUENCY ABLATION FOR SYMPTOMATIC RECURRENT EXERCISE-INDUCED MONOMORPHIC V. TACH-JANUARY 2000-DR. 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 ANA RASCON [facility] 11/2012-06/2012 NEGATIVE MRI/MRA BRAIN/NEGATIVE OCULAR [id number]-KCGIW-9/2012//L QUADRICEPS MUSCLE [id number] MUSCLE FIBER ATROPHY, FAVOR NEUROPATHIC PROCESS-[facility] L POPLITEAL AND PERONEAL/ANTERIOR TIBIAL VEIN (OF PROXIMAL CALF) DVT AND GSV OCCLUSION-03/[id number] COUMADIN STARTED BODERLINE LVH, LVEF 75%, LAE 39 MM, NORMAL DIASTOLIC FUNCTION BY 11/2013 TTE-SIMONS LUMBAR DJD- 12/2013 MRI C DIFFUSE BULGES L2-S1 C L5/S1 BULGE ABUTTING B S1 NEVER ROOTS CERVICAL DJD C3-7 SPONDYLOSIS S CORD COMPRESION, MILD L C5 NARROWING BY 12/2013 MRI BORDERLINE LVH, LAE 39 MM BY TTE 11/2013-SIMONS HYPOTHYROIDISM, AUTOIMMUNE-12/2014 TPO AB 192, - TG AB SIGMOID DIVERTICULITIS, FIRST EPISODE BY 09/25/14 CT A/P, WBC 19.8, 08/2015 REPEAT WCB 14.1-RESOLVED C C/F 10D, 11/2015 REPEAT C C/F 10D ALLERGIES MOBIC: PSYCHOLOGICAL CHANGES, NAUSEA - ALLERGY LYRICA: SEVERE DEPRESSION SOCIAL HISTORY GENERAL: TOBACCO USE ARE YOU A:CURRENT SMOKER ARE YOU INTERESTED IN QUITTING?NOT READY TO QUIT COUNSELED THE PATIENT ON SMOKING EFFECTS, EDUCATION [id number]/23/2021 HOW OFTEN DO YOU SMOKE CIGARETTES?EVERY DAY ONE A DAY PATIENT COUNSELED ON THE DANGERS OF TOBACCO USE AND URGED TO QUIT:04/25/2021 ADDITIONAL FINDINGS: TOBACCO USERCIGAR SMOKER 1 CIGAR/DAY SMOKING CESSATION INFORMATION GIVEN04/25/2021 LATEX QUESTIONNAIRE LATEX ALLERGY : HAVE YOU EVER DEVELOPED ANY TYPE OF REACTION AFTER HANDLING LATEX PRODUCTS SUCH RUBBER GLOVES, CONDOMS, DIAPHRAGMS, BALLOONS, SOCKS, OR UNDERWEAR?NO LATEX ALLERGY : HAVE YOU EVER DEVELOPED ANY TYPE OF REACTION DURING OR AFTER DENTAL APPOINTMENT, VAGINAL/RECTAL EXAMINATION, SURGICAL PROCEDURE, OR ANY OTHER EXPOSURE?NO LATEX RISK : HAVE YOU EVER HAD ANY DIFFICULTY BREATHING OR HIVES AFTER EATING OR HANDLING ANY FRUITS, OR VEGETABLES; SUCH KIWI, BANANAS, STONE FRUITS, OR CHESTNUTSNO LATEX RISK : DO YOU HAVE A PREVIOUS PERSONAL HISTORY OF MORE THAN NINE SURGERIES, SPINA BIFIDA, OR REPEATED CATHERIZATIONS? NO LATEX RISK : ARE YOU FREQUENTLY EXPOSED TO LATEX PRODUCTS IN YOUR OCCUPATION?NO DATE ASKED : 04/25/2021 ALCOHOL USE: YES. RARELY. ALCOHOL SCREENING DID YOU HAVE A DRINK CONTAINING ALCOHOL IN THE PAST YEAR?YES HOW OFTEN DID YOU HAVE SIX OR MORE DRINKS ON ONE OCCASION IN THE PAST YEAR?NEVER (0 POINTS) HOW MANY DRINKS DID YOU HAVE ON A TYPICAL DAY WHEN YOU WERE DRINKING IN THE PAST YEAR?1 OR 2 (0 POINTS) HOW OFTEN DID YOU HAVE A DRINK CONTAINING ALCOHOL IN THE PAST YEAR?TWO TO FOUR TIMES A MONTH (2 POINTS) POINTS2 INTERPRETATIONNEGATIVE RECREATIONAL DRUG USE DRUG USE?NO CAFFEINE CAFFEINE USE?NO HIV / HEP-C SCREENING HIV TEST OFFERED TO PATIENT:YES DATE OFFERED:02/25/2018 TEST ACCEPTED:NO HEP-C TEST OFFERED TO PATIENT:YES DATE OFFERED:01/27/2017 REASON:PATIENT DECLINED TEST ACCEPTED:YES BROCHURE PROVIDED TO PATIENTYES TEMPLE [id number] NONE LANGUAGE LANGUAGES SPOKEN:MALTESE EDUCATION LEVEL OF EDUCATION:COLLEGE LEARNING BARRIERS / SPECIAL NEEDS CHANGE FROM LAST VISIT?NO BARRIERS TO LEARNING?NO HEARING IMPAIRED?NO VISION IMPAIRED?YES :CORRECTIVE LENSES COGNITIVELY IMPAIRED?NO READINESS TO LEARN?YES LEARNING PREFERENCES?NO LEARNING CAPABILITIES PRESENT?YES EMOTIONAL BARRIERS?NO SPECIAL DEVICES?NO CLOTH PRESSER NEEDED?NO DOMESTIC VIOLENCE DO YOU FEEL SAFE IN YOUR ENVIRONMENT?YES OCCUPATION: RETIRED. DIET: REGULAR. EXERCISE: WALKS. MARITAL STATUS: . OTHERS AT HOME: SPOUSE. - HAS THE PATIENT BEEN EDUCATED REGARDING HIS/HER PLAN OF CARE?YES HAS THE PATIENT BEEN EDUCATED REGARDING PAIN, THE RISK FOR PAIN, THE IMPORTANCE OF EFFECTIVE PAIN MANAGEMENT, AND THE PAIN ASSESSMENT PROCESS?YES ADVANCE DIRECTIVE ADVANCE DIRECTIVE DISCUSSED WITH PATIENT:YES PT DOES NOT HAVE ANY ADVANCED DIRECTIVES AND HE DECLINES INFORMATION ON HCP AT THIS TIME. REVIEW OF SYSTEMS CONSTITUTIONAL: ANY RECENT FEVER NO . CHILLS NO . WEIGHT CHANGE OF UNKNOWN REASONS NO . GASTROENTEROLOGY: NEW UNEXPLAINABLE CHANGES IN BOWEL CONTROL NO . CONSTIPATION NO . GENITOURINARY: ANY NEW CHANGE IN BLADDER CONTROL? NO . NEUROLOGY: NEW ONSET DIZZINESS OR NEUROLOGICAL CHANGES NOT MENTIONED NO . NEW NUMBNESS OR PAIN PATTERNS NOT MENTIONED AND PERTINENT TO TODAY'S VISIT NO . CARDIOLOGY: NEW CHEST PRESSURE NO . PATIENT DENIES NO . RESPIRATORY: UNEXPLAINABLE COUGH NO . NEW SHORTNESS OF BREATH NO . VITAL SIGNS WT 186.2 LBS, HT 69 IN, BMI 27.49 INDEX, BP 137/69 MM HG, HR 80 /MIN, RR 18 /MIN, TEMP 98.0 F, OXYGEN SAT % 99%, SAFE IN ENV? (Y/N) YES, NA INITIALS AW 1012, REVIEWED BY: BENJAMIN GUTIERREZ MA. EXAMINATION GENERAL EXAMINATION: GENERALNO ACUTE DISTRESS, WELL NOURISHED AND HYDRATED. PSYCHAPPROPRIATE MOOD AND AFFECT . LUNGS:CLEAR TO AUSCULTATION BILATERALLY, NO WHEEZES, RHONCHI, RALES. HEART:NO MURMURS, REGULAR RATE AND RHYTHM. ASSESSMENTS DJD (DEGENERATIVE JOINT DISEASE), LUMBAR - M47.816 (PRIMARY) CHRONIC PRESCRIPTION OPIATE USE - Z79.891 TREATMENT DJD (DEGENERATIVE JOINT DISEASE), LUMBAR NOTES: 65-YEAR-OLD MALE IN FOR CHRONIC PAIN FOLLOW-UP. GIVEN PRESENTING SYMPTOMS RECOMMEND CONTINUATION OF CURRENT MEDICATION REGIMEN WITH FOLLOW-UP IN 3 MONTHS. PATIENT HAS EXPRESSED UNDERSTANDING OF AND WAS IN AGREEMENT WITH TREATMENT PLAN. GIVEN TIME ASKED QUESTIONS AND EXPRESS CONCERNS. ISTOP REGISTRY REVIEWED AND DEMONSTRATES COMPLLIANCE. (REF # [id number] ) BRINGS IN MEDICATIONS WHICH IS APPROPRIATE FOR WHAT WAS DISPENSED. RECENT URINE TOXICOLOGY REVIEWED. NO UNAUTHORIZED MEDICATIONS. NO ILLICIT SUBSTANCES AND PRESCRIBED MEDICATIONS WERE PRESENT. CHRONIC PRESCRIPTION OPIATE USE LAB: URINE TEST GROUP [facility]ORIS HAYNES 04/25/2021 10:42:31 AM > HYDROCODONE 04/24/21 PROCEDURE CODES FA211 ESTABILISHED PATIENT [facility] CHARGE DISPOSITION & COMMUNICATION FOLLOW UP 3 MONTHS (REASON: LOW BACK PAIN ) ELECTRONICALLY SIGNED BY SHONNA GOINS ON 04/26/2021 AT 09:03 AM EDT DISCLAIMER : THIS IS A VISIT SUMMARY EXTRACTED FROM THE [employer] CHART. IT IS NOT A COPY OF THE [employer] PROGRESS NOTE. MTDD
== END ==
LOC: M PAIN 10:00
PROVIDERS: ATTEND Family Medicine
DX: F17.210 Nicotine dependence, cigarettes, uncomplicated (principal); F32.9 Major depressive disorder, single episode, unspecified; G47.00 Insomnia, unspecified; Z86.718 Personal history of other venous thrombosis and embolism; E03.9 Hypothyroidism, unspecified; E06.3 Autoimmune thyroiditis; M50.30 Other cervical disc degeneration, unspecified cervical region; M47.816 Spondylosis without myelopathy or radiculopathy, lumbar region; Z79.891 Long term (current) use of opiate analgesic; Z79.01 Long term (current) use of anticoagulants; Z79.899 Other long term (current) drug therapy; Z88.8 Allergy status to other drugs, medicaments and biological substances

== ENCOUNTER → 2021-06-01 | Outpatient (CLI) | payer MEDICARE, BC, OTHER ==
--- NOTE | 2021-06-01 17:01 | REPVR ---
PROCEDURE INFORMATION: Exam: MR Neck Without and With Contrast Exam date and time: 06/01/2021 2:23 PM Age: 66 years old Clinical indication: Condition or disease; Other: Lt parotid mass TECHNIQUE: Imaging protocol: MR images of the neck without and with intravenous contrast. Contrast material: PROHANCE; Contrast volume: 16 ml; Contrast route: INTRAVENOUS (IV); COMPARISON: CT Head without contrast 05/15/2016 4:41 PM FINDINGS: Nasopharynx: Unremarkable. Oropharynx: Unremarkable. Hypopharynx: Unremarkable. Larynx: Unremarkable. Submandibular/Parotid glands: There is a 3.8 x 2.0 x 2.6 cm intensely enhancing mass within the left parotid gland, primarily the superficial lobe of the parotid gland but a portion encroaches into the deep lobe. 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 Retropharyngeal space: Unremarkable. Vasculature: Unremarkable. Lymph nodes: No lymphadenopathy. Soft tissues: Unremarkable. Bones/joints: Unremarkable. IMPRESSION: There is a 3.8 x 2.0 x 2.6 cm intensely enhancing mass within the left parotid gland, primarily the superficial lobe of the parotid gland but a portion encroaches into the deep lobe. 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 ENT consultation is recommended. Electronically signed by: Nathan Amaral On 06/01/2021 17:01:20 PM
== END ==
LOC: M PLARAD 12:49
PROVIDERS: ATTEND Otolaryngology
DX: C07 Malignant neoplasm of parotid gland (principal)

== ENCOUNTER → 2021-06-14 | Outpatient (CLI) | payer MEDICARE, BC, OTHER ==
[2021-06-14 20:31] LABS: INR 1.93; PROTHROMBIN TIME 22.5 SECONDS (12.7-14.5)
== END ==
LOC: M LAB 19:33
PROVIDERS: ATTEND Otolaryngology
DX: Z01.812 Encounter for preprocedural laboratory examination (principal); Z79.01 Long term (current) use of anticoagulants

== ENCOUNTER → 2021-06-15 | Outpatient (CLI) | payer MEDICARE, BC, OTHER ==
[~2021-06-15] MED LIST changes: +LIDOCAINE 1% MDV 20ML VIAL As Ordered ONE; +SODIUM BICARBONATE 8.4% INJ 50MEQ 50 ML VIAL As Ordered ONE
[2021-06-15 11:03] VITALS: BP 149/78
--- NOTE | 2021-06-15 16:25 | REP ---
INDICATION: LT PAROTID MASS. COMPARISON: None. TECHNIQUE: The procedure was performed by Alyssa Gaytan [facility], under the direct supervision of Dr. Palacios. The risks and benefits of the procedure were explained to the patient and an informed consent was obtained both verbally and written. Directly prior to the start of the procedure a formal time-out was completed in the procedure room. FINDINGS: Using ultrasound guidance the left parotid mass was localized. Due to the location of the mass it was determined that a fine needle aspiration would be the safest approach. The skin was prepped and draped in a sterile fashion. Three mL of buffered lidocaine was used as a local anesthetic. Using ultrasound guidance a 8 fine needle aspirations were obtained using 25 gauge needles. Four specimens were sent to our lab here, and remaining 4 were sent out in RPMI solution, for further testing. The patient tolerated the procedure well and there were no immediate complications. After the appropriate amount of monitored convalescence the patient was discharged from the department. IMPRESSION: 1. Ultrasound-guided left parotid mass biopsy. <Electronically signed by Alyssa Gaytan > 06/15/21 1401 <Electronically signed by Jae Palacios > 06/15/21 1622
== END ==
LOC: M IRPRO 10:11
PROVIDERS: ATTEND Otolaryngology
DX: D11.0 Benign neoplasm of parotid gland (principal)

== ENCOUNTER → 2021-07-06 | Outpatient (CLI) | payer MEDICARE, BC, OTHER ==
[~2021-07-06] MED LIST changes: -LIDOCAINE 1% MDV 20ML VIAL As Ordered ONE; -SODIUM BICARBONATE 8.4% INJ 50MEQ 50 ML VIAL As Ordered ONE
== END ==
LOC: M WUC 11:21
PROVIDERS: ATTEND Optometrist
DX: H53.2 Diplopia (principal)

== ENCOUNTER → 2021-08-31 | Outpatient (CLI) | payer MEDICARE, OTHER, BC ==
[2021-08-31 11:52] LABS: BASO % 0.5 % (0.0-1.0); EOS # 0.7 10^3/uL (0.0-0.5); EOS % 8.3 % (0.0-3.0); HEMATOCRIT 41.8 % (42.0-52.0); HEMOGLOBIN 13.6 g/dl (13.5-17.5); LYMPH % 34.9 % (24.0-44.0); MEAN CORPUSCULAR HEMOGLOBIN 29.6 pg (27.0-33.0); MEAN CORPUSCULAR HGB CONC 32.5 g/dl (32.0-36.5); MEAN CORPUSCULAR VOLUME 90.9 fl (80.0-96.0); MONO # 0.7 10^3/uL (0.0-0.8); MONO % 8.5 % (2.0-8.0); NEUTROPHILS # 4.1 10^3/uL (1.5-8.5); NEUTROPHILS % 47.2 % (36.0-66.0); PLATELET COUNT, AUTOMATED 325 10^3/uL (150-450); WHITE BLOOD COUNT 8.6 10^3/uL (4.0-10.0)
[2021-08-31 12:05] LABS: INR 2.36; PROTHROMBIN TIME 26.2 SECONDS (12.7-14.5)
[2021-08-31 13:56] LABS: ALBUMIN 3.6 GM/DL (3.2-5.2); ALT/SGPT 36 U/L (12-78); BILIRUBIN,TOTAL 0.5 MG/DL (0.2-1.0); BLOOD UREA NITROGEN 9 MG/DL (7-18); CARBON DIOXIDE LEVEL 31 MEQ/L (21-32); CHLORIDE LEVEL 107 MEQ/L (98-107); FERRITIN 78 NG/ML (26-388); FREE T4 0.92 NG/DL (0.76-1.46); GLOMERULAR FILTRATION RATE > 60.0 (>49); GLUCOSE, FASTING 92 MG/DL (70-100); NT-PRO BNP 73 PG/ML (<125); SODIUM LEVEL 142 MEQ/L (136-145); TOTAL PROTEIN 6.2 GM/DL (6.4-8.2)
[2021-08-31 13:57] LABS: PTH INTACT 64.9 PG/ML (18.5-88.0)
[2021-08-31 14:15] LABS: HEMOGLOBIN A1c 5.8 %
[2021-08-31 15:40] LABS: TOTAL 25(OH) VITAMIN D 71.6 NG/ML (30.0-100.0)
== END ==
LOC: M WUC 09:39
PROVIDERS: ATTEND Family Medicine
DX: E03.9 Hypothyroidism, unspecified (principal); R73.01 Impaired fasting glucose; E78.5 Hyperlipidemia, unspecified; E55.9 Vitamin D deficiency, unspecified; N18.2 Chronic kidney disease, stage 2 (mild); Z12.5 Encounter for screening for malignant neoplasm of prostate; I82.509 Chronic embolism and thrombosis of unspecified deep veins of unspecified lower extremity; D50.9 Iron deficiency anemia, unspecified
CPT/HCPCS: 36415; 80053; 82306; 82728; 83036; 83525; 83880; 83970; 84439; 84443; 85025; 85610; G0103

== ENCOUNTER → 2021-10-02 | Outpatient (CLI) | payer MEDICARE, OTHER | LOC: M PAIN 10:30 | PROVIDERS: ATTEND Nurse Practitioner Family | DX: M47.816 Spondylosis without myelopathy or radiculopathy, lumbar region (principal); Z79.891 Long term (current) use of opiate analgesic; F32.9 Major depressive disorder, single episode, unspecified; E78.5 Hyperlipidemia, unspecified; E06.3 Autoimmune thyroiditis; Z86.718 Personal history of other venous thrombosis and embolism; Z79.01 Long term (current) use of anticoagulants; Z79.899 Other long term (current) drug therapy; F17.210 Nicotine dependence, cigarettes, uncomplicated; Z88.6 Allergy status to analgesic agent; Z88.8 Allergy status to other drugs, medicaments and biological substances ==

== ENCOUNTER → 2021-11-30 | Outpatient (CLI) | payer MEDICARE, BC, OTHER | LOC: M PLARAD 08:31 | PROVIDERS: ATTEND Family Medicine | DX: F03.90 Unspecified dementia, unspecified severity, without behavioral disturbance, psychotic disturbance, mood disturbance, and anxiety (principal) ==

== ENCOUNTER → 2022-01-07 | Outpatient (CLI) | payer MEDICARE, OTHER ==
[2022-01-07 12:37] LABS: BASO # 0.1 10^3/uL (0.0-0.2); BASO % 0.6 % (0.0-1.0); EOS # 0.6 10^3/uL (0.0-0.5); EOS % 5.5 % (0.0-3.0); HEMATOCRIT 43.1 % (42.0-52.0); LYMPH # 3.2 10^3/uL (1.5-5.0); LYMPH % 32.1 % (24.0-44.0); MEAN CORPUSCULAR HEMOGLOBIN 29.5 pg (27.0-33.0); MEAN CORPUSCULAR HGB CONC 32.5 g/dl (32.0-36.5); MEAN CORPUSCULAR VOLUME 90.9 fl (80.0-96.0); MONO # 0.7 10^3/uL (0.0-0.8); MONO % 7.2 % (2.0-8.0); NEUTROPHILS # 5.3 10^3/uL (1.5-8.5); NEUTROPHILS % 53.7 % (36.0-66.0); PLATELET COUNT, AUTOMATED 319 10^3/uL (150-450); RED BLOOD COUNT 4.74 10^6/uL (4.30-6.10); WHITE BLOOD COUNT 9.9 10^3/uL (4.0-10.0)
[2022-01-07 12:48] LABS: INR 1.95; PROTHROMBIN TIME 22.6 SECONDS (12.7-14.5)
[2022-01-07 12:49] LABS: PARTIAL THROMBOPLASTIN TIME 38.3 SECONDS (25.9-37.0)
[2022-01-07 13:16] LABS: HEMOGLOBIN A1c 5.6 %
[2022-01-07 13:17] LABS: CHOLESTEROL RISK RATIO 2.68 (<5); FREE T4 0.99 NG/DL (0.76-1.46); THYROID STIMULATING HORMONE 2.04 uIU/ML (0.358-3.740)
== END ==
LOC: M WUC 09:39
PROVIDERS: ATTEND Family Medicine
DX: E53.8 Deficiency of other specified B group vitamins (principal); R73.01 Impaired fasting glucose; Z79.01 Long term (current) use of anticoagulants; E78.00 Pure hypercholesterolemia, unspecified; D50.9 Iron deficiency anemia, unspecified

== ENCOUNTER → 2022-04-09 | Outpatient (CLI) | payer MEDICARE, OTHER ==
[2022-04-09 15:49] LABS: BASO % 0.3 % (0.0-1.0); EOS # 0.8 10^3/uL (0.0-0.5); EOS % 8.6 % (0.0-3.0); HEMATOCRIT 39.9 % (42.0-52.0); HEMOGLOBIN 13.2 g/dl (13.5-17.5); LYMPH # 2.8 10^3/uL (1.5-5.0); LYMPH % 30.8 % (24.0-44.0); MEAN CORPUSCULAR HEMOGLOBIN 30.3 pg (27.0-33.0); MEAN CORPUSCULAR HGB CONC 33.1 g/dl (32.0-36.5); MEAN CORPUSCULAR VOLUME 91.7 fl (80.0-96.0); MONO # 0.7 10^3/uL (0.0-0.8); MONO % 7.2 % (2.0-8.0); NEUTROPHILS # 4.9 10^3/uL (1.5-8.5); NEUTROPHILS % 52.8 % (36.0-66.0); PLATELET COUNT, AUTOMATED 310 10^3/uL (150-450); RED BLOOD COUNT 4.35 10^6/uL (4.30-6.10); WHITE BLOOD COUNT 9.2 10^3/uL (4.0-10.0)
[2022-04-09 15:59] LABS: INR 1.14
[2022-04-09 16:00] LABS: PARTIAL THROMBOPLASTIN TIME 33.3 SECONDS (25.9-37.0)
[2022-04-09 16:05] LABS: ALBUMIN 3.6 GM/DL (3.2-5.2); ALT/SGPT 18 U/L (12-78); BILIRUBIN,TOTAL 0.8 MG/DL (0.2-1.0); BLOOD UREA NITROGEN 12 MG/DL (7-18); CALCIUM LEVEL 8.5 MG/DL (8.8-10.2); CARBON DIOXIDE LEVEL 29 MEQ/L (21-32); CHLORIDE LEVEL 108 MEQ/L (98-107); CREATININE FOR GFR 1.26 MG/DL (0.70-1.30); GLOMERULAR FILTRATION RATE > 60.0 (>49); GLUCOSE, FASTING 102 MG/DL (70-100); NT-PRO BNP 103 PG/ML (<125); POTASSIUM SERUM 4.1 MEQ/L (3.5-5.1); SODIUM LEVEL 141 MEQ/L (136-145)
== END ==
LOC: M WUC 12:57
PROVIDERS: ATTEND Family Medicine
DX: D11.0 Benign neoplasm of parotid gland (principal); Z51.81 Encounter for therapeutic drug level monitoring

== ENCOUNTER → 2022-05-07 | Outpatient (CLI) | payer MEDICARE, OTHER | LOC: M PAIN 11:45 | PROVIDERS: ATTEND Nurse Practitioner Family | DX: M47.816 Spondylosis without myelopathy or radiculopathy, lumbar region (principal); F33.2 Major depressive disorder, recurrent severe without psychotic features; G47.00 Insomnia, unspecified; F17.210 Nicotine dependence, cigarettes, uncomplicated; Z86.718 Personal history of other venous thrombosis and embolism; K76.0 Fatty (change of) liver, not elsewhere classified; E06.3 Autoimmune thyroiditis; Z79.891 Long term (current) use of opiate analgesic; Z88.6 Allergy status to analgesic agent; Z88.8 Allergy status to other drugs, medicaments and biological substances ==

== ENCOUNTER → 2022-08-06 | Outpatient (CLI) | payer MEDICARE, OTHER | LOC: M PAIN 11:45 | PROVIDERS: ATTEND Nurse Practitioner Family | DX: M47.816 Spondylosis without myelopathy or radiculopathy, lumbar region (principal); F33.9 Major depressive disorder, recurrent, unspecified; G47.00 Insomnia, unspecified; F17.210 Nicotine dependence, cigarettes, uncomplicated; E06.3 Autoimmune thyroiditis; K76.0 Fatty (change of) liver, not elsewhere classified; Z86.010 Personal history of colon polyps; Z79.01 Long term (current) use of anticoagulants; Z79.890 Hormone replacement therapy; Z79.891 Long term (current) use of opiate analgesic; Z79.899 Other long term (current) drug therapy; Z86.718 Personal history of other venous thrombosis and embolism; Z88.8 Allergy status to other drugs, medicaments and biological substances ==

== ENCOUNTER → 2022-11-25 | Outpatient (CLI) | payer MEDICARE, OTHER | LOC: M PAIN 10:00 | PROVIDERS: ATTEND Nurse Practitioner Family | DX: M47.816 Spondylosis without myelopathy or radiculopathy, lumbar region (principal); G89.29 Other chronic pain; E03.9 Hypothyroidism, unspecified; F17.290 Nicotine dependence, other tobacco product, uncomplicated; Z86.59 Personal history of other mental and behavioral disorders; Z86.718 Personal history of other venous thrombosis and embolism; Z88.6 Allergy status to analgesic agent; Z88.8 Allergy status to other drugs, medicaments and biological substances; Z79.01 Long term (current) use of anticoagulants; Z79.890 Hormone replacement therapy; Z79.899 Other long term (current) drug therapy ==

== ENCOUNTER → 2022-12-10 | Outpatient (CLI) | payer MEDICARE, OTHER ==
[2022-12-10 17:09] LABS: BASO % 0.5 % (0.0-1.0); EOS # 0.8 10^3/uL (0.0-0.5); EOS % 9.3 % (0.0-3.0); HEMOGLOBIN 13.9 g/dl (13.5-17.5); LYMPH # 2.8 10^3/uL (1.5-5.0); LYMPH % 33.5 % (24.0-44.0); MEAN CORPUSCULAR HEMOGLOBIN 30.1 pg (27.0-33.0); MEAN CORPUSCULAR HGB CONC 32.3 g/dl (32.0-36.5); MEAN CORPUSCULAR VOLUME 93.1 fl (80.0-96.0); MONO # 0.7 10^3/uL (0.0-0.8); MONO % 8.1 % (2.0-8.0); NEUTROPHILS % 48.1 % (36.0-66.0); PLATELET COUNT, AUTOMATED 305 10^3/uL (150-450); RED BLOOD COUNT 4.62 10^6/uL (4.30-6.10); WHITE BLOOD COUNT 8.3 10^3/uL (4.0-10.0)
[2022-12-10 17:27] LABS: INR 2.19; PROTHROMBIN TIME 24.7 SECONDS (12.5-14.5)
[2022-12-10 17:49] LABS: ALBUMIN 3.9 G/DL (3.2-5.2); ALKALINE PHOSPHATASE 98 U/L (46-116); ALT/SGPT 14 U/L (7.0-40); AST/SGOT 22 U/L (<34); BILIRUBIN,TOTAL 0.7 MG/DL (0.3-1.2); BLOOD UREA NITROGEN 14 MG/DL (9-23); CALCIUM LEVEL 8.8 MG/DL (8.3-10.6); CARBON DIOXIDE LEVEL 30 MMOL/L (20-31); CHLORIDE LEVEL 101 MMOL/L (98-107); CHOLESTEROL LEVEL 124 MG/DL (<200); CHOLESTEROL RISK RATIO 2.89 (<5); CREATININE FOR GFR 1.15 MG/DL (0.70-1.30); FERRITIN 25.6 NG/ML (10.5-307.3); FREE T4 1.05 NG/DL (0.89-1.76); GLOMERULAR FILTRATION RATE > 60.0 (>49); GLUCOSE, FASTING 84 MG/DL (74-106); HDL CHOLESTEROL 42.9 MG/DL (>40); LDL CHOLESTEROL 54.9 MG/DL (<100); NON-HDL-C 81 MG/DL; POTASSIUM SERUM 4.4 MMOL/L (3.5-5.1); PTH INTACT 76.5 PG/ML (18.5-88.0); SODIUM LEVEL 140 MMOL/L (136-145); THYROID STIMULATING HORMONE 5.092 uIU/ML (0.55-4.78); TOTAL 25(OH) VITAMIN D 40.5 NG/ML (20.0-100.0); TOTAL PROTEIN 6.6 G/DL (5.7-8.2); TRIGLYCERIDES LEVEL 131 MG/DL (<150); VITAMIN B12 LEVEL 362 PG/ML (211-911)
[2022-12-10 19:03] LABS: HEMOGLOBIN A1c 5.3 % (4.0-6.0)
== END ==
LOC: M WUC 10:20
PROVIDERS: ATTEND Family Medicine
DX: E03.9 Hypothyroidism, unspecified (principal); E53.8 Deficiency of other specified B group vitamins; E55.9 Vitamin D deficiency, unspecified; R73.01 Impaired fasting glucose; Z12.5 Encounter for screening for malignant neoplasm of prostate; I82.503 Chronic embolism and thrombosis of unspecified deep veins of lower extremity, bilateral; Z79.899 Other long term (current) drug therapy
CPT/HCPCS: 36415; 80053; 80061; 82306; 82607; 82728; 83036; 83525; 83970; 84439; 84443; 85025; 85610; G0103

== ENCOUNTER → 2023-02-04 | Outpatient (CLI) | payer MEDICARE, OTHER | LOC: M PAIN 10:00 | PROVIDERS: ATTEND Nurse Practitioner Family | DX: M47.816 Spondylosis without myelopathy or radiculopathy, lumbar region (principal); F33.9 Major depressive disorder, recurrent, unspecified; G47.00 Insomnia, unspecified; E78.5 Hyperlipidemia, unspecified; F17.210 Nicotine dependence, cigarettes, uncomplicated; E06.3 Autoimmune thyroiditis; M51.36 Other intervertebral disc degeneration, lumbar region; M50.30 Other cervical disc degeneration, unspecified cervical region; Z79.890 Hormone replacement therapy; Z79.899 Other long term (current) drug therapy; Z79.891 Long term (current) use of opiate analgesic; Z88.8 Allergy status to other drugs, medicaments and biological substances ==

== ENCOUNTER → 2023-03-13 | Outpatient (CLI) | payer MEDICARE, OTHER ==
[2023-03-13 13:15] LABS: BASO % 0.5 % (0.0-1.0); EOS # 0.7 10^3/uL (0.0-0.5); EOS % 8.8 % (0.0-3.0); HEMATOCRIT 40.5 % (42.0-52.0); HEMOGLOBIN 13.2 g/dl (13.5-17.5); LYMPH # 2.5 10^3/uL (1.5-5.0); LYMPH % 30.3 % (24.0-44.0); MEAN CORPUSCULAR HEMOGLOBIN 29.9 pg (27.0-33.0); MEAN CORPUSCULAR HGB CONC 32.6 g/dl (32.0-36.5); MEAN CORPUSCULAR VOLUME 91.6 fl (80.0-96.0); MONO # 0.6 10^3/uL (0.0-0.8); MONO % 7.4 % (2.0-8.0); NEUTROPHILS # 4.4 10^3/uL (1.5-8.5); NEUTROPHILS % 52.6 % (36.0-66.0); PLATELET COUNT, AUTOMATED 339 10^3/uL (150-450); RED BLOOD COUNT 4.42 10^6/uL (4.30-6.10); WHITE BLOOD COUNT 8.4 10^3/uL (4.0-10.0)
[2023-03-13 13:47] LABS: ALBUMIN 3.8 G/DL (3.2-5.2); ALKALINE PHOSPHATASE 110 U/L (46-116); ALT/SGPT 13 U/L (7.0-40); AST/SGOT 19 U/L (<34); BILIRUBIN,TOTAL 0.7 MG/DL (0.3-1.2); BLOOD UREA NITROGEN 13 MG/DL (9-23); CALCIUM LEVEL 8.6 MG/DL (8.3-10.6); CARBON DIOXIDE LEVEL 29 MMOL/L (20-31); CHLORIDE LEVEL 106 MMOL/L (98-107); CREATININE FOR GFR 1.06 MG/DL (0.70-1.30); GLOMERULAR FILTRATION RATE > 60.0 (>49); GLUCOSE, FASTING 90 MG/DL (74-106); POTASSIUM SERUM 4.3 MMOL/L (3.5-5.1); PTH INTACT 82.8 PG/ML (18.5-88.0); SODIUM LEVEL 140 MMOL/L (136-145); THYROID STIMULATING HORMONE 2.705 uIU/ML (0.55-4.78); TOTAL PROTEIN 6.2 G/DL (5.7-8.2)
[2023-03-13 13:48] LABS: TOTAL 25(OH) VITAMIN D 69.9 NG/ML (20.0-100.0)
== END ==
LOC: M WUC 09:43
PROVIDERS: ATTEND Family Medicine
DX: E55.9 Vitamin D deficiency, unspecified (principal); D50.9 Iron deficiency anemia, unspecified; E03.9 Hypothyroidism, unspecified

== ENCOUNTER → 2023-05-26 | Outpatient (CLI) | payer MEDICARE, OTHER | LOC: M PAIN 10:00 | PROVIDERS: ATTEND Nurse Practitioner Family | DX: M47.816 Spondylosis without myelopathy or radiculopathy, lumbar region (principal); Z79.891 Long term (current) use of opiate analgesic; F33.9 Major depressive disorder, recurrent, unspecified; G47.00 Insomnia, unspecified; E78.5 Hyperlipidemia, unspecified; E06.3 Autoimmune thyroiditis; F17.210 Nicotine dependence, cigarettes, uncomplicated; K76.0 Fatty (change of) liver, not elsewhere classified; M51.36 Other intervertebral disc degeneration, lumbar region; M50.30 Other cervical disc degeneration, unspecified cervical region; Z87.891 Personal history of nicotine dependence; Z79.890 Hormone replacement therapy; Z79.01 Long term (current) use of anticoagulants; Z79.899 Other long term (current) drug therapy; Z88.8 Allergy status to other drugs, medicaments and biological substances ==

== ENCOUNTER → 2023-06-05 | Outpatient (REF) | payer MEDICARE, OTHER | LOC: M SFHCPLAZ 13:39 | PROVIDERS: ATTEND Family Medicine | DX: I82.509 Chronic embolism and thrombosis of unspecified deep veins of unspecified lower extremity (principal) ==

== ENCOUNTER → 2023-08-26 | Outpatient (CLI) | payer MEDICARE, OTHER | LOC: M PAIN 10:00 | PROVIDERS: ATTEND Nurse Practitioner Family | DX: M47.816 Spondylosis without myelopathy or radiculopathy, lumbar region (principal); Z79.891 Long term (current) use of opiate analgesic; G89.29 Other chronic pain; F33.9 Major depressive disorder, recurrent, unspecified; G47.00 Insomnia, unspecified; E78.5 Hyperlipidemia, unspecified; M47.812 Spondylosis without myelopathy or radiculopathy, cervical region; E06.3 Autoimmune thyroiditis; Z87.891 Personal history of nicotine dependence; Z79.01 Long term (current) use of anticoagulants; Z79.890 Hormone replacement therapy; Z79.899 Other long term (current) drug therapy; Z88.6 Allergy status to analgesic agent; Z88.8 Allergy status to other drugs, medicaments and biological substances ==

== ENCOUNTER → 2023-11-04 | Outpatient (CLI) | payer MEDICARE, BC | LOC: M PAIN 10:45 | PROVIDERS: ATTEND Nurse Practitioner Family | DX: M47.816 Spondylosis without myelopathy or radiculopathy, lumbar region (principal); G89.29 Other chronic pain; F17.290 Nicotine dependence, other tobacco product, uncomplicated; Z88.6 Allergy status to analgesic agent; Z88.8 Allergy status to other drugs, medicaments and biological substances; Z79.01 Long term (current) use of anticoagulants; Z79.899 Other long term (current) drug therapy ==

== ENCOUNTER 2023-12-25 06:57 | Day surgery (SDC) | payer MEDICARE, BC, OTHER ==
[~2023-12-25] VITALS: Ht 175.3 cm; Wt 84.1 kg
[~2023-12-25 06:57] MED LIST changes: +AMIT50TA PO; +CALCCAP4 PO; +CYAN500T14 PO; +HYDR-3716 PO; +LIPI20TA PO; +MIRA3350 PO; +SYNT75TA PO; +TIZA2CAP6 PO; +VIIB40TA PO; +VITA100093 PO; +WARF4TAB51 PO; +WARF4TAB52 PO; +WELL100T2 PO; +ZOLP10TA2 PO
[2023-12-25] MEDS: NS 1,000 ML IV ONE (07:14)
[2023-12-25] MEDS ORDERED: LIDOCAINE 2% 100MG/5ML SDV (FOR ANES.) As Ordered ONE (07:33)
[2023-12-25] MEDS ORDERED: propofoL 200 MG/20 ML VIAL As Ordered ONE (07:33)
[2023-12-25 07:49] VITALS: TEMP 97.8
[2023-12-25 08:01] VITALS: BP 130/74; O2SAT 98
== END 2023-12-25 08:07 | disposition home or self-care (01) ==
LOC: M OPP 06:57
PROVIDERS: ATTEND Surgery
DX: Z86.010 Personal history of colon polyps (principal); K57.30 Diverticulosis of large intestine without perforation or abscess without bleeding; Z79.01 Long term (current) use of anticoagulants; Z79.02 Long term (current) use of antithrombotics/antiplatelets; Z79.890 Hormone replacement therapy; Z79.891 Long term (current) use of opiate analgesic; Z79.899 Other long term (current) drug therapy; Z88.8 Allergy status to other drugs, medicaments and biological substances

== ENCOUNTER → 2024-02-03 | Outpatient (CLI) | payer MEDICARE, BC ==
[~2024-02-03] MED LIST changes: +TIZA2CAP3 PO; -TIZA2CAP6 PO
== END ==
LOC: M PAIN 10:45
PROVIDERS: ATTEND Nurse Practitioner Family
DX: M47.816 Spondylosis without myelopathy or radiculopathy, lumbar region (principal); Z79.891 Long term (current) use of opiate analgesic; G89.29 Other chronic pain; F33.9 Major depressive disorder, recurrent, unspecified; G47.00 Insomnia, unspecified; E78.5 Hyperlipidemia, unspecified; M47.812 Spondylosis without myelopathy or radiculopathy, cervical region; E06.3 Autoimmune thyroiditis; Z87.891 Personal history of nicotine dependence; Z79.01 Long term (current) use of anticoagulants; Z79.890 Hormone replacement therapy; Z79.899 Other long term (current) drug therapy; Z88.6 Allergy status to analgesic agent; Z88.8 Allergy status to other drugs, medicaments and biological substances

== ENCOUNTER → 2024-02-20 | Outpatient (CLI) | payer MEDICARE, BC ==
[2024-02-20 12:19] LABS: ALBUMIN 3.8 G/DL (3.2-5.2); ALKALINE PHOSPHATASE 94 U/L (46-116); ALT/SGPT 16 U/L (7.0-40); AST/SGOT 17 U/L (<34); BILIRUBIN,TOTAL 0.5 MG/DL (0.3-1.2); BLOOD UREA NITROGEN 16 MG/DL (9-23); CALCIUM LEVEL 9.1 MG/DL (8.3-10.6); CARBON DIOXIDE LEVEL 29 MMOL/L (20-31); CHLORIDE LEVEL 107 MMOL/L (98-107); CREATININE FOR GFR 1.16 MG/DL (0.70-1.30); FERRITIN 26.5 NG/ML (10.5-307.3); GLOMERULAR FILTRATION RATE > 60.0 (>49); GLUCOSE, FASTING 87 MG/DL (74-106); POTASSIUM SERUM 4.2 MMOL/L (3.5-5.1); PTH INTACT 84.7 PG/ML (18.5-88.0); SODIUM LEVEL 138 MMOL/L (136-145); TOTAL PROTEIN 6.5 G/DL (5.7-8.2)
[2024-02-20 12:38] LABS: INR 2.17; PROTHROMBIN TIME 23.4 SECONDS (12.5-14.5)
[2024-02-21 21:06] LABS: TISSUE TRANSGLUTAMINASE IgA <2 U/mL (0-3)
== END ==
LOC: M WUC 09:41
PROVIDERS: ATTEND Family Medicine
DX: N18.31 Chronic kidney disease, stage 3a (principal); D50.9 Iron deficiency anemia, unspecified; I82.509 Chronic embolism and thrombosis of unspecified deep veins of unspecified lower extremity

== ENCOUNTER → 2024-02-23 | Outpatient (REF) | payer MEDICARE, BC | LOC: M SFHCPLAZ 14:40 | PROVIDERS: ATTEND Family Medicine | DX: Z51.81 Encounter for therapeutic drug level monitoring (principal); E78.5 Hyperlipidemia, unspecified; E03.9 Hypothyroidism, unspecified; D50.9 Iron deficiency anemia, unspecified; N18.31 Chronic kidney disease, stage 3a ==

== ENCOUNTER → 2024-02-23 | Outpatient (REF) | payer MEDICARE, BC ==
[2024-02-23 17:23] LABS: BASO # 0.1 10^3/uL (0.0-0.2); BASO % 0.6 % (0.0-1.0); EOS # 0.8 10^3/uL (0.0-0.5); EOS % 8.9 % (0.0-3.0); HEMATOCRIT 41.6 % (42.0-52.0); HEMOGLOBIN 13.3 g/dl (13.5-17.5); LYMPH # 2.8 10^3/uL (1.5-5.0); LYMPH % 31.6 % (24.0-44.0); MEAN CORPUSCULAR HEMOGLOBIN 29.2 pg (27.0-33.0); MEAN CORPUSCULAR VOLUME 91.4 fl (80.0-96.0); MONO # 0.5 10^3/uL (0.0-0.8); MONO % 6.1 % (2.0-8.0); NEUTROPHILS # 4.7 10^3/uL (1.5-8.5); NEUTROPHILS % 52.5 % (36.0-66.0); PLATELET COUNT, AUTOMATED 344 10^3/uL (150-450); RED BLOOD COUNT 4.55 10^6/uL (4.30-6.10); WHITE BLOOD COUNT 8.9 10^3/uL (4.0-10.0)
== END ==
LOC: M LABWUC 16:27
PROVIDERS: ATTEND Family Medicine
DX: N18.31 Chronic kidney disease, stage 3a (principal); D50.9 Iron deficiency anemia, unspecified; I82.509 Chronic embolism and thrombosis of unspecified deep veins of unspecified lower extremity

== ENCOUNTER → 2024-05-07 | Outpatient (CLI) | payer MEDICARE, BC | LOC: M PAIN 10:00 | PROVIDERS: ATTEND Nurse Practitioner Family | DX: M47.816 Spondylosis without myelopathy or radiculopathy, lumbar region (principal); Z79.891 Long term (current) use of opiate analgesic; G89.29 Other chronic pain; F33.9 Major depressive disorder, recurrent, unspecified; G47.00 Insomnia, unspecified; E78.2 Mixed hyperlipidemia; E06.3 Autoimmune thyroiditis; Z87.891 Personal history of nicotine dependence; Z79.890 Hormone replacement therapy; Z79.899 Other long term (current) drug therapy; Z79.01 Long term (current) use of anticoagulants; Z86.718 Personal history of other venous thrombosis and embolism; Z88.6 Allergy status to analgesic agent; Z88.8 Allergy status to other drugs, medicaments and biological substances ==

== ENCOUNTER → 2024-07-01 | Outpatient (REF) | payer MEDICARE, BC | LOC: M SFHCPLAZ 16:48 | PROVIDERS: ATTEND Family Medicine | DX: D50.9 Iron deficiency anemia, unspecified (principal); N18.31 Chronic kidney disease, stage 3a; E03.9 Hypothyroidism, unspecified; R73.01 Impaired fasting glucose; E78.5 Hyperlipidemia, unspecified; Z12.5 Encounter for screening for malignant neoplasm of prostate; E55.9 Vitamin D deficiency, unspecified ==

== ENCOUNTER → 2024-07-20 | Outpatient (CLI) | payer MEDICARE, BC ==
[2024-07-20 17:10] LABS: INR 2.83; PROTHROMBIN TIME 28.7 SECONDS (12.5-14.5)
[2024-07-20 17:32] LABS: BASO % 0.4 % (0.0-1.0); EOS # 0.4 10^3/uL (0.0-0.5); EOS % 5.3 % (0.0-3.0); HEMATOCRIT 42.9 % (42.0-52.0); LYMPH # 3.1 10^3/uL (1.5-5.0); LYMPH % 37.4 % (24.0-44.0); MEAN CORPUSCULAR HEMOGLOBIN 29.5 pg (27.0-33.0); MEAN CORPUSCULAR HGB CONC 32.6 g/dl (32.0-36.5); MEAN CORPUSCULAR VOLUME 90.5 fl (80.0-96.0); MONO # 0.7 10^3/uL (0.0-0.8); MONO % 8.6 % (2.0-8.0); NEUTROPHILS % 48.1 % (36.0-66.0); PLATELET COUNT, AUTOMATED 305 10^3/uL (150-450); RED BLOOD COUNT 4.74 10^6/uL (4.30-6.10); WHITE BLOOD COUNT 8.2 10^3/uL (4.0-10.0)
[2024-07-20 17:45] LABS: HEMOGLOBIN A1c 5.5 % (4.0-6.0)
[2024-07-20 17:59] LABS: ALBUMIN 4.2 G/DL (3.2-5.2); BILIRUBIN,TOTAL 0.8 MG/DL (0.3-1.2); CALCIUM LEVEL 8.9 MG/DL (8.3-10.6); CHOLESTEROL RISK RATIO 2.66 (<5); CREATININE FOR GFR 1.27 MG/DL (0.70-1.30); GLOMERULAR FILTRATION RATE 59.7 (>42); HDL CHOLESTEROL 45.1 MG/DL (>40); LDL CHOLESTEROL 53.9 MG/DL (<100); NON-HDL-C 74.9 MG/DL; POTASSIUM SERUM 4.4 MMOL/L (3.5-5.1); PSA SCREENING 1.07 NG/ML (< 4.00); PTH INTACT 104.8 PG/ML (18.5-88.0)
[2024-07-20 18:00] LABS: FERRITIN 39.6 NG/ML (10.5-307.3); FREE T4 1.38 NG/DL (0.89-1.76)
[2024-07-20 18:01] LABS: THYROID STIMULATING HORMONE 3.279 uIU/ML (0.55-4.78); TOTAL 25(OH) VITAMIN D 81.2 NG/ML (20.0-100.0)
== END ==
LOC: M WUC 11:51
PROVIDERS: ATTEND Family Medicine
DX: D50.9 Iron deficiency anemia, unspecified (principal); N18.31 Chronic kidney disease, stage 3a; I82.509 Chronic embolism and thrombosis of unspecified deep veins of unspecified lower extremity; Z12.5 Encounter for screening for malignant neoplasm of prostate; E07.9 Disorder of thyroid, unspecified
CPT/HCPCS: 36415; 80053; 80061; 82306; 82607; 82728; 83036; 83970; 84439; 84443; 85025; 85610; G0103

== ENCOUNTER → 2024-08-09 | Outpatient (CLI) | payer MEDICARE, BC ==
[~2024-08-09] MED LIST changes: +GABA-1172 PO; -GABA-282 PO
== END ==
LOC: M PAIN 10:15
PROVIDERS: ATTEND Nurse Practitioner Family
DX: M47.816 Spondylosis without myelopathy or radiculopathy, lumbar region (principal); Z79.891 Long term (current) use of opiate analgesic; G89.29 Other chronic pain; Z87.891 Personal history of nicotine dependence; F33.9 Major depressive disorder, recurrent, unspecified; G47.00 Insomnia, unspecified; E78.2 Mixed hyperlipidemia; M47.812 Spondylosis without myelopathy or radiculopathy, cervical region; E06.3 Autoimmune thyroiditis; Z79.890 Hormone replacement therapy; Z79.01 Long term (current) use of anticoagulants; Z79.899 Other long term (current) drug therapy; Z88.6 Allergy status to analgesic agent; Z88.8 Allergy status to other drugs, medicaments and biological substances

== ENCOUNTER → 2024-10-12 | Outpatient (CLI) | payer MEDICARE, BC | LOC: M PLAIMG 08:24 | DX: G62.9 Polyneuropathy, unspecified (principal); M47.892 Other spondylosis, cervical region ==

== ENCOUNTER → 2024-11-09 | Outpatient (CLI) | payer MEDICARE, BC | LOC: M PAIN 11:00 | PROVIDERS: ATTEND Nurse Practitioner Family | DX: M47.816 Spondylosis without myelopathy or radiculopathy, lumbar region (principal); Z79.891 Long term (current) use of opiate analgesic; G89.29 Other chronic pain; Z87.891 Personal history of nicotine dependence; E78.2 Mixed hyperlipidemia; M47.812 Spondylosis without myelopathy or radiculopathy, cervical region; E06.3 Autoimmune thyroiditis; F17.210 Nicotine dependence, cigarettes, uncomplicated; Z79.890 Hormone replacement therapy; Z79.899 Other long term (current) drug therapy; Z88.6 Allergy status to analgesic agent; Z88.8 Allergy status to other drugs, medicaments and biological substances ==

== ENCOUNTER → 2025-01-18 | Outpatient (CLI) | payer MEDICARE, BC | LOC: M PLAIMG 14:37 | PROVIDERS: ATTEND Family Medicine | DX: M47.22 Other spondylosis with radiculopathy, cervical region (principal); M47.816 Spondylosis without myelopathy or radiculopathy, lumbar region ==

== ENCOUNTER → 2025-01-25 | Outpatient (CLI) | payer MEDICARE, BC ==
[2025-01-25 12:06] LABS: BASO % 0.5 % (0.0-1.0); EOS # 0.6 10^3/uL (0.0-0.5); EOS % 7.3 % (0.0-3.0); HEMATOCRIT 42.1 % (42.0-52.0); HEMOGLOBIN 13.6 g/dl (13.5-17.5); LYMPH # 3.4 10^3/uL (1.5-5.0); LYMPH % 39.5 % (24.0-44.0); MEAN CORPUSCULAR HEMOGLOBIN 29.4 pg (27.0-33.0); MEAN CORPUSCULAR HGB CONC 32.3 g/dl (32.0-36.5); MEAN CORPUSCULAR VOLUME 91.1 fl (80.0-96.0); MONO # 0.7 10^3/uL (0.0-0.8); MONO % 7.9 % (2.0-8.0); NEUTROPHILS # 3.8 10^3/uL (1.5-8.5); NEUTROPHILS % 44.5 % (36.0-66.0); PLATELET COUNT, AUTOMATED 288 10^3/uL (150-450); RED BLOOD COUNT 4.62 10^6/uL (4.30-6.10); WHITE BLOOD COUNT 8.6 10^3/uL (4.0-10.0)
[2025-01-25 12:12] LABS: ERYTHROCYTE SEDIMENTATION RATE 1 mm/hr (0-20)
[2025-01-25 12:27] LABS: INR 2.72; PROTHROMBIN TIME 28.8 SECONDS (12.5-14.5)
[2025-01-25 12:39] LABS: PSA SCREENING 1.13 NG/ML (< 4.00)
[2025-01-25 12:42] LABS: ALBUMIN 3.7 G/DL (3.2-5.2); ALKALINE PHOSPHATASE 90 U/L (40-129); ALT/SGPT 14 U/L (7.0-40); AST/SGOT 16 U/L (<34); BILIRUBIN,TOTAL 0.5 MG/DL (0.3-1.2); BLOOD UREA NITROGEN 9 MG/DL (9-23); C REACTIVE PROTEIN QUANTITATIV < 0.50 MG/DL (<1.0); CALCIUM LEVEL 8.8 MG/DL (8.3-10.6); CARBON DIOXIDE LEVEL 31 MMOL/L (20-31); CHLORIDE LEVEL 108 MMOL/L (98-107); CHOLESTEROL LEVEL 109 MG/DL (<200); CHOLESTEROL RISK RATIO 2.67 (<5); CREATININE FOR GFR 1.36 MG/DL (0.70-1.30); FREE T4 1.14 NG/DL (0.89-1.76); GLOMERULAR FILTRATION RATE 55.2 (>42); GLUCOSE, FASTING 90 MG/DL (74-106); HDL CHOLESTEROL 40.7 MG/DL (>40); LDL CHOLESTEROL 42.7 MG/DL (<100); NON-HDL-C 68.3 MG/DL; POTASSIUM SERUM 4.3 MMOL/L (3.5-5.1); SODIUM LEVEL 144 MMOL/L (136-145); TOTAL PROTEIN 6.5 G/DL (5.7-8.2); TRIGLYCERIDES LEVEL 128 MG/DL (<150)
[2025-01-25 12:44] LABS: FERRITIN 18.6 NG/ML (10.5-307.3); THYROID STIMULATING HORMONE 4.085 uIU/ML (0.55-4.78); TOTAL 25(OH) VITAMIN D 79.7 NG/ML (20.0-100.0); VITAMIN B12 LEVEL 411 PG/ML (211-911)
[2025-01-25 13:25] LABS: HEMOGLOBIN A1c 5.2 % (4.0-6.0)
== END ==
LOC: M WUC 10:07
PROVIDERS: ATTEND Family Medicine
DX: D50.9 Iron deficiency anemia, unspecified (principal); E03.9 Hypothyroidism, unspecified; I82.509 Chronic embolism and thrombosis of unspecified deep veins of unspecified lower extremity; M47.22 Other spondylosis with radiculopathy, cervical region; E78.5 Hyperlipidemia, unspecified; Z12.5 Encounter for screening for malignant neoplasm of prostate; E55.9 Vitamin D deficiency, unspecified; N18.31 Chronic kidney disease, stage 3a; R73.01 Impaired fasting glucose; M47.816 Spondylosis without myelopathy or radiculopathy, lumbar region

== ENCOUNTER → 2025-01-26 | Outpatient (CLI) | payer MEDICARE, BC | LOC: M PLAIMG 15:32 | PROVIDERS: ATTEND Family Medicine | DX: M47.816 Spondylosis without myelopathy or radiculopathy, lumbar region (principal) ==

== ENCOUNTER → 2025-03-22 | Outpatient (CLI) | payer MEDICARE, BC ==
[2025-03-22 17:16] LABS: INR 3.66
== END ==
LOC: M WUC 12:47
PROVIDERS: ATTEND Family Medicine
DX: I82.509 Chronic embolism and thrombosis of unspecified deep veins of unspecified lower extremity (principal)

== ENCOUNTER → 2025-05-25 | Outpatient (CLI) | payer MEDICARE, BC ==
[2025-05-25 12:04] LABS: INR 2.07
== END ==
LOC: M WUC 09:49
PROVIDERS: ATTEND Family Medicine
DX: I82.509 Chronic embolism and thrombosis of unspecified deep veins of unspecified lower extremity (principal)

== ENCOUNTER → 2025-07-11 | Outpatient (CLI) | payer MEDICARE, BC ==
[~2025-07-11] MED LIST changes: +CEFP200T PO
[2025-07-11 17:32] LABS: INR 2.18
== END ==
LOC: M WUC 15:51
PROVIDERS: ATTEND Family Medicine
DX: I82.509 Chronic embolism and thrombosis of unspecified deep veins of unspecified lower extremity (principal); Z79.01 Long term (current) use of anticoagulants

== ENCOUNTER → 2025-08-31 | Outpatient (CLI) | payer MEDICARE, BC ==
[~2025-08-31] MED LIST changes: +ZOLP10TA11 PO; -ZOLP10TA2 PO
[2025-08-31 12:14] LABS: BASO # 0.0 10^3/uL (0.0-0.2); BASO % 0.5 % (0.0-1.0); EOS # 0.6 10^3/uL (0.0-0.5); EOS % 7.3 % (0.0-3.0); LYMPH # 2.8 10^3/uL (1.5-5.0); LYMPH % 31.6 % (24.0-44.0); MONO # 0.7 10^3/uL (0.0-0.8); MONO % 8.4 % (2.0-8.0); NEUTROPHILS # 4.5 10^3/uL (1.5-8.5); NEUTROPHILS % 51.7 % (36.0-66.0); PLATELET COUNT, AUTOMATED 313 10^3/uL (150-450)
[2025-08-31 12:40] LABS: INR 2.19
[2025-08-31 12:44] LABS: ESTIMATED AVERAGE GLUCOSE 117.0 MG/DL (60-110)
[2025-08-31 12:48] LABS: ALT/SGPT 13 U/L (7.0-40); AST/SGOT 21 U/L (<34); C REACTIVE PROTEIN QUANTITATIV < 0.50 MG/DL (<1.0); CALCIUM LEVEL 8.8 MG/DL (8.3-10.6); CARBON DIOXIDE LEVEL 29 MMOL/L (20-31); CHLORIDE LEVEL 103 MMOL/L (98-107); CHOLESTEROL LEVEL 121 MG/DL (<200); CHOLESTEROL RISK RATIO 2.49 (<5); CREATININE FOR GFR 1.29 MG/DL (0.70-1.30); GLOMERULAR FILTRATION RATE 59.3 (>42); LDL CHOLESTEROL 52.9 MG/DL (<100); NON-HDL-C 72.5 MG/DL; POTASSIUM SERUM 4.3 MMOL/L (3.5-5.1); PSA SCREENING 2.31 NG/ML (< 4.00); PTH INTACT 99.6 PG/ML (18.5-88.0); SODIUM LEVEL 139 MMOL/L (136-145); TOTAL 25(OH) VITAMIN D 73.1 NG/ML (20.0-100.0); TRIGLYCERIDES LEVEL 98 MG/DL (<150)
[2025-08-31 12:50] LABS: FREE T4 1.27 NG/DL (0.89-1.76); VITAMIN B12 LEVEL 303 PG/ML (211-911)
== END ==
LOC: M WUC 10:13
PROVIDERS: ATTEND Family Medicine
DX: D50.9 Iron deficiency anemia, unspecified (principal); N18.31 Chronic kidney disease, stage 3a; M47.22 Other spondylosis with radiculopathy, cervical region; M47.816 Spondylosis without myelopathy or radiculopathy, lumbar region; E03.9 Hypothyroidism, unspecified; R73.01 Impaired fasting glucose; E78.5 Hyperlipidemia, unspecified; Z12.5 Encounter for screening for malignant neoplasm of prostate; E55.9 Vitamin D deficiency, unspecified; I82.509 Chronic embolism and thrombosis of unspecified deep veins of unspecified lower extremity; K75.81 Nonalcoholic steatohepatitis (NASH)
CPT/HCPCS: 36415; 80053; 80061; 81517; 82306; 82607; 82728; 83036; 83970; 84439; 84443; 85025; 85610; 85652; 85730; 86140; G0103

== ENCOUNTER → 2025-10-24 | Outpatient (CLI) | payer MEDICARE, BC ==
[2025-10-24 14:17] LABS: INR 2.17
== END ==
LOC: M WUC 11:46
PROVIDERS: ATTEND Family Medicine
DX: Z79.01 Long term (current) use of anticoagulants (principal)